=== PATIENT | male | born 1935 | race Caucasian/White ===

== ENCOUNTER → 2016-11-23 | Outpatient (CLI) | payer BC ==
[~2016-11-23] MED LIST: ASPEC325 PO; ASPI325T39 PO; CHOL1000 PO; CLOP1TAB5 PO; LPT40 PO; METO25TA56 PO; MULT-506 PO; NXM/40 PO; OXYC5TAB PO; PLV75 PO; PRAV20TA PO; PRVC10 PO
--- NOTE | 2016-11-23 14:41 | DIAGNOSTIC IMAGING REPORT ---
L-SPINE MIN 4 VIEWS ROUTINE CLINICAL HISTORY: Lower back pain radiating into lower extremities. Lumbar spine stenosis. COMPARISON: None FINDINGS: There is mild levoscoliosis of the lumbar spine and slight anterolisthesis of L4 and L5. There is no fracture or suspicious lesion. 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 Sacroiliac joints are intact. IMPRESSION: 1. No acute lumbar spine fracture or subluxation. 2. [id number] multilevel degenerative disc disease and facet arthrosis of the lumbar spine. 3. Mild levoscoliosis of the lumbar spine. Electronically signed by: Dylan Alvarez M.D. 11/23/2016 2:38 PM Dictated Date/Time: 11/23/2016 2:37 PM
== END | disposition home or self-care (01) ==
LOC: C.RAD 13:41
PROVIDERS: ATTEND Family Medicine
DX: M48.06 Spinal stenosis, lumbar region (principal)

== ENCOUNTER 2017-01-06 11:33 | Inpatient (IN) | payer BC, OTHER ==
[~2017-01-06] VITALS: Ht 180.3 cm; Wt 69.9 kg
[~2017-01-06 11:33] MED LIST changes: -ASPI325T39 PO; -CHOL1000 PO; -CLOP1TAB5 PO; -LPT40 PO; -PLV75 PO; -PRVC10 PO
[2017-01-06] MEDS ORDERED: ASPI325T39 PO (12:09)
[2017-01-06] MEDS ORDERED: CHOL1000 PO (12:10)
[2017-01-06] MEDS ORDERED: SODIUM CHLORIDE 0.9% 1000ML 1,000 ML IV STA (12:26)
[2017-01-06] MEDS ORDERED: MECLIZINE HCL 25 MG TAB PO STA (12:26)
[2017-01-06] MEDS ORDERED: METOCLOPRAMIDE HCL INJ 5 MG/ML 2 ML VIAL IV STA (12:26)
[2017-01-06] MEDS ORDERED: PRVC10 PO (12:27)
--- NOTE | 2017-01-06 12:27 | EMERGENCY ROOM VISIT NOTE ---
History Report prepared by Júnior: Jennifer Fowler Under the Supervision of: Dr. Sammy Messer M.D. First contact with patient: 12:08 Chief Complaint: SYNCOPE (NEAR SYNCOPE) Stated Complaint: GENERALIZED WEAKNESS Nursing Triage Summary: Patient experienced an episode of syncope this date, which he has a history of. This episode started as dizziness. patient then sat on ground, syncopized, resulting in him to hit his head off of washer in front of him. Negative lacerations/abrasions. Patient reported as having emesis X 2 prior to EMS arrival. Patient given NSS 500 ml bolus, and zofran 4 mg IVP by EMS. Patient c/c of "just feeling tired and week." History of Present Illness The patient is a 81 year old male who presents to the Emergency Room with complaints of an episode of syncope beginning 2 hours ago. The patient states that he ate breakfast this morning and was feeling dizzy afterwards but thought it would go away. He reports that it did not go away and he felt as though he might pass out so he sat on a bench before he lost consciousness and hit his head on a washer. He complains of vomiting, weakness, constant dizziness, numbness across his body, and a right sided headache where he hit his head. He denies taking any blood thinners and states that nothing makes his dizziness better or worse. The patient notes that he has a history of this kind of dizziness but it went away before. He reports that he saw his doctor for the dizziness and also sees a facility designer and got a replacement valve in 8 years ago. He states that he takes Aspirin and Metoprolol but notes that he did not take them this morning. Source of History: patient Onset: 2 hours ago Position: other (global) Quality: other (syncope) Timing: other (episode) Associated Symptoms: + headache, + numbness, + vomiting, + weakness Note: He complains of constant dizziness. Review of Systems See HPI for pertinent positives & negatives. A total of 10 systems reviewed and were otherwise negative. Past Medical & Surgical Medical Problems: (1) Hypertension Surgical Problems: (1) Heart valve replaced Family History No pertinent family history stated. Social History Smoking Status: Former Smoker Marital Status: Occupation Status: retired Current/Historical Medications Scheduled Aspirin (Aspirin Ec), 325 MG PO DAILY Cholecalciferol (Vitamin D3), 1 TAB PO BID Pravastatin Sod (Pravastatin Sodium), 1 TAB PO HS Allergies Coded Allergies: Penicillins (Verified Allergy, Intermediate, 01/06/17) Physical Exam Vital Signs Date Time Temp Pulse Resp B/P Pulse Ox O2 Delivery O2 Flow Rate FiO2 01/06/17 14:33 57 11 95 01/06/17 14:03 57 13 95 01/06/17 14:01 121/72 01/06/17 13:33 59 19 01/06/17 13:03 60 19 99 01/06/17 13:02 121/71 01/06/17 12:45 152/74 01/06/17 12:43 60 16 121/68 100 Room Air 60 138/83 73 152/74 01/06/17 12:43 138/83 01/06/17 12:42 121/68 01/06/17 12:36 59 20 133/78 100 Room Air 01/06/17 12:35 100 Room Air 01/06/17 12:33 61 19 01/06/17 12:33 60 01/06/17 12:31 133/78 01/06/17 12:03 57 17 100 01/06/17 11:44 36.4 65 18 132/80 98 Room Air 01/06/17 11:44 36.4 01/06/17 11:44 99 Room Air 01/06/17 11:41 132/80 Physical Exam GENERAL: Patient is a healthy-appearing well-nourished HEAD: Normocephalic atraumatic EYES: Ocular movements intact pupils equal and react to light OROPHARYNX mucous membranes are moist no exudates present no erythema or edema present NECK: Supple no nuchal rigidity CHEST: Good equal expansion LUNGS: Clear and equal to auscultation CARDIAC: Normal S1 and S2 ABDOMEN: Soft nontender no guarding BACK: No CVA tenderness EXTREMITIES: No pain upon palpation normal muscle strength in all groups no clubbing cyanosis or edema NEURO: Patient is following commands is answering questions appropriately. Alert and oriented x3 Cranial Nerves 2-12 grossly intact Medical Decision & Procedures ER Provider Diagnostic Interpretation: Radiology results as stated below per my review and radiologist interpretation: CHEST ONE VIEW PORTABLE FINDINGS: Prior median sternotomy. Lungs are clear. Diaphragms are smooth. There are no focal infiltrates. IMPRESSION: No acute process. Electronically signed by: John Davidson M.D. 01/06/2017 1:14 PM Dictated Date/Time: 01/06/2017 1:13 PM HEAD CTA FINDINGS: There is no mass, hematoma, midline shift, or acute infarct. Visualized intracranial internal carotid arteries, distal vertebral arteries, and basilar artery are widely patent. There is no significant stenosis, occlusion, or aneurysm seen within the bilateral ACAs, MCAs, or bobbin presser. Severely hypoplastic distal right vertebral artery. Multiple large partially calcified scalp lesions. Dominant lesion measures 4.2 cm. Lacunar infarct within the right thalamus. A few scattered hypodense foci seen within the periventricular white matter which favor mild compression ischemic change. IMPRESSION: No significant stenosis, occlusion, or aneurysm within the [place]. Partially calcified scalp lesions. Electronically signed by: Mushtaq Erazo M.D. 01/06/2017 2:03 PM Dictated Date/Time: 01/06/2017 1:[address] NONCONTRAST Findings: The paranasal sinuses and mastoid air cells are clear. The calvarium and skull base are intact. The ventricles and sulci are within normal limits. There is no mass, hematoma, midline shift, or acute infarct. Extracranial soft tissue lipomas. Impression: No acute intracranial abnormality. Electronically signed by: John Davidson M.D. 01/06/2017 1:33 PM Dictated Date/Time: 01/06/2017 1:31 PM Laboratory Results 01/06/17 12:30 Red Blood Count 4.55, Mean Corpuscular Volume 91.9, Mean Corpuscular Hemoglobin 32.1, Mean Corpuscular Hemoglobin Concent 34.9, Mean Platelet Volume 9.1, Neutrophils (%) (Auto) 83.2, Lymphocytes (%) (Auto) 7.5, Monocytes (%) (Auto) 8.3, Eosinophils (%) (Auto) 0.7, Basophils (%) (Auto) 0.1, Neutrophils # (Auto) 11.14, Lymphocytes # (Auto) 1.00, Monocytes # (Auto) 1.11, Eosinophils # (Auto) 0.09, Basophils # (Auto) 0.02 01/06/17 12:30 Test 01/06/17 00:00 01/06/17 12:26 01/06/17 12:30 Urine Color YELLOW Urine Appearance CLEAR (CLEAR) Urine pH >= 9.0 (4.5-7.5) Urine Specific [place] 1.044 (1.000-1.030) Urine Protein NEG (NEG) Urine Glucose (UA) NEG (NEG) Urine Ketones TRACE (NEG) Urine Occult Blood NEG (NEG) Urine Nitrite NEG (NEG) Urine Bilirubin NEG (NEG) Urine Urobilinogen NEG (NEG) Urine Leukocyte Esterase NEG (NEG) Bedside Glucose 100 mg/dl (70-99) White Blood Count 13.39 K/uL (4.8-10.8) Red Blood Count 4.55 M/uL (4.7-6.1) Hemoglobin 14.6 g/dL (14.0-18.0) Hematocrit 41.8 % (42-52) Mean Corpuscular Volume 91.9 fL (80-100) Mean Corpuscular Hemoglobin 32.1 pg (25-34) Mean Corpuscular Hemoglobin Concent 34.9 g/dl (32-36) Platelet Count 148 K/uL (130-400) Mean Platelet Volume 9.1 fL (7.4-10.4) Neutrophils (%) (Auto) 83.2 % Lymphocytes (%) (Auto) 7.5 % Monocytes (%) (Auto) 8.3 % Eosinophils (%) (Auto) 0.7 % Basophils (%) (Auto) 0.1 % Neutrophils # (Auto) 11.14 K/uL (1.4-6.5) Lymphocytes # (Auto) 1.00 K/uL (1.2-3.4) Monocytes # (Auto) 1.11 K/uL (0.11-0.59) Eosinophils # (Auto) 0.09 K/uL (0-0.5) Basophils # (Auto) 0.02 K/uL (0-0.2) RDW Standard Deviation 43.1 fL (36.4-46.3) RDW Coefficient of Variation 12.9 % (11.5-14.5) Immature Granulocyte % (Auto) 0.2 % Immature Granulocyte # (Auto) 0.03 K/uL (0.00-0.02) Anion Gap 8.0 mmol/L (3-11) Est Creatinine Clear Calc Drug Dose 66.3 ml/min Estimated GFR () 88.9 Estimated GFR (Non- 76.7 BUN/Creatinine Ratio 14.2 (10-20) Calcium Level 8.8 mg/dl (8.5-10.1) Total Bilirubin 0.8 mg/dl (0.2-1) Direct Bilirubin 0.2 mg/dl (0-0.2) Aspartate Amino Transf (AST/SGOT) 26 U/L (15-37) Alanine Aminotransferase (ALT/SGPT) 32 U/L (12-78) Alkaline Phosphatase 75 U/L (45-117) Total Creatine Kinase 241 U/L (39-308) Creatine Kinase MB 8.6 ng/ml (0.5-3.6) Creatine Kinase MB Ratio 3.6 (0-3.0) Troponin I < 0.015 ng/ml (0-0.045) Total Protein 6.8 gm/dl (6.4-8.2) Albumin 3.9 gm/dl (3.4-5.0) Triglycerides Level 67 mg/dl (0-150) Cholesterol Level 154 mg/dl (0-200) HDL Cholesterol 44 mg/dl LDL Cholesterol, Calculated 97 mg/dl VLDL Cholesterol, Calculated 13 mg/dl Cholesterol/HDL Ratio 3.5 Thyroid Stimulating Hormone (TSH) 1.560 uIu/ml (0.300-4.500) Labs reviewed by ED physician. Medications Administered Medications (Trade) Dose Ordered Sig/Jamie Route Start Time Stop Time Status Last Admin Dose Admin Sodium Chloride (Nss 1000ml) 1,000 ml @ 999 mls/hr Q1H1M STAT IV 01/06/17 12:26 01/06/17 13:26 DC 01/06/17 12:50 999 MLS/HR Meclizine HCl (Antivert Tab) 25 mg NOW STAT PO 01/06/17 12:26 01/06/17 12:30 DC 01/06/17 13:27 25 MG Metoclopramide HCl (Reglan Inj) 10 mg NOW STAT IV 01/06/17 12:26 01/06/17 12:30 DC 01/06/17 12:50 10 MG ECG Indication: syncope Rate (beats per minute): 58 Rhythm: sinus bradycardia Findings: LAFB, no acute ischemic change, no ectopy Comparison ECG Date: 07/01/13 Change: no significant change ED Course 1208: Past medical records reviewed. The patient was evaluated in room C4. A complete history and physical examination was performed. 1226: Reglan Inj 10mg IV, Antivert Tab 25mg PO, Sodium Chloride 1000 ml @ 999 mls/hr IV. 1431: I discussed the patient's case with Dr. Escudero of [facility], he has agreed to evaluate the patient for further management and care. 1442: Upon reexamination the patient is doing well. I discussed results and treatment plan with the patient. He verbalizes agreement and understanding. I spoke with Dr. Escudero from the [facility] Hospitalist Service. The patient will be evaluated for further management. Medical Decision Differential diagnosis: Etiologies such as metabolic, infection, hypo/hyperglycemia, electrolyte abnormalities, cardiac sources, intracerebral event, toxicologic, neurologic, as well as others were entertained. This is an 81-year-old male who presents emergency department complaining of generalized dizziness. The patient had sudden onset of dizziness today and is still complaining of dizziness. He then had a syncopal episode. Patient reports she has had dizzy episodes in the past however nothing this severe. He was given meclizine in the emergency department with no relief of symptoms. Based on the patient's past medical history as well as his current complaint he was sent for CAT scan of the head along with a CTA. This was concerning for an old lacunar infarct. I did discuss the patient with the hospitalist service who agreed to admit the patient. Patient and family were in agreement with the treatment plan. Consults Time Called: 1426 Consulting Physician: Dr. Escudero - [facility] Returned Call: [phone] I discussed the patient's case with Dr. Escudero, he has agreed to evaluate the patient for further management and care. Impression Primary Impression: Syncope Additional Impression: Dizziness Scribe Attestation The scribe's documentation has been prepared under my direction and personally reviewed by me in its entirety. I confirm that the note above accurately reflects all work, treatment, procedures, and medical decision making performed by me. Departure Information Dispostion Being Evaluated By Hospitalist Referrals Anju Gonzalez M.D. (PCP) Patient Instructions My [facility] Problem Qualifiers Primary Impression: Syncope Syncope type: unspecified Qualified Codes: R55 - Syncope and collapse
[2017-01-06 12:38] LABS: BASO % 0.1 %; BASO ABS # 0.02 K/uL (0-0.2); COMPLETE YES; EOS % 0.7 %; HEMATOCRIT 41.8 % (42-52); IG% 0.2 %; LYMPH % 7.5 %; MEAN CELL VOLUME 91.9 fL (80-100); MEAN CORPUSCULAR HEMOGLOBIN 32.1 pg (25-34); MEAN CORPUSCULAR HGB CONC 34.9 g/dl (32-36); MEAN PLATELET VOLUME 9.1 fL (7.4-10.4); MONO % 8.3 %; NEUT % 83.2 %; PLATELET COUNT 148 K/uL (130-400); RED BLOOD COUNT 4.55 M/uL (4.7-6.1); WHITE BLOOD COUNT 13.39 K/uL (4.8-10.8)
[2017-01-06] MEDS ORDERED: OPTIRAY 320 IV PRN (12:45)
[2017-01-06 12:57] LABS: ALT/SGPT 32 U/L (12-78); AST/SGOT 26 U/L (15-37); BLOOD UREA NITROGEN 13 mg/dl (7-18); BUN/CREATININE RATIO 14.2 (10-20); CALCIUM 8.8 mg/dl (8.5-10.1); CARBON DIOXIDE 27 mmol/L (21-32); CHLORIDE 109 mmol/L (98-107); CREATININE 0.93 mg/dl (0.60-1.40); GLUCOSE 111 mg/dl (70-99); POTASSIUM 4.2 mmol/L (3.5-5.1); SODIUM 144 mmol/L (136-145)
[2017-01-06 13:07] LABS: ALKALINE PHOSPHATASE 75 U/L (45-117); CKMB/CK RATIO 3.6 (0-3.0)
--- NOTE | 2017-01-06 13:16 | DIAGNOSTIC IMAGING REPORT ---
CHEST ONE VIEW PORTABLE CLINICAL HISTORY: Pt c/o dizziness mental status change COMPARISON STUDY: 06/27/2013 FINDINGS: Prior median sternotomy. Lungs are clear. Diaphragms are smooth. There are no focal infiltrates. IMPRESSION: No acute process. Electronically signed by: John Davidson M.D. 01/06/2017 1:14 PM Dictated Date/Time: 01/06/2017 1:13 PM
--- NOTE | 2017-01-06 13:35 | DIAGNOSTIC IMAGING REPORT ---
HEAD CT NONCONTRAST CT DOSE: HISTORY: Mental status change Pt c/o dizziness TECHNIQUE: Multiaxial CT images of the head were performed without the use of intravenous contrast. Comparison: None. Findings: The paranasal sinuses and mastoid air cells are clear. The calvarium and skull base are intact. The ventricles and sulci are within normal limits. There is no mass, hematoma, midline shift, or acute infarct. Extracranial soft tissue lipomas. Impression: No acute intracranial abnormality. Electronically signed by: John Davidson M.D. 01/06/2017 1:33 PM Dictated Date/Time: 01/06/2017 1:31 PM
--- NOTE | 2017-01-06 14:04 | DIAGNOSTIC IMAGING REPORT ---
HEAD CTA HISTORY: Dizziness. Weakness. TECHNIQUE: Multiaxial CT images of the head were performed both before and after the intravenous administration of contrast to evaluate the major cerebral vessels. Maximum intensity projection images were also obtained. COMPARISON: None. FINDINGS: There is no mass, hematoma, midline shift, or acute infarct. Visualized intracranial internal carotid arteries, distal vertebral arteries, and basilar artery are widely patent. There is no significant stenosis, occlusion, or aneurysm seen within the bilateral ACAs, MCAs, or forklift technician. Severely hypoplastic distal right vertebral artery. Multiple large partially calcified scalp lesions. Dominant lesion measures 4.2 cm. Lacunar infarct within the right thalamus. A few scattered hypodense foci seen within the periventricular white matter which favor mild compression ischemic change. IMPRESSION: No significant stenosis, occlusion, or aneurysm within the [place]. Partially calcified scalp lesions. Electronically signed by: Mushtaq Erazo M.D. 01/06/2017 2:03 PM Dictated Date/Time: 01/06/2017 1:54 PM
[2017-01-06] MEDS ORDERED: ONDANSETRON INJ 2 MG/ML 2 ML VIAL IV PRN (15:15)
[2017-01-06] MEDS ORDERED: ALUMINUM/MAGNESIUM/SIMETH (MAALOX MAX) 30 ML UDC PO PRN (15:15)
[2017-01-06] MEDS ORDERED: ACETAMINOPHEN 325 MG TAB PO PRN (15:15)
[2017-01-06 15:19] LABS: URINE APPEARANCE CLEAR (CLEAR); URINE BILIRUBIN NEG (NEG); URINE COLOR YELLOW; URINE NITRITE NEG (NEG); URINE PH >= 9.0 (4.5-7.5); URINE SPECIFIC GRAVITY 1.044 (1.000-1.030); UROBILINOGEN NEG (NEG)
[2017-01-06 15:22] LABS: MANUAL MICROSCOPIC REQUIRED? NO; REVIEW REQ? NO
--- NOTE | 2017-01-06 15:30 | History and Physical ---
History & Physical Date & Time of Service: January 06, 2017 at 15:18 Chief Complaint: Generalized Weakness Primary Care Physician: Anju Gonzalez M.D. History of Present Illness Source: patient The patient is a 81 yo male who presents to the ER with complaints of an episode of ? syncope beginning this AM. Pt reports feeling increasingly dizzy since this AM. He denies any vertigo, sob, fevers, chills, chest pain. reports that he was able to sit on a bench and that he did lean over and strike his head on the washer. Patient and family unsure of whether he actually passed out. Pt reports dizziness improved upon arrival to ER. Pt does note having some congestion and headache for past few days as well. pt has hx of AVR about 8 yrs ago in which he routinely follows up with Dr Dyson for evaluation. . Past Medical/Surgical History Medical Problems: (1) Hypertension Status: Chronic Surgical Problems: (1) Heart valve replaced Status: Resolved Social History Smoking Status: Former Smoker Smokeless Tobacco Use: No Drug Use: none Marital Status: Occupational Status: retired Immunizations History of Influenza Vaccine: Yes Influenza Vaccine Date: Jun 04, 2009 History of Tetanus Vaccine?: Yes Tetanus Immunization Date: Dec 04, 1999 History of Pneumococcal: Yes Pneumococcal Date: Sep 04, 1999 History of Hepatitis B Vaccine: Yes Multi-Drug Resistant Organisms History of MDRO: No Allergies Coded Allergies: Penicillins (Verified Allergy, Intermediate, 01/06/17) Home Medications Scheduled Aspirin (Aspirin Ec), 325 MG PO DAILY Cholecalciferol (Vitamin D3), 1 TAB PO BID Pravastatin Sod (Pravastatin Sodium), 1 TAB PO HS Review of Systems Constitutional: + fatigue, No chills, No fever, No weakness Eyes: No eye pain, No worsening of vision ENT: + nasal symptoms, No hearing loss, No sore throat, No tinnitus, No unusual epistaxis Respiratory: No cough, No sputum, No wheezing Cardiovascular: No chest pain, No orthopnea Abdomen: No diarrhea, No nausea, No pain, No vomiting Musculoskeletal: No joint pain, No muscle pain, No swelling Genitourinary - Male: No dysuria, No hematuria, No urinary frequency, No urinary urgency Neurologic: + numbness/tingling (bilateral feet), No paralysis Psychiatric: No anxiety, No depression symptoms Endocrine: No excessive thirst, No fatigue Integumentary: No itch, No rash Physical Exam Vital Signs Date Time Temp Pulse Resp B/P Pulse Ox O2 Delivery O2 Flow Rate FiO2 01/06/17 14:33 57 11 95 01/06/17 14:03 57 13 95 01/06/17 14:01 121/72 01/06/17 13:33 59 19 01/06/17 13:03 60 19 99 01/06/17 13:02 121/71 01/06/17 12:45 152/74 01/06/17 12:43 60 16 121/68 100 Room Air 60 138/83 73 152/74 01/06/17 12:43 138/83 01/06/17 12:42 121/68 01/06/17 12:36 59 20 133/78 100 Room Air 01/06/17 12:35 100 Room Air 01/06/17 12:33 61 19 01/06/17 12:33 60 01/06/17 12:31 133/78 01/06/17 12:03 57 17 100 01/06/17 11:44 36.4 65 18 132/80 98 Room Air 01/06/17 11:44 36.4 01/06/17 11:44 99 Room Air 01/06/17 11:41 132/80 General Appearance: WD/WN, no apparent distress Head: normocephalic, atraumatic Eyes: normal inspection, PERRL, EOMI Neck: supple, no adenopathy Respiratory/Chest: chest non-tender, lungs clear, normal breath sounds Cardiovascular: regular rate, rhythm, no edema, no gallop, no JVD Abdomen/GI: normal bowel sounds, non tender, soft, no organomegaly Back: normal inspection, no CVA tenderness, no muscle spasm, normal range of motion Extremities/Musculoskelatal: normal inspection, normal capillary refill, no pedal edema, normal range of motion Neurologic/Psych: alert, normal mood/affect, normal reflexes, oriented x 3 Skin: normal color, warm/dry, no rash Diagnostics Laboratory Results Results Past 24 Hours Test 01/06/17 00:00 01/06/17 12:26 01/06/17 12:30 Range/Units Bedside Glucose 100 70-99 mg/dl White Blood Count 13.39 4.8-10.8 K/uL Red Blood Count 4.55 4.7-6.1 M/uL Hemoglobin 14.6 14.0-18.0 g/dL Hematocrit 41.8 42-52 % Mean Corpuscular Volume 91.9 80-100 fL Mean Corpuscular Hemoglobin 32.1 25-34 pg Mean Corpuscular Hemoglobin Concent 34.9 32-36 g/dl Platelet Count 148 130-400 K/uL Mean Platelet Volume 9.1 7.4-10.4 fL Neutrophils (%) (Auto) 83.2 % Lymphocytes (%) (Auto) 7.5 % Monocytes (%) (Auto) 8.3 % Eosinophils (%) (Auto) 0.7 % Basophils (%) (Auto) 0.1 % Neutrophils # (Auto) 11.14 1.4-6.5 K/uL Lymphocytes # (Auto) 1.00 1.2-3.4 K/uL Monocytes # (Auto) 1.11 0.11-0.59 K/uL Eosinophils # (Auto) 0.09 0-0.5 K/uL Basophils # (Auto) 0.02 0-0.2 K/uL RDW Standard Deviation 43.1 36.4-46.3 fL RDW Coefficient of Variation 12.9 11.5-14.5 % Immature Granulocyte % (Auto) 0.2 % Immature Granulocyte # (Auto) 0.03 0.00-0.02 K/uL Sodium Level 144 136-145 mmol/L Potassium Level 4.2 3.5-5.1 mmol/L Chloride Level 109 98-107 mmol/L Carbon Dioxide Level 27 21-32 mmol/L Anion Gap 8.0 3-11 mmol/L Blood Urea Nitrogen 13 7-18 mg/dl Creatinine 0.93 0.60-1.40 mg/dl Est Creatinine Clear Calc Drug Dose 66.3 ml/min Estimated GFR () 88.9 Estimated GFR (Non- 76.7 BUN/Creatinine Ratio 14.2 10-20 Random Glucose 111 70-99 mg/dl Calcium Level 8.8 8.5-10.1 mg/dl Total Bilirubin 0.8 0.2-1 mg/dl Direct Bilirubin 0.2 0-0.2 mg/dl Aspartate Amino Transf (AST/SGOT) 26 15-37 U/L Alanine Aminotransferase (ALT/SGPT) 32 12-78 U/L Alkaline Phosphatase 75 45-117 U/L Total Creatine Kinase 241 39-308 U/L Creatine Kinase MB 8.6 0.5-3.6 ng/ml Creatine Kinase MB Ratio 3.6 0-3.0 Troponin I < 0.015 0-0.045 ng/ml Total Protein 6.8 6.4-8.2 gm/dl Albumin 3.9 3.4-5.0 gm/dl Thyroid Stimulating Hormone (TSH) 1.560 0.300-4.500 uIu/ml Impression Assessment and Plan Pt is a 81 yo male with hx of AVR 8 yrs ago, dyslipidemia and vitamin D def who presents with increasing dizziness and ?syncopal episode that started earlier this AM Dizziness with ?syncope, due to hx of AVR, will cont to trend trops and cont on BB when pulse in appropriate range. Will obtain ECHO as well. Pt reports improvement in sx already. 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 Will obtain MRI/MRA to further evaluate. No hemorrhage visualized on CT head. ?if dizziness also from allergies vs sinus issues. If worsening can reevaluate. Orthostatics unremarkable. Will obtain HgA1c and lipid panel. PT/OT consulted Dyslipidemia - Cont statin Pt is FULL CODE VTE Prophylaxis VTE Risk Assessment Done? Y/N: Yes Risk Level: Moderate
[2017-01-06 16:47] LABS: CHOLESTEROL/HDL RATIO 3.5
[2017-01-06 17:20] VITALS: BP 146/76; PULSE 64; TEMP 36.9; O2SAT 99; Ht 180.3 cm; Wt 69.9 kg
[2017-01-06 19:11] LABS: INR 1.1 (0.9-1.1); PROTHROMBIN TIME (PATIENT) 11.5 SECONDS (9.0-12.0)
[2017-01-06 19:27] VITALS: BP_SYST 124; BP_SYST 138; BP_SYST 161; BP_DIAS 67; BP_DIAS 80; BP_DIAS 83; PULSE 64; PULSE 65; PULSE 76; TEMP 36.9; O2SAT 96
[2017-01-06] MEDS ORDERED: GADAVIST IV PRN (22:45)
[2017-01-06] MEDS: HEPARIN SOD 5000 UNIT/0.5 ML CARP SQ SCH (22:54)
[2017-01-06 22:59] VITALS: BP_SYST 140; BP_SYST 142; BP_DIAS 78; BP_DIAS 80; BP_DIAS 82; PULSE 64; PULSE 71; PULSE 73; TEMP 36.8; O2SAT 95
--- NOTE | 2017-01-06 23:15 | DIAGNOSTIC IMAGING REPORT ---
MRA OF THE NECK WITH AND WITHOUT CONTRAST CLINICAL HISTORY: Syncope. Dizziness. COMPARISON STUDY: Carotid ultrasound May 01, 2010. TECHNIQUE: Unenhanced and contrast-enhanced MRA of the neck was performed. Injection of 7.6 mL of Gadavist IV was uneventful. NASCET criteria were utilized to estimate the degree of carotid stenosis. FINDINGS: The bilateral common carotid and internal carotid arteries are patent. There is mild irregularity within the proximal right internal carotid artery without significant stenosis. The left vertebral artery is dominant and patent. The right vertebral artery is hypoplastic. This vessel is suboptimally assessed due to its small size and mild motion artifact. There is no evidence for dissection within the major vasculature of the neck. IMPRESSION: 1. No significant stenosis of the bilateral internal carotid and common carotid arteries. 2. Patent, dominant left vertebral artery with diminutive, hypoplastic right vertebral artery. Electronically signed by: Dylan Alvarez M.D. 01/06/2017 11:14 PM Dictated Date/Time: 01/06/2017 11:08 PM
--- NOTE | 2017-01-06 23:16 | DIAGNOSTIC IMAGING REPORT ---
MRI OF THE BRAIN WITHOUT AND WITH IV CONTRAST CLINICAL HISTORY: Syncope. Dizziness. Weakness. COMPARISON STUDY: Head CT and CTA of the head performed earlier today. TECHNIQUE: Utilizing a 1.5 Charlene magnet and dedicated coil, multiplanar, multiecho imaging of the brain was performed pre and postcontrast administration. IV administration of 7.6 mL of Gadavist contrast was uneventful. FINDINGS: There is a moderate-sized focus of restricted diffusion within the inferior aspect of the right cerebellar hemisphere consistent with an acute infarct. There is no evidence of hemorrhagic conversion. Mild cytotoxic edema is present. There is minimal mass effect. Ventricular system is unremarkable. Basilar cisterns are patent. There are no extra-axial collections. No intracranial mass or pathologic enhancement is identified. Scattered white matter T2 hyperintense foci suggest small vessel disease. Multiple large nonenhancing scalp lesions measure up to 4.1 cm and likely reflect sebaceous cysts. IMPRESSION: Moderate size focus of restricted diffusion within the inferior right cerebellar hemisphere consistent with acute right PICA distribution infarct. No significant mass effect. No hemorrhage. Discussed with Dr. Méndez at time of dictation. Electronically signed by: Dylan Alvarez M.D. 01/06/2017 11:15 PM Dictated Date/Time: 01/06/2017 10:56 PM
[2017-01-07] VITALS (7 sets, daily range): BP systolic 110–154; BP diastolic 62–83; PULSE 56–64; TEMP 36.8–37; O2SAT 96–99
[2017-01-07] MEDS: HEPARIN SOD 5000 UNIT/0.5 ML CARP SQ SCH ×3 (05:53→21:56)
[2017-01-07 06:21] LABS: ESTIMATED AVERAGE GLUCOSE 105 mg/dl; HA1C FLAG Normal (Normal)
--- NOTE | 2017-01-07 09:38 | Neurology Consultation ---
Neurology Consultation Date of Consultation: January 07, 2017. Attending Physician: Nik Escudero D.O. Primary Care Physician: Anju Gonzalez M.D. 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 Continues to c/o mild headache and dizziness, also feeling of generalized weakness. Denies numbness, vision change, or change in speech. PMH notable for heart valve replacement, HTN, takes ASA and a statin Brain MRI reveals an acute right cerebellar infarct, PICA territory, images reviewed MRA neck reveals a diminutive right vertebral artery ECG, sinus sd, 58 bpm Past Medical/Surgical History Medical Problems: (1) Dizziness Status: Acute (2) Syncope Status: Acute Family History non contributory given advanced age Social History Smoking Status: Former smoker Smokeless Tobacco Use: No Drug Use: none Marital Status: Occupation Status: retired Allergies Coded Allergies: Penicillins (Verified Allergy, Intermediate, 01/06/17) Current Inpatient Medications Current Inpatient Medications Medications (Trade) Dose Ordered Sig/Jamie Route Start Time Stop Time Status Last Admin Dose Admin Ioversol (Optiray 320) 125 ml UD PRN IV 01/06/17 12:45 01/10/17 12:44 Heparin Sodium (Porcine) (Heparin Sq 5000 Unit/0.5ml) 5,000 unit Q8 SQ 01/06/17 22:00 02/05/17 21:59 01/07/17 05:53 5,000 UNIT Acetaminophen (Tylenol Tab) 650 mg Q4H PRN PO 01/06/17 15:15 02/05/17 15:14 Al Hydrox/Mg Hydrox/Simethicone (Maalox Max Susp) 15 ml Q4H PRN PO 01/06/17 15:15 02/05/17 15:14 Ondansetron HCl (Zofran Inj) 4 mg Q6H PRN IV 01/06/17 15:15 02/05/17 15:14 Gadobutrol (Gadavist) 7.6 mmol UD PRN IV 01/06/17 22:45 01/10/17 22:44 Aspirin (Aspirin Chew) 81 mg DAILY PO 01/07/17 09:00 02/06/17 08:59 UNV Atorvastatin Calcium (Lipitor Tab) 40 mg QAM PO 01/07/17 09:00 02/06/17 08:59 UNV Review of Systems A full 10 point review of systems was obtained in this patient with pertinent positives and negatives described in the history of present illness. All other systems reviewed and are negative. Physical Exam Vital Signs (Past 24 Hrs): Date Time Temp Pulse Resp B/P Pulse Ox O2 Delivery O2 Flow Rate FiO2 01/07/17 08:00 Room Air 01/07/17 07:50 37.0 64 20 146/81 97 Room Air 01/07/17 04:00 Room Air 01/07/17 03:15 36.8 62 18 149/83 97 Room Air 01/07/17 00:01 Room Air 01/06/17 22:59 36.8 64 19 142/78 95 Room Air 71 142/82 73 140/80 01/06/17 20:03 Room Air 01/06/17 19:27 36.9 64 18 124/67 96 Room Air 76 161/83 65 138/80 01/06/17 17:20 36.9 64 18 146/76 99 Room Air 01/06/17 16:33 64 18 108/68 97 01/06/17 14:33 57 11 95 01/06/17 14:03 57 13 95 01/06/17 14:01 121/72 01/06/17 13:33 59 19 01/06/17 13:03 60 19 99 01/06/17 13:02 121/71 01/06/17 12:45 152/74 01/06/17 12:43 60 16 121/68 100 Room Air 60 138/83 73 152/74 01/06/17 12:43 138/83 01/06/17 12:42 121/68 01/06/17 12:36 59 20 133/78 100 Room Air 01/06/17 12:35 100 Room Air 01/06/17 12:33 61 19 01/06/17 12:33 60 01/06/17 12:31 133/78 01/06/17 12:03 57 17 100 01/06/17 11:44 36.4 65 18 132/80 98 Room Air 01/06/17 11:44 36.4 01/06/17 11:44 99 Room Air 01/06/17 11:41 132/80 The patient is a well-developed elderly male, lying comfortably in bed, at bedside, no acute distress. He is alert and oriented to person place and time. Attention and concentration normal. Recent and remote memory intact. He is able to name objects and repeat phrases without difficulty. Gen. fund of knowledge and vocabulary normal. Visual michele full to confrontation. Visual acuity normal. He was equal round reactive to light and accommodation. Eye movements intact. No nystagmus. Facial sensation intact bilaterally. There is normal facial strength and symmetry. Palate elevates to midline. Tongue protrudes to midline. Shoulder shrug strength intact. Hearing intact bilaterally. Sensation intact to light touch, temperature, vibration, and proprioception for all 4 limbs. Deep tendon reflexes are 2+ for the arms and legs bilaterally. Plantar responses downgoing bilaterally. There is no dysmetria with finger to nose bilaterally. There is perhaps slight dysmetria with heel to cobb on the right. Heel to cobb for the left normal. Ophthalmoscopic examination reveals normal- appearing optic nerves and posterior elements. No papilledema or hemorrhages. Carotid pulses normal bilaterally, no bruits to auscultation. Musculoskeletal examination reveals normal strength and tone for all 4 limbs proximally and distally. No hemiparesis or monoparesis. There is no atrophy. No abnormal movements appreciated. Gait and station not tested due to safety concerns. no ataxia, dysarthria, weakness or sensory loss on examination Laboratory Results Past 24 Hours: Test 01/06/17 12:26 01/06/17 12:30 01/07/17 06:00 Bedside Glucose 100 mg/dl (70-99) RDW Standard Deviation 43.1 fL (36.4-46.3) RDW Coefficient of Variation 12.9 % (11.5-14.5) White Blood Count 13.39 K/uL (4.8-10.8) Red Blood Count 4.55 M/uL (4.7-6.1) Hemoglobin 14.6 g/dL (14.0-18.0) Hematocrit 41.8 % (42-52) Mean Corpuscular Volume 91.9 fL (80-100) Mean Corpuscular Hemoglobin 32.1 pg (25-34) Mean Corpuscular Hemoglobin Concent 34.9 g/dl (32-36) Platelet Count 148 K/uL (130-400) Mean Platelet Volume 9.1 fL (7.4-10.4) Neutrophils (%) (Auto) 83.2 % Lymphocytes (%) (Auto) 7.5 % Monocytes (%) (Auto) 8.3 % Eosinophils (%) (Auto) 0.7 % Basophils (%) (Auto) 0.1 % Neutrophils # (Auto) 11.14 K/uL (1.4-6.5) Lymphocytes # (Auto) 1.00 K/uL (1.2-3.4) Monocytes # (Auto) 1.11 K/uL (0.11-0.59) Eosinophils # (Auto) 0.09 K/uL (0-0.5) Basophils # (Auto) 0.02 K/uL (0-0.2) Immature Granulocyte % (Auto) 0.2 % Immature Granulocyte # (Auto) 0.03 K/uL (0.00-0.02) Prothrombin Time 11.5 SECONDS (9.0-12.0) Prothromb Time International Ratio 1.1 (0.9-1.1) Est Creatinine Clear Calc Drug Dose 66.3 ml/min Estimated Average Glucose 105 mg/dl Hemoglobin A1c 5.3 % (4.5-5.6) Total Bilirubin 0.8 mg/dl (0.2-1) Direct Bilirubin 0.2 mg/dl (0-0.2) Aspartate Amino Transf (AST/SGOT) 26 U/L (15-37) Alanine Aminotransferase (ALT/SGPT) 32 U/L (12-78) Alkaline Phosphatase 75 U/L (45-117) Total Creatine Kinase 241 U/L (39-308) Creatine Kinase MB 8.6 ng/ml (0.5-3.6) Creatine Kinase MB Ratio 3.6 (0-3.0) Total Protein 6.8 gm/dl (6.4-8.2) Albumin 3.9 gm/dl (3.4-5.0) Triglycerides Level 67 mg/dl (0-150) Cholesterol Level 154 mg/dl (0-200) HDL Cholesterol 44 mg/dl LDL Cholesterol, Calculated 97 mg/dl VLDL Cholesterol, Calculated 13 mg/dl Cholesterol/HDL Ratio 3.5 Thyroid Stimulating Hormone (TSH) 1.560 uIu/ml (0.300-4.500) Impression Acute right cerebellar stroke, right PICA territory, no evidence of brainstem infarct, persistent mild headache and dizziness, does not have limb ataxia Plan would recommend Plavix 75 mg per day instead of ASA PT/OT no further recs
[2017-01-07 10:24] LABS: BASO % 0.1 %; BASO ABS # 0.01 K/uL (0-0.2); COMPLETE YES; EOS % 0.6 %; HEMATOCRIT 43.1 % (42-52); IG% 0.2 %; LYMPH % 11.6 %; LYMPH ABS # 1.03 K/uL (1.2-3.4); MEAN CELL VOLUME 92.7 fL (80-100); MEAN CORPUSCULAR HEMOGLOBIN 30.8 pg (25-34); MEAN CORPUSCULAR HGB CONC 33.2 g/dl (32-36); MEAN PLATELET VOLUME 9.1 fL (7.4-10.4); MONO % 8.4 %; NEUT % 79.1 %; PLATELET COUNT 156 K/uL (130-400); RED BLOOD COUNT 4.65 M/uL (4.7-6.1)
[2017-01-07 10:50] LABS: BLOOD UREA NITROGEN 12 mg/dl (7-18); BUN/CREATININE RATIO 12.1 (10-20); CARBON DIOXIDE 27 mmol/L (21-32); CHLORIDE 107 mmol/L (98-107); CREATININE 0.97 mg/dl (0.60-1.40); GLUCOSE 124 mg/dl (70-99); POTASSIUM 3.9 mmol/L (3.5-5.1); SODIUM 141 mmol/L (136-145)
[2017-01-07] MEDS: ATORVASTATIN 40 MG TAB PO SCH (11:56)
--- NOTE | 2017-01-07 12:56 | Progress Note ---
Subjective Date of Service: January 07, 2017. Subjective Pt evaluation today including: conversation w/ patient, conversation w/ family , physical exam, chart review, lab review, review of studies, review of inpatient medication list Pt reports improvement in dizzines States still feeling weak No speech or swallowing issues No acute events overnight Problem List Medical Problems: (1) Dizziness Status: Acute (2) Syncope Status: Acute Review of Systems Constitutional: + fatigue, + weakness, No chills, No fever Eyes: No eye pain, No worsening of vision Respiratory: No cough, No dyspnea on exertion, No shortness of breath, No sputum, No wheezing Cardiac: No PND, No chest pain, No edema, No orthopnea Abdomen: No diarrhea, No nausea, No pain, No vomiting Musculoskeletal: No calf pain, No joint pain, No muscle pain, No swelling Male : No dysuria, No incontinence, No slowing stream, No urinary frequency Neurologic: No memory loss, No numbness/tingling, No paralysis, No weakness Psychiatric: No anhedonism, No anxiety, No depression symptoms, No insomnia Objective Vital Signs Date Time Temp Pulse Resp B/P Pulse Ox O2 Delivery O2 Flow Rate FiO2 01/07/17 12:36 36.8 62 18 154/68 99 Room Air 01/07/17 12:00 Room Air 01/07/17 11:45 37.0 64 20 97 01/07/17 08:00 Room Air 01/07/17 07:50 37.0 64 20 146/81 97 Room Air 01/07/17 04:00 Room Air 01/07/17 03:15 36.8 62 18 149/83 97 Room Air 01/07/17 00:01 Room Air 01/06/17 22:59 36.8 64 19 142/78 95 Room Air 71 142/82 73 140/80 01/06/17 20:03 Room Air 01/06/17 19:27 36.9 64 18 124/67 96 Room Air 76 161/83 65 138/80 01/06/17 17:20 36.9 64 18 146/76 99 Room Air 01/06/17 16:33 64 18 108/68 97 01/06/17 14:33 57 11 95 01/06/17 14:03 57 13 95 01/06/17 14:01 121/72 01/06/17 13:33 59 19 01/06/17 13:03 60 19 99 01/06/17 13:02 121/71 Physical Exam General Appearance: WD/WN, no apparent distress Eyes: normal inspection, PERRL, EOMI, sclerae normal ENT: normal ENT inspection, hearing grossly normal, TMs normal, pharynx normal Neck: supple, no adenopathy, thyroid normal, no JVD Respiratory/Chest: chest non-tender, lungs clear, normal breath sounds, no respiratory distress Cardiovascular: regular rate, rhythm, no edema, no gallop, no JVD Abdomen: normal bowel sounds, non tender, soft, no organomegaly Extremities: normal range of motion, non-tender, normal inspection, no pedal edema Neurologic/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: 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, alert, normal mood/affect, oriented x 3 Laboratory Results Last 24 Hours Test 01/06/17 23:05 01/07/17 10:10 Troponin I < 0.015 ng/ml < 0.015 ng/ml White Blood Count 8.90 K/uL Red Blood Count 4.65 M/uL Hemoglobin 14.3 g/dL Hematocrit 43.1 % Mean Corpuscular Volume 92.7 fL Mean Corpuscular Hemoglobin 30.8 pg Mean Corpuscular Hemoglobin Concent 33.2 g/dl Platelet Count 156 K/uL Mean Platelet Volume 9.1 fL Neutrophils (%) (Auto) 79.1 % Lymphocytes (%) (Auto) 11.6 % Monocytes (%) (Auto) 8.4 % Eosinophils (%) (Auto) 0.6 % Basophils (%) (Auto) 0.1 % Neutrophils # (Auto) 7.04 K/uL Lymphocytes # (Auto) 1.03 K/uL Monocytes # (Auto) 0.75 K/uL Eosinophils # (Auto) 0.05 K/uL Basophils # (Auto) 0.01 K/uL RDW Standard Deviation 44.0 fL RDW Coefficient of Variation 13.0 % Immature Granulocyte % (Auto) 0.2 % Immature Granulocyte # (Auto) 0.02 K/uL Sodium Level 141 mmol/L Potassium Level 3.9 mmol/L Chloride Level 107 mmol/L Carbon Dioxide Level 27 mmol/L Anion Gap 7.0 mmol/L Blood Urea Nitrogen 12 mg/dl Creatinine 0.97 mg/dl Est Creatinine Clear Calc Drug Dose 61.2 ml/min Estimated GFR () 84.5 Estimated GFR (Non- 72.9 BUN/Creatinine Ratio 12.1 Random Glucose 124 mg/dl Calcium Level 9.0 mg/dl Assessment and Plan Pt is a 81 yo male with hx of AVR 8 yrs ago, dyslipidemia and vitamin D def who presents with increasing dizziness and ?syncopal episode that started earlier this AM Dizziness with ?syncope, due to hx of AVR, improving slightly. trops x 3 sets neg Noted sd on monitor. Awaiting ECHO. 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 Will start on 01/07 Physical deconditioning - Await PT/OT, will likely need rehab placement. Dyslipidemia - Cont statin at this time, lipid panel unremarkable Pt is FULL CODE
[2017-01-07] MEDS ORDERED: CLOPIDOGREL BISULFATE 75 MG TAB PO ONE (13:30)
--- NOTE | 2017-01-07 14:14 | ECHOCARDIOGRAM REPORT ---
*NOTICE TO RECEIVING CONSTITUTION PARTY AGENCY This information is strictly Confidential and protected under [place] law. [place] law prohibits you from making any further disclosure of this information unless further disclosure is expressly permitted by the written consent of the person to whom it pertains or is authorized by law. A general authorization for the release of medical or other information is not sufficient for this purpose. Hospital accepts no responsibility if the information is made available to any other person, INCLUDING THE PATIENT. Interpretation Summary * Name: PEG MANJARREZ Study Date: 01/07/2017 07:22 AM BP: 149/83 mmHg * Patient Location: S238 HR: 61 * : 1935 (M/d/yyyy) Gender: Male Height: 71 in * Age: 81 yrs Ethnicity: [place] Weight: 167 lb * Ordering Physician: Nik Escudero * Referring Physician: Self, Referred * Performed By: Anju Lewis RCS * * Reason For Study: SYNCOPE * BSA: 2.0 m2 * -- Conclusions -- * There is moderate concentric left ventricular hypertrophy. * The left ventricular ejection fraction is normal. * Grade I diastolic dysfunction, (abnormal relaxation pattern). * The right atrium is mildly dilated. * There is mild mitral regurgitation. * There is mild tricuspid regurgitation. * Right ventricular systolic pressure is normal. * Mild aortic root dilatation. * There is a bioprosthetic aortic valve. Procedure Details * A complete two-dimensional transthoracic echocardiogram was performed (2D, M-mode, Doppler and color flow Doppler). Left Ventricle * The left ventricle is normal in size. * There is moderate concentric left ventricular hypertrophy. * Ejection Fraction = 55-60%. * The left ventricular ejection fraction is normal. * Grade I diastolic dysfunction, (abnormal relaxation pattern). Right Ventricle * The right ventricle is normal in size and function. Atria * The left atrial size is normal. * The right atrium is mildly dilated. Mitral Valve * The mitral valve anatomy is normal. * There is mild mitral regurgitation. Tricuspid Valve * The tricuspid valve is not well visualized, but is grossly normal. * There is mild tricuspid regurgitation. * Right ventricular systolic pressure is normal. Aortic Valve * There is a bioprosthetic aortic valve. * The gradient is normal for this prosthetic aortic valve. Great Vessels * Mild aortic root dilatation. Pericardium/Pleural * There is no pericardial effusion. Great Vessels * Normal inferior vena cava diameter and respiratory variation suggests normal central venous pressure. MMode 2D Measurements and Calculations IVSd 1.6 cm IVSs 2.0 cm LVIDd 4.3 cm LVIDs 3.0 cm LVPWd 1.4 cm LVPWs 1.9 cm IVS/LVPW 1.1 FS 30.3 % EDV(Teich) 83.6 ml ESV(Teich) 35.1 ml EF(Teich) 57.9 % EDV(cubed) 80.1 ml ESV(cubed) 27.1 ml EF(cubed) 66.1 % % IVS thick 27.5 % % LVPW thick 38.8 % LV mass(C)d 258.5 grams LV mass(C)dI 132.3 grams/m\S\2 LV mass(C)s 261.3 grams LV mass(C)sI 133.8 grams/m\S\2 SV(Teich) 48.4 ml SI(Teich) 24.8 ml/m\S\2 SV(cubed) 53.0 ml SI(cubed) 27.1 ml/m\S\2 Ao root diam 4.0 cm Ao root area 12.5 cm\S\2 LA dimension 3.9 cm LA/Ao 0.96 LVOT diam 2.0 cm LVOT area 3.1 cm\S\2 LVAd ap4 33.7 cm\S\2 LVLd ap4 8.6 cm EDV(MOD-sp4) 110.1 ml EDV(sp4-el) 112.9 ml LVAs ap4 21.0 cm\S\2 LVLs ap4 7.7 cm ESV(MOD-sp4) 47.6 ml ESV(sp4-el) 48.7 ml EF(MOD-sp4) 56.7 % EF(sp4-el) 56.8 % LVAd ap2 35.0 cm\S\2 LVLd ap2 8.8 cm EDV(MOD-sp2) 115.6 ml EDV(sp2-el) 118.5 ml LVAs ap2 23.0 cm\S\2 LVLs ap2 7.6 cm ESV(MOD-sp2) 61.1 ml ESV(sp2-el) 59.0 ml EF(MOD-sp2) 47.1 % EF(sp2-el) 50.2 % LVLd %diff 2.3 % EDV(MOD-bp) 113.7 ml LVLs %diff -0.68 % ESV(MOD-bp) 53.9 ml EF(MOD-bp) 52.6 % SV(MOD-sp4) 62.4 ml SI(MOD-sp4) 32.0 ml/m\S\2 SV(MOD-sp2) 54.5 ml SI(MOD-sp2) 27.9 ml/m\S\2 SV(MOD-bp) 59.9 ml SI(MOD-bp) 30.6 ml/m\S\2 SV(sp4-el) 64.2 ml SI(sp4-el) 32.8 ml/m\S\2 SV(sp2-el) 59.5 ml SI(sp2-el) 30.4 ml/m\S\2 Doppler Measurements and Calculations MV E max corinne 92.2 cm/sec MV A max corinne 57.7 cm/sec MV E/A 1.6 MV dec time 0.24 sec Ao V2 max 185.8 cm/sec Ao max PG 13.8 mmHg Ao max PG (full) 9.8 mmHg Ao V2 mean 128.5 cm/sec Ao mean PG 7.4 mmHg Ao mean PG (full) 5.2 mmHg Ao V2 VTI 41.0 cm GLORY(I,A) 1.8 cm\S\2 GLORY(I,D) 1.8 cm\S\2 GLORY(V,A) 1.7 cm\S\2 GLORY(V,D) 1.7 cm\S\2 LV V1 max PG 4.0 mmHg LV V1 mean PG 2.2 mmHg LV V1 max 100.6 cm/sec LV V1 mean 69.4 cm/sec LV V1 VTI 23.8 cm SV(Ao) 514.8 ml SI(Ao) 263.6 ml/m\S\2 SV(LVOT) 73.1 ml SI(LVOT) 37.4 ml/m\S\2 TR max corinne 232.9 cm/sec
[2017-01-08] VITALS: O2SAT 96
[2017-01-08] MEDS: HEPARIN SOD 5000 UNIT/0.5 ML CARP SQ SCH ×3 (05:56→21:53)
[2017-01-08 07:46] VITALS: BP 128/74; PULSE 55; TEMP 36.9; O2SAT 96
[2017-01-08] MEDS: CLOPIDOGREL BISULFATE 75 MG TAB PO SCH (07:49)
[2017-01-08] MEDS: ATORVASTATIN 40 MG TAB PO SCH (07:49)
[2017-01-08 08:00] VITALS: O2SAT 96
[2017-01-08] MEDS ORDERED: ASPIRIN 81 MG ECTAB PO SCH (08:00)
[2017-01-08 08:41] LABS: BASO % 0.3 %; BASO ABS # 0.02 K/uL (0-0.2); COMPLETE YES; EOS % 1.3 %; HEMATOCRIT 42.4 % (42-52); LYMPH % 17.1 %; LYMPH ABS # 1.29 K/uL (1.2-3.4); MEAN CORPUSCULAR HEMOGLOBIN 31.6 pg (25-34); MEAN PLATELET VOLUME 9.4 fL (7.4-10.4); MONO % 10.8 %; NEUT % 70.5 %; PLATELET COUNT 148 K/uL (130-400); RED BLOOD COUNT 4.56 M/uL (4.7-6.1); WHITE BLOOD COUNT 7.53 K/uL (4.8-10.8)
[2017-01-08 09:09] LABS: BUN/CREATININE RATIO 13.9 (10-20); CREATININE 0.88 mg/dl (0.60-1.40); POTASSIUM 4.3 mmol/L (3.5-5.1)
[2017-01-08 09:25] LABS: CALCIUM 8.9 mg/dl (8.5-10.1)
[2017-01-08 15:17] VITALS: BP 157/81; PULSE 60; TEMP 36.8; O2SAT 97
--- NOTE | 2017-01-08 16:32 | Hospitalist Progress Note ---
Hospitalist Progress Note Date of Service January 08, 2017. Subjective Pt evaluation today including: conversation w/ patient, physical exam, chart review, review of studies, review of inpatient medication list Pain: denies PO Intake: tolerating PO with no difficulty swallowing Voiding: no voiding problems still with occasional dizziness. headache improving. Feels like he wants to lean to right when walking. Right Side just feels "off". No chest pain Medications reviewed Objective Vital Signs Date Time Temp Pulse Resp B/P Pulse Ox O2 Delivery O2 Flow Rate FiO2 01/08/17 15:17 36.8 60 16 157/81 97 Room Air 01/08/17 08:00 96 Room Air 01/08/17 07:46 36.9 55 18 128/74 96 Room Air 01/08/17 00:00 96 Room Air 01/07/17 23:53 36.9 64 16 143/69 96 Room Air 01/07/17 20:00 96 Room Air Physical Exam General Appearance: no apparent distress Eyes: normal inspection, sclerae normal ENT: hearing grossly normal, pharynx normal Neck: supple, no JVD Respiratory/Chest: chest non-tender, lungs clear, normal breath sounds, no respiratory distress, no accessory muscle use Cardiovascular: regular rate, rhythm, no edema, no JVD, no murmur Abdomen: normal bowel sounds, non tender, soft Extremities: normal range of motion, non-tender, normal inspection, no calf tenderness 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, no motor/sensory deficits, alert, normal mood/affect, oriented x 3 Skin: normal color, warm/dry, + rash Laboratory Results Last 24 Hours Test 01/08/17 08:18 White Blood Count 7.53 K/uL Red Blood Count 4.56 M/uL Hemoglobin 14.4 g/dL Hematocrit 42.4 % Mean Corpuscular Volume 93.0 fL Mean Corpuscular Hemoglobin 31.6 pg Mean Corpuscular Hemoglobin Concent 34.0 g/dl Platelet Count 148 K/uL Mean Platelet Volume 9.4 fL Neutrophils (%) (Auto) 70.5 % Lymphocytes (%) (Auto) 17.1 % Monocytes (%) (Auto) 10.8 % Eosinophils (%) (Auto) 1.3 % Basophils (%) (Auto) 0.3 % Neutrophils # (Auto) 5.31 K/uL Lymphocytes # (Auto) 1.29 K/uL Monocytes # (Auto) 0.81 K/uL Eosinophils # (Auto) 0.10 K/uL Basophils # (Auto) 0.02 K/uL RDW Standard Deviation 43.9 fL RDW Coefficient of Variation 12.9 % Immature Granulocyte % (Auto) 0.0 % Immature Granulocyte # (Auto) 0.00 K/uL Sodium Level 139 mmol/L Potassium Level 4.3 mmol/L Chloride Level 107 mmol/L Carbon Dioxide Level 27 mmol/L Anion Gap 5.0 mmol/L Blood Urea Nitrogen 12 mg/dl Creatinine 0.88 mg/dl Est Creatinine Clear Calc Drug Dose 67.5 ml/min Estimated GFR () 93.4 Estimated GFR (Non- 80.6 BUN/Creatinine Ratio 13.9 Random Glucose 100 mg/dl Calcium Level 8.9 mg/dl Assessment and Plan Pt is a 81 yo male with hx of AVR 8 yrs ago, dyslipidemia and vitamin D def who presents with increasing dizziness and near syncopal episode that started earlier this AM 1. Acute CVA - Acute moderate sized right cerebellar infacrt on MRI in PICA distribution. - started on Plavix, statin, BP control. - neurology recommend Plavix instead of ASA 2. Dizziness/weakness - thought to be secondary to #1. - Orthostatics negative. - Continue PT/OT - feels right side is "off" and leans to right when ambulating. - will need acute inpatient rehab 3. Dyslipidemia - Cont statin at this time, lipid panel unremarkable 4. Pt is FULL CODE 5. DVT prophylaxis with heparin. 6. disposition - acute rehab. awaiting insurance authorization. Continued [facility] stay due to: other (acute stroke - pt/ot) Discharge planning: rehab hospital
[2017-01-08 23:35] VITALS: BP 160/82; PULSE 59; TEMP 36.4; O2SAT 98
[2017-01-09] MEDS: HEPARIN SOD 5000 UNIT/0.5 ML CARP SQ SCH ×3 (06:04→22:02)
[2017-01-09 07:05] LABS: BASO % 0.1 %; BASO ABS # 0.01 K/uL (0-0.2); COMPLETE YES; EOS % 2.7 %; HEMATOCRIT 43.5 % (42-52); IG% 0.1 %; LYMPH % 21.6 %; LYMPH ABS # 1.52 K/uL (1.2-3.4); MEAN CELL VOLUME 91.2 fL (80-100); MEAN CORPUSCULAR HEMOGLOBIN 30.8 pg (25-34); MEAN CORPUSCULAR HGB CONC 33.8 g/dl (32-36); MEAN PLATELET VOLUME 9.1 fL (7.4-10.4); MONO % 10.5 %; PLATELET COUNT 152 K/uL (130-400); RED BLOOD COUNT 4.77 M/uL (4.7-6.1); WHITE BLOOD COUNT 7.03 K/uL (4.8-10.8)
[2017-01-09 07:19] VITALS: BP 135/74; PULSE 57; TEMP 36.8; O2SAT 96
[2017-01-09 07:32] LABS: BUN/CREATININE RATIO 13.4 (10-20); CALCIUM 8.9 mg/dl (8.5-10.1); CREATININE 0.89 mg/dl (0.60-1.40); POTASSIUM 4.3 mmol/L (3.5-5.1)
[2017-01-09] MEDS: ATORVASTATIN 40 MG TAB PO SCH (08:25)
[2017-01-09] MEDS: CLOPIDOGREL BISULFATE 75 MG TAB PO SCH (08:25)
[2017-01-09 15:28] VITALS: BP 138/70; PULSE 61; TEMP 36.8; O2SAT 95
--- NOTE | 2017-01-09 16:13 | Hospitalist Progress Note ---
Hospitalist Progress Note Date of Service January 09, 2017. Subjective Pt evaluation today including: conversation w/ patient, physical exam, lab review, review of inpatient medication list Pain: denies PO Intake: tolerating PO Voiding: no voiding problems still dizzy with movement. occurs even when lying in bed although worse when on feet. no headache. no blurred vision or vision changes. no difficulty swallowing Constitutional: No chills, No fatigue, No fever, No problem reported, No see HPI, No sweats, No weakness, No weight loss Eyes: No diplopia, No discharge, No eye pain, No problem reported, No redness, No see HPI, No worsening of vision ENT: + tinnitus, No dental problems, No hearing loss, No nasal symptoms, No problem reported, No see HPI, No sore throat, No trouble swallowing, No unusual epistaxis Respiratory: No cough, No dyspnea at rest, No dyspnea on exertion, No hemoptysis, No problem reported, No see HPI, No shortness of breath, No sputum, No wheezing Cardiovascular: No PND, No chest pain, No claudication, No edema, No orthopnea, No palpitations, No problem reported, No see HPI Abdomen: No GI bleeding, No constipation, No diarrhea, No nausea, No pain, No problem reported, No see HPI, No vomiting Musculoskeletal: No calf pain, No joint pain, No muscle pain, No problem reported, No see HPI, No swelling Neurologic: + problem reported (dizziness), + weakness Psychiatric: No anhedonism, No anxiety, No depression symptoms, No insomnia , No problem reported, No see HPI, No substance abuse Skin: No bleeding, No color change, No itch, No new/changing skin lesions, No problem reported, No rash, No see HPI Medications reviewed Objective Vital Signs Date Time Temp Pulse Resp B/P Pulse Ox O2 Delivery O2 Flow Rate FiO2 01/09/17 15:28 36.8 61 24 138/70 95 Room Air 01/09/17 07:45 Room Air 01/09/17 07:19 36.8 57 16 135/74 96 Room Air 01/09/17 00:00 Room Air 01/08/17 23:35 36.4 59 20 160/82 98 Room Air 01/08/17 16:00 Room Air Physical Exam General Appearance: WD/WN, no apparent distress Eyes: PERRL, sclerae normal ENT: hearing grossly normal, pharynx normal Neck: supple, no adenopathy, no JVD Respiratory/Chest: chest non-tender, lungs clear, normal breath sounds, no respiratory distress Cardiovascular: regular rate, rhythm, no edema, no JVD, no murmur Abdomen: normal bowel sounds, non tender, soft Extremities: non-tender, normal inspection, no pedal edema Neurologic/Psychiatric: no motor/sensory deficits, alert, normal mood/affect, oriented x 3 Skin: normal color, warm/dry, no rash Laboratory Results Last 24 Hours Test 01/09/17 06:43 White Blood Count 7.03 K/uL Red Blood Count 4.77 M/uL Hemoglobin 14.7 g/dL Hematocrit 43.5 % Mean Corpuscular Volume 91.2 fL Mean Corpuscular Hemoglobin 30.8 pg Mean Corpuscular Hemoglobin Concent 33.8 g/dl Platelet Count 152 K/uL Mean Platelet Volume 9.1 fL Neutrophils (%) (Auto) 65.0 % Lymphocytes (%) (Auto) 21.6 % Monocytes (%) (Auto) 10.5 % Eosinophils (%) (Auto) 2.7 % Basophils (%) (Auto) 0.1 % Neutrophils # (Auto) 4.56 K/uL Lymphocytes # (Auto) 1.52 K/uL Monocytes # (Auto) 0.74 K/uL Eosinophils # (Auto) 0.19 K/uL Basophils # (Auto) 0.01 K/uL RDW Standard Deviation 42.2 fL RDW Coefficient of Variation 12.6 % Immature Granulocyte % (Auto) 0.1 % Immature Granulocyte # (Auto) 0.01 K/uL Sodium Level 140 mmol/L Potassium Level 4.3 mmol/L Chloride Level 107 mmol/L Carbon Dioxide Level 28 mmol/L Anion Gap 5.0 mmol/L Blood Urea Nitrogen 12 mg/dl Creatinine 0.89 mg/dl Est Creatinine Clear Calc Drug Dose 66.8 ml/min Estimated GFR () 92.9 Estimated GFR (Non- 80.2 BUN/Creatinine Ratio 13.4 Random Glucose 99 mg/dl Calcium Level 8.9 mg/dl Assessment and Plan Pt is a 81 yo male with hx of AVR 8 yrs ago, dyslipidemia and vitamin D def who presents with increasing dizziness and near syncopal episode that started earlier this AM 1. Acute CVA - Acute moderate sized right cerebellar infarct on MRI in PICA distribution. - started on Plavix, statin, BP control. - neurology recommend Plavix instead of ASA 2. Dizziness/weakness - thought to be secondary to #1. - continues - Orthostatics negative. - Continue PT/OT - feels right side is "off" and leans to right when ambulating. - gait is slow 3. Dyslipidemia - Cont statin at this time, lipid panel unremarkable 4. Pt is FULL CODE 5. DVT prophylaxis with heparin. 6. disposition - SNF - insurance denied acute inpatient rehab - at this point with holiday weekend patient will likely be here until Wednesday. Continued [facility] stay due to: ambulation difficulties Discharge planning: snf facility
[2017-01-10 00:04] VITALS: BP 127/76; PULSE 58; TEMP 36.8; O2SAT 98
[2017-01-10] MEDS: HEPARIN SOD 5000 UNIT/0.5 ML CARP SQ SCH (06:03)
[2017-01-10 06:36] LABS: BASO % 0.4 %; BASO ABS # 0.03 K/uL (0-0.2); COMPLETE YES; EOS % 3.8 %; HEMATOCRIT 43.4 % (42-52); IG% 0.1 %; LYMPH % 28.5 %; LYMPH ABS # 1.96 K/uL (1.2-3.4); MEAN CELL VOLUME 91.6 fL (80-100); MEAN CORPUSCULAR HEMOGLOBIN 31.6 pg (25-34); MEAN CORPUSCULAR HGB CONC 34.6 g/dl (32-36); MEAN PLATELET VOLUME 9.3 fL (7.4-10.4); MONO % 11.4 %; NEUT % 55.8 %; PLATELET COUNT 150 K/uL (130-400); RED BLOOD COUNT 4.74 M/uL (4.7-6.1); WHITE BLOOD COUNT 6.87 K/uL (4.8-10.8)
[2017-01-10 07:04] VITALS: BP 130/73; PULSE 57; TEMP 36.4; O2SAT 97
[2017-01-10 07:13] LABS: BUN/CREATININE RATIO 14.3 (10-20); CALCIUM 8.8 mg/dl (8.5-10.1); CREATININE 0.94 mg/dl (0.60-1.40)
[2017-01-10 07:45] VITALS: O2SAT 97
[2017-01-10] MEDS: ATORVASTATIN 40 MG TAB PO SCH (08:05)
[2017-01-10] MEDS: CLOPIDOGREL BISULFATE 75 MG TAB PO SCH (08:05)
[2017-01-10] MEDS ORDERED: LPT40 PO ×2 (10:48→12:06)
[2017-01-10] MEDS ORDERED: PLV75 PO (10:48)
--- NOTE | 2017-01-10 10:51 | Discharge Instructions ---
Discharge Instructions Date of Service January 10, 2017. Admission Reason for Admission: dizziness/syncope Discharge Discharge Diagnosis / Problem: acute cerebellar CVA Discharge Goals Goal(s): Improve function, Increase independence, Prevent Disease Progression Activity Recommendations Activity Limitations: as noted below Lifting Limitations: gradually increase as tolerated Exercise/Sports Limitations: until after follow-up appointment Shower/Bathe: no limitations Driving or Machine Use: no driving . Instructions / Follow-Up Instructions / Follow-Up Risk Factors for Stroke: You can reduce your chances of stroke by working with your medical provider to adopt a healthy lifestyle. Some specific ways to lower your chance of stroke are: * If you are a smoker, now is the time to stop smoking cigarettes * If you are diabetic, improve the control of your blood sugars * Avoid excessive amounts of alcohol * Control high blood pressure * Lose weight if you are overweight * Be sure to lead an active lifestyle * Eat a healthy diet low in salt, cholesterol and fat You should know about other risk factors for stroke that you are unable to control. These include: * Age 55 years or older * Male gender * Certain racial groups: , or / * Family History of Stroke, Mini stroke or Heart Attack * Sickle Cell Disease Follow Up: It is important for you to keep your follow up appointments with your medical provider. Current Hospital Diet Patient's current hospital diet: Low Sodium Diet (2gm Na) Discharge Diet Recommended Diet: AHA Diet (Heart Healthy) Pending Studies Studies pending at discharge: no Laboratory Results Hemoglobin A1c Test 01/06/17 12:30 Range/Units Estimated Average Glucose 105 mg/dl Hemoglobin A1c 5.3 4.5-5.6 % Lipid Panel Test 01/06/17 12:30 Range/Units Triglycerides Level 67 0-150 mg/dl Cholesterol Level 154 0-200 mg/dl HDL Cholesterol 44 mg/dl Cholesterol/HDL Ratio 3.5 LDL Cholesterol, Calculated 97 mg/dl Medical Emergencies . Who to Call and When: Medical Emergencies: Call 911 immediately if you experience any of the following warning signs and symptoms of Stroke: * Sudden numbness or weakness of the face, arm or leg, especially on one side of the body * Sudden confusion, trouble speaking or understanding * Sudden trouble seeing in one or both eyes * Sudden trouble walking, dizziness, loss of balance or coordination * Sudden severe headache with no cause Do not delay calling 911 if you experience any warning signs or symptoms of a stroke. Delay in seeking medical attention may affect what treatments can be given to you. . Non-Emergent Contact Non-Emergency issues call your: Primary Care Provider . Past History Medical & Surgical History: (1) Heart valve replaced . "Provider Documentation" section prepared by Talat Robin. . Stroke Core Measures Reason no t-PA for Stroke: Treatment not indicated Reason no antithrom by day 2: Treatment provided - N/A Reason no antithrom at D/C: Treatment provided - N/A Reason no statin at D/C: Treatment provided - N/A Reason no anticoag w/a fib: Treatment not indicated VTE Core Measure Inpt VTE Proph given/why not?: Unfractionated heparin SQ
--- NOTE | 2017-01-10 11:04 | Discharge Summary ---
Discharge Summary Date of Service January 10, 2017. Discharge Summary Admission Date: January 06, 2017 at 15:05 Discharge Date: January 10, 2017 Discharge Disposition: Home with services Principal Diagnosis: acute cerebellar CVA Problems/Secondary Diagnoses: hypertension prior aortic valve replacement Immunizations: Have You Had Influenza Vaccine: Yes Influenza Vaccine Date: Jun 04, 2009 History of Tetanus Vaccine?: Yes Tetanus Immunization Date: Dec 04, 1999 History of Pneumococcal: Yes Pneumococcal Date: Sep 04, 1999 History of Hepatitis B Vaccine: Yes Consultations: dr mathews neurology Medication Reconciliation New Medications: Atorvastatin (Atorvastatin Calcium) 40 Mg Tab 40 MG PO HS, #30 TAB 0 Refills Clopidogrel Bisulfate (Clopidogrel) 75 Mg Tab 75 MG PO QAM, #30 TAB 0 Refills Continued Medications: Cholecalciferol (Vitamin D3) 1,000 Unit Tab 1 TAB PO BID for 90 Days, #180 TAB 3 Refills Discontinued Medications: Aspirin (Aspirin Ec) 325 Mg Tab 325 MG PO DAILY Pravastatin Sod (Pravastatin Sodium) 10 Mg Tab 1 TAB PO HS Discharge Exam Review of Systems: Eyes: No diplopia, No discharge, No eye pain, No problem reported, No redness, No worsening of vision ENT: No dental problems, No hearing loss, No nasal symptoms, No problem reported, No sore throat, No tinnitus, No trouble swallowing, No unusual epistaxis Respiratory: No cough, No dyspnea at rest, No dyspnea on exertion, No hemoptysis, No problem reported, No shortness of breath, No sputum, No wheezing Cardiovascular: No PND, No chest pain, No claudication, No edema, No orthopnea, No palpitations, No problem reported Abdomen: No GI bleeding, No constipation, No diarrhea, No nausea, No pain, No problem reported, No vomiting Musculoskeletal: No calf pain, No joint pain, No muscle pain, No problem reported, No swelling Neurologic: + problem reported (dizziness) Psychiatric: No anhedonism, No anxiety, No depression symptoms, No insomnia , No problem reported, No substance abuse Endocrine: No excessive thirst, No excessive urination, No fatigue, No problem reported Hematologic / Lymphatic: No abnormal bleeding/bruising, No clotting problems , No night sweats, No problem reported, No swollen lymph nodes Integumentary: No bleeding, No color change, No itch, No new/changing skin lesions, No problem reported, No rash Physical Exam: General Appearance: no apparent distress Eyes: PERRL, sclerae normal ENT: hearing grossly normal, pharynx normal Neck: supple, no JVD Respiratory/Chest: chest non-tender, lungs clear, normal breath sounds, no respiratory distress Cardiovascular: regular rate, rhythm, no edema, no murmur Abdomen / GI: non tender, soft Extremities: no calf tenderness, no pedal edema Neurologic/Psychiatric: no motor/sensory deficits, alert, normal mood/affect , normal reflexes, oriented x 3 Skin: normal color, warm/dry, no rash Hospital Course The patient is a 81 yo male who presented to the ER with complaints of an episode of near syncope beginning this AM. There was associated dizziness and vomiting denied any vertigo, sob, fevers, chills, chest pain. reports that he was able to sit him on a bench and that he did lean over and strike his head on the washer. Patient and family unsure of whether he actually passed out. Pt reports dizziness improved upon arrival to ER. Pt does note having some congestion and headache for past few days as well. He has an history of AVR about 8 yrs ago in which he routinely follows up with Dr Dyson. He underwent CT scanning and an MRI of the head and neck. MRI showed a moderate size focus of restricted diffusion within the inferior right cerebellar hemisphere consistent with acute right PICA distribution infarct. He was seen by Dr. Mathews neurology and subsequently placed under the hospitalists service. For the Acute CVA he was started on Plavix and his ASA was stopped. His statin was changed from Pravachol to high statin therapy with atorvastatin. He has had persistent dizziness since the CVA. He has been working with physical and occupational therapy and has been improving with his strength and endurance. His orthostatics have been negative. His gait is slow and he walks forward flexed to a degree. Originally we felt he would benefit from acute rehab, however his insurance declined. He has been showing improvement and at this point has progressed to the point he can go home with home PT and a home nurse. Patient and are agreeable and he will be discharge home today. Total Time Spent: Greater than 30 minutes This includes examination of the patient, discharge planning, medication reconciliation, and communication with other providers. Discharge Instructions Please refer to the electronic Patient Visit Report (Discharge Instructions) for additional information. Follow-Up Dr. Mathews neurology 2 week PCP 1 week
[2017-01-10 11:27] VITALS: BP 130/73; PULSE 57; TEMP 36.4; O2SAT 97
[2017-01-10] MEDS ORDERED: CLOP1TAB5 PO (12:06)
== END 2017-01-10 13:12 | disposition home health service (06) | DRG 66 ==
LOC: ENRESERVTM → ENRESERVDT → C.EDC 11:33 → EDBD 11:33 → C.2T 15:05 → C.MS4W 01-07 12:16
PROVIDERS: ADMIT Hospitalist; ATTEND Hospitalist
DX: I63.9 Cerebral infarction, unspecified (principal); I10 Essential (primary) hypertension; Z87.891 Personal history of nicotine dependence; E55.9 Vitamin D deficiency, unspecified; E78.5 Hyperlipidemia, unspecified; R42 Dizziness and giddiness

== ENCOUNTER 2020-07-23 15:14 | Inpatient (IN) ==
[2020-07-23] MEDS ORDERED: dilTIAZem HCl 5 MG/ML 5 ML VIAL IV STA (15:43)
[2020-07-23] MEDS ORDERED: STAT IV Infusion **Titration per Protocol STA (15:43)
[2020-07-23] MEDS ORDERED: MAGNESIUM SULFATE / D5W 1 GM/100 ML BAG IV SCH (15:44)
[2020-07-23] MEDS ORDERED: SODIUM CHLORIDE 0.9% 500 ML IV SCH (15:45)
[2020-07-23] MEDS ORDERED: dilTIAZem HCL 125 MG in DEXTROSE 5% 100 ML IV SCH (15:45)
--- NOTE | 2020-07-23 15:58 | Emergency Department Note ---
Impression & Plan Chest pressure, Atrial fibrillation with rapid ventricular response, Weakness, COVID-19 ED Provider Note Provider: Anibal White MD DATE OF SERVICE:07/23/2020 CHIEF COMPLAINT: Irregular heartbeat, chest pressure HISTORY OF PRESENT ILLNESS: Patient is a 84-year-old gentleman history of cereb ellar stroke, CAD status post coronary artery bypass graft, and aortic valve stenosis status post replacement bioprosthetic valve currently maintained on Plavix presenting here today stating that over the past approximately 3 days developed a fast heart rate. Noted on Wednesday that her heart rate began to be greater than 100. States he had some chest pressure centrally at that time without significant radiation. Has moderated some since then. Patient denies significant chest pressure or pain at this time. States is 1 out of 10. Denies significant shortness of breath but states a little bit of sinus drainage. Denies significant abdominal pain, nausea, or vomiting. Denies syncope or fall s. States he was around his grandson did test positive coronavirus at [facility] and now does have some concern for possible coronavirus now. States he had a fevers a day or 2 ago but not today. States he feels a little bit weak and fatigued. Denies any falls. Patient himself denies a known h istory of irregular heartbeat or atrial fibrillation. Talked with his doctor today about his elevated heart rate and at times elevated blood pressure and was referred here for further care. REVIEW OF SYSTEMS: A total of 10 review of systems was obtained and negative except as stated above in the HPI. PAST MEDICAL HISTORY: As noted above MEDICATIONS: Reviewed home medications with the patient, on Plavix SOCIAL HISTORY: Lives at home alone, distant former smoker, lives in a ch[facility] PHYSICAL EXAM: GENERAL: alert and oriented in no acute distress on stretcher Head: normocephalic and atraumatic EYES: No injection, discharge or icterus. NECK: Trachea midline. LUNGS: Airway patent. No retractions. HEART: Irregular tachycardic rate and rhythm. No chest wall tenderness ABDOMEN: Soft and non-tender, without guarding or rebound. SKIN: Acyanotic, warm, dry, without rashes EXTREMITIES: Without swelling, tenderness or deformity NEUROLOGICAL: No focal deficits. No aphasia. No facial droop or slurred speech. EK bpm atrial fibrillation with rapid ventricular response. No acute ST segment elevation or depression appreciated. No PVC noted. Compared to previous from January 08, 2017 now in atrial fibrillation. CONTINUOUS CARDIAC MONITORING: was ordered and showed a heart rate of 140's -->90's bpm in an atrial fibrillation with several episodes of sinus pauses. Patient's laboratory studies and imaging reviewed. Differential includes Infection, dehydration, metabolic abnormality, hypo/hyperglycemia, electrolyte disturbance, anemia, hypoxia, cardiac sources, intracerebral event, toxicologic, neurologic, as well as other pathologies. IMPRESSION/MEDICAL DECISION MAKING: Patient presents complaining of some chest pressure starting approximate 48 hours ago associate with an elevated heart rate. States blood pressure been elevated at home but blood pressure low bit low here and significantly tachycardic. Appears to be in atrial fibrillation with rapid ventricular response. Reading prior cardiology note appears during prior CABG she had a brief episode of atrial fibrillation during the procedure but none since not maintained on significant rate control medications. He is not significant anticoagulate be on Plavix. States he feels a little bit weak and bit fatigued and has had fever last couple days and recent coronavirus possible exposure and coronavirus testing was sent. Chest x-ray obtained. Basic labs electrolytes and thyroid function were sent. Magnesium, IV fluid, and diltiazem to help control heart rate. Patient had improvement of rate control with the diltiazem here. Labs without significant anemia or leukocytosis noted. Some borderline lymphopenia is noted. This is unfortunately consistent with a positive coronavirus test that returns. Chest x-ray does not appear to show a lobar pneumonia. No significant pulmonary edema and again is not requiring oxygen at this time. Patient blood pressures been stable and her is improved after bolus of 10mg of diltiazem and maintenance drip at 5mg/hr. Discussed with the patient options for anticoagulation and discussed his symptoms. While having discussion with him he states he had some near syncopal events in the past and on telemetry today has multiple significant sinus pauses more than 3 seconds. Patient does not seem symptomatic during these periods but is only just been on an AV funmilayo agent at this time (dilt ggt @ 5mg/hr >1hr after bolus of 10mg). States he had to discontinue metoprolol due to side effect issues in the past but cannot clarify further what this was. Given these episodes, his comorbidities and age, his positive coronavirus status discussed with cardiology recommended further evaluation here in the hospital. Will hold all AV blocking agents and just monitor his heart rate/afib. Recommendation that if he developed significant symptoms or elevated heart rate to judiciously use small amounts of beta-funmilayo. Cardiology recommended 2.5 mg twice daily of Eliquis and cardiology evaluation/consult in the morning. They do not feel the ICU was needed at this point. The hospitalist was aware of this plan and the patient was updated and agreeable with it. DIAGNOSIS: Atrial fibrillation with rapid ventricular response, chest pressure, COVID-19, sinus pauses DISPOSITION: Hospitalist will evaluate Patient was agreeable with this plan. Critical Care I have personally spent 33 minutes of critical care time in the direct management of this patient. This includes bedside care, interpretation of diagnostic studies, and testing, discussion with consultants, patient, and family members, and other required patient management activities. These 33 minutes is in excess of all separately billable procedures. Past Med/Surg History Medical History (Updated 07/23/20 @ 16:20 by Anibal White M.D.) Ankle fracture (2012) CAD in [place] artery Dyslipidemia History of cerebellar stroke (2016) Hypertension Surgical History (Updated 09/05/19 @ 12:42 by Kam Dyson MD) 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) Social History Smoking Status: Never smoker Feels Safe at Home: Yes Allergies Allergies Allergy/AdvReac Type Severity Reaction Status Date / Time Penicillins Allergy Intermediate Verified 09/05/19 12:38 Home Meds Home Medications Medication Instructions Recorded Confirmed cholecalciferol (vitamin D3) 25 1,000 units PO BID cap 06/06/19 06/06/19 mcg (1,000 unit) capsule clopidogrel 75 mg tablet 75 mg PO DAILY 06/06/19 06/06/19 coenzyme Q32-grvvsot E 100 mg-100 cap PO DAILY cap 06/06/19 06/06/19 unit capsule nitroglycerin 0.4 mg sublingual 0.4 mg SL Q5M PRN 06/06/19 06/06/19 tablet sildenafil 100 mg tablet 100 mg PO DAILY PRN 06/06/19 06/06/19 vit C,F-Eh-hitnu-lutein-zeaxan 1 cap PO DAILY 09/05/19 09/05/19 Previous Rx's Medication Instructions Recorded rosuvastatin 10 mg tablet 10 mg PO DAILY #90 tab 04/10/20 Results & Data (ED) Vital Signs Vital Signs - 24 hr 07/23/20 15:24 07/23/20 15:39 07/23/20 15:41 Temperature 36.7 C Temperature Source Skin Pulse Rate 118 H 146 H 137 H Pulse Rate from SpO2 Sensor Respiratory Rate 20 20 21 Blood Pressure 85/57 L 111/88 Blood Pressure Mean 66 93 Pulse Oximetry 96 Sepsis Recent Fever Within 48 Hours No Sepsis New/Unexplained Change in Mental Status N/A Sepsis Action Taken by Nursing No Action Required 07/23/20 16:00 07/23/20 16:01 07/23/20 16:15 Temperature Temperature Source Pulse Rate 89 91 H 78 Pulse Rate from SpO2 Sensor 87 Respiratory Rate 18 16 14 Blood Pressure 105/76 94/64 L Blood Pressure Mean 80 69 Pulse Oximetry 95 Sepsis Recent Fever Within 48 Hours Sepsis New/Unexplained Change in Mental Status Sepsis Action Taken by Nursing 07/23/20 16:30 07/23/20 16:31 07/23/20 16:45 Temperature Temperature Source Pulse Rate 91 H 88 82 Pulse Rate from SpO2 Sensor 98 H 94 H 87 Respiratory Rate 12 15 22 Blood Pressure 110/66 104/76 Blood Pressure Mean 76 79 Pulse Oximetry 96 97 95 Sepsis Recent Fever Within 48 Hours Sepsis New/Unexplained Change in Mental Status Sepsis Action Taken by Nursing 07/23/20 17:00 07/23/20 17:01 07/23/20 17:15 Temperature Temperature Source Pulse Rate 106 H 103 H 87 Pulse Rate from SpO2 Sensor 100 H 100 H 88 Respiratory Rate 17 18 15 Blood Pressure 110/79 108/72 Blood Pressure Mean 91 80 Pulse Oximetry 97 95 95 Sepsis Recent Fever Within 48 Hours Sepsis New/Unexplained Change in Mental Status Sepsis Action Taken by Nursing Laboratory Data Result diagrams: 07/23/20 15:50 07/23/20 15:50 Lab Results 07/23/20 07/23/20 07/23/20 Range/Units 15:43 15:50 15:50 WBC 4.87 (4.8-10.8) K/uL RBC 5.12 (4.7-6.1) M/uL Hgb 16.5 (14.0-18.0) g/dL Hct 47.4 (42-52) % MCV 92.6 (80-100) fL MCH 32.2 (25-34) pg MCHC 34.8 (32-36) g/dL RDW Std Deviation 43.7 (36.4-46.3) fL RDW Coeff of Nay 12.9 (11.5-14.5) % Plt Count 131 (130-400) K/uL MPV 9.5 (7.4-10.4) fL Immature Gran % (Auto) 0.2 % Neut % (Auto) 60.6 % Lymph % (Auto) 23.2 % [place] % (Auto) 15.0 % Eos % (Auto) 0.8 % Baso % (Auto) 0.2 % Neut # (Auto) 2.95 (1.4-6.5) K/uL Lymph # (Auto) 1.13 L (1.2-3.4) K/uL [place] # (Auto) 0.73 H (0.11-0.59) K/uL Eos # (Auto) 0.04 (0-0.5) K/uL Baso # (Auto) 0.01 (0-0.2) K/uL Immature Gran # (Auto) 0.01 (0.00-0.02) K/uL PT 11.5 (9.0-12.0) Seconds INR 1.1 (0.9-1.1) Sodium (136-145) mmol/L Potassium (3.5-5.1) mmol/L Chloride (98-107) mmol/L Carbon Dioxide (21-32) mmol/L Anion Gap (3-11) BUN (7-18) mg/dl Creatinine (0.6-1.4) mg/dl Est Cr Clr Drug Dosing ml/min Est GFR ( Amer) Est GFR (Non-Af Amer) BUN/Creatinine Ratio (10-20) Glucose (70-99) mg/dl Lactate (0.4-2.0) mmol/L Calcium (8.5-10.1) mg/dl Total Bilirubin (0.2-1) mg/dl AST (15-37) U/L ALT (12-78) U/L Alkaline Phosphatase (45-117) U/L Troponin I (0-0.045) ng/ml C-Reactive Protein (0-0.29) mg/dl Total Protein (6.4-8.2) gm/dl Albumin (3.4-5.0) gm/dl Globulin (2.5-4.0) gm/dl Albumin/Globulin Ratio (0.9-2) Lipase (73-393) U/L Procalcitonin (0-0.5) ng/ml TSH (0.300-4.500) uIu/ml COVID-19 Eval Order SARS-CoV-2, RNA, NAAT (NEGATIVE) Blood Type O Positive Antibody Screen NEGATIVE 07/23/20 07/23/20 07/23/20 Range/Units 15:50 15:50 15:50 WBC (4.8-10.8) K/uL RBC (4.7-6.1) M/uL Hgb (14.0-18.0) g/dL Hct (42-52) % MCV (80-100) fL MCH (25-34) pg MCHC (32-36) g/dL RDW Std Deviation (36.4-46.3) fL RDW Coeff of Nay (11.5-14.5) % Plt Count (130-400) K/uL MPV (7.4-10.4) fL Immature Gran % (Auto) % Neut % (Auto) % Lymph % (Auto) % [place] % (Auto) % Eos % (Auto) % Baso % (Auto) % Neut # (Auto) (1.4-6.5) K/uL Lymph # (Auto) (1.2-3.4) K/uL [place] # (Auto) (0.11-0.59) K/uL Eos # (Auto) (0-0.5) K/uL Baso # (Auto) (0-0.2) K/uL Immature Gran # (Auto) (0.00-0.02) K/uL PT (9.0-12.0) Seconds INR (0.9-1.1) Sodium 136 (136-145) mmol/L Potassium 4.0 (3.5-5.1) mmol/L Chloride 105 (98-107) mmol/L Carbon Dioxide 23 (21-32) mmol/L Anion Gap 8.0 (3-11) BUN 14 (7-18) mg/dl Creatinine 0.88 (0.6-1.4) mg/dl Est Cr Clr Drug Dosing 58.7 ml/min Est GFR ( Amer) 91.4 Est GFR (Non-Af Amer) 78.9 BUN/Creatinine Ratio 15.7 (10-20) Glucose 90 (70-99) mg/dl Lactate 1.6 (0.4-2.0) mmol/L Calcium 9.9 (8.5-10.1) mg/dl Total Bilirubin 0.8 (0.2-1) mg/dl AST 28 (15-37) U/L ALT 34 (12-78) U/L Alkaline Phosphatase 90 (45-117) U/L Troponin I 0.032 (0-0.045) ng/ml C-Reactive Protein < 0.29 (0-0.29) mg/dl Total Protein 7.7 (6.4-8.2) gm/dl Albumin 4.3 (3.4-5.0) gm/dl Globulin 3.4 (2.5-4.0) gm/dl Albumin/Globulin Ratio 1.3 (0.9-2) Lipase 208 (73-393) U/L Procalcitonin < 0.05 (0-0.5) ng/ml TSH 2.920 (0.300-4.500) uIu/ml COVID-19 Eval Order SARS-CoV-2, RNA, NAAT (NEGATIVE) Blood Type Antibody Screen 07/23/20 07/23/20 Range/Units 15:50 15:50 WBC (4.8-10.8) K/uL RBC (4.7-6.1) M/uL Hgb (14.0-18.0) g/dL Hct (42-52) % MCV (80-100) fL MCH (25-34) pg MCHC (32-36) g/dL RDW Std Deviation (36.4-46.3) fL RDW Coeff of Nay (11.5-14.5) % Plt Count (130-400) K/uL MPV (7.4-10.4) fL Immature Gran % (Auto) % Neut % (Auto) % Lymph % (Auto) % [place] % (Auto) % Eos % (Auto) % Baso % (Auto) % Neut # (Auto) (1.4-6.5) K/uL Lymph # (Auto) (1.2-3.4) K/uL [place] # (Auto) (0.11-0.59) K/uL Eos # (Auto) (0-0.5) K/uL Baso # (Auto) (0-0.2) K/uL Immature Gran # (Auto) (0.00-0.02) K/uL PT (9.0-12.0) Seconds INR (0.9-1.1) Sodium (136-145) mmol/L Potassium (3.5-5.1) mmol/L Chloride (98-107) mmol/L Carbon Dioxide (21-32) mmol/L Anion Gap (3-11) BUN (7-18) mg/dl Creatinine (0.6-1.4) mg/dl Est Cr Clr Drug Dosing ml/min Est GFR ( Amer) Est GFR (Non-Af Amer) BUN/Creatinine Ratio (10-20) Glucose (70-99) mg/dl Lactate (0.4-2.0) mmol/L Calcium (8.5-10.1) mg/dl Total Bilirubin (0.2-1) mg/dl AST (15-37) U/L ALT (12-78) U/L Alkaline Phosphatase (45-117) U/L Troponin I (0-0.045) ng/ml C-Reactive Protein (0-0.29) mg/dl Total Protein (6.4-8.2) gm/dl Albumin (3.4-5.0) gm/dl Globulin (2.5-4.0) gm/dl Albumin/Globulin Ratio (0.9-2) Lipase (73-393) U/L Procalcitonin (0-0.5) ng/ml TSH (0.300-4.500) uIu/ml COVID-19 Eval Order Covid19 IDNow atMMTC SARS-CoV-2, RNA, NAAT POSITIVE A* (NEGATIVE) Blood Type Antibody Screen Administered Medications Discontinued Medications Diltiazem HCl (Diltiazem Hcl 5 Mg/Ml 5 Ml Vial) 10 mg IV NOW STA Stop: 07/23/20 15:44 Last Admin: 07/23/20 15:50 Dose: 10 mg Documented by: [id number] Cosigned by: [id number] Sodium Chloride (Nss) 500 mls @ 999 mls/hr IV .Q31M JN Stop: 07/23/20 16:15 Last Infusion: 07/23/20 16:23 Dose: 0 mls/hr Documented by: [id number] Admin: 07/23/20 15:51 Dose: 999 mls/hr Documented by: [id number] Diltiazem HCl 125 mg/ Dextrose 125 mls @ 5 mls/hr IV .Q24H JN; Protocol Stop: 08/22/20 15:44 Last Admin: 07/23/20 16:08 Dose: 5 mg/hr, 5 mls/hr Documented by: [id number] Cosigned by: [id number] Magnesium Sulfate/Dextrose (Magnesium Sulfate / D5w) 1 gm in 100 mls @ 400 mls/hr IV Q15M JN Stop: 07/23/20 15:58 Last Infusion: 07/23/20 16:23 Dose: 0 mls/hr Documented by: [id number] Admin: 07/23/20 15:57 Dose: 400 mls/hr Documented by: [id number] Miscellaneous (Stat Iv Infusion Titration Per Protocol) 1 ea N/A NOW STA Stop: 07/23/20 15:44 Last Admin: 07/23/20 16:09 Dose: 1 ea Documented by: [id number] Discharge Plan Visit Data Chief Complaint: Cardiac Assessment Stated Complaint: FEVER,DISCOMFORT IN CHEST ED Provider: Anibal White Discharge Problem: Chest pressure, Atrial fibrillation with rapid ventricular response, Weakness, COVID-19 Patient Disposition: Admitted As Inpatient Forms Stand Alone Forms: Replaced By [facility] Prescriptions Prescriptions: No Action rosuvastatin 10 mg tablet 10 mg PO DAILY Qty: 90 RF: 3 clopidogrel [Plavix] 75 mg tablet 75 mg PO DAILY RF: 0 nitroglycerin 0.4 mg tablet, sublingual 0.4 mg SL Q5M PRNRF: 0 coenzyme [id number] E 100-100 mg-unit capsule PO DAILY RF: 0 cholecalciferol (vitamin D3) 1,000 unit capsule 1,000 units PO BID RF: 0 sildenafil [Viagra] 100 mg tablet 100 mg PO DAILY PRNRF: 0 vit C,B-Sx-ppccm-lutein-zeaxan 1 cap PO DAILY RF: 0 Referrals Referrals: Anju Gonzalez MD [Primary Care Provider] -
[2020-07-23 16:01] LABS: Basophils # (auto) 0.01 K/uL (0-0.2); Basophils % (auto) 0.2 %; Eosinophils # (auto) 0.04 K/uL (0-0.5); Eosinophils % (auto) 0.8 %; Hematocrit (blood only) 47.4 % (42-52); Hemoglobin 16.5 g/dL (14.0-18.0); Immature Granulocytes # (auto) 0.01 K/uL (0.00-0.02); Immature Granulocytes % (auto) 0.2 %; Lymphocytes # (auto) 1.13 K/uL (1.2-3.4); Lymphocytes % (auto) 23.2 %; Mean Corpuscular Hemoglobin 32.2 pg (25-34); Mean Corpuscular Hgb Conc 34.8 g/dL (32-36); Mean Corpuscular Volume 92.6 fL (80-100); Mean Platelet Volume 9.5 fL (7.4-10.4); Monocytes # (auto) 0.73 K/uL (0.11-0.59); Neutrophils # (auto) 2.95 K/uL (1.4-6.5); Neutrophils % (auto) 60.6 %; Platelet Count 131 K/uL (130-400); RDW Coefficient of Variation 12.9 % (11.5-14.5); RDW Standard Deviation 43.7 fL (36.4-46.3); Red Blood Count 5.12 M/uL (4.7-6.1); White Blood Count 4.87 K/uL (4.8-10.8)
[2020-07-23 16:18] LABS: Alanine Aminotransferase 34 U/L (12-78); Albumin Level 4.3 gm/dl (3.4-5.0); Aspartate Aminotransferase 28 U/L (15-37); BUN Creatinine Ratio 15.7 (10-20); Blood Urea Nitrogen 14 mg/dl (7-18); C Reactive Protein < 0.29 mg/dl (0-0.29); Calcium 9.9 mg/dl (8.5-10.1); Carbon Dioxide 23 mmol/L (21-32); Chloride 105 mmol/L (98-107); Creatinine Clr Calc Pharmacy 58.7 ml/min; Est GFR (African American) 91.4; Est GFR (Non-African American) 78.9; Glucose 90 mg/dl (70-99); Lipase 208 U/L (73-393); Sodium 136 mmol/L (136-145)
[2020-07-23 16:25] LABS: INR 1.1 (0.9-1.1); Prothrombin Time 11.5 Seconds (9.0-12.0)
[2020-07-23 16:28] LABS: Albumin Globulin Ratio 1.3 (0.9-2); Alkaline Phosphatase 90 U/L (45-117); Bilirubin,Total 0.8 mg/dl (0.2-1); Globulin 3.4 gm/dl (2.5-4.0); Total Protein 7.7 gm/dl (6.4-8.2); Troponin I 0.032 ng/ml (0-0.045)
--- NOTE | 2020-07-23 16:51 | XRay Report ---
XR chest 1V portable CLINICAL HISTORY: chest pressure, new atrial fibrillation COMPARISON STUDY: No previous studies for comparison. FINDINGS: There are postsurgical changes of midline sternotomy. The heart is normal in size. There is aortic tortuosity. There is no failure. There is no focal pulmonary consolidation. There are no pleu ral effusions. No pneumothorax is visualized.[ IMPRESSION: No active disease in the chest. ACT 112: Negative or not required by law. Electronically signed by: Alexander Hernandez M.D. 07/23/2020 4:49 PM
[2020-07-23] MEDS ORDERED: APIXABAN 2.5 MG TAB PO STA (17:31)
[2020-07-23] MEDS ORDERED: ACETAMINOPHEN 325 MG TAB PO PRN (18:52)
--- NOTE | 2020-07-23 19:54 | History & Physical Report ---
Date of Service July 23, 2020 Assessment & Plan (1) Atrial fibrillation: New onset in setting of COVID-19 Hold off further rate controlling medication overnight due to sinus pauses unless HR > 160. Anticoagulation with Eliquis (hold pending decision regarding pacemaker for now) Trend troponin TTE ordered TSH WNL Consult cardiology (2) COVID-19: No hypoxia or CXR findings to suggest need for treatment with steroids. Isolation precautions (3) Sinus pause: Secondary to diltiazem use int he ER. Possible need for pacemaker if going to requiring rate controlling medication. (4) CAD in [place] artery: Continue clopidogrel, rosuvastatin (5) S/P aortic valve replacement with bioprosthetic valve: Notable history of this Admission and Anticipated Discharge Date Admission Date: July 23, 2020 History of Present Illness Chief Complaint: Palpitations Primary Care Provider: Anju Gonzalez MD John Figueroa is an 84-year-old male who presents to the ER on the advice of his PCP due to palpitations and increased heart rate. He recently had COVID-19 exposure on . His grandson dropped off something out of his house and used his phone and the patient thinks he caught after using the same for him without wiping it down. His grandson tested positive the day after. Mr Figueroa started having symptoms of chills and increased shortness of breath 2 days ago. Symptoms of COVID-19 however have been mild. He has been measuring his heart rate, blood pressure, O2 sats twice a day and isolating himself. He noticed his heart rate was elevated this morning with associated palpitations and mild chest pressure therefore called his PCP office and advised him to come to the ER. He denies any associated diaphoresis or nausea. In the ER he was noted to have atrial fibrillation with rapid ventricular rate and was started on diltiazem. This caused significant sinus pauses and was subsequently discontinued. ER physician discussed with Dr Kaye and recommended discontinuation of AV ramon blocking agents and start on apixaban. He was referred to medicine for A. fib RVR, COVID-19 and sinus pauses for admission and ongoing management. Allergies Allergy/AdvReac Type Severity Reaction Status Date / Time Penicillins Allergy Intermediate Unknown Verified 07/23/20 18:10 Home Medications Medication Instructions Recorded Confirmed Type cholecalciferol (vitamin D3) 25 1,000 units PO BID cap 06/06/19 07/23/20 History mcg (1,000 unit) capsule clopidogrel 75 mg tablet 75 mg PO DAILY 06/06/19 07/23/20 History nitroglycerin 0.4 mg sublingual 0.4 mg SL Q5M PRN 06/06/19 07/23/20 History tablet sildenafil 100 mg tablet 100 mg PO DAILY PRN 06/06/19 07/23/20 History rosuvastatin 10 mg tablet 10 mg PO DAILY #90 tab 04/10/20 07/23/20 Rx coQ10 (ubiquinol) 100 mg PO DAILY 07/23/20 07/23/20 History escitalopram oxalate 10 mg PO UD 07/23/20 07/23/20 History vitamins A,C,E-mapp-muguvd 1 tab PO DAILY 07/23/20 07/23/20 History [PreserVision AREDS] Past Med/Surg History Medical History Ankle fracture (2012) CAD in [place] artery Dyslipidemia History of cerebellar stroke (2016) Hypertension Surgical History 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) Social History Smoking Status: Never smoker Second Hand Exposure: No; Do You Dip or Chew Tobacco: No; Tobacco Cessation Education Requested by Patient: No Hx Alcohol Use: No Hx Substance Use: No Preferred Language: Ugandan Communication Ability: Effective Wellness Coach Required: No Beliefs That Will Affect Care: None Current Living Situation: Spouse and Family Other Information That Helps Us Care for You: No Feels Safe at Home: Yes Safety Concerns: Feels Safe At This Time Assistive Devices: Cane Review of Systems Review of Systems: All systems reviewed & are unremarkable except as noted in HPI & below Physical Exam Constitutional: well developed and well nourished; no acute distress Eyes: + anicteric sclerae; normal pupil size ENMT: external ear and nose normal, oropharynx normal Neck: trachea midline Respiratory: normal respiratory effort, lungs clear to auscultation Cardiovascular: Rate/Rhythm: + tachycardic and + irregularly irregular Heart Sounds: no murmur Vessels: no JVD Extremities: normal capillary refill; no calf tenderness and no pedal edema Gastrointestinal (Abdomen): normal bowel sounds, soft, nontender, no he patosplenomegaly Musculoskeletal: no cyanosis or clubbing, extremities motor strength 5/5 Skin: no rashes, warm and dry Neurologic: moves all extremities and awake; no focal motor deficits and not confused Psychiatric: A+Ox3, euthymic affect Genitourinary: no CVA tenderness Results & Data Results & Data ([facility]) Vital Signs (Past 12 Hours) Vital Signs Temp Pulse Resp BP Pulse Ox Pulse Ox 07/23/20 19:13 97 07/23/20 17:15 87 15 108/72 95 07/23/20 17:01 103 H 18 95 07/23/20 17:00 106 H 17 110/79 97 07/23/20 16:45 82 22 104/76 95 07/23/20 16:31 88 15 97 07/23/20 16:30 91 H 12 110/66 96 07/23/20 16:15 78 14 94/64 L 95 07/23/20 16:01 91 H 16 07/23/20 16:00 89 18 105/76 07/23/20 15:41 137 H 21 07/23/20 15:39 146 H 20 111/88 07/23/20 15:24 36.7 C 118 H 20 85/57 L 96 Diagnostic Findings XR chest 1V portable IMPRESSION: No active disease in the chest. Medications Administered ER Medications given: NSS 500ml bolus Diltiazem 10mg IV (briefly on IV drip @ 5 mg /hr subsequently discontinued due to sinus pauses) Apixaban 2.5mg PO Magnesium sulphate 1g IV ECG Indication: palpitations and tachycardia Rate (beats per minute): 135 Rhythm: atrial fibrillation Findings: + T-wave inversion (Lateral) Comparison ECG Date: from (January 08, 2017) Change: the following changes noted (Atrial fibrillation replaced sinus rhythm) Code Status & VTE Plan Code Status Full VTE Prophylaxis Plan VTE Prophylaxis will be ordered: Yes PG Care Time/CCT Total # of Minutes Spent Total Time Spent with Patient: Total time spent is greater than 50% in coordination of care (as documented) at patient's floor/unit and/or counseling patient: Coding Level of Care Code 53056 Initial Inpt Care Lvl 2 Diagnoses Atrial fibrillation I48.91 COVID-19 U07.1 Sinus pause I45.5 CAD in [place] artery I25.10 S/P aortic valve replacement with bioprosthetic valve Z95.3
[2020-07-24 00:52] LABS: Appearance Urine Clear (Clear); Bilirubin Urine Negative (Negative); Blood Urine Trace (Negative); Color Urine Yellow; Glucose Urine UA Negative (Negative); Ketones Urine Trace (Negative); Leukocyte Esterase Urine Negative (Negative); Nitrite Urine Negative (Negative); Protein Urine Negative (Negative); Urobilinogen Urine Negative (Negative); pH Urine 5.5 (4.5-7.5)
[2020-07-24 00:59] LABS: Bacteria Urine Negative (Negative); Epithelial Cell Urine 0-5 /lpf (0-5); WBC Urine 0-5 /hpf (0-5)
[2020-07-24 04:01] LABS: Basophils # (auto) 0.01 K/uL (0-0.2); Basophils % (auto) 0.3 %; Eosinophils # (auto) 0.04 K/uL (0-0.5); Eosinophils % (auto) 1.1 %; Hematocrit (blood only) 43.4 % (42-52); Lymphocytes # (auto) 1.24 K/uL (1.2-3.4); Mean Corpuscular Hemoglobin 32.5 pg (25-34); Mean Corpuscular Hgb Conc 34.6 g/dL (32-36); Mean Corpuscular Volume 93.9 fL (80-100); Mean Platelet Volume 9.2 fL (7.4-10.4); Monocytes # (auto) 0.51 K/uL (0.11-0.59); Monocytes % (auto) 13.6 %; Neutrophils # (auto) 1.96 K/uL (1.4-6.5); Platelet Count 113 K/uL (130-400); RDW Standard Deviation 44.8 fL (36.4-46.3); Red Blood Count 4.62 M/uL (4.7-6.1); White Blood Count 3.76 K/uL (4.8-10.8)
[2020-07-24 04:24] LABS: BUN Creatinine Ratio 17.8 (10-20); Calcium 8.5 mg/dl (8.5-10.1); Creatinine Clr Calc Pharmacy 58.7 ml/min; Est GFR (African American) 91.4; Est GFR (Non-African American) 78.9; Magnesium 2.3 mg/dl (1.8-2.4); Potassium 4.6 mmol/L (3.5-5.1)
[2020-07-24] MEDS: ROSUVASTATIN CALCIUM 10 MG TAB PO SCH (08:45)
[2020-07-24] MEDS: CHOLECALCIFEROL 1,000 UNITS 25 MCG TAB PO SCH ×2 (08:45→19:32)
[2020-07-24] MEDS: CEROVITE ADV FORMULA TAB PO SCH (08:45)
[2020-07-24] MEDS: CLOPIDOGREL BISULFATE 75 MG TAB PO SCH (08:45)
[2020-07-24] MEDS: ESCITALOPRAM OXALATE 10 MG TAB PO SCH (08:45)
[2020-07-24] MEDS ORDERED: NON-FORMULARY MEDICATION (Coq10 (Ubiquinol) 100 mg Capsule) PO SCH (09:00)
--- NOTE | 2020-07-24 10:52 | Cardiology Consultation ---
Date of Consultation July 24, 2020 Assessment & Plan (1) Atrial fibrillation with rapid ventricular response: Mr. 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 A-Fib manifested as tachypalpitations, chest pressure, and an elevated HR. Patient was started on IV Diltiazem which brought down his HR, but patient then developed cardiac pauses up to 3 seconds in duration. Negative chronotropic medication was discontinued. Patient spontaneously converted back to a NSR at approximately midnight and has maintained a NSR. Despite elevated HR's -- pat ient's Troponin I levels are within normal limits -- therefore no evidence of myocardial ischemia. Patient's [id number] is 6 -- therefore anticoagulation is indicated. Recommend the following: -- Discharge to home on Eliquis 5 mg b.i.d.. -- Avoid negative chronotropic medications for the time being. -- Follow-up with [facility] [place] Cardiology in 2 to 3 weeks. (2) CAD in [place] artery: -- Continue Plavix 75 mg daily. -- Continue Rosuvastatin 10 mg daily. -- Continue Co-Q 10 100 mg daily. -- Sublingual Nitroglycerin as needed. (3) Dyslipidemia: -- Continue Rosuvastatin 10 mg daily. -- Continue Co-Q 10 100 mg daily. History of Present Illness Reason for Consultation: -- Atrial Fibrillation with RVR. -- Probable Sinus Node Dysfunction. -- SARS-CoV 2. Requesting Physician: Shivam Conway DO Attending Physician: Jordan Chacon MD History of Present Illness Mr. Figueroa is an 84-year-old male with a history of CAD s/p CABG x3 Vessels (THURMAN to LAD, SVG to Diagonal, SVG to RCA), Aortic Stenosis s/p Bioprosthetic 25 mm AVR March 2010, Postoperative Atrial Fibrillation, Myocardial Infarction 2000, Hypertension, Dyslipidemia, GERD, and a Cerebellar CVA with a current SARS CoV2 who developed tachy-palpitations, mild chest pressure, and an elevated HR 3 days prior to presentation. He contacted his PCP who referred him to [facility] ER for further evaluation. In the ER, patient was noted to be in rapid A-Fib with HR in the 140's. Patient was started on IV Diltiazem which brought down his HR, but patient then developed cardiac pauses up to 3 seconds in duration. binding bench worker black top raker advised to stop negative chronotropic medication and start on Eliquis. Patient spontaneously converted back to a NSR at approximately midnight and has maintained a NSR. Despite elevated HR's -- patient's Troponin I levels are within normal limits. Patient offers no complaints at the present time. He denies any chest pain, pressure, tightness, or discomfort. He denies any neck, jaw, back, or arm pain. He denies any SOB, [place], orthopnea, or PND. No syncope or near syncope. He denies any neurologic symptoms suggestive of a stroke or mini-stroke. Allergies Allergy/AdvReac Type Severity Reaction Status Date / Time Penicillins Allergy Intermediate Unknown Verified 07/23/20 18:10 Home Medications Medication Instructions Recorded Confirmed Type cholecalciferol (vitamin D3) 25 1,000 units PO BID cap 06/06/19 07/23/20 History mcg (1,000 unit) capsule clopidogrel 75 mg tablet 75 mg PO DAILY 06/06/19 07/23/20 History nitroglycerin 0.4 mg sublingual 0.4 mg SL Q5M PRN 06/06/19 07/23/20 History tablet sildenafil 100 mg tablet 100 mg PO DAILY PRN 06/06/19 07/23/20 History rosuvastatin 10 mg tablet 10 mg PO DAILY #90 tab 04/10/20 07/23/20 Rx coQ10 (ubiquinol) 100 mg PO DAILY 07/23/20 07/23/20 History escitalopram oxalate 10 mg PO UD 07/23/20 07/23/20 History vitamins A,C,D-khbs-rwtyea 1 tab PO DAILY 07/23/20 07/23/20 History [PreserVision AREDS] Patient History Medical History Ankle fracture (2012) CAD in [place] artery Dyslipidemia History of cerebellar stroke (2016) Hypertension Surgical History 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) Social History Smoking Status: Never smoker Second Hand Exposure: No; Do You Dip or Chew Tobacco: No; Tobacco Cessation Education Requested by Patient: No Hx Alcohol Use: No Hx Substance Use: No Preferred Language: Pashto Communication Ability: Effective Fisher Mussel Required: No Beliefs That Will Affect Care: None Current Living Situation: Spouse and Family Other Information That Helps Us Care for You: No Feels Safe at Home: Yes Safety Concerns: Feels Safe At This Time Assistive Devices: Cane Physical Exam Physical Exam: GENERAL: Patient in no acute distress. HEENT: Head is atraumatic, normocephalic. EOM's intact. Facies symmetric. No perioral cyanosis. NECK: No JVD. JVP is at the level of the clavicle sitting upright. Carotid upstrokes are + 2 bilaterally. No bruits are noted. CHEST/LUNGS: Clear to auscultation throughout all lung michele. No wheezes, rales, or crackles. CVS: S1 and S2 are regular with a grade 1/6 basal systolic murmur. No diastolic murmurs, gallops, or rubs. PMI is nondisplaced. No lifts, heaves, or thrills. No abdominal aortic or renal bruits. ABDOMINAL EXAM: Bowel sounds are present. No masses, organomegaly, or tenderness. EXTREMITIES: No clubbing or cyanosis. No edema. Intact posterior tibial and radial pulses bilaterally. NEUROLOGIC EXAM: Patient is awake, alert, and oriented. Pleasant and cooperative. Answers questions appropriately. Speech is clear. Normal movement in all 4 extremities. Gait pattern is unremarkable. CARDIAC MONITORING: -- Normal sinus rhythm. Results & Data ([facility]) Vital Signs (Past 12 Hours) Vital Signs Temp Pulse Pulse Resp BP Pulse Ox 07/24/20 10:35 75 07/24/20 08:49 36.8 C 75 14 121/81 97 07/24/20 06:15 60 17 138/81 98 07/23/20 23:42 79 20 141/75 H 95 Laboratory Results Laboratory Results - last 24 hr 12/04/0407/23/20 07/23/20 15:43 15:50 15:50 WBC 4.87 RBC 5.12 Hgb 16.5 Hct 47.4 MCV 92.6 MCH 32.2 MCHC 34.8 RDW Std Deviation 43.7 RDW Coeff of Nay 12.9 Plt Count 131 MPV 9.5 Immature Gran % (Auto) 0.2 Neut % (Auto) 60.6 Lymph % (Auto) 23.2 [place] % (Auto) 15.0 Eos % (Auto) 0.8 Baso % (Auto) 0.2 Neut # (Auto) 2.95 Lymph # (Auto) 1.13 L [place] # (Auto) 0.73 H Eos # (Auto) 0.04 Baso # (Auto) 0.01 Immature Gran # (Auto) 0.01 PT 11.5 INR 1.1 Sodium Potassium Chloride Carbon Dioxide Anion Gap BUN Creatinine Est Cr Clr Drug Dosing Est GFR ( Amer) Est GFR (Non-Af Amer) BUN/Creatinine Ratio Glucose Lactate Calcium Magnesium Total Bilirubin AST ALT Alkaline Phosphatase Troponin I C-Reactive Protein Total Protein Albumin Globulin Albumin/Globulin Ratio Lipase Procalcitonin TSH Urine Color Urine Appearance Urine pH Ur Specific [place] Urine Protein Urine Glucose (UA) Urine Ketones Urine Blood Urine Nitrite Urine Bilirubin Urine Urobilinogen Ur Leukocyte Esterase Urine RBC Urine WBC Ur Epithelial Cells Urine Bacteria COVID-19 Eval Order SARS-CoV-2, RNA, NAAT Blood Type O Positive Antibody Screen NEGATIVE 07/23/20 07/23/20 07/23/20 15:50 15:50 15:50 WBC RBC Hgb Hct MCV MCH MCHC RDW Std Deviation RDW Coeff of Nay Plt Count MPV Immature Gran % (Auto) Neut % (Auto) Lymph % (Auto) [place] % (Auto) Eos % (Auto) Baso % (Auto) Neut # (Auto) Lymph # (Auto) [place] # (Auto) Eos # (Auto) Baso # (Auto) Immature Gran # (Auto) PT INR Sodium 136 Potassium 4.0 Chloride 105 Carbon Dioxide 23 Anion Gap 8.0 BUN 14 Creatinine 0.88 Est Cr Clr Drug Dosing 58.7 Est GFR ( Amer) 91.4 Est GFR (Non-Af Amer) 78.9 BUN/Creatinine Ratio 15.7 Glucose 90 Lactate 1.6 Calcium 9.9 Magnesium Total Bilirubin 0.8 AST 28 ALT 34 Alkaline Phosphatase 90 Troponin I 0.032 C-Reactive Protein < 0.29 Total Protein 7.7 Albumin 4.3 Globulin 3.4 Albumin/Globulin Ratio 1.3 Lipase 208 Procalcitonin < 0.05 TSH 2.920 Urine Color Urine Appearance Urine pH Ur Specific [place] Urine Protein Urine Glucose (UA) Urine Ketones Urine Blood Urine Nitrite Urine Bilirubin Urine Urobilinogen Ur Leukocyte Esterase Urine RBC Urine WBC Ur Epithelial Cells Urine Bacteria COVID-19 Eval Order SARS-CoV-2, RNA, NAAT Blood Type Antibody Screen 07/23/20 07/23/20 07/24/20 15:50 15:50 00:40 WBC RBC Hgb Hct MCV MCH MCHC RDW Std Deviation RDW Coeff of Nay Plt Count MPV Immature Gran % (Auto) Neut % (Auto) Lymph % (Auto) [place] % (Auto) Eos % (Auto) Baso % (Auto) Neut # (Auto) Lymph # (Auto) [place] # (Auto) Eos # (Auto) Baso # (Auto) Immature Gran # (Auto) PT INR Sodium Potassium Chloride Carbon Dioxide Anion Gap BUN Creatinine Est Cr Clr Drug Dosing Est GFR ( Amer) Est GFR (Non-Af Amer) BUN/Creatinine Ratio Glucose Lactate Calcium Magnesium Total Bilirubin AST ALT Alkaline Phosphatase Troponin I C-Reactive Protein Total Protein Albumin Globulin Albumin/Globulin Ratio Lipase Procalcitonin TSH Urine Color Yellow Urine Appearance Clear Urine pH 5.5 Ur Specific [place] 1.020 Urine Protein Negative Urine Glucose (UA) Negative Urine Ketones Trace H Urine Blood Trace H Urine Nitrite Negative Urine Bilirubin Negative Urine Urobilinogen Negative Ur Leukocyte Esterase Negative Urine RBC 5-10 H Urine WBC 0-5 Ur Epithelial Cells 0-5 Urine Bacteria Negative COVID-19 Eval [facility] SARS-CoV-2, RNA, NAAT POSITIVE A* Blood Type Antibody Screen 07/24/20 07/24/20 07/24/20 03:48 03:48 03:48 WBC 3.76 L RBC 4.62 L Hgb 15.0 Hct 43.4 MCV 93.9 MCH 32.5 MCHC 34.6 RDW Std Deviation 44.8 RDW Coeff of Nay 13.0 Plt Count 113 L MPV 9.2 Immature Gran % (Auto) 0.0 Neut % (Auto) 52.0 Lymph % (Auto) 33.0 [place] % (Auto) 13.6 Eos % (Auto) 1.1 Baso % (Auto) 0.3 Neut # (Auto) 1.96 Lymph # (Auto) 1.24 [place] # (Auto) 0.51 Eos # (Auto) 0.04 Baso # (Auto) 0.01 Immature Gran # (Auto) 0.00 PT INR Sodium 137 Potassium 4.6 Chloride 106 Carbon Dioxide 30 Anion Gap 1.0 L BUN 16 Creatinine 0.88 Est Cr Clr Drug Dosing 58.7 Est GFR ( Amer) 91.4 Est GFR (Non-Af Amer) 78.9 BUN/Creatinine Ratio 17.8 Glucose 84 Lactate Calcium 8.5 Magnesium 2.3 Total Bilirubin AST ALT Alkaline Phosphatase Troponin I 0.042 C-Reactive Protein Total Protein Albumin Globulin Albumin/Globulin Ratio Lipase Procalcitonin TSH Urine Color Urine Appearance Urine pH Ur Specific [place] Urine Protein Urine Glucose (UA) Urine Ketones Urine Blood Urine Nitrite Urine Bilirubin Urine Urobilinogen Ur Leukocyte Esterase Urine RBC Urine WBC Ur Epithelial Cells Urine Bacteria COVID-19 Eval Order SARS-CoV-2, RNA, NAAT Blood Type Antibody Screen Medications Administered Active Medications Generic Name Dose Route Start Last Admin Trade Name Freq PRN Reason Stop Dose Admin Acetaminophen 650 mg 07/23/20 18:52 Acetaminophen 325 Mg Tab PO 08/22/20 18:51 Q4H PRN Pain or Fever Clopidogrel Bisulfate 75 mg 07/24/20 09:00 07/24/20 08:45 Clopidogrel Bisulfate 75 Mg Tab PO 08/23/20 08:59 75 mg DAILY JN Administration Escitalopram Oxalate 10 mg 07/24/20 09:00 07/24/20 08:45 Escitalopram Oxalate 10 Mg Tab PO 08/23/20 08:59 10 mg QAM JN Administration Multivitamins/Minerals 1 tab 07/24/20 09:00 07/24/20 08:45 Cerovite Adv Formula Tab PO 08/23/20 08:59 1 tab DAILY JN Administration Rosuvastatin Calcium 10 mg 07/24/20 09:00 07/24/20 08:45 Rosuvastatin Calcium 10 Mg Tab PO 08/23/20 08:59 10 mg DAILY JN Administration Vitamin D 1,000 units 07/24/20 09:00 07/24/20 08:45 Cholecalciferol 1,000 Units 25 Mcg Tab PO 08/23/20 08:59 1,000 units BID JN Administration PG Care Time/CCT Total # of Minutes Spent Total Time Spent with Patient: Total time spent is greater than 50% in coordination of care (as documented) at patient's floor/unit and/or counseling patient:25 Coding Level of Care Code 58128 OBS Care - Level 3 Diagnoses Atrial fibrillation with rapid ventricular response I48.91 CAD in [place] artery I25.10 Dyslipidemia E78.5
[2020-07-24] MEDS ORDERED: VANCOMYCIN CONSULT ACTIVE PRN (12:39)
[2020-07-24] MEDS ORDERED: VANCOMYCIN HCL 1,250 MG in SODIUM CHLORIDE 0.9% 250 ML IV ONE (13:00)
--- NOTE | 2020-07-24 13:37 | Electrocardiogram Report ---
Test Reason : Blood Pressure : / mmHG Vent. Rate : 135 BPM Atrial Rate : 141 BPM P-R Int : 000 ms QRS Dur : 096 ms QT Int : 310 ms P-R-T Axes : 000 -75 088 degrees QTc Int : 465 ms Poor data quality, interpretation may be adversely affected Atrial fibrillation with rapid ventricular response Left anterior fascicular block Abnormal ECG When compared with ECG of 08-JAN-2017 06:59, Significant changes have occurred Confirmed by Jordan Chacon ([id number]) on 07/24/2020 1:37:01 PM Referred By: Confirmed By:Jordan Chacon
--- NOTE | 2020-07-24 13:54 | Hospitalist Progress Note ---
Date of Service July 24, 2020 Assessment & Plan (1) COVID-19: Patient with chills and shortness of breath 07/21/2020 Positive Covid test 07/23/2020 At this point patient is not requiring supplemental oxygen and is asymptomatic No indication for remdesivir, steroids, convalescent plasma Patient is not on any home O2 Grandson is also positive for Covid Supportive care at this time. Self-isolation at home once discharged (2) Atrial fibrillation with rapid ventricular response: Patient is currently not on any anticoagulant at home He was started on Eliquis in the emergency department. This has been stopped He was started on diltiazem but developed sinus pause so antiarrhythmics were held This morning the patient is normal sinus rhythm with a short sinus pause on telemetry Patient was seen by cardiology who will follow up in the office [id number] is 6 so patient should be discharged on Eliquis 5 mg twice daily. We will start that at this time. (3) CAD in [place] artery: No significant EKG changes Minimal troponin increase Continue Plavix 75 mg daily Continue coq.12 100 mg daily Nitroglycerin as needed We will also continue rosuvastatin Outpatient follow-up (4) Sinus pause: This seems to improve since negative chronotropic agents have been held Continue to monitor on telemetry At the time of discharge it should be noted that the patient drove himself to the hospital If patient has further pauses once medications have been stopped, would not let him drive until seen by cardiology in the outpatient office (5) Hypertension: Currently well controlled Not on any home antihypertensives Continue monitor on telemetry (6) Bacteremia due to Gram-positive bacteria: 1 of 2 tubes grew gram-positive cocci in clusters Check a MRSA swab Start empiric vancomycin pending identification and sensitivities No fever or leukocytosis Follow serial labs No evidence of sepsis (7) DVT prophylaxis: Start Eliquis 5 mg p.o. twice daily Out of bed and ambulate in room as tolerated Admission and Anticipated Discharge Date Admission Date: July 23, 2020 Subjective Attending: Dr. Shivam Conway This is an 84-year-old male who was admitted 07/23/2020 with atrial fibrillation with rapid ventricular response. He did have some shortness of breath and chills starting 07/21/2020. Consequently, he had a Covid test administered which was + 07/23/2020. Patient currently is asymptomatic and not requiring supplemental oxygen. He has no cough. He denies any fever. Last fever according to the patient was Wednesday night and was 100.5 F. Patient did present with atrial fibrillation with rapid ventricular response. Is currently normal sinus rhythm and rate controlled. Patient did have a sinus pause. Cardiology is consulted. Patient denies any awareness of arrhythmias. Patient has no other acute complaints at this time. Review of Systems Review of Systems: All systems reviewed & are unremarkable except as noted in HPI & below Physical Exam Physical Exam: GENERAL : No acute distress EYES: No icterus, gaze conjugate NOSE: No evidence of epistaxis MOUTH: No lesions or candidiasis NECK: Supple LUNGS: CTA B/L, no wheezes, rales or rhonchi HEART: Normal sinus rhythm on telemetry, rate controlled ABDOMEN: Soft, NT, ND, BS Present EXTREMITIES: No LE edema, pedal pulses intact NEURO: A&OX3 Results & Data Results & Data ([facility]) Vital Signs (Past 12 Hours) Vital Signs Temp Pulse Pulse Resp BP Pulse Ox 07/24/20 11:58 36.6 C 64 16 143/85 H 95 07/24/20 10:35 75 07/24/20 08:49 36.8 C 75 14 121/81 97 07/24/20 06:15 60 17 138/81 98 Laboratory Results 07/24/20 03:48 07/24/20 03:48 Microbiology 07/23/20 15:47 Anaerobic Blood Culture - Preliminary Blood Gram positive cocci clusters 07/23/20 07/24/20 15:50 03:48 Troponin I 0.032 0.042 Diagnostic Findings XR chest 1V portable CLINICAL HISTORY: chest pressure, new atrial fibrillation COMPARISON STUDY: No previous studies for comparison. FINDINGS: There are postsurgical changes of midline sternotomy. The heart is normal in size. There is aortic tortuosity. There is no failure. There is no focal pulmonary consolidation. There are no pleural effusions. No pneumothorax is visualized.[ IMPRESSION: No active disease in the chest. Electronically signed by: Alexander Hernandez M.D. 07/23/2020 4:49 PM PG Care Time/CCT Total # of Minutes Spent Total Time Spent with Patient: Total time spent is greater than 50% in coordination of care (as documented) at patient's floor/unit and/or counseling patient:35 minutes including discussion with other providers Coding Level of Care Code 19026 Subseq Hosp Care Lvl 2 Diagnoses COVID-19 U07.1 Atrial fibrillation with rapid ventricular response I48.91 CAD in [place] artery I25.10 Sinus pause I45.5 Hypertension I10 Bacteremia due to Gram-positive bacteria R78.81 DVT prophylaxis Z29.9
--- NOTE | 2020-07-24 14:23 | Electrocardiogram Report ---
Test Reason : Blood Pressure : / mmHG Vent. Rate : 063 BPM Atrial Rate : 063 BPM P-R Int : 178 ms QRS Dur : 108 ms QT Int : 432 ms P-R-T Axes : 057 -70 049 degrees QTc Int : 442 ms Normal sinus rhythm with sinus arrhythmia Left anterior fascicular block Abnormal ECG When compared with ECG of 23-JUL-2020 15:33, (unconfirmed) Sinus rhythm has replaced Atrial fibrillation Vent. rate has decreased BY 72 BPM Confirmed by Jordan Chacon ([id number]) on 07/24/2020 2:23:17 PM Referred By: Anju Gonzalez Confirmed By:Jordan Chacon
--- NOTE | 2020-07-24 16:07 | Pharmacy Report ---
Pharmacy Abx Dose Short Note - Date of Service July 24, 2020 - Assessment & Plan Assessment * 84 year old M receiving VANCOMYCIN IV for treatment of gram positive cocci bacteremia * One bottle of 1 set of blood cultures is growing gram + cocci in clusters. Growth is noted in the anaerobic bottle, thus staph aureus PCR testing cannot be performed. Growth was noted within 24 hours of collection. Uncertain if contaminant or not. * Procal negative * Patient was admitted w/ a fib w/ RVR as well as dx of COVID19. He is afebrile but leukopenic. * MRSA nasal swab was negative. CXR read as "no active disease" * PMH is significant for bioprosthetic AVR Plan Vancomycin * Patient meets criteria for vancomycin AUC dosing nomogram * Loading dose of 1250mg x 1 given * Maint dose: 1000mg IV Q 12 hours * AUC/GAIL is the preferred PK/PD target for vancomycin * Target AUC/GAIL = 400-600 * Trough level of ~16 mcg/mL is predicted to achieve target AUC/GAIL * AUC guided dosing is effective and associated with decreased risk of nephrotoxicity Pharmacy will continue to follow and will adjust dose/frequency as necessary. Thank you.
[2020-07-24] MEDS: APIXABAN 5 MG TABLET PO SCH (19:33)
[2020-07-25] MEDS ORDERED: VANCOMYCIN HCL 1,000 MG in SODIUM CHLORIDE 0.9% 250 ML IV SCH
[2020-07-25] MEDS: CEROVITE ADV FORMULA TAB PO SCH (07:40)
[2020-07-25] MEDS: CLOPIDOGREL BISULFATE 75 MG TAB PO SCH (07:40)
[2020-07-25] MEDS: ROSUVASTATIN CALCIUM 10 MG TAB PO SCH (07:41)
[2020-07-25] MEDS: APIXABAN 5 MG TABLET PO SCH (07:41)
[2020-07-25] MEDS: ESCITALOPRAM OXALATE 10 MG TAB PO SCH (07:41)
[2020-07-25] MEDS: CHOLECALCIFEROL 1,000 UNITS 25 MCG TAB PO SCH (07:41)
[2020-07-25 08:41] LABS: Eosinophils # (auto) 0.03 K/uL (0-0.5); Eosinophils % (auto) 0.9 %; Hematocrit (blood only) 43.8 % (42-52); Hemoglobin 15.1 g/dL (14.0-18.0); Lymphocytes % (auto) 17.3 %; Mean Corpuscular Hemoglobin 31.9 pg (25-34); Mean Corpuscular Hgb Conc 34.5 g/dL (32-36); Mean Corpuscular Volume 92.4 fL (80-100); Mean Platelet Volume 9.3 fL (7.4-10.4); Monocytes # (auto) 0.35 K/uL (0.11-0.59); Monocytes % (auto) 10.1 %; Neutrophils # (auto) 2.49 K/uL (1.4-6.5); Neutrophils % (auto) 71.7 %; Platelet Count 106 K/uL (130-400); RDW Coefficient of Variation 12.9 % (11.5-14.5); RDW Standard Deviation 43.6 fL (36.4-46.3); Red Blood Count 4.74 M/uL (4.7-6.1); White Blood Count 3.47 K/uL (4.8-10.8)
[2020-07-25 08:58] LABS: BUN Creatinine Ratio 18.9 (10-20); Creatinine Clr Calc Pharmacy 71.7 ml/min; Est GFR (African American) 99.3; Est GFR (Non-African American) 85.7; Potassium 3.9 mmol/L (3.5-5.1)
--- NOTE | 2020-07-25 09:48 | Cardiology Progress Note ---
Date of Service July 25, 2020 Assessment & Plan (1) Atrial fibrillation with rapid ventricular response: (2) Bradycardia: (3) S/P aortic valve replacement with bioprosthetic valve: (4) S/P coronary artery bypass graft x 3: (5) CAD in [place] artery: Patient with paroxysmal atrial fibrillation spontaneously converted to sinus rhythm 2 days ago. Brief pauses noted then, not actually sinus pauses since he was in atrial fibrillation and receiving IV diltiazem when the pauses occurred. No recurrent pauses but he does remain relatively bradycardic. Therefore, agree with not discharging on daily dosing of negative chronotrope, but would recommend that he have a dose of metoprolol tartrate 25 mg available for PRN use if he develops recurrent tachycardia. His pauses were brief, occurred during atrial fibrillation, and were secondary to intravenous diltiazem. Do not believe he has severe underlying conduction disease, so he should tolerate a low-dose beta-funmilayo if he does have recurrent tachydysrhythmia. He is appropriately anticoagulated with apixaban 5 mg twice daily, would continue this as an outpatient and later reevaluate need for long-term use based on whether he has recurrent atrial fibrillation. Possibly, this episode is a one-time event related to his Covid infection (which can cause cardiac inflammation) and will not recur, but would certainly recommend 6 to 12 months of anticoagulation before reevaluating. No further active cardiac issues, will sign off. Please contact if additional questions or arise. Thank you for allowing me to participate in the care of Mr. Figueroa. Admission and Anticipated Discharge Date Admission Date: July 23, 2020 Subjective Uneventful night. Patient feels well, denies any chest pain, dyspnea, cough, fever or other complaints. Rhythm on monitor sinus bradycardia 50-60 bpm range, no recurrence of atrial fibrillation or pauses. Physical Exam Physical Exam: Patient not examined (Covid positive). See hospitalist exam. Results & Data ([facility]) Vital Signs (Past 12 Hours) Vital Signs Temp Pulse Pulse Resp BP Pulse Ox 07/25/20 08:00 57 L 07/25/20 07:46 98.2 F 63 18 124/78 96 07/25/20 04:37 98.1 F 53 L 18 148/65 H 94 07/25/20 00:10 53 L 07/24/20 23:19 53 L 16 139/77 97 Diagnostic Findings ECG 07/24/2020 showed sinus rhythm with left anterior fascicular block. PG Care Time/CCT Total # of Minutes Spent Total Time Spent with Patient: Total time spent is greater than 50% in coordination of care (as documented) at patient's floor/unit and/or counseling patient: Coding Level of Care Code 41161 Subseq Hosp Care Lvl 2 Diagnoses Atrial fibrillation with rapid ventricular response I48.91 Bradycardia R00.1 S/P aortic valve replacement with bioprosthetic valve Z95.3 S/P coronary artery bypass graft x 3 Z95.1 CAD in [place] artery I25.10
--- NOTE | 2020-07-25 11:10 | Discharge Summary ---
Date of Service July 25, 2020 Admission HPI Per Admitting Provider John Figueroa is an 84-year-old male who presents to the ER on the advice of his PCP due to palpitations and increased heart rate. He recently had COVID-19 exposure on Thanksgiving. His grandson dropped off something out of his house and used his phone and the patient thinks he caught after using the same for him without wiping it down. His grandson tested positive the day after. Mr Figueroa started having symptoms of chills and increased shortness of breath 2 days ago. Symptoms of COVID-19 however have been mild. He has been measuring his heart rate, blood pressure, O2 sats twice a day and isolating himself. He noticed his heart rate was elevated this morning with associated palpitations and mild chest pressure therefore called his PCP office and advised him to come to the ER. He denies any associated diaphoresis or nausea. In the ER he was noted to have atrial fibrillation with rapid ventricular rate and was started on diltiazem. This caused significant sinus pauses and was subsequently discontinued. ER physician discussed with Dr Kaye and recommended discontinuation of AV ramon blocking agents and start on apixaban. He was referred to medicine for A. fib RVR, COVID-19 and sinus pauses for admission and ongoing management. Admission Exam Per Admitting Provider Constitutional: well developed and well nourished; no acute distress Eyes: + anicteric sclerae; normal pupil size ENMT: external ear and nose normal, oropharynx normal Neck: trachea midline Respiratory: normal respiratory effort, lungs clear to auscultation Cardiovascular: Rate/Rhythm: + tachycardic and + irregularly irregular Heart Sounds: no murmur Vessels: no JVD Extremities: normal capillary refill; no calf tenderness and no pedal edema Gastrointestinal (Abdomen): normal bowel sounds, soft, nontender, no hepatosplenomegaly Musculoskeletal: no cyanosis or clubbing, extremities motor strength 5/5 Skin: no rashes, warm and dry Neurologic: moves all extremities and awake; no focal motor deficits and not confused Psychiatric: A+Ox3, euthymic affect Genitourinary: no CVA tenderness Principal Diagnosis Atrial fibrillation with rapid ventricular response Positive for COVID-19 Discharge Exam GENERAL : No acute distress EYES: No icterus, gaze conjugate NOSE: No evidence of epistaxis MOUTH: No lesions or candidiasis NECK: Supple LUNGS: CTA B/L, no wheezes, rales or rhonchi HEART: Regular, rate controlled. Normal sinus rhythm on telemetry ABDOMEN: Soft, NT, ND, BS Present EXTREMITIES: No LE edema, pedal pulses intact NEURO: A&OX3 Discharge Data Allergies Allergy/AdvReac Type Severity Reaction Status Date / Time Penicillins Allergy Intermediate Unknown Verified 07/23/20 18:10 Consultations 07/23/20 17:27 ED Decision to Admit Stat 07/23/20 18:52 Consult Cardiology Routine Ordered Studies 07/25/20 08:27 07/25/20 08:27 Microbiology 07/23/20 15:47 Aerobic Blood Culture - Preliminary Blood No growth in Aerobic bottle after 24 hours. Anaerobic Blood Culture - Preliminary Coag negative Staphylococcus 07/23/20 15:45 Aerobic Blood Culture - Preliminary Blood No growth in Aerobic bottle after 24 hours. Anaerobic Blood Culture - Preliminary No growth in Anaerobic bottle after 24 hours. Hospital Course (1) COVID-19: Patient with chills and shortness of breath 07/21/2020 Positive Covid test 07/23/2020 At this point patient is not requiring supplemental oxygen and is asymptomatic No indication for remdesivir, steroids, convalescent plasma Patient is not on any home O2 Grandson is also positive for Covid Supportive care at this time. Self-isolation at home once discharged Patient was discharged with [employer] publications on COVID-19 (2) Atrial fibrillation with rapid ventricular response: Patient is currently not on any anticoagulant at home He was started on Eliquis in the emergency department. * This will continue on discharge of 5 mg by mouth twice daily * A prescription was electronically transferred to [facility] in [place] He was started on diltiazem but developed sinus pause so antiarrhythmics were held At the time of discharge the patient continued in normal sinus rhythm Review of telemetry prior to discharge revealed three 3-second pauses on 07/23/2020 at approximately 8:30 PM. * Cardiology note reviewed. These are most likely secondary to atrial fibrillation and were not true pauses * Patient will follow up in the outpatient clinic [id number] is 6 so patient should be discharged on Eliquis 5 mg twice daily. (3) CAD in [place] artery: No significant EKG changes Minimal troponin increase Continue Plavix 75 mg daily Continue coq.12 100 mg daily Nitroglycerin as needed We will also continue rosuvastatin Outpatient follow-up (4) Sinus pause: This seems to improve since negative chronotropic agents have been held Continue to monitor on telemetry Cardiology note reviewed. They do not feel this was a true sinus pauses patient was in atrial fibrillation Follow-up in the outpatient office (5) Hypertension: Currently well controlled Not on any home antihypertensives Continue outpatient monitoring with cardiology office (6) Bacteremia due to Gram-positive bacteria: 1 of 2 tubes grew coag negative Staphylococcus * No indication for antibiotic treatment MRSA swab negative This most likely was contamination (7) DVT prophylaxis: Eliquis 5 mg p.o. twice daily Total Time Total Time Spent Total Time Spent (In Minutes): 40 Total Time Includes: Examination of the Patient, Discharge Planning, Medication Reconciliation and Communication With Other Providers Discharge Plan Discharge Items Patient Disposition: Home - Self-Care Reason For Visit: A FIB W/RVR SINUS PAUSES,SARS-COVS + Discharge Diagnosis: Atrial fibrillation with rapid ventricular response Covid 19+ Activity: Resume your previous activity Lifting: Gradually increase as tolerated Bathing: No limitations Sexual Activity: When tolerated Exercise/Sports: Gradually increase as tolerated Weightbearing: Full weightbearing Non-emergency contact: Primary Care Provider Call non-emergency contact if: you have any medication questions and your temperature is above 101 Follow-up/Referrals: Anju Gonzalez MD [Primary Care Provider] - Diet: Heart Healthy Addtl Attending Provider Instructions: You were admitted with atrial fibrillation with rapid ventricular response. In addition to this you were found to have COVID-19. This is an inflammatory process which increases the risk of clot. Therefore, you are being discharged on Eliquis 5 mg by mouth twice daily as an anticoagulant. This should be taken in addition to your clopidogrel (Plavix). You were seen by cardiology and it is recommended that you follow-up with them to address your medications as well as your atrial fibrillation. At the time of your discharge, you were in normal sinus rhythm and your heart rate was controlled. If you feel palpitations or noticed that you were in atrial fibrillation, you should call your manager drug safety office or report to the emergency department for evaluation. You also had 1 bottle of blood culture medium which grew coag negative Staphylococcus. This was probably a contaminant from the skin and you do not need any antibiotics on discharge. You did receive vancomycin in the hospital until we got the complete results from the blood culture. Pending Studies at Discharge: No Stand-Alone Forms: [facility] Medications and DC Order Prescriptions: New Eliquis 5 mg Tablet 5 mg PO BID Qty: 60 RF: 1 Continued rosuvastatin 10 mg tablet 10 mg PO DAILY Qty: 90 RF: 3 clopidogrel [Plavix] 75 mg tablet 75 mg PO DAILY RF: 0 nitroglycerin 0.4 mg tablet, sublingual 0.4 mg SL Q5M PRN (Reason: Chest Pain) RF: 0 cholecalciferol (vitamin D3) 1,000 unit capsule 1,000 units PO BID RF: 0 escitalopram oxalate 10 mg tablet 10 mg PO UD RF: 0 PreserVision AREDS [id number] Tablet 1 tab PO DAILY RF: 0 coQ10 (ubiquinol) 100 mg Capsule 100 mg PO DAILY RF: 0 Discontinued sildenafil [Viagra] 100 mg tablet 100 mg PO DAILY PRN (Reason: ..) RF: 0 Discharge Orders: Discharge Order (Routine); Ordered 07/25/20 Ordered By: Audie Beltran/Other Patient Handouts: 2019-nCoV, COVID-19 Prevention, COVID-19 Home Care, Simple Ways to Avoid COVID-19 Admission Data Admit Date/Time: 07/23/20 17:47 Attending Provider: Shivam Conway Admit Provider: Kojo Cook Primary Care Provider: Anju Gonzalez Other Providers: Kojo Cook ; Kam Dyson Other Interventions: Discharge Summary Assessment (RN) Last Done: 07/25/20 11:04 Supervising Physician Co-Signing Physician Notes Patient seen and examined on the day of discharge. I agree with the discharge summary by Audie FRIAS. I have reviewed the chart including labs, imaging and plans for discharge. patient doing well, HR and rhythm have been stable, no further pauses breathing well on room air, eating well, no need to treat COVID - Atrial fibrillation: resolved, but had sinus pause on diltiazem, continue to hold rate control medications, discharge on Eliquis 5mg BID - COVID 19: no hypoxia, no indications for treatment at this time stay well hydrated, well nourished, get rest, stay in isolation 10 days from positive test Coding Level of Care Code D/C Day Management >30 mins Diagnoses COVID-19 U07.1 Atrial fibrillation with rapid ventricular response I48.91 CAD in [place] artery I25.10 Sinus pause I45.5 Hypertension I10 Bacteremia due to Gram-positive bacteria R78.81 DVT prophylaxis Z29.9 Time Spent (min) 40
--- NOTE | 2020-07-25 19:08 | Pharmacy Report ---
ED Pharmacist Culture FollowUP - Culture Follow Up Note Date of Service: July 25, 2020 Notes:: Received message from Charge Nurse. She had received alert from lab blood culture growing GPC, PCr negative for S. aureus. Patient had been discharged from ED-INP earlier today, previous coag negative staph in first set of cultures considered contaminant. Alerted Dr. Cook, [place] hospitalist of alert, he had admitted the patient originally. Per Dr. Cook is is going to contact patient's PCP to have patient repeat blood cultures as he suspects this is contaminant as well.
== END 2020-07-25 12:01 | disposition home or self-care (01) | DRG 308 ==
LOC: ED 15:14 → EDINP 17:47 → SUATTDRO 17:47

== ENCOUNTER 2023-11-02 12:15 | Inpatient (IN) ==
--- NOTE | 2023-11-02 12:45 | Emergency Department Note ---
Impression & Plan Sinus tachycardia, Paroxysmal A-fib, Premature atrial complexes, Elevated troponin ED Provider Note NAME: PEG MANJARREZ AGE: 87 SEX: M : 1935 ARRIVES VIA: Ambulance INFORMANT: Patient ED PROVIDER(S): Pasquale Jackson MD CHIEF COMPLAINT: Afib with RVR, referred. PLAN: Disposition: Admit MEDICAL DECISION MAKING: The patient is a pleasant 87-year-old gentleman with a past medical history of CAD, history of paroxysmal atrial fibrillation, history of bioprosthetic aortic valve replacement, history of CABG, polyneuropathy, GERD, hypertension, hyperlipidemia who presents to emergency department via EMS referred by his primary care doctor's office after he had presented for a well visit and it was noted the patient was in atrial fibrillation with RVR. Patient reports he normally does check his heart rate in the morning but given he had an appointment scheduled today and he felt fine he did not check it. He reports he did take his medications as prescribed this morning. However, the patient does add that he did feel a transient episode of vertigo initially when he got up but took a meclizine tablet that he had given he had experienced vertigo in the past. He reports that this resolved his vertigo promptly and did not have particular concern for this. Otherwise, patient denies any recent fevers, chills, cough congestion, GI or symptoms. He reports he has not had any pattern of exertional chest pain or shortness of breath. He maintains that he did not have any symptoms (other than his transient vertigo) this morning and did not have a sense that his heart rate was fast or irregular. Review of the patient's records demonstrates the patient's history of paroxysmal atrial fibrillation was related to a COVID-19 infection in 2020. Per records patient has been on diltiazem during the hospitalization but exhibited prolonged pauses/bradycardia and so this was discontinued. Additionally, it seems he may have experienced bradycardia with beta-blockers as well and so is not currently on beta-blockers. He had initially been started on Eliquis however developed a rash and so this was discontinued and it was decided that given the patient is already on Plavix that additional anticoagulation could be deferred as he would still have reasonable prevention for the possibility of stroke. On evaluation, patient is well-appearing in no distress, afebrile with stable vital signs. Patient did present to emergency department with tachycardia which appears regular with visible P waves with first-degree AV block. EKG from the primary care doctor's office is not immediately available. Upon arriving to the patient's room he did have improvement his heart rate without intervention to the 70s and sinus rhythm. CXR negative for acute cardiopulmonary process per my preliminary independent interpretation. WBC and platelets within normal limits. H/H 13/39 decreased from 2019 without recent for comparison. Chemistry without metabolic acidosis. Potassium 3.4 with oral repletion provided. Magnesium 1.7, low normal with IV repletion provided. Phosphorus 1.9 with oral repletion provided. Initial high- sensitivity troponin 26.1, nonspecific with delta 4-hour high-sensitivity troponin 92. Given the patient has denied any chest pain or equivalent suspect ACS is not likely. More likely suspect troponin elevation related to prolonged tachycardia which may or may not have involved component of paroxysmal atrial fibrillation though did not demonstrate evidence of this here. Additionally, given the patient's report of vertigo this morning the possibility of tachybradycardia syndrome was also considered given the patient's resting heart rate did decline to the low 60s without intervention. While we had initially antipated/considered outpatient follow-up and had arranged for follow-up with his forensic pathologist on , given his troponin elevation we did agree to proceed with admission for further telemetry observation and updated echocardiogram. Case was discussed with Dr. Regan, [facility] hospitalist, who will evaluate the patient for admission. Triage Nursing notes reviewed and agree them. Prior/external medical records reviewed Vital Signs: reviewed Differential diagnosis: Premature contractions, electrolyte abnormality, cardiac dysrhythmia, thyroid dysfunction, pulmonary embolism, infection, gastrointestinal, as well as other pathologies. ER treatment provided: See below. Diagnostics interpreted by me: ECG: Sinus tachycardia with first-degree AV block, 126 bpm,PACs , left anterior fascicular block, LVH, no overt ST elevation or depression, QTc 457 QRS 102 Cardiac Monitoring: An order for continuous cardiac monitoring was placed and demonstrated Sinus tachycardia with first-degree, 126 bpm, PACs Laboratory studies: See below Imaging studies: See below Consultation(s): Dr. Regan [facility] hospitalist. HPI: The patient is a pleasant 87-year-old gentleman with a past medical history of CAD, history of paroxysmal atrial fibrillation, history of bioprosthetic aortic valve replacement, history of CABG, polyneuropathy, GERD, hypertension, hyperlipidemia who presents to emergency department via EMS referred by his primary care doctor's office after he had presented for a well visit and it was noted the patient was in atrial fibrillation with RVR. Patient reports he normally does check his heart rate in the morning but given he had an appointment scheduled today and he felt fine he did not check it. He reports he did take his medications as prescribed this morning. However, the patient does add that he did feel a transient episode of vertigo initially when he got up but took a meclizine tablet that he had given he had experienced vertigo in the past. He reports that this resolved his vertigo promptly and did not have particular concern for this. Otherwise, patient denies any recent fevers, chills, cough congestion, GI or symptoms. He reports he has not had any pattern of exertional chest pain or shortness of breath. He maintains that he did not have any symptoms (other than his transient vertigo) this morning and did not have a sense that his heart rate was fast or irregular. Review of the patient's records demonstrates the patient's history of paroxysmal atrial fibrillation was related to a COVID-19 infection in 2020. Per records patient has been on diltiazem during the hospitalization but exhibited prolonged pauses/bradycardia and so this was discontinued. Additionally, it seems he may have experienced bradycardia with beta-blockers as well and so is not currently on beta-blockers. He had initially been started on Eliquis however developed a rash and so this was discontinued and it was decided that given the patient is already on Plavix that additional anticoagulation could be deferred as he would still have reasonable prevention for the possibility of stroke. ROS: See above HPI for pertinent positives & negatives. A total of 10 systems reviewed and were otherwise negative. VITALS:See Below PHYSICAL EXAMINATION: GENERAL: Awake, alert, well-appearing, in no distress HENT: Normocephalic, atraumatic. Oropharynx with dry mucous membranes and otherwise unremarkable. EYES: Normal conjunctiva. Sclera non-icteric. EOMI. No nystamgus. PEARRL. NECK: Supple. No nuchal rigidity. FROM. No JVD. RESPIRATORY: Clear to auscultation. CARDIAC: Regular rate, normal rhythm. Extremities warm and well perfused. Pulses equal. ABDOMEN: Soft, non-distended. No tenderness to palpation. No rebound or guarding. No masses. RECTAL: Deferred. MUSCULOSKELETAL: Chest examination reveals no tenderness. The back is symmetrical on inspection without obvious abnormality. There is no CVA tenderness to palpation. No joint edema. LOWER EXTREMITIES: Calves are equal size bilaterally and non-tend 5/5 strength and SILT x 4 extremities. Cerebellar function intact including [id number], alternating palms. SKIN: No rash or jaundice noted. Pasquale Jackson MD Past Med/Surg History Medical History Lumbar spinal stenosis Anxiety Gastro-esophageal reflux disease with esophagitis History of left foot drop Inhibited sexual excitement COVID-19 (07/2020) Atrial fibrillation with rapid ventricular response History of cerebellar stroke (2016) CAD in [place] artery Dyslipidemia Hypertension Ankle fracture (2012) Surgical History S/P coronary artery bypass graft x 3 (2009) S/P aortic valve replacement with bioprosthetic valve (2009) 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) Family History Mother Unknown family medical history Social History Smoking Status: Never smoker Second Hand Exposure: No; Do You Dip or Chew Tobacco: No; Hx Alcohol Use: No Hx Substance Use: No Preferred Language: [place] Communication Ability: Effective [employer] Required: No Beliefs That Will Affect Care: None marital status: Current Living Situation: Spouse and Family current occupational status: retired Feels Safe at Home: Yes Assistive Devices: Cane and Walker Allergies Allergies Allergy/AdvReac Type Severity Reaction Status Date / Time Penicillins Allergy Intermediate Unknown Verified 07/06/23 14:51 apixaban [From Eliquis] AdvReac Intermediate Rash, Verified 07/06/23 14:51 itching oxycodone AdvReac SICKNESS Verified 07/06/23 14:51 Home Meds Home Medications Medication Instructions Recorded Confirmed cholecalciferol (vitamin D3) 25 1,000 units PO BID 06/06/19 11/02/23 mcg (1,000 unit) capsule clopidogrel 75 mg tablet (Plavix) 75 mg PO DAILY 06/06/19 11/02/23 coQ10 (ubiquinol) 100 mg capsule 100 mg PO DAILY 07/23/20 11/02/23 vitamins A,C,B-szvs-gqugoh 2,148 1 tab PO DAILY 07/23/20 11/02/23 mcg-113 mg-45 mg-17.4 mg tablet (PreserVision AREDS) cyanocobalamin (vitamin B-12) 1,000 mcg PO DAILY 06/27/21 11/02/23 1,000 mcg capsule fluticasone propionate 50 1 spray intranasal BID 09/12/21 11/02/23 mcg/actuation nasal spray,suspension rosuvastatin 10 mg tablet 20 mg PO DAILY 11/02/23 11/02/23 Previous Rx's Medication Instructions Recorded nitroglycerin 0.4 mg sublingual 0.4 mg sublingual Q5M PRN Chest 09/13/20 tablet Pain #25 tabs escitalopram oxalate 10 mg tablet 10 mg PO DAILY #90 tabs 04/13/23 Results & Data (ED) Vital Signs Vital Signs - 24 hr 11/02/23 12:30 11/02/23 12:30 11/02/23 12:30 Temperature Temperature Source Pulse Rate 122 H 75 Pulse Rate [Apical] Respiratory Rate 15 Respiratory Effort / Characteristics Non-Labored Spontaneous Respiratory Depth Normal Blood Pressure 121/86 Blood Pressure [Right Arm] Blood Pressure Mean 97 Blood Pressure Mean [Right Arm] Pulse Oximetry 95 96 95 Oxygen Delivery Method Room Air Room Air Room Air Sepsis Recent Fever Within 48 Hours No Sepsis New/Unexplained Change in Mental Status No Sepsis Action Taken by Nursing No Action Required 11/02/23 12:30 11/02/23 12:33 11/02/23 13:30 Temperature Temperature Source Pulse Rate 124 H Pulse Rate [Apical] 127 H 73 Respiratory Rate 19 19 Respiratory Effort / Characteristics Respiratory Depth Blood Pressure Blood Pressure [Right Arm] 113/77 139/87 Blood Pressure Mean Blood Pressure Mean [Right Arm] 89 104 Pulse Oximetry 95 96 Oxygen Delivery Method Room Air Room Air Sepsis Recent Fever Within 48 Hours Sepsis New/Unexplained Change in Mental Status Sepsis Action Taken by Nursing 11/02/23 15:00 11/02/23 15:36 11/02/23 16:30 Temperature Temperature Source Pulse Rate 60 Pulse Rate [Apical] 85 59 L Respiratory Rate 19 14 Respiratory Effort / Characteristics Respiratory Depth Blood Pressure Blood Pressure [Right Arm] 119/77 123/91 Blood Pressure Mean Blood Pressure Mean [Right Arm] 91 101 Pulse Oximetry 96 96 Oxygen Delivery Method Room Air Room Air Sepsis Recent Fever Within 48 Hours Sepsis New/Unexplained Change in Mental Status Sepsis Action Taken by Nursing 11/02/23 18:00 11/02/23 19:00 11/02/23 19:45 Temperature 37 C Temperature Source Oral Pulse Rate 55 L Pulse Rate [Apical] 60 56 L Respiratory Rate 18 18 17 Respiratory Effort / Characteristics Non-Labored Respiratory Depth Normal Blood Pressure Blood Pressure [Right Arm] 138/84 137/73 Blood Pressure Mean Blood Pressure Mean [Right Arm] 102 94 Pulse Oximetry 94 95 95 Oxygen Delivery Method Room Air Room Air Sepsis Recent Fever Within 48 Hours Sepsis New/Unexplained Change in Mental Status Sepsis Action Taken by Nursing 11/02/23 19:48 11/02/23 20:00 Temperature Temperature Source Pulse Rate 57 L 57 L Pulse Rate [Apical] Respiratory Rate 21 Respiratory Effort / Characteristics Respiratory Depth Blood Pressure Blood Pressure [Right Arm] Blood Pressure Mean Blood Pressure Mean [Right Arm] Pulse Oximetry 95 Oxygen Delivery Method Room Air Sepsis Recent Fever Within 48 Hours Sepsis New/Unexplained Change in Mental Status Sepsis Action Taken by Nursing Laboratory Data Attestation: I reviewed the patient's lab results. 11/02/23 12:30 11/02/23 19:05 Lab Results 11/02/23 11/02/23 11/02/23 Range/Units 12:30 16:23 16:28 WBC 6.20 (4.8-10.8) K/ul RBC 4.17 L (4.70-6.10) M/uL Hgb 13.0 L (14.0-18.0) g/dl Hct 39.0 L (42.0-52.0) % MCV 93.5 (80.0-100.0) fL MCH 31.2 (25.0-34.0) pg MCHC 33.3 (32.0-36.0) g/dL RDW Std Deviation 43.3 (36.4-46.3) fL RDW Coeff of Nay 12.7 (11.5-14.5) % Plt Count 149 (130-400) K/uL MPV 9.2 L (9.4-12.4) fL Immature Gran % (Auto) 0.3 % Neut % (Auto) 64.8 % Lymph % (Auto) 21.0 % Maury % (Auto) 11.3 % Eos % (Auto) 2.1 % Baso % (Auto) 0.5 % Neut # (Auto) 4.02 (1.40-6.50) K/uL Lymph # (Auto) 1.30 (1.20-3.40) K/uL Maury # (Auto) 0.70 H (0.11-0.59) K/uL Eos # (Auto) 0.13 (0.00-0.50) K/uL Baso # (Auto) 0.03 (0.00-0.20) K/uL Immature Gran # (Auto) 0.02 (0.01-0.20) K/uL PT 11.9 (9.0-12.0) Seconds INR 1.1 (0.9-1.1) Sodium 141 (136-145) mmol/L Potassium 3.4 L (3.5-5.1) mmol/L Chloride 113 H (98-107) mmol/L Carbon Dioxide 24 (21-32) mmol/L Anion Gap 4 (3-11) BUN 12 (6-23) mg/dl Creatinine 0.72 (0.6-1.4) mg/dl Est Cr Clr Drug Dosing 74.6 ml/min Est GFR ( Amer) 97.2 ml/min Est GFR (Non-Af Amer) 83.9 ml/min BUN/Creatinine Ratio 16.7 (10-20) Glucose 76 (70-99(Fasting)) mg/dl Calcium 7.7 L (8.6-10.3) mg/dl Phosphorus 1.9 L (2.5-4.9) mg/dl Magnesium 1.7 (1.7-2.4) mg/dl Total Bilirubin 0.8 (0.2-1.0) mg/dl AST 14 (13-39) U/L ALT 13 (7-52) U/L Alkaline Phosphatase 59 (34-104) U/L Troponin I High Sens 26.1 H 92.2 H* D (0-20) pg/ml Total Protein 5.7 L (6.0-8.3) gm/dl Albumin 3.5 (3.4-5.0) gm/dl Globulin 2.2 L (2.5-4.0) gm/dl Albumin/Globulin Ratio 1.6 (0.9-2) Lipase 32 (11-82) U/L Urine Color Yellow Urine Appearance Clear (Clear) Urine pH 7.0 (4.5-7.5) Ur Specific [place] 1.008 (1.000-1.030) Urine Protein Negative (Negative) Urine Glucose (UA) Negative (Negative) Urine Ketones Negative (Negative) Urine Blood Negative (Negative) Urine Nitrite Negative (Negative) Urine Bilirubin Negative (Negative) Urine Urobilinogen Negative (Negative) Ur Leukocyte Esterase Negative (Negative) 11/02/23 Range/Units 19:05 WBC (4.8-10.8) K/ul RBC (4.70-6.10) M/uL Hgb (14.0-18.0) g/dl Hct (42.0-52.0) % MCV (80.0-100.0) fL MCH (25.0-34.0) pg MCHC (32.0-36.0) g/dL RDW Std Deviation (36.4-46.3) fL RDW Coeff of Nay (11.5-14.5) % Plt Count (130-400) K/uL MPV (9.4-12.4) fL Immature Gran % (Auto) % Neut % (Auto) % Lymph % (Auto) % Maury % (Auto) % Eos % (Auto) % Baso % (Auto) % Neut # (Auto) (1.40-6.50) K/uL Lymph # (Auto) (1.20-3.40) K/uL Maury # (Auto) (0.11-0.59) K/uL Eos # (Auto) (0.00-0.50) K/uL Baso # (Auto) (0.00-0.20) K/uL Immature Gran # (Auto) (0.01-0.20) K/uL PT (9.0-12.0) Seconds INR (0.9-1.1) Sodium 139 (136-145) mmol/L Potassium 4.5 D (3.5-5.1) mmol/L Chloride 107 (98-107) mmol/L Carbon Dioxide 28 (21-32) mmol/L Anion Gap 4 (3-11) BUN 13 (6-23) mg/dl Creatinine 0.82 (0.6-1.4) mg/dl Est Cr Clr Drug Dosing 65.5 ml/min Est GFR ( Amer) 92.2 ml/min Est GFR (Non-Af Amer) 79.5 ml/min BUN/Creatinine Ratio 15.9 (10-20) Glucose 88 (70-99(Fasting)) mg/dl Calcium 9.0 (8.6-10.3) mg/dl Phosphorus (2.5-4.9) mg/dl Magnesium 2.2 (1.7-2.4) mg/dl Total Bilirubin (0.2-1.0) mg/dl AST (13-39) U/L ALT (7-52) U/L Alkaline Phosphatase (34-104) U/L Troponin I High Sens 102.8 H* (0-20) pg/ml Total Protein (6.0-8.3) gm/dl Albumin (3.4-5.0) gm/dl Globulin (2.5-4.0) gm/dl Albumin/Globulin Ratio (0.9-2) Lipase (11-82) U/L Urine Color Urine Appearance (Clear) Urine pH (4.5-7.5) Ur Specific [place] (1.000-1.030) Urine Protein (Negative) Urine Glucose (UA) (Negative) Urine Ketones (Negative) Urine Blood (Negative) Urine Nitrite (Negative) Urine Bilirubin (Negative) Urine Urobilinogen (Negative) Ur Leukocyte Esterase (Negative) Administered Medications Discontinued Medications Aspirin (Aspirin Chew 324 Mg) 324 mg PO NOW STA Stop: 11/02/23 18:39 Last Admin: 11/02/23 19:03 Dose: 324 mg Documented By: MAJO Magnesium Sulfate/Dextrose (Magnesium Sulfate / D5w) 1 gm in 100 mls @ 100 mls/hr IV NOW STA Stop: 11/02/23 15:25 Last Infusion: 11/02/23 16:02 Dose: Infused Documented By: Admin: 11/02/23 14:59 Dose: 100 mls/hr Documented By: TOR Sodium Chloride (Nss) 500 mls @ 999 mls/hr IV .Q31M ONE Stop: 11/02/23 16:58 Last Infusion: 11/02/23 17:19 Dose: Infused Documented By: Admin: 11/02/23 16:38 Dose: 999 mls/hr Documented By: TOR Potassium Chloride (Potassium Chloride Crtab 20 Meq Tabcr) 40 meq PO NOW STA Stop: 11/02/23 14:27 Last Admin: 11/02/23 14:59 Dose: 40 meq Documented By: TOR Potassium Phosphate (Pot Phosphate Monobasic W/ Sod Tab) 2 tab PO NOW STA Stop: 11/02/23 14:27 Last Admin: 11/02/23 14:59 Dose: 2 tab Documented By: TOR Imaging Data Radiologist's Impression: Chest X-Ray 11/02/23 12:27 SINGLE VIEW CHEST CLINICAL HISTORY: Atrial fibrillation. FINDINGS: An AP, portable, upright chest radiograph is compared to study dated 07/06/2023. The patient is status post midline sternotomy and cardiac valve surgery. The heart is enlarged noting atherosclerotic calcification of the thoracic aorta. The pulmonary vasculature is noncongested. Chronic interstitial thickening is similar to previous. There is bibasilar scarring/atelectasis The lungs and pleural spaces are otherwise clear. No pneumothorax is seen. The skeletal structures are osteopenic. The bony thorax is grossly intact. IMPRESSION: Cardiomegaly with no acute cardiopulmonary abnormality identified. ACT 112: Negative or not required by law. Electronically signed by: Audie Bermudze M.D. 11/02/2023 12:[address] 11/02/23 19:01 Exam(s): CT HEAD Without Contrast EXAM: CT Head Without Intravenous Contrast CLINICAL HISTORY: Near syncope. TECHNIQUE: Axial computed tomography images of the head/brain without intravenous contrast. CTDI is 37.08 mGy and DLP is 547.75 mGy-cm. Automated exposure control was utilized for the study. A dose lowering technique was utilized adhering to the principles of ALARA. COMPARISON: CT head 01/06/2017 and MRI brain 01/06/2017 FINDINGS: Brain: No intracranial hemorrhage, mass-effect or midline shift. No abnormal extra axial fluid. No evidence of acute infarct. 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 There is an 7 encephalomalacia of the right cerebellum Ventricles: Unremarkable. No ventriculomegaly. Bones/joints: Unremarkable. No acute fracture. Soft tissues: Redemonstrated partially calcified soft tissue masses of the scalp measuring up to 5.2 cm. Sinuses: Unremarkable as visualized. No acute sinusitis. Mastoid air cells: Unremarkable as visualized. No mastoid effusion. IMPRESSION: 1. Redemonstrated partially calcified soft tissue masses of the scalp measuring up to 5.2 cm. 2. No acute intracranial finding. Electronically signed by: Carolina Wilson MD 11/02/23 20:10 PM Discharge Plan Visit Data Chief Complaint: Cardiac Assessment Stated Complaint: AFIB ED Provider: Pasquale Jackson Discharge Problem: Sinus tachycardia, Paroxysmal A-fib, Premature atrial complexes, Elevated troponin Prescriptions Prescriptions: No Action escitalopram oxalate 10 mg tablet 10 mg PO DAILY Qty: 90 3RF nitroglycerin 0.4 mg tablet, sublingual 0.4 mg SL Q5M PRN (Reason: Chest Pain) Qty: 25 3RF Rx Instructions: unable to verify with pt or express scripts 11/02/23 fluticasone propionate 50 mcg/actuation spray,suspension 1 spray intranasal BID Rx Instructions: unable to verify with pt or express scripts 11/02/23 administer into each nostril cyanocobalamin (vitamin B-12) 1,000 mcg capsule 1,000 mcg PO DAILY Rx Instructions: unable to verify with pt or express scripts 11/02/23 clopidogrel [Plavix] 75 mg tablet 75 mg PO DAILY cholecalciferol (vitamin D3) 1,000 unit capsule 1,000 units PO BID PreserVision AREDS 7,160-113-100 [id number] Tablet 1 tab PO DAILY Rx Instructions: unable to verify with pt or express scripts 11/02/23 coQ10 (ubiquinol) 100 mg Capsule 100 mg PO DAILY Rx Instructions: unable to verify with pt or express scripts 11/02/23 rosuvastatin 10 mg tablet 20 mg PO DAILY Referrals Referrals: Kam Dyson MD [Physician] - 11/04/23 11:30 am Anju Gonzalez MD [Primary Care Provider] -
--- NOTE | 2023-11-02 13:00 | XRay Report ---
SINGLE VIEW CHEST CLINICAL HISTORY: Atrial fibrillation. FINDINGS: An AP, portable, upright chest radiograph is compared to study dated 07/06/2023. The patien t is status post midline sternotomy and cardiac valve surgery. The heart is enlarged noting atheroscl erotic calcification of the thoracic aorta. The pulmonary vasculature is noncongested. Chronic inters titial thickening is similar to previous. There is bibasilar scarring/atelectasis The lungs and pleur al spaces are otherwise clear. No pneumothorax is seen. The skeletal structures are osteopenic. The b pedro luis thorax is grossly intact. IMPRESSION: Cardiomegaly with no acute cardiopulmonary abnormality identified. ACT 112: Negative or not required by law. Electronically signed by: Audie Bermudez M.D. 11/02/2023 12:58 PM
[2023-11-02 13:24] LABS: Basophils # (auto) 0.03 K/uL (0.00-0.20); Basophils % (auto) 0.5 %; Eosinophils # (auto) 0.13 K/uL (0.00-0.50); Eosinophils % (auto) 2.1 %; Immature Granulocytes # (auto) 0.02 K/uL (0.01-0.20); Immature Granulocytes % (auto) 0.3 %; Mean Corpuscular Hemoglobin 31.2 pg (25.0-34.0); Mean Corpuscular Hgb Conc 33.3 g/dL (32.0-36.0); Mean Corpuscular Volume 93.5 fL (80.0-100.0); Mean Platelet Volume 9.2 fL (9.4-12.4); Monocytes % (auto) 11.3 %; Neutrophils # (auto) 4.02 K/uL (1.40-6.50); Neutrophils % (auto) 64.8 %; Platelet Count 149 K/uL (130-400); RDW Coefficient of Variation 12.7 % (11.5-14.5); RDW Standard Deviation 43.3 fL (36.4-46.3); Red Blood Count 4.17 M/uL (4.70-6.10)
[2023-11-02 13:44] LABS: Albumin Globulin Ratio 1.6 (0.9-2); Albumin Level 3.5 gm/dl (3.4-5.0); BUN Creatinine Ratio 16.7 (10-20); Bilirubin,Total 0.8 mg/dl (0.2-1.0); Calcium 7.7 mg/dl (8.6-10.3); Creatinine Clr Calc Pharmacy 74.6 ml/min; Est GFR (African American) 97.2 ml/min; Est GFR (Non-African American) 83.9 ml/min; Globulin 2.2 gm/dl (2.5-4.0); Magnesium 1.7 mg/dl (1.7-2.4); Phosphorus 1.9 mg/dl (2.5-4.9); Potassium 3.4 mmol/L (3.5-5.1); Total Protein 5.7 gm/dl (6.0-8.3)
[2023-11-02 13:45] LABS: Troponin I High Sensitivity 26.1 pg/ml (0-20)
[2023-11-02 13:49] LABS: INR 1.1 (0.9-1.1); Prothrombin Time 11.9 Seconds (9.0-12.0)
[2023-11-02] MEDS: POT PHOSPHATE MONOBASIC W/ SOD TAB PO STA (14:59)
[2023-11-02] MEDS: POTASSIUM CHLORIDE CRTAB 20 MEQ TABCR PO STA (14:59)
[2023-11-02] MEDS: MAGNESIUM SULFATE / D5W 1 GM/100 ML BAG IV STA (14:59)
--- NOTE | 2023-11-02 15:01 | Electrocardiogram Report ---
Test Reason : Blood Pressure : / mmHG Vent. Rate : 126 BPM Atrial Rate : 126 BPM P-R Int : 272 ms QRS Dur : 102 ms QT Int : 316 ms P-R-T Axes : 000 -68 093 degrees QTc Int : 457 ms Sinus tachycardia with 1st degree A-V block Left anterior fascicular block Left ventricular hypertrophy with repolarization abnormality Inferior infarct , age undetermined Poor R wave progression, consider anterior SC vs. lead placement vs. LVH Abnormal ECG When compared with ECG of 24-JUL-2020 11:22, [place] interval has increased Vent. rate has increased BY 63 BPM Inferior infarct is now Present Inverted T waves have replaced nonspecific T wave abnormality in Lateral leads Confirmed by Kristian Ortiz ([id number]) on 11/02/2023 3:01:47 PM Referred By: Anju Gonzalez Confirmed By:Jaziel Ortiz
[2023-11-02] MEDS: SODIUM CHLORIDE 0.9% 500 ML IV ONE (16:38)
[2023-11-02 17:44] LABS: Appearance Urine Clear (Clear); Bilirubin Urine Negative (Negative); Blood Urine Negative (Negative); Color Urine Yellow; Glucose Urine UA Negative (Negative); Ketones Urine Negative (Negative); Leukocyte Esterase Urine Negative (Negative); Nitrite Urine Negative (Negative); Protein Urine Negative (Negative); Specific Gravity Urine 1.008 (1.000-1.030); Urobilinogen Urine Negative (Negative)
[2023-11-02] MEDS ORDERED: ACETAMINOPHEN 325 MG TAB PO PRN (19:01)
[2023-11-02] MEDS: ASPIRIN CHEW 324 MG PO STA (19:03)
--- NOTE | 2023-11-02 19:18 | History & Physical Report ---
Date of Service November 02, 2023 Assessment & Plan (1) Elevated troponin: Plan: Assessment: 1. Lightheadedness near syncope/vertigo. Question vertigo meclizine did seem to help his issues today. However I will do a CT of the brain for completeness. 2. Acute elevation in troponin. Will give stat aspirin therapy. Will repeat his third troponin if elevated significantly will entertain heparin. Get an echocardiogram. We discussed with cardiology. Will keep the patient n.p.o. after midnight. 3. History of coronary artery disease status post CABG x 3 vessels. 4. Aortic stenosis status post bovine AVR. 5. History of paroxysmal atrial fibrillation not chronically anticoagulated this was remote and unsure of the details as to why he is not fully anticoagulated. 6. Remote history of CVA. No evidence of that today. 7. gastroesophageal reflux evaluation 8. Hypertension continue same medication. 9. Dyslipidemia continue same home medications. 10. Probably electrolyte disorder including hypomagnesemia and hypokalemia. This been replaced in the ER we will recheck these tonight and again in the morning continue to replete as necessary. Plan is as discussed above. Please refer to orders for further planning. History of Present Illness Chief Complaint: Near syncope. Lower neck upper chest "heartburn" Primary Care Provider: Anju Gonzalez MD Is a pleasant 87-year-old male had an outpatient appointment with his primary care provider today. He had been experiencing some mild lightheadedness/near syncope over the last day or 2 today it was worse than it had been. He took a dose of Antivert at home because he does have a history of vertigo. This seemed to help somewhat. In the office apparently had an EKG that was concerning questionable atrial fibrillation and was sent to the ER for further evaluation and treatment. In the emergency department EKG was nonacute sinus tachycardia with PACs. Initial troponin was approximately 26. Patient had mildly suppressed electrolytes including a potassium of 3.4 and a magnesium of 1.7. The patient received oral potassium replacement and IV magnesium replacement. The patient is going to be discharged home on her second troponin came back at 92. Therefore we are called admit the patient for further evaluation and treatment. We recommended stat aspirin therapy. We went to evaluate the patient. Initially the patient did not express concern about his chest symptoms until I evaluated the patient. Therefore we have consulted cardiology. We spoke personally to cardiology on-call at this point since the patient is asymptomatic. Recommended not to heparinize unless his troponin bumped significantly on next check and/or the patient has symptomatology return. In the meantime I will order stat troponin will do a stat CT of the head given the syncope that way if we have to heparinize the patient head CT will be completed which is also limited with the patient's near syncopal symptoms. Will recheck an echocardiogram in the morning the patient n.p.o. after midnight in case the heart catheterization is warranted in the morning. Allergies Allergy/AdvReac Type Severity Reaction Status Date / Time Penicillins Allergy Intermediate Unknown Verified 07/06/23 14:51 apixaban [From Eliquis] AdvReac Intermediate Rash, Verified 07/06/23 14:51 itching oxycodone AdvReac SICKNESS Verified 07/06/23 14:51 Home Medications Medication Instructions Recorded Confirmed Type cholecalciferol (vitamin D3) 25 1,000 units PO BID 06/06/19 07/06/23 History mcg (1,000 unit) capsule clopidogrel 75 mg tablet (Plavix) 75 mg PO DAILY 06/06/19 07/06/23 History coQ10 (ubiquinol) 100 mg capsule 100 mg PO DAILY 07/23/20 07/06/23 History vitamins A,C,H-hmdb-bxnpmx 2,148 1 tab PO DAILY 07/23/20 07/06/23 History mcg-113 mg-45 mg-17.4 mg tablet (PreserVision AREDS) nitroglycerin 0.4 mg sublingual 0.4 mg sublingual Q5M PRN Chest 09/13/20 07/06/23 Rx tablet Pain #25 tabs cyanocobalamin (vitamin B-12) 1,000 mcg PO DAILY 06/27/21 07/06/23 History 1,000 mcg capsule fluticasone propionate 50 1 spray intranasal BID 09/12/21 07/06/23 History mcg/actuation nasal spray,suspension escitalopram oxalate 10 mg tablet 10 mg PO DAILY #90 tabs 04/13/23 07/06/23 Rx rosuvastatin 10 mg tablet 10 mg PO DAILY #90 tabs 04/13/23 07/06/23 Rx Past Med/Surg History Medical History Lumbar spinal stenosis Anxiety Gastro-esophageal reflux disease with esophagitis History of left foot drop Inhibited sexual excitement COVID-19 (07/2020) Atrial fibrillation with rapid ventricular response History of cerebellar stroke (2016) CAD in [place] artery Dyslipidemia Hypertension Ankle fracture (2012) Surgical History S/P coronary artery bypass graft x 3 (2009) S/P aortic valve replacement with bioprosthetic valve (2009) 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) Family History Mother Unknown family medical history Social History Smoking Status: Never smoker Second Hand Exposure: No; Do You Dip or Chew Tobacco: No; Hx Alcohol Use: No Hx Substance Use: No Preferred Language: Salvadorean Communication Ability: Effective Mathematics Technician Required: No Beliefs That Will Affect Care: None marital status: Current Living Situation: Spouse and Family current occupational status: retired Feels Safe at Home: Yes Assistive Devices: Cane and Walker Review of Systems Constitutional: A 10 point review of system was obtained and unless otherwise stated here or in history of present illness are negative and noncontributory to chief complaint. Physical Exam Physical Exam: In General: In general pleasant 87-year-old male who is alert and oriented x 3 at the time of my examination he interacts appropriately pleasantly and he is accompanied by his granddaughter at the time of my exam who is his medical power of hangersmith, [place]. He denies any symptomatology at this time. HEENT: Normocephalic atraumatic pupils are equal round and reactive to light bilaterally. No scleral icterus no conjunctival injection external auditory canals are patent septum is in the midline nose is without discharge oral mucosa is pink and moist without lesion. NECK: Supple no rigidity no lymphadenopathy no thyromegaly no carotid bruits no JVD no masses. HEART: Regular rate and rhythm I do not appreciate anyrub. There are occasional PVCs on monitor correlating to ectopy on auscultation. There is a faint 2-3 out of 6 systolic ejection murmur appreciated. There is no reproducible anterior chest wall discomfort. LUNGS: Clear to auscultation bilaterally and anteriorly with no evidence of adventitious sounds/wheezes rales or rhonchi. ABDOMEN: Soft nontender, no rebound, no peritoneal signs, positive bowel sounds, no appreciable organomegaly. EXTREMITIES: Intact, no peripheral cyanosis, clubbing or edema. Strength is 5 out of 5 in extremities x4, no pathological reflexes. AFO noted on left foot from previous stroke and had pain harvesting surgery. NEUROLOGICAL: Cranial nerves II through XII are grossly intact with no focal deficit elicited upon examination. No tremor. Results & Data Results & Data Vital Signs (Past 12 Hours) Vital Signs Temp Pulse Pulse Resp BP BP Pulse Ox 11/02/23 19:00 37 C 56 L 18 137/73 95 11/02/23 18:00 60 18 138/84 94 11/02/23 16:30 59 L 14 123/91 96 11/02/23 15:36 60 11/02/23 15:00 85 19 119/77 96 11/02/23 13:30 73 19 139/87 96 11/02/23 12:33 124 H 11/02/23 12:30 127 H 19 113/77 95 11/02/23 12:30 95 11/02/23 12:30 75 96 11/02/23 12:30 122 H 15 121/86 95 O2 Del Method 11/02/23 19:00 Room Air 11/02/23 18:00 Room Air 11/02/23 16:30 Room Air 11/02/23 15:36 11/02/23 15:00 Room Air 11/02/23 13:30 Room Air 11/02/23 12:33 11/02/23 12:30 Room Air 11/02/23 12:30 Room Air 11/02/23 12:30 Room Air 11/02/23 12:30 Room Air Code Status & VTE Plan Code Status Full code. I did personally discussed with the patient at the bedside VTE Prophylaxis Plan VTE Prophylaxis will be ordered: Yes PG Care Time/CCT Total # of Minutes Spent Total Time Spent with Patient: Total time spent is greater than 50% in coordination of care (as documented) at patient's floor/unit and/or counseling patient: Coding Level of Care Code 18605 INT INP/OBS CARE 3/75MIN Diagnoses Elevated troponin R79.89
[2023-11-02 19:47] LABS: BUN Creatinine Ratio 15.9 (10-20); Creatinine Clr Calc Pharmacy 65.5 ml/min; Est GFR (African American) 92.2 ml/min; Est GFR (Non-African American) 79.5 ml/min; Magnesium 2.2 mg/dl (1.7-2.4); Potassium 4.5 mmol/L (3.5-5.1)
[2023-11-02 20:00] LABS: Troponin I High Sensitivity 102.8 pg/ml (0-20)
--- NOTE | 2023-11-02 20:11 | CT Scan Report ---
Exam(s): CT HEAD Without Contrast EXAM: CT Head Without Intravenous Contrast CLINICAL HISTORY: Near syncope. TECHNIQUE: Axial computed tomography images of the head/brain without intravenous contrast. CTDI is 37.08 mGy and DLP is 547.75 mGy-cm. Automated exposure control was utilized for the study. A dose lowering technique was utilized adhering to the principles of ALARA. COMPARISON: CT head 01/06/2017 and MRI brain 01/06/2017 FINDINGS: Brain: No intracranial hemorrhage, mass-effect or midline shift. No abnormal extra axial fluid. No evidence of acute infarct. 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 There is an 7 encephalomalacia of the right cerebellum Ventricles: Unremarkable. No ventriculomegaly. Bones/joints: Unremarkable. No acute fracture. Soft tissues: Redemonstrated partially calcified soft tissue masses of the scalp measuring up to 5.2 cm. Sinuses: Unremarkable as visualized. No acute sinusitis. Mastoid air cells: Unremarkable as visualized. No mastoid effusion. IMPRESSION: 1. Redemonstrated partially calcified soft tissue masses of the scalp measuring up to 5.2 cm. 2. No acute intracranial finding. Electronically signed by: Carolina Wilson MD 11/02/23 20:10 PM
--- OUTSIDE RECORDS SUMMARY | 2023-11-02 22:46 | External Medical Summary | Continuity of Care Document ---
Author Name Unknown Organization [facility] [address] Address [address] [place], [place] [id number] Care Team Providers Care Security Auditor Name Role Phone Anju Gonzalez Primary Care Physician [phone] [facility]counter [id number] Date(s): 07/28/23 - 07/28/23 [facility] [address] [place] [address] [phone] Encounter Diagnosis Afib(Discharge Diagnosis) - 07/27/23 Ambulatory dysfunction(Discharge Diagnosis) - 07/27/23 Borderline hyperlipidemia(Discharge Diagnosis) - 07/27/23 HTN (hypertension)(Discharge Diagnosis) - 07/27/23 CAD (coronary artery disease)(Discharge Diagnosis) - 07/27/23 Cancer, skin, squamous cell(Discharge Diagnosis) - 07/28/23 Unspecified atrial fibrillation(Final) - Difficulty in walking, not elsewhere classified(Final) - Atherosclerotic heart disease of [place] coronary artery without angina pectoris (Final) - Hyperlipidemia, unspecified(Final) - Bereavement counseling(Discharge Diagnosis) - 07/28/23 Discharge Disposition: Home or Self Care Attending Physician: MD Gonzalez Amy L Allergies, Adverse Reactions, Alerts Substance Reaction Severity Status simvastatin 1 Active penicillins Rash Active 1leg pain Assessment and Plan Extracted from: Title:Office Visit Note Author:MD Gonzalez Amy L D ate:07/28/23 1.Afib STATUS : chronic, stable. DATA : hx & exam reviewed. GOAL : maintain euvolemia, stable cardiac rhythm. PLAN : he is tolerating anticoagulation without problems. Continue cardiology follow up, get labs, to include lipids. 2.Cancer, skin, squamous cell STATUS: Chronic, excised. DATA: hx & derm notes reviewed. GOAL: avoid regrowth/recurrence. PLAN: lesion has been successfully excised. Cont derm surveillance. 3.Ambulatory dysfunction STATUS: Chronic stable. DATA: hx reviewed. GOAL: Maintain stable ambulation. PLAN: he is unsteady, but feels that using a cane at home is helpful. Discussed possible outpt PT. He will consider. 4.Borderline hyperlipidemia STATUS : chronic, stable. DATA : diet & exercise reviewed. GOAL: improve metabolic profile. PLAN : continue to monitor lifestyle, as he has been unable to tolerate any statin. Get lipids & LFTs. 5.CAD (coronary artery disease) STATUS : chronic, stable. DATA : hx & exam reviewed. GOAL : maintain euvolemia, stable cardiac rhythm. PLAN : continue cardiology follow up. 6.HTN (hypertension) Status : chronic, well-controlled. Data : BP readings reviewed. Goal : maintain normal BP. Plan : continue current BP meds. Get electrolytes & renal function. 7.Bereavement counseling Status : chronic, improved. Data : hx reviewed. Goal : provide support. Plan : fortunately, he has large & supportive family. He does seem to be somewhat brighter & more talkative. Continue Lexapro at same dose. Return in 3-4 months. Time:Total time spent with this patient on day of evaluation including chart review, ordering, education and coordination of care elements: 39_ minutes Immunizations Given and Recorded Vaccine Date Status Refusal Reason influenza virus vaccine, inactivated 05/11/22 Give n influenza virus vaccine, inactivated 06/23/21 Give n influenza virus vaccine, inactivated 05/07/20 Give n influenza virus vaccine, inactivated 05/03/19 Give n influenza virus vaccine, inactivated 05/25/18 Give n influenza virus vaccine, inactivated 06/02/17 Give n influenza virus vaccine, inactivated 07/22/15 Give n influenza virus vaccine, inactivated 06/06/14 Give n influenza virus vaccine, inactivated 05/25/13 Nilesh rded influenza virus vaccine, inactivated 06/01/12 Nilesh rded SARS-CoV-2 (COVID-19) mRNA-1273 vaccine 09/01/21 R ecorded SARS-CoV-2 (COVID-19) mRNA-1273 vaccine 1 07/02/21 Recorded SARS-CoV-2 (COVID-19) mRNA-1273 vaccine 10/17/20 R ecorded SARS-CoV-2 (COVID-19) mRNA-1273 vaccine 2 10/17/20 Recorded SARS-CoV-2 (COVID-19) mRNA-1273 vaccine 09/19/20 R ecorded SARS-CoV-2 (COVID-19) mRNA-1273 vaccine 3 09/19/20 Recorded pneumococcal 23-valent vaccine 03/21/18 Given pneumococcal 23-valent vaccine 4 08/16/01 Recorded zoster vaccine live 07/23/14 Recorded pneumococcal 13-valent vaccine 06/06/14 Given 1Result Comment: 2022-08-25: Historical information-source unspecified 2Result Comment: 2021-05-02: Historical information-source unspecified 3Result Comment: 2021-05-02: Historical information-source unspecified 4Result Comment: [03/30/2014] [facility] clopidogrel 75 mg oral tablet Start: 09/15/22 17:06:00 EST, 1 tab, PO, Daily, Disp# 90 tab, Refills: 3, Pharmacy: [facility] Start Date: 09/15/22 Status: Ordered CoQ10 Start: 07/28/17 13:26:00 Start Date: 07/28/17 Status: Ordered Crestor 20 mg oral tablet Start: 05/03/19 11:42:39 EDT, 1 tab, PO, Daily, Disp# 90 tab, Refills: 3, Pharmacy: [facility] Start Date: 05/03/19 Status: Ordered escitalopram 10 mg oral tablet Start: 03/23/23 11:26:00 EDT, 1 tab, PO, Daily Start Date: 03/23/23 Status: Ordered Flonase 50 mcg/inh nasal spray Start: 05/02/21 14:06:00 EDT, 2 spray, each nostril, Daily, Disp# 16 g, Refills: 0, Pharmacy: [facility] Start Date: 05/02/21 Status: Ordered meclizine 25 mg oral tablet Start: 11/13/21 17:54:00 EDT, 1 tab, PO, tid, Disp# 60 tab, Refills: 1, PRN: as needed for dizziness, Pharmacy: [facility] Start Date: 11/13/21 Status: Ordered multivitamin Start: 05/06/10 10:33:16, 1 tab, PO, Every other day, Refills: 0, current medication from another provider Start Date: 05/06/10 Status: Ordered unknown medication Start: 04/16/16 15:10:00, ared-2 Start Date: 04/16/16 Status: Ordered Vitamin B12 50 mcg oral tablet Start: 12/11/22 14:59:00 EDT, 1 tab, PO, Daily, Disp# 30 tab, Refills: 0, Pharmacy: [facility] Start Date: 12/11/22 Status: Ordered Vitamin D3 1000 intl units oral tablet Start: 04/28/17 13:03:00, 1 tab, PO, bid Start Date: 04/28/17 Status: Ordered Mental Status 07/28/23 Barriers to Learning one year None evide nt Mandatory Health Literacy Documentation Yes Health Literacy Communication Barriers N ever Primary Language Albanian Problem List Condition Confirmation Course Effective Dates Status H ealth Status Informant Afib Confirmed Active Recent bereavement Confirmed Active Bradycardia Confirmed Active Bradycardia Confirmed Active Caregiver stress Confirmed Active Caregiver stress Confirmed Active Changing skin lesion Confirmed Active Chronic cough Confirmed Active Chronic cough Confirmed Active CAD (coronary artery disease) Confirmed Active COVID-19 Confirmed Active Cutaneous horn Confirmed Active Loss of height Confirmed Active Ambulatory dysfunction Confirmed Active Dizziness Confirmed Active Body rash Confirmed Active Grief Confirmed Active History of cerebellar stroke 1 Confirmed Active History of tobacco use Confirmed Active Borderline hyperlipidemia Confirmed Active HTN (hypertension) Confirmed Active Left foot drop Confirmed Active Local neurodermatitis Confirmed Active Lipoma Confirmed Active Leg weakness Confirmed Active BPH (benign prostatic hyperplasia) Confirmed Active Osteoarthritis of left knee Confirmed Active Palpitations Confirmed Active Bilateral leg weakness Confirmed Active Bereavement counseling Confirmed Active Medicare annual wellness visit, subsequent Confirmed Active Pneumonia due to COVID-19 virus Confirmed Active Major depression, recurrent, chronic Confirmed Active Abdominal pain, RLQ Confirmed Active Sebaceous cyst Confirmed Active Seborrheic keratoses Confirmed Active Seborrheic keratosis Confirmed Active Cancer, skin, squamous cell Confirmed Active Vitamin D deficiency Confirmed Active Ambulatory dysfunction Confirmed Active [id number] Diagnosis Diagnosis Type Effective Dates Health Status Clinical Service Informant Afib Discharge Diagnosis 07/27/23 HTN (hypertension) Discharge Diagnosis 07/27/23 Ambulatory dysfunction Discharge Diagnosis 07/27/23 Borderline hyperlipidemia Discharge Diagnosis 07/27/23 CAD (coronary artery disease) Discharge Diagnosis 07/27/23 Cancer, skin, squamous cell Discharge Diagnosis 07/28/23 Non-Specified Bereavement counseling Discharge Diagnosis 07/28/23 Non-Specified Procedures Procedure Date Related Diagnosis Body Site Status Mohs micrographic surgery 05/04/23 Completed Punch biopsy of skin 03/15/23 Comp leted Shave biopsy and cauterization of skin 02/11/23 Completed Cardiac echo 1 01/07/17 Completed Chest x-ray 2 01/06/[address] angiography of head 3 01/06/[address] head without contrast 4 01/06/17 Completed Magnetic resonance angiograp hy (MRA) of carotid artery 5 01/06/17 Completed MRI 6 01/06/17 Completed X-ray of lumbar spine 7 11/23/16 C ompleted Eye examination 8 01/24/15 Complet ed Cataract surgery 9 07/18/14 Comple elsy Colonoscopy and extirpation of lesion of colon 2009 Completed CABG x 3 - Coronary artery b ypass grafts x 3 10 2000 Completed Aortic valve replacement and aortoplasty 11 Completed Open reduction of fracture o f fibula with internal fixation Completed 1Mod. LVH; nml LVEF; Mild MR & Mild TR; mild aortic root dilatation, bioprosthetic aortic valve [facility]: 1. No acute process [facility] Imp[facility]: 1. No significant stenosis, occlusion, or aneurysm within the cirlce of Pack. Partially calcifiedscalp lesions 4[facility] Impression: 1. No acute intracranial abnormality 51. No significant stenosis of the bilateral internal carotid and common carotid arteries. 2. Patent, dominant left vertebral artery with diminutive, hypoplastic right vertebral artery. 6Moderate size focus of restricted diffusion within the inferior right cerebellar hemisphere consistent with acute right PICA distribution infarct. No significant mass effect. No hemmorhage. Discussedwith Dr. Méndez at the time if dictation. 7[facility] Impression: 1. No acute lumbar spine fracture or subluxation 2. Mild to moderate multilvel degenerative disc disease and facet arthrosis of the lumbar psine 3. Mild levoscoliosis 81. Vitreomacular traction syndrome OS. observation 2. Macular edema os, observe 3. ERM OU. 4. Dry AMD OU. observe 5. PVD OD, retinal detachment warnings 6. PC IOL 9right eye 10during AVR 11bovine, followed by Dr. Dyson Results Laboratory List Name Date Comprehensive Metabolic Panel (COMP META B PANEL) 07/28/23 Hemoglobin A1C (HEMOGLOBIN, A1C) 3 Lipid Profile (LIPOPROTEINS) 07/28/23 Thyroid Stimulating Hormone (TSH) Most recent to oldest [Reference Range]: 1 eGFR CKD-EPI [>60 mL/min/1.73 m2] 84 mL/ min/1.73 m2 1 (07/28/23 AM) Estimated Average Glucose 100 mg/dL 2 (07/28/23 AM) Non-HDL 81 mg/dL 3 (07/28/23 AM) Estimated CrCl 54.89 mL/min (07/28/23 11: AM) Anion Gap [5-14 mmol/L] 6 mmol/L (07/28/23 AM) Alb [3.5-5.0 g/dL] 4.3 g/dL (07/28/23 AM) Alk Phos [38-126 unit/L] 74 unit/L (07/28/23 AM) ALT [<50 unit/L] 26 unit/L (07/28/23 AM) AST [15-46 unit/L] 26 unit/L (07/28/23 AM) BUN [7-20 mg/dL] 12 mg/dL (07/28/23 AM) Ca [8.4-10.2 mg/dL] 10.1 mg/dL (07/28/23 AM) Chol/HDL 3 (07/28/23) Chol [125-200 mg/dL] 118 mg/dL *LOW* (07/28/23 AM) Cl- [96-107 mmol/L] 106 mmol/L (07/28/23 AM) HCO3 [22-30 mmol/L] 28 mmol/L (07/28/23 AM) Cret [0.70-1.30 mg/dL] 0.86 mg/dL (07/28/23 AM) HbA1c [4.0-6.0 %] 5.1 % (07/28/23 AM) Glu [74-106 mg/dL] 83 mg/dL (07/28/23 AM) HDL [>35 mg/dL] 37 mg/dL (07/28/23 AM) K [3.5-5.1 mmol/L] 4.1 mmol/L (12/13/23 11:19 AM) LDL Chol, Calculated [50-130 mg/dL] 66 m g/dL (07/28/23 11:19 AM) Na [137-145 mmol/L] 140 mmol/L (07/28/23 11:19 AM) T Bili [0.2-1.3 mg/dL] 0.8 mg/dL (07/28/23 11:19 AM) Prot [6.3-8.2 g/dL] 7.4 g/dL (07/28/23 11: AM) TG [<200 mg/dL] 75 mg/dL (07/28/23 11:19 AM) TSH [0.47-4.68 uIU/mL] 3.11 uIU/mL 4 (07/28/23 11:19 AM) 1Result Comment: Testing Performed By: Dept of Pathology [facility], [address] [place] [address], [place] [address] 2Result Comment: Testing Performed By: Dept of Pathology [facility], [address] [place] [address], [place] [address] 3Result Comment: Testing Performed By: Dept of Pathology [facility], [address] [place] [address], [place] [address] 4Result Comment: Testing Performed By: Dept of Pathology [facility], [address] [place] [address], [place] [address] Vital Signs Most recent to oldest [Reference Range]: 1 Patient Weight 75.3 kg (07/28/23 10:38 AM) Temperature [36.5-37.9 DegC] 36.9 DegC (07/28/23 10:38 AM) Heart Rate 64 bpm (07/28/23 10:38 AM) Respiratory Rate 16 br/min (07/28/23 10:38 AM) Blood Pressure 150/82mmHg (07/28/23 10:38 AM) Social History Social History Type Response Tobacco Former smoker, Cigar ettes, Started age 16 Years. Stopped age 32 Years. Smoking Status Never smoked cigaret mary Sex Male FCM Outpt Note * MD Carlos, Anju Vazquez: PERFORM Event Display: FCM Outpt Note Authored Date: [id number] Chief Complaint Routine follow-up History of Present Illness Here for recheck offollowing concerns : 1)Unsteadiness - he feels very unsteady, but has had no recent falls. His grand-dtr checks on him frequently. He can walk outside on his property, if he uses his cane. 2) Squamous cell cancer - he had Moh's surgery for lesion behind his left ear. 3) AFib/CAD - he rarely feels any irregular heartbeats. His home BP's have been steady around 120-130/70-80, with heart rates from high 50's-70's. 4) Bereavement - he feels that it has been a little bit easier to continue on with his life, aurelio wetzel misses his constantly. His family visits him often, & brings him food. Review of Systems Review of Systems- Constitutional: no fatigue or changes in weight. HEENT: no vision changes, or sinus congestion. Respiratory: no cough, SOB, or wheezing. Cardiac: no chest pain, palpitations or pedal edema. GI: no abdominal pain, vomiting or change in bowel habits. : no dysuria. Neurologic: no headaches. Musculoskeletal: No joint pains. Physical Exam Vitals & Measurements T:36.9C HR:64(Monitored) RR:16 BP:150/82 SpO2:96% WT:75.300kg(Dosing) WT:75.3kg PHQ2 Data(Data Documented on:07/28/2023 10:38) Emotional health assessment NEGATIVE PE : Alert, in NAD. HEENT - PERRL. TM's - normal. Nares - clear. Oropharynx - normal. Neck - supple, without thyromegaly or lymphadenopathy. Lungs - clear, with good breath sounds bilaterally. Heart - RRR without murmur. 1+ pedal edema. Neuro - alert & oriented, speech & cognition normal. Skin - warm & dry. Psych - affect appropriate. Assessment/Plan 1.Afib STATUS : chronic, stable. DATA : hx & exam reviewed. GOAL : maintain euvolemia, stable cardiac rhythm. PLAN : he is tolerating anticoagulation without problems. Continue cardiology follow up, get labs, to include lipids. 2.Cancer, skin, squamous cell STATUS: Chronic, excised. DATA: hx & derm notes reviewed. GOAL: avoid regrowth/recurrence. PLAN: lesion has been successfully excised. Cont derm surveillance. 3.Ambulatory dysfunction STATUS: Chronic stable. DATA: hx reviewed. GOAL: Maintain stable ambulation. PLAN: he is unsteady, but feels that using a cane at home is helpful. Discussed possible outpt PT. He will consider. 4.Borderline hyperlipidemia STATUS : chronic, stable. DATA : diet & exercise reviewed. GOAL: improve metabolic profile. PLAN : continue to monitor lifestyle, as he has been unable to tolerate any statin. Get lipids & LFTs. 5.CAD (coronary artery disease) STATUS : chronic, stable. DATA : hx & exam reviewed. GOAL : maintain euvolemia, stable cardiac rhythm. PLAN : continue cardiology follow up. 6.HTN (hypertension) Status : chronic, well-controlled. Data : BP readings reviewed. Goal : maintain normal BP. Plan : continue current BP meds. Get electrolytes & renal function. 7.Bereavement counseling Status : chronic, improved. Data : hx reviewed. Goal : provide support. Plan : fortunately, he has large & supportive family. He does seem to be somewhat brighter & more talkative. Continue Lexapro at same dose. Return in 3-4 months. Time:Total time spent with this patient on day of evaluation including chart review, ordering, education and coordination of care elements: 39_ minutes Problem List/Past Medical History Ongoing Abdominal pain, RLQ Afib Ambulatory dysfunction Ambulatory dysfunction Bereavement counseling Bilateral leg weakness Body rash Borderline hyperlipidemia BPH (benign prostatic hyperplasia) Bradycardia Bradycardia CAD (coronary artery disease) Cancer, skin, squamous cell Caregiver stress Caregiver stress Changing skin lesion Chronic cough Chronic cough COVID-19 Cutaneous horn Dizziness Grief History of cerebellar stroke History of tobacco use HTN (hypertension) Left foot drop Leg weakness Lipoma Local neurodermatitis Loss of height Major depression, recurrent, chronic Medicare annual wellness visit, subsequent Osteoarthritis of left knee Palpitations Pneumonia due to COVID-19 virus Recent bereavement Sebaceous cyst Seborrheic keratoses Seborrheic keratosis Vitamin D deficiency Historical Abdominal pain, acute Cerumen impaction Cerumen impaction Chest pain Cough Distal muscle weakness Dizziness Family history of colon cancer Hip osteoarthritis History of colon polyps History of heart attack Insect bites Leg paresthesia Pilar cyst Pseudoclaudication Procedure/Surgical History Mohs micrographic surgery (05/04/2023)Punch biopsy of skin (03/15/2023)Shave biopsy and cauterization of skin (02/11/2023)Cardiac echo (01/07/2017)Magnetic resonance angiography (MRA) of carotid artery (01/06/2017)MRI (01/06/2017)CT angiography of head (01/06/2017)CT head without contrast (01/06/2017)Chest x-ray (01/06/2017)X-ray of lumbar spine (11/23/2016)Eye examination (01/24/2015)Cataract surgery (07/18/2014)Colonoscopy and extirpation of lesion of colon (2009)CABG x 3 - Coronary artery bypass grafts x 3 (2000)Open reduction of fracture of fibu la with internal fixationAortic valve replacement and aortoplasty Medications cholecalciferol(Vitamin D3 1000 intl units oral tablet), 1000 Int_Unit= 1 tab, PO, bid clopidogrel(clopidogrel 75 mg oral tablet), 75 mg= 1 tab, PO, Daily, 3 refills cyanocobalamin(Vitamin B12 50 mcg oral tablet), 50 mcg= 1 tab, PO, Daily escitalopram(escitalopram 10 mg oral tablet), 10 mg= 1 tab, PO, Daily fluticasone nasal(Flonase 50 mcg/inh nasal spray), 2 spray, each nostril, Daily meclizine(meclizine 25 mg oral tablet), 25 mg= 1 tab, PO, tid, PRN, 1 refills multivitamin, 1 tab, PO, Every other day rosuvastatin(Crestor 20 mg oral tablet), 20 mg= 1 tab, PO, Daily, 3 refills ubiquinone(CoQ10) unknown medication Allergies penicillinsRash simvastatin Social History Smoking Status Never smoked cigarettes Alcohol - No Risk Use:Current Type:Beer Frequency:1-2 times per year Average drinks per episode in last year:1 Employment/School Status:Retired 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 Cancer of colon: Mother and Maternal Uncle.Negative: Maternal Uncle. Impaired fasting glucose: Mother. Health Status Family Member(s) Family Member(s) Relationship: Mother, Name: Amita, Age: 78 Years, Cause: colon cancer Relationship: Father, Name: Matthew, Age: 55 Years, Cause: Colon cancer Immunizations Vaccine Date Status influenza virus vaccine, inactivated 05/11/2022 Given SARS-CoV-2 (COVID-19) mRNA-1273 vaccine 09/01/2021 Recorded SARS-CoV-2 (COVID-19) mRNA-1273 vaccine 07/02/2021 Recorded Comments : 2022-08-25: Historical information-source unspecified influenza virus vaccine, inactivated 06/23/2021 Given SARS-CoV-2 (COVID-19) mRNA-1273 vaccine 10/17/2020 Recorded SARS-CoV-2 (COVID-19) mRNA-1273 vaccine 10/17/2020 Recorded Comments : 2021-05-02: Historical information-source unspecified SARS-CoV-2 (COVID-19) mRNA-1273 vaccine 09/19/2020 Recorded SARS-CoV-2 (COVID-19) mRNA-1273 vaccine 09/19/2020 Recorded Comments : 2021-05-02: Historical information-source unspecified influenza virus vaccine, inactivated 05/07/2020 Given influenza virus vaccine, inactivated 05/03/2019 Given influenza virus vaccine, inactivated - Not Given Comments : Contraindicated - Do not give Need high dose influenza virus vaccine, inactivated 05/25/2018 Given pneumococcal 23-valent vaccine 03/21/2018 Given influenza virus vaccine, inactivated 06/02/2017 Given influenza virus vaccine, inactivated 07/22/2015 Given zoster vaccine live 07/23/2014 Recorded pneumococcal 13-valent vaccine 06/06/2014 Given influenza virus vaccine, inactivated 06/06/2014 Given influenza virus vaccine, inactivated 05/25/2013 Recorded influenza virus vaccine, inactivated 06/01/2012 Recorded pneumococcal 23-valent vaccine 08/16/2001 Recorded Comments : [03/30/2014] [facility] Recommendations Health Maintenance Pending(in the next year) OverDue Body Mass Index due12/06/21and every day Medicare Annual Wellness Visit due08/04/22and every 1year Adult Influenza Vaccine due02/13/23and every 1year Due Adult Tdap/Td Vaccine due07/28/23Unknown Frequency Falls Plan of Care due07/28/23Unknown Frequency Shingles Vaccine due07/28/23One-time only Satisfied(in the past 1 year) Satisfied Lipid Screening on07/28/23.Satisfied by Contributor_system, [employer] Electronic Signature on File Electronically Reviewed/Signed by: Anju Gonzalez MD Author Signature Dt/Tm:07/28/2023 07:32 PM Parent Partner Family and Community Medicine [facility] [address] [facility], [facility] [address] [place] [address] [facility] Patient Care team information Care Team Personnel Name: SHONNA Smart, Isis Robles Position: RN - Endoscopy Member Role: Lifetime - never expires Address: Address: [facility] [address] [place] [address] [place] Name: MD Carlos, Anju Vazquez Position: Physician - Family Med Member Role: Primary Care Provider Address: Address: [address] [place] [address] [address] [place] [address] [place] Name: MD Qing, Rosa Urena Position: Physician - CT Surgery Member Role: Lifetime Relationship Address: Address: [address] [facility] [address] [place] [address] Care Team Related Persons Name: DAV MANJARREZ Address: home [address] [facility] [address] [place], [place] [id number]
[2023-11-03 06:54] LABS: Basophils # (auto) 0.03 K/uL (0.00-0.20); Basophils % (auto) 0.5 %; Eosinophils # (auto) 0.32 K/uL (0.00-0.50); Eosinophils % (auto) 5.5 %; Hematocrit (blood only) 40.5 % (42.0-52.0); Hemoglobin 13.8 g/dl (14.0-18.0); Immature Granulocytes # (auto) 0.01 K/uL (0.01-0.20); Immature Granulocytes % (auto) 0.2 %; Lymphocytes # (auto) 1.61 K/uL (1.20-3.40); Lymphocytes % (auto) 27.6 %; Mean Corpuscular Hemoglobin 31.6 pg (25.0-34.0); Mean Corpuscular Hgb Conc 34.1 g/dL (32.0-36.0); Mean Corpuscular Volume 92.7 fL (80.0-100.0); Mean Platelet Volume 9.2 fL (9.4-12.4); Monocytes # (auto) 0.73 K/uL (0.11-0.59); Monocytes % (auto) 12.5 %; Neutrophils # (auto) 3.13 K/uL (1.40-6.50); Neutrophils % (auto) 53.7 %; Platelet Count 147 K/uL (130-400); RDW Coefficient of Variation 12.8 % (11.5-14.5); RDW Standard Deviation 43.7 fL (36.4-46.3); Red Blood Count 4.37 M/uL (4.70-6.10); White Blood Count 5.83 K/ul (4.8-10.8)
[2023-11-03 07:22] LABS: Albumin Globulin Ratio 1.5 (0.9-2); Albumin Level 3.7 gm/dl (3.4-5.0); BUN Creatinine Ratio 16.3 (10-20); Bilirubin,Total 0.9 mg/dl (0.2-1.0); Calcium 8.8 mg/dl (8.6-10.3); Chol HDL Ratio 2.6 (0-5); Creatinine Clr Calc Pharmacy 62.5 ml/min; Est GFR (African American) 90.4 ml/min; Globulin 2.5 gm/dl (2.5-4.0); Magnesium 2.2 mg/dl (1.7-2.4); Potassium 4.6 mmol/L (3.5-5.1); Total Protein 6.2 gm/dl (6.0-8.3)
[2023-11-03 07:38] LABS: Thyroid Stimulating Hormone 3.056 uIu/ml (0.300-4.500); Troponin I High Sensitivity 64.4 pg/ml (0-20)
[2023-11-03 07:47] LABS: Estimated Average Glucose 120 mg/dl; Hemoglobin A1C 5.8 % (4.5-5.6)
[2023-11-03] MEDS: CLOPIDOGREL BISULFATE 75 MG TAB PO SCH (07:53)
[2023-11-03] MEDS: ROSUVASTATIN CALCIUM 10 MG TAB PO SCH (07:53)
[2023-11-03] MEDS: ASPIRIN 81 MG ECTAB PO SCH (07:54)
--- NOTE | 2023-11-03 10:49 | Cardiology Consultation ---
Date of Consultation November 03, 2023 Assessment & Plan (1) Atrial fibrillation: (2) CAD in [place] artery: (3) Elevated troponin: (4) Mitral regurgitation: (5) S/P aortic valve replacement with bioprosthetic valve: Plan 1. Atrial fibrillation: He has a remote history of atrial fibrillation initially occurring during his bypass surgery and also during a COVID-19 infection. He was previously on Eliquis but developed a diffuse rash in the anticoagulation was discontinued. No known recurrence until yesterday. While his EKG was read as sinus tachycardia, review of his telemetry suggest that he was in atrial fibrillation at the time of his initial emergency room evaluation. Not symptomatic. He does report taking his blood pressure at home and occasionally gets a error message. However, he is not recorded high heart rates which I think would be more indicative of atrial fibrillation. We will need to readdress his need for anticoagulation. He certainly meets criteria for anticoagulation in the setting of atrial fibrillation and his risk factors. I think we can try Xarelto 20 mg daily. I think he can stop his Plavix once he starts his Xarelto I think we will defer any additional rate control for the time being. I think we can monitor his heart rates at home and decide if additional therapy is necessary. He could be tried on amiodarone if necessary. If he has frequent episodes of atrial fibrillation with high ventricular rates he may require perm anent pacemaker in order to facilitate more aggressive rate control. 2. Coronary disease: Only does have mildly elevated cardiac biomarkers, I do not think this is indicative of an acute coronary syndrome. He has no symptoms of angina. He is very sedentary due to lower extremity weakness. Will continue aggressive secondary prevention his current clopidogrel and rosuvastatin 3. Elevated troponin: Very mild elevation. More indicative of his rapid rates yesterday in the setting of known coronary disease. While he did have an episode of indigestion 3 nights ago, the trajectory of his biomarkers is not consistent with a recent ischemic event. 4. Normally functioning bioprosthetic aortic valve 5. Mitral regurgitation: Moderate. Unchanged from prior echo. Not likely to be a clinical concern the patient has lifetime. History of Present Illness Reason for Consultation: atrial fibrillation, elevated troponin Requesting Physician: Jass Attending Physician: Paul Cazares MD History of Present Illness The patient is an 87-year-old gentleman with an extensive history of cardiac disease to include a bioprosthetic aortic valve repair, coronary bypass grafting and cerebrovascular accident who has also suffered from atrial fibrillation in the past. He presented for routine evaluation at an outpatient setting yesterday was discovered to have a high heart rate. There was some concerns about atrial fibrillation the patient was referred to the emergency room for further evaluation. Denies symptoms at that time. According to his granddaughter who was present for today's interview he did have an episode of dizziness earlier that morning. However, he has these infrequently and commonly takes meclizine. The symptoms appear to have resolved. He reported feeling perhaps somewhat more fatigued recently. He was unaware of any high heart rates. He was not having breathing trouble or chest pain at that time. He was actually is apprised to be referred to the emergency room. In the emergency room his evaluation was reportedly normal. He was noted to have mildly elevated cardiac biomarkers and was admitted for observation. In general he is a active individual who lives independently. He is able to ambulate with a cane. His primary disability involves lower extremity weakness. This has been described previously as a neuropathy. This limits his ambulation makes it somewhat difficult to get up and down from a seated position on occasion. He does not report chest pain associated with activity. He does not have limiting dyspnea. He denies orthopnea. He does have chronic lower extremity edema primarily involving the left leg. He wears compression stockings as result. Allergies Allergy/AdvReac Type Severity Reaction Status Date / Time Penicillins Allergy Intermediate Unknown Verified 07/06/23 14:51 apixaban [From Eliquis] AdvReac Intermediate Rash, Verified 07/06/23 14:51 itching oxycodone AdvReac SICKNESS Verified 07/06/23 14:51 Home Medications Medication Instructions Recorded Confirmed Type cholecalciferol (vitamin D3) 25 1,000 units PO BID 06/06/19 11/02/23 History mcg (1,000 unit) capsule clopidogrel 75 mg tablet (Plavix) 75 mg PO DAILY 06/06/19 11/02/23 History coQ10 (ubiquinol) 100 mg capsule 100 mg PO DAILY 07/23/20 11/02/23 History vitamins A,C,V-djrv-vdbvbz 2,148 1 tab PO DAILY 07/23/20 11/02/23 History mcg-113 mg-45 mg-17.4 mg tablet (PreserVision AREDS) nitroglycerin 0.4 mg sublingual 0.4 mg sublingual Q5M PRN Chest 09/13/20 11/02/23 Rx tablet Pain #25 tabs cyanocobalamin (vitamin B-12) 1,000 mcg PO DAILY 06/27/21 11/02/23 History 1,000 mcg capsule fluticasone propionate 50 1 spray intranasal BID 09/12/21 11/02/23 History mcg/actuation nasal spray,suspension escitalopram oxalate 10 mg tablet 10 mg PO DAILY #90 tabs 04/13/23 11/02/23 Rx rosuvastatin 10 mg tablet 20 mg PO DAILY 11/02/23 11/02/23 History Patient History Medical History Lumbar spinal stenosis Anxiety Gastro-esophageal reflux disease with esophagitis History of left foot drop Inhibited sexual excitement COVID-19 (07/2020) Atrial fibrillation with rapid ventricular response History of cerebellar stroke (2016) CAD in [place] artery Dyslipidemia Hypertension Ankle fracture (2012) Surgical History S/P coronary artery bypass graft x 3 (2009) S/P aortic valve replacement with bioprosthetic valve (2009) 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) Family History Mother Unknown family medical history Social History Smoking Status: Former smoker Second Hand Exposure: No; Do You Dip or Chew Tobacco: No; Hx Alcohol Use: No Hx Substance Use: No Preferred Language: Japanese Communication Ability: Effective Hotel Assistant Manager Required: No Beliefs That Will Affect Care: Yazdanism marital status: Current Living Situation: Alone current occupational status: retired Feels Safe at Home: Yes Assistive Devices: Brace/Splint/Immobilizer, Cane, Glasses and Walker Review of Systems Review of Systems: Per HPI. The patient did report an episode of indigestion 3 nights ago. This is described as a burning sensation in the upper precordium. Also involving the throat. The patient got out of bed took some antacids and within 30 minutes the symptoms had resolved. No other recent constitutional symptoms. Physical Exam Physical Exam: The patient is alert and oriented. Mood and affect appeared normal. He answered all questions appropriately. HEENT: Some ptosis involving the right eye. Pupils are equal and reactive to light and accommodation. Extraocular movements are intact. The sclerae are anicteric. Neuro: Cranial nerves intact Neck: Patient's neck is supple. He has palpable carotid pulses bilaterally without bruits on auscultation. There is no evidence of jugular venous distention. The thyroid is not enlarged. Lungs: Clear to auscultation bilaterally. He has good air movement without use of accessory muscles. No rales wheezes or rhonchi. Chest: Well-healed sternotomy scar. Cardiac: Heart demonstrates a regular rate and rhythm. Normal S1 and S2. Cre scendo systolic murmur. Pulses: The patient has palpable radial pulses bilaterally that are equal in intensity Extremities: There was no evidence of hypoperfusion. There is no cyanosis or clubbing. Mild to moderate edema involving the left lower extremity. No edema in the right lower extremity. Patient wearing compression stockings. Skin: I did not appreciate any rashes on examination today. Results & Data Vital Signs (Past 12 Hours) Vital Signs Temp Pulse Pulse Resp BP Pulse Ox O2 Del Method 11/03/23 10:16 56 L 11/03/23 07:26 36.6 C 51 L 18 158/81 H 94 Room Air 11/03/23 03:48 36.5 C 54 L 16 151/88 H 95 Room Air Laboratory Results Abnormal Lab Results 11/02/23 11/02/23 11/02/23 12:30 16:23 16:28 WBC 6.20 RBC 4.17 L Hgb 13.0 L Hct 39.0 L MCV 93.5 MCH 31.2 MCHC 33.3 RDW Std Deviation 43.3 RDW Coeff of Nay 12.7 Plt Count 149 MPV 9.2 L Immature Gran % (Auto) 0.3 Neut % (Auto) 64.8 Lymph % (Auto) 21.0 Jewell % (Auto) 11.3 Eos % (Auto) 2.1 Baso % (Auto) 0.5 Neut # (Auto) 4.02 Lymph # (Auto) 1.30 Jewell # (Auto) 0.70 H Eos # (Auto) 0.13 Baso # (Auto) 0.03 Immature Gran # (Auto) 0.02 PT 11.9 INR 1.1 Sodium 141 Potassium 3.4 L Chloride 113 H Carbon Dioxide 24 Anion Gap 4 BUN 12 Creatinine 0.72 Est Cr Clr Drug Dosing 74.6 Est GFR ( Amer) 97.2 Est GFR (Non-Af Amer) 83.9 BUN/Creatinine Ratio 16.7 Glucose 76 Estimat Average Glucose Hemoglobin A1c Calcium 7.7 L Phosphorus 1.9 L Magnesium 1.7 Total Bilirubin 0.8 AST 14 ALT 13 Alkaline Phosphatase 59 Troponin I High Sens 26.1 H 92.2 H* D Total Protein 5.7 L Albumin 3.5 Globulin 2.2 L Albumin/Globulin Ratio 1.6 Triglycerides Cholesterol LDL Cholesterol, Calc VLDL Cholesterol, Calc HDL Cholesterol Cholesterol/HDL Ratio Lipase 32 TSH Urine Color Yellow Urine Appearance Clear Urine pH 7.0 Ur Specific [place] 1.008 Urine Protein Negative Urine Glucose (UA) Negative Urine Ketones Negative Urine Blood Negative Urine Nitrite Negative Urine Bilirubin Negative Urine Urobilinogen Negative Ur Leukocyte Esterase Negative 11/02/23 11/03/23 19:05 06:31 WBC 5.83 RBC 4.37 L Hgb 13.8 L Hct 40.5 L MCV 92.7 MCH 31.6 MCHC 34.1 RDW Std Deviation 43.7 RDW Coeff of Nay 12.8 Plt Count 147 MPV 9.2 L Immature Gran % (Auto) 0.2 Neut % (Auto) 53.7 Lymph % (Auto) 27.6 Jewell % (Auto) 12.5 Eos % (Auto) 5.5 Baso % (Auto) 0.5 Neut # (Auto) 3.13 Lymph # (Auto) 1.61 Jewell # (Auto) 0.73 H Eos # (Auto) 0.32 Baso # (Auto) 0.03 Immature Gran # (Auto) 0.01 PT INR Sodium 139 139 Potassium 4.5 D 4.6 Chloride 107 109 H Carbon Dioxide 28 28 Anion Gap 4 2 L BUN 13 14 Creatinine 0.82 0.86 Est Cr Clr Drug Dosing 65.5 62.5 Est GFR ( Amer) 92.2 90.4 Est GFR (Non-Af Amer) 79.5 78.0 BUN/Creatinine Ratio 15.9 16.3 Glucose 88 82 Estimat Average Glucose 120 Hemoglobin A1c 5.8 H Calcium 9.0 8.8 Phosphorus Magnesium 2.2 2.2 Total Bilirubin 0.9 AST 15 ALT 14 Alkaline Phosphatase 62 Troponin I High Sens 102.8 H* 64.4 H* D Total Protein 6.2 Albumin 3.7 Globulin 2.5 Albumin/Globulin Ratio 1.5 Triglycerides 46 Cholesterol 98 LDL Cholesterol, Calc 51 VLDL Cholesterol, Calc 9 HDL Cholesterol 38 Cholesterol/HDL Ratio 2.6 Lipase TSH 3.056 Urine Color Urine Appearance Urine pH Ur Specific [place] Urine Protein Urine Glucose (UA) Urine Ketones Urine Blood Urine Nitrite Urine Bilirubin Urine Urobilinogen Ur Leukocyte Esterase Diagnostic Findings Echocardiogram performed 11/03/2023: Normal LV systolic function with ejection fraction of 55-60%. Normally functioning bioprosthetic aortic valve with mild aortic regurgitation. Mild LVH. Moderate mitral regurgitation. Normal right ventricular systolic pressure. Mild aortic root dilation. ECG Additional Comments: EKG obtained the time admission read as sinus tachycardia. PG Care Time/CCT Total # of Minutes Spent Total Time Spent with Patient: Total time spent is greater than 50% in coordination of care (as documented) at patient's floor/unit and/or counseling patient: Coding Level of Care Code 71332 INT INP/OBS CARE 3/75MIN Diagnoses Atrial fibrillation I48.91 CAD in [place] artery I25.10 Elevated troponin R79.89 Mitral regurgitation I34.0 S/P aortic valve replacement with bioprosthetic valve Z95.3
--- NOTE | 2023-11-03 11:14 | XCELERA ---
[id number]
[2023-11-03] MEDS: RIVAROXABAN 20 MG TAB PO SCH (11:33)
--- NOTE | 2023-11-03 12:42 | Discharge Summary ---
Date of Service November 03, 2023 Admission HPI Per Admitting Provider Is a pleasant 87-year-old male had an outpatient appointment with his primary care provider today. He had been experiencing some mild lightheadedness/near syncope over the last day or 2 today it was worse than it had been. He took a dose of Antivert at home because he does have a history of vertigo. This seemed to help somewhat. In the office apparently had an EKG that was concerning questionable atrial fibrillation and was sent to the ER for further evaluation and treatment. In the emergency department EKG was nonacute sinus tachycardia with PACs. Initial troponin was approximately 26. Patient had mildly suppressed electrolytes including a potassium of 3.4 and a magnesium of 1.7. The patient received oral potassium replacement and IV magnesium replacement. The patient is going to be discharged home on her second troponin came back at 92. Therefore we are called admit the patient for further evaluation and treatment. We recommended stat aspirin therapy. We went to evaluate the patient. Initi ally the patient did not express concern about his chest symptoms until I evaluated the patient. Therefore we have consulted cardiology. We spoke personally to cardiology on-call at this point since the patient is asymptomatic. Recommended not to heparinize unless his troponin bumped significantly on next check and/or the patient has symptomatology return. In the meantime I will order stat troponin will do a stat CT of the head given the syncope that way if we have to heparinize the patient head CT will be completed which is also limited with the patient's near syncopal symptoms. Will recheck an echocardiogram in the morning the patient n.p.o. after midnight in case the heart catheterization is warranted in the morning. Principal Diagnosis Near syncope, troponin elevation without acute coronary syndrome, hypomagnesemia, hypokalemia, paroxysmal atrial fibrillation present on admission Discharge Exam General-alert and oriented x3, no fevers, no chills HEENT-head atraumatic and normocephalic, pupils equal and reactive to light, extraocular muscles intact Neck-no lymphadenopathy or thyromegaly, trachea midline Chest-clear to auscultation. No rales, wheezing or rhonchi Cardiac-regular rate and rhythm, normal S1 and S2 Abdomen-normal bowel sounds, nontender, no hepatosplenomegaly Extremities-no cyanosis, clubbing, or edema Neuro-cranial nerves II through XII intact, motor and sensory function within normal limits, strength symmetrical, no focal deficits Psych-normal affect, normal mood Discharge Data Allergies Allergy/AdvReac Type Severity Reaction Status Date / Time Penicillins Allergy Intermediate Unknown Verified 07/06/23 14:51 apixaban [From Eliquis] AdvReac Intermediate Rash, Verified 07/06/23 14:51 itching oxycodone AdvReac SICKNESS Verified 07/06/23 14:51 Consultations 11/02/23 18:38 ED Decision to Admit Stat 11/02/23 18:58 Consult Cardiology Routine Ordered Studies 11/02/23 19:01 CT head/brain wo con Stat Hospital Course (1) Elevated troponin: Mild. No evidence of acute coronary syndrome. No regional wall motion abnormality seen on cardiac echo. (2) Atrial fibrillation with rapid ventricular response: Paroxysmal. He converted to normal sinus rhythm. Telemetry. Appreciate cardiology consultation and recommendations (3) Near syncope: Due to rapid atrial fibrillation. Resolved (4) S/P aortic valve replacement with bioprosthetic valve: Normal function noted on cardiac echo (5) Hypomagnesemia: Corrected with replaced (6) Hypokalemia: Corrected with replaced Plan Home today, November 02, on Xarelto which replaces Plavix Total Time Total Time Spent Total Time Spent (In Minutes): 45-minute Discharge Plan Discharge Items Patient Disposition: Home - Self-Care Reason For Visit: NEAR SYNCOPE Discharge Diagnosis: Paroxysmal atrial fibrillation with rapid ventricular rate, near syncope, hypokalemia, hypomagnesemia, elevated troponin without acute coronary syndrome Activity: Resume your previous activity Non-emergency contact: Primary Care Provider and Manufacturing Lab Technician Call non-emergency contact if: you have any medication questions and your symptoms worsen Follow-up/Referrals: Anju Gonzalez MD [Primary Care Provider] - Diet: Regular and Heart Healthy Addtl Attending Provider Instructions: Xarelto replaces Plavix Pending Studies at Discharge: No Stand-Alone Forms: [employer], Smoking Cessation Medications and DC Order Prescriptions: New Xarelto 20 mg Tablet 20 mg PO DAILY Qty: 30 0RF aspirin 81 mg Tablet,Delayed Release (Dr/Ec) 81 mg PO QAM Qty: 0 0RF Continued escitalopram oxalate 10 mg tablet 10 mg PO DAILY Qty: 90 3RF nitroglycerin 0.4 mg tablet, sublingual 0.4 mg SL Q5M PRN (Reason: Chest Pain) Qty: 25 3RF Rx Instructions: unable to verify with pt or express scripts 11/02/23 fluticasone propionate 50 mcg/actuation spray,suspension 1 spray intranasal BID Rx Instructions: unable to verify with pt or express scripts 11/02/23 administer into each nostril cyanocobalamin (vitamin B-12) 1,000 mcg capsule 1,000 mcg PO DAILY Rx Instructions: unable to verify with pt or express scripts 11/02/23 cholecalciferol (vitamin D3) 1,000 unit capsule 1,000 units PO BID PreserVision AREDS [id number],[id number] [id number] Tablet 1 tab PO DAILY Rx Instructions: unable to verify with pt or express scripts 11/02/23 coQ10 (ubiquinol) 100 mg Capsule 100 mg PO DAILY Rx Instructions: unable to verify with pt or express scripts 11/02/23 rosuvastatin 10 mg tablet 20 mg PO DAILY Discontinued clopidogrel [Plavix] 75 mg tablet 75 mg PO DAILY Discharge Orders: Discharge Order (Routine); Ordered 11/03/23 Ordered By: Paul Cazares Admission Data Admit Date/Time: 11/02/23 19:02 Attending Provider: Paul Cazares Admit Provider: Giovanny Regan Primary Care Provider: Anju Gonzalez Other Providers: Giovanny Regan; Antonio Goode Coding Level of Care Code 63546 INP/OBS DISCH >30 MIN Diagnoses Elevated troponin R79.89 Atrial fibrillation with rapid ventricular response I48.91 Near syncope R55 S/P aortic valve replacement with bioprosthetic valve Z95.3 Hypomagnesemia E83.42 Hypokalemia E87.6
== END 2023-11-03 13:22 | disposition home or self-care (01) | DRG 310 ==
LOC: ED 12:15 → SUATTDRO 19:02 → 2S 19:02

== ENCOUNTER 2024-07-08 22:49 | Inpatient (IN) ==
--- OUTSIDE RECORDS SUMMARY | 2024-07-08 22:54 | External Medical Summary | Continuity of Care Document ---
Author Name Unknown Organization [id number] Address [address] [place] [id number] Care Team Providers Care Graduate Student Name Role Phone Anju Gonzalez Primary Care Physician [phone] [facility]counter [facility] [id number] Date(s): 06/29/24 - 06/29/24 [facility] [address] [facility] [address], [place] [phone] Encounter Diagnosis Neuropathy(Discharge Diagnosis) - 06/29/24 Discharge Disposition: Home or Self Care Attending Physician: MD Michael, Ch[place] Henry Referring Physician: MD Carlos, Anju Vazquez Allergies, Adverse Reactions, Alerts Substance Criticality Severity Reaction Reaction Severity Status simvastatin 1 Active penicillins Rash Active 1leg pain Immunizations Given and Recorded Vaccine Date Status Refusal Reason pneumococcal 20-valent conjugate vaccine 06/28/24 Given influenza virus vaccine, inactivated 06/14/24 Give n influenza virus vaccine, inactivated 05/11/22 Give n [...] 2021-05-02: Historical information-source unspecified 4Result Comment: [03/30/2014] [facility] CoQ10 Start: 07/28/17 1:26:00 PM EST Start Date: 07/28/17 Status: Ordered Crestor 20 mg oral tablet Start: 08/17/23 4:24:00 PM EST, 1 tab, PO, Daily, Disp# 90 tab, Refills: 3, [facility]acy: [facility] Start Date: 08/17/23 Status: Ordered escitalopram 10 mg oral tablet Start: 08/17/23 4:24:00 PM EST, 1 tab, PO, Daily, Disp# 90 tab, Refills: 3, Pharmacy: [facility] Start Date: 08/17/23 Stop Date: 08/11/24 Status: Ordered famotidine 20 mg oral tablet Start: 06/14/24 1:54:00 PM EDT, 1 tab, PO, qhs, Disp# 30 tab, Refills: 5, [facility] Start Date: 06/14/24 Status: Ordered Flonase 50 mcg/inh nasal spray Start: 05/02/21 2:06:00 PM EDT, 2 spray, each nostril, Daily, Disp# 16 g, Refills: 0, Pharmacy: [facility] Start Date: 05/02/21 Status: Ordered meclizine 25 mg oral tablet Start: 04/13/24 1:20:00 PM EDT, 1 tab, PO, tid, Disp# 60 tab, Refills: 1, PRN: as needed for dizziness, Pharmacy: [facility] Start Date: 04/13/24 Status: Ordered multivitamin Start: 05/06/10 10:33:16 AM EDT, 1 tab, PO, Every other day, Refills: 0, current medication from another provider Start Date: 05/06/10 Status: Ordered unknown medication Start: 04/16/16 3:10:00 PM EDT, ared-2 Start Date: 04/16/16 Status: Ordered Vitamin B12 50 mcg oral tablet Start: 12/11/22 2:59:00 PM EDT, 1 tab, PO, Daily, Disp# 30 tab, Refills: 0, Pharmacy: [facility] Start Date: 12/11/22 Status: Ordered Vitamin D3 1000 intl units oral tablet Start: 04/28/17 1:03:00 PM EDT, 1 tab, PO, bid Start Date: 04/28/17 Status: Ordered Xarelto 20 mg oral tablet Start: 11/11/23 10:55:00 AM EDT, 1 tab, PO, qPM Start Date: 11/11/23 Status: Ordered Mental Status 06/29/24 Barriers to Learning one year None evide nt Mandatory Health Literacy Documentation Yes Health Literacy Communication Barriers N ever Primary Language [place] Islander Problem List Condition Confirmation Course Effective Dates Status Health Status Informant Adult failure to thrive Confirmed Active Anesthesia of skin 1 Confirmed 06/14/24 Active Thoracic aorta atherosclerosis 2 Confirmed Active Recent bereavement Confirmed Active Bradycardia Confirmed Active Bradycardia Confirmed Active Caregiver stress Confirmed Active Caregiver stress Confirmed Active Changing skin lesion Confirmed Active Chest pain Confirmed Active Chronic cough Confirmed Active Chronic cough Confirmed Active CAD (coronary artery disease) Confirmed Active 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 Confirmed Active COVID-19 Confirmed Active Cutaneous horn Confirmed Active Loss of height Confirmed Active Dizziness Confirmed Active Body rash Confirmed Active Grief Confirmed Active History of cerebellar stroke 3 Confirmed Active History of tobacco use Confirmed Active Borderline hyperlipidemia Confirmed Active HTN (hypertension) Confirmed Active Left foot drop Confirmed Active Local neurodermatitis Confirmed Active Lipoma Confirmed Active Leg weakness Confirmed Active Other symptoms and signs involving the musculoskeletal system Confirmed Active Neuropathy Confirmed Active BPH (benign prostatic hyperplasia) Confirmed Active Other nonthrombocytopenic purpura 4 Confirmed 06/14/24 Active Osteoarthritis of left knee Confirmed Active Palpitations Confirmed Active Bilateral leg weakness Confirmed Active Bilateral leg paresthesia Confirmed Active Paroxysmal atrial fibrillation Confirmed Active Bereavement counseling Confirmed Active Pneumonia due to COVID-19 virus Confirmed Active Major depression, recurrent, chronic Confirmed Active Abdominal pain, RLQ Confirmed Active Sebaceous cyst Confirmed Active Seborrheic keratoses Confirmed Active Seborrheic keratosis Confirmed Active Cancer, skin, squamous cell Confirmed Active Vitamin D deficiency Confirmed Active Ambulatory dysfunction Confirmed Active Ambulatory dysfunction Confirmed Active Ambulatory dysfunction Confirmed Active Loss of weight Confirmed Active 1Added per [employer] [id number]/4/24 2See outside note 11/02/23 CXR- atherosclerotic calcifications of thoracic aorta [id number] 4Added per [employer] [id number]-63/4/24 Diagnosis Diagnosis Type Effective Dates Health Status Clini jeffrey Service Informant Neuropathy Discharge Diagnosis 06/29/24 Procedures Procedure Date Related Diagnosis Body Site [...] Coronary artery b ypass grafts x 3 2000 Completed Aortic valve replacement and aortoplasty 11 Completed Open reduction of fracture o f fibula with internal fixation Completed 1Mod. LVH; nml LVEF; Mild MR & Mild TR; mild aortic root dilatation, [facility]: [facility]. No acute process [facility]: 1. No significant stenosis, occlusion, or aneurysm within the cirlce of Pack. Partially calcifiedscalp lesions 4[facility] Impression: 1. No acute intracranial abnormality 51. [...] Méndez at the time if dictation. 7[facility] Impression: 1. No acute lumbar spine fracture [...] 10during AVR 11bovine, followed by Dr. Dyson Social History Social History Type Response Tobacco Former smoker, Cigar ettes, Started age 16 Years. Stopped age 32 Years. Smoking Status Never smoked cigaret mary Sex Male Sex Representation Male (finding) Patient Care team information Care Team Personnel Name: SHONNA Smart, Isis Robles Position: RN - Endoscopy Member Role: Lifetime - never expires Address: [facility] [address] [place] [address] [place] Name: MD Carlos, Anju Vazquez Position: Physician - Family Med Member Role: Primary Care Provider Address: [address] [facility] [address] [place] [address] [place] Name: MD Qing, Rosa Urena Position: Physician - CT Surgery Member Role: Lifetime Relationship Address: [address] [facility] [address] [place] [address] [place] Care Team Related Persons Name: DAV MANJARREZ
--- OUTSIDE RECORDS SUMMARY | 2024-07-08 22:54 | External Medical Summary | Continuity of Care Document ---
Author Name Unknown Organization [facility] [address] [facility] Address [address] [place], [place] [id number] Care Team Providers Care Flavoring Oil Filterer Name Role Phone Anju Gonzalez Primary Care Physician [phone] Encounter [facility] [id number] Date(s): 06/14/24 - 06/14/24 [facility] [address], [address] [place] [address] [phone] Encounter Diagnosis Ambulatory dysfunction(Discharge Diagnosis) - 06/14/24 Chest pain(Discharge Diagnosis) - 06/14/24 Paroxysmal atrial fibrillation(Discharge Diagnosis) - 06/14/24 Major depression, recurrent, chronic(Discharge Diagnosis) - 06/14/24 Leg weakness(Discharge Diagnosis) - 06/14/24 HTN (hypertension)(Discharge Diagnosis) - 06/14/24 Loss of weight(Discharge Diagnosis) - 06/14/24 Discharge Disposition: Home or Self Care Attending Physician: MD Carlos, Anju Vazquez Allergies, Adverse Reactions, Alerts Substance Criticality Severity Reaction Reaction Severity Status simvastatin 1 Active penicillins Rash Active 1leg pain Assessment and Plan Extracted from: Title:Office Visit Note Author:MD Gonzalez Amy L D ate:06/14/24 1.Ambulatory dysfunction STATUS: Chronic, worsening. DATA: hx & gaitreviewed. GOAL: Maintain safe ambulation. PLAN: discussedPT/OT evals. He is planningtocontact [facility], toseeif thereareanyin-homebenefitsfor whichhe wouldqualify.Discussed cane vs walker with pt & jyqtihco-tn-jla. Cont current monitoring. Form for handicapped placard signed. 2.Chest pain STATUS:newproblem,uncontrolled. DATA: hx & examreviewed. GOAL: relieve sx. PLAN: would agreethat this soundslikeGERD.Hegetssx 2-3 timesper month, so willhavehimtryFamotidine prn. Stay vigilant with diet & non-pharmacological measures. 3.Paroxysmal atrial fibrillation STATUS : chronic, controlled. DATA : hx,exam & lastcardiologynotereviewed. GOAL : maintain euvolemia, stable cardiac rhythm. PLAN : he istoleratinganti-coagulationwithoutdifficulty. Discussed finding ofsenilepurpuraonarms.No recentfalls.Continue cardiology follow up. 4.Major depression, recurrent, chronic Status : chronic, improved. Data : hx reviewed. Goal : maintain remission. Plan : continue same doseescitalopram. 5.Leg weakness STATUS: Chronic, worse. DATA: hx & examreviewed. GOAL: eval& tx causeof weakness. PLAN: discussedthat this islikelytobe acombination ofspinalstenosiswithconcurrent peripheralneuropathy. He isscheduledforEMGnextweek,will awaittheseresults.However,wedid discussthat theremay not be any effectivetx,otherthansymptomatictx. 6.Loss of weight STATUS: Chronic stable. DATA: weightsreviewed. GOAL: avoidfurtherweight loss. PLAN: discussed, theyplantoinvestigatemealson wheels.Cont current monitoring. 7.HTN (hypertension) Status : chronic, controlled. Data : home& officeBP readings reviewed. Goal : maintain normal BP. Plan : continue current BP meds. Return in 4 months. Time:Total time spent with this patient on day of evaluation including chart review, ordering, education and coordination of care elements: _44 minutes Immunizations Given and Recorded Vaccine Date Status Refusal Reason influenza virus vaccine, inactivated 06/14/24 Give n [...] 2021-05-02: Historical information-source unspecified 4Result Comment: [03/30/2014] at [facility] Medications CoQ10 Start: 07/28/17 1:26:00 PM EST Start Date: 07/28/17 Status: Ordered Crestor 20 mg oral tablet Start: 08/17/23 4:24:00 PM EST, 1 tab, PO, Daily, Disp# 90 tab, Refills: 3, [facility]acy: [facility] Start Date: 08/17/23 Status: Ordered escitalopram 10 mg oral tablet Start: 08/17/23 4:24:00 PM EST, 1 tab, PO, Daily, Disp# 90 tab, Refills: 3, Pharmacy: [facility] Start Date: 08/17/23 Stop Date: 08/11/24 Status: Ordered famotidine 20 mg oral tablet Start: 06/14/24 1:54:00 PM EDT, 1 tab, PO, qhs, Disp# 30 tab, Refills: 5, Pharmacy: [facility] Start Date: 06/14/24 Status: Ordered Flonase 50 mcg/inh nasal spray Start: 05/02/21 2:06:00 PM EDT, 2 spray, each nostril, Daily, Disp# 16 g, Refills: 0, Pharmacy: [facility] Start Date: 05/02/21 Status: Ordered meclizine 25 mg oral tablet Start: 04/13/24 1:20:00 PM EDT, 1 tab, PO, tid, Disp# 60 tab, Refills: 1, PRN: as needed for dizziness, [facility] Start Date: 04/13/24 Status: Ordered multivitamin Start: [...] Start Date: 11/11/23 Status: Ordered Mental Status 06/14/24 Barriers to Learning one year None evide nt Mandatory Health Literacy Documentation Yes Health Literacy Communication Barriers N ever Primary Language Frisian Problem List Condition Confirmation Course Effective Dates Status H ealth Status Informant Adult failure to thrive Confirmed Active Thoracic aorta atherosclerosis 1 Confirmed Active Recent bereavement Confirmed Active Bradycardia [...] Grief Confirmed Active History of cerebellar stroke 2 Confirmed Active History of tobacco use Confirmed Active Borderline hyperlipidemia Confirmed Active HTN (hypertension) Confirmed Active Left foot drop Confirmed Active Local neurodermatitis Confirmed Active Lipoma Confirmed Active Leg weakness Confirmed Active Other symptoms and signs involving the musculoskeletal system Confirmed Active BPH (benign prostatic hyperplasia) Confirmed [...] Confirmed Active Loss of weight Confirmed Active 1See outside note 11/02/23 CXR- atherosclerotic calcifications of thoracic aorta Diagnosis Diagnosis Type Effective Dates Health Status Clinical Service Informant Ambulatory dysfunction Discharge Diagnosis 06/14/24 Non-Specified Major depression, recurrent, chronic Discharge Diagnosis 06/14/24 Non-Specified Paroxysmal atrial fibrillation Discharge Diagnosis 06/14/24 Non-Specified HTN (hypertension) Discharge Diagnosis 06/14/24 Non-Specified Leg weakness Discharge Diagnosis 06/14/24 Non-Specified Chest pain Discharge Diagnosis 06/14/24 Non-Specified Loss of weight Discharge Diagnosis 06/14/24 Non-Specified Procedures Procedure Date Related Diagnosis Body [...] mild aortic root dilatation, [facility]oprosthetic [facility] valve [facility]: 1. No acute process [address] [place] [address] Impression: 1. No significant stenosis, occlusion, or aneurysm within the cirlce of Pack. Partially calcifiedscalp lesions 4[facility] Impression: 1. No acute intracranial abnormality 51. [...] Méndez at the time if dictation. 7[facility] Impression: 1. No acute lumbar spine fracture [...] 10during AVR 11bovine, followed by Dr. Dyson Vital Signs Most recent to oldest [Reference Range]: 1 Patient Weight 69.9 kg (06/14/24 1:32 PM) Heart Rate 86 bpm (06/14/24 1:32 PM) Respiratory Rate 16 br/min (06/14/24 1:32 PM) Blood Pressure 118/70mmHg (06/14/24 1:32 PM) Cuff Pulse Pressure 48 mmHg (06/14/24 1:32 PM) BP Location # 1 Left Arm (06/14/24 1:32 PM) Social History Social History Type Response Tobacco Former smoker, Cigar ettes, Started age 16 Years. Stopped age 32 Years. Smoking Status Never smoked cigaret mary Sex Male Sex Representation Male (finding) FCM Outpt Note * MD Carlos, Anju Vazquez: PERFORM, MODIFY Event Display: FCM Outpt Note Authored Date: [id number] Chief Complaint follow up, discuss leg numbness,spots on arms, spots on scalp, chest pressure when laying flat in bed, handicap placard duplicate, History of Present Illness * This patient is being followed longitudinally for chronic serious medical problems by Dr. Anju Gonzalez. Their most recent visitwith Dr. Gonzalez:03/08/24. Here for recheckoffollowing concerns : 1) Chest pain - he gets burning feeling in bilat upper chest. It doesn't correlate with exertion,as he doesn't do much exertion. He did discuss this with his electric distribution engineer at recent appt.Dr. Chandlerought that this pain was probably GERD. Don does find that it often happens in evening when he has had a larger dinner. 2) Ambulatory dysfunction/Falls - none recently, but he does often use his 's walker whenat home. He will sometimes use it when out in public, but he prefers the cane. 3)Leg weakness - this is getting worse as time goes on. He now has numbness in both legs, from knees down. 4) AFib - this is unchanged. He has had no bleeding or falls. Does bruise very easily. Review of Systems Review of Systems- Constitutional: no fatigue or changes in weight. HEENT: no vision changes, or sinus congestion. Respiratory: no cough, SOB, or wheezing. Cardiac: +chest pain, nopalpitations or pedal edema. GI: no abdominal pain, vomiting or change in bowel habits. : no dysuria. Neurologic: rareheadaches, +numbness. Musculoskeletal: No joint pains. Physical Exam Vitals & Measurements HR:86(Monitored) RR:16 BP:118/70 SpO2:98% WT:69.9kg WT:69.900kg(Dosing) PHQ2 Data(Data Documented on:06/14/2024 13:32) Emotional health assessment NEGATIVE PE : Alert, in NAD. HEENT - PERRL. Nares - clear. Oropharynx - normal. Neck - supple, without thyromegaly or lymphadenopathy. Lungs - clear, with good breath sounds bilaterally. Heart - RRR without murmur. No pedal edema. Abdomen - +BS, soft, NT without HSM or mass. Neuro - alert & oriented, speech & cognition normal. Motor 5/5 both quads & hamstrings. Ankle dorsi- & plantarflexion 3/5 bilat. Skin - warm & dry. Psych - affect appropriate. Assessment/Plan 1.Ambulatory dysfunction STATUS: Chronic, worsening. DATA: hx & gaitreviewed. GOAL: Maintain safe ambulation. PLAN: discussedPT/OT evals. He is planningtocontact [facility], toseeif thereareanyin-homebenefitsfor whichhe wouldqualify.Discussed cane vs walker with pt & akmsccka-yj-avs. Cont current monitoring. Form for handicapped placard signed. 2.Chest pain STATUS:newproblem,uncontrolled. DATA: hx & examreviewed. GOAL: relieve sx. PLAN: would agreethat this soundslikeGERD.Hegetssx 2-3 timesper month, so willhavehimtryFamotidine prn. Stay vigilant with diet & non- pharmacological measures. 3.Paroxysmal atrial fibrillation STATUS : chronic, controlled. DATA : hx,exam & lastcardiologynotereviewed. GOAL : maintain euvolemia, stable cardiac rhythm. PLAN : he istoleratinganti-coagulationwithoutdifficulty. Discussed finding ofsenilepurpuraonarms.No recentfalls.Continue cardiology follow up. 4.Major depression, recurrent, chronic Status : chronic, improved. Data : hx reviewed. Goal : maintain remission. Plan : continue same doseescitalopram. 5.Leg weakness STATUS: Chronic, worse. DATA: hx & examreviewed. GOAL: eval& tx causeof weakness. PLAN: discussedthat this islikelytobe acombination ofspinalstenosiswithconcurrentperipheralneuropathy. He isscheduledforEMGnextweek,will awaittheseresults.cindy Valles discussthat theremay not be any effectivetx,otherthansymptomatictx. 6.Loss of weight STATUS: Chronic stable. DATA: weightsreviewed. GOAL: avoidfurtherweight loss. PLAN: discussed, theyplantoinvestigatemealson wheels.Cont current monitoring. 7.HTN (hypertension) Status : chronic, controlled. Data : home& officeBP readings reviewed. Goal : maintain normal BP. Plan : continue current BP meds. Return in 4 months. 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 Bereavement counseling Bilateral leg paresthesia Bilateral leg weakness Body rash Borderline hyperlipidemia BPH (benign prostatic hyperplasia) Bradycardia Bradycardia CAD (coronary artery disease) Cancer, skin, squamous cell Caregiver stress Caregiver stress Changing skin lesion Chest pain Chronic cough Chronic cough COVID-19 Cutaneous horn Dizziness Grief History of cerebellar stroke History of tobacco use HTN (hypertension) Left foot drop Leg weakness Lipoma Local neurodermatitis Loss of height Loss of weight Major depression, recurrent, chronic Osteoarthritis of left knee Other symptoms and signs involving the musculoskeletal system Palpitations Paroxysmal atrial fibrillation Pneumonia due to COVID-19 virus Recent bereavement Sebaceous cyst Seborrheic keratoses Seborrheic keratosis Thoracic aorta atherosclerosis Vitamin D deficiency Resolved Abdominal pain, acute Cerumen impaction Cerumen impaction Chest pain Cough Distal muscle weakness Dizziness Family history of colon cancer Hip osteoarthritis History of colon polyps History of heart attack Insect bites Leg paresthesia Pilar cyst Pseudoclaudication Procedure/Surgical History Mohs micrographic surgery| Service Date: 3Punch biopsy of skin| Service Date: 03/15/2023Shave biopsy and cauterization of skin| Service Date: 3Cardiac echo| Service Date: 01/07/2017Magnetic resonance angiography (MRA) of carotid artery| Service Date: 01/06/2017MRI| Service Date: 01/06/2017CT angiography of head| Service Date: 01/06/2017CT head without contrast| Service Date: 01/06/2017Chest x-ray| Service Date: 01/06/2017X-ray of lumbar spine| Service Date: 11/23/2016Eye examination| Service Date: 01/24/2015Cataract surgery| Service Date: 1 09/18/2013Colonoscopy and extirpation of lesion of colon| Service Date: 2009CABG x 3 - Coronary artery bypass grafts x 3| Service Date: 2000Open reduction of fracture of fibula with internal fixationAortic valve replacement and aortoplasty Medications cholecalciferol(Vitamin D3 1000 intl units oral tablet), 1000 Int_Unit= 1 tab, PO, bid cyanocobalamin(Vitamin B12 50 mcg oral tablet), 50 mcg= 1 tab, PO, Daily escitalopram(escitalopram 10 mg oral tablet), 10 mg= 1 tab, PO, Daily, 3 refills famotidine(famotidine 20 mg oral tablet), 20 mg= 1 tab, PO, qhs, 5 refills fluticasone nasal(Flonase 50 mcg/inh nasal spray), 2 spray, each nostril, Daily meclizine(meclizine 25 mg oral tablet), 25 mg= 1 tab, PO, tid, PRN, 1 refills multivitamin, 1 tab, PO, Every other day rivaroxaban(Xarelto 20 mg oral tablet), 20 mg= 1 tab, PO, qPM rosuvastatin(Crestor 20 mg oral tablet), 20 mg= 1 tab, PO, Daily, 3 refills ubiquinone(CoQ10) unknown medication Allergies penicillinsRash simvastatin Social History Smoking Status Never smoked cigarettes Alcohol - No Risk Use:Current Type:Beer Frequency:1-2 times per year Average drinks per episode in last year:1 Employment/School Status:Retired 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, 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 Exercise - Regular exercise Duration (average number [...] Vaccine Date Status influenza virus vaccine, inactivated 06/14/2024 Given influenza virus vaccine, inactivated 05/11/2022 Given SARS-CoV-2 [...] 23-valent vaccine 08/16/2001 Recorded Comments : [03/30/2014] [facility] Recommendations Health Maintenance Pending(in the next year) OverDue Medicare Annual Wellness Visit due08/04/22and every 1year Due Adult Social Determinants of Health Screening due06/14/24Unknown Frequency Adult Tdap/Td Vaccine due06/14/24Unknown Frequency Body Mass Index due06/14/24Unknown Frequency Falls Plan of Care due06/14/24Unknown Frequency Shingles Vaccine due06/14/24One-time only Due In Future Adult Influenza Vaccine not due until02/12/25and every 1year Satisfied(in the past 1 year) Satisfied Adult Influenza Vaccine on06/14/24.Satisfied by JOSH Cardona Karli R Lipid Screening on07/28/23.Satisfied by Contributor_system, [employer] Electronic Signature on File Electronically Reviewed/Signed by: Anju Gonzalez MD Author Signature Dt/Tm:06/14/2024 06:37 PM Placement Coordinator [address], [address] [place] [address] Electronically Reviewed/Signed by: Anju Gonzalez MD Cosigner Signature Dt/Tm: 06/14/2024 06:39 PM Placement Coordinator [facility] and [address], [address] [place] [address] [facility] Patient Care team information Care Team Personnel Name: SHONNA Smart, Isis Robles Position: RN - Endoscopy Member Role: Lifetime - never expires Address: [facility] [address] [place] [address] [place] Name: MD Gonzalez Amy L Position: Physician - Family Med Member Role: Primary Care Provider Address: [address] [facility] [address] [place] [address] [place] Name: MD Longo Marilou B Position: Physician - CT Surgery Member Role: Lifetime Relationship Address: [address] [facility] [address] [place] [address] [place] Care Team Related Persons Name: DAV MANJARREZ"
--- NOTE | 2024-07-08 23:16 | Emergency Department Note ---
Impression & Plan Closed intertrochanteric fracture of right femur, Fall ED Provider Note CHIEF COMPLAINT: Fall, right hip pain HISTORY OF PRESENT ILLNESS: This 88-year-old male patient presents to the emergency department via ambulance for evaluation after a fall. The patient states that he was getting up from his chair when he stumbled while trying to turn around with his cane. He states he fell and landed on the right hip. The patient was unable to get himself back up and called a neighbor as well as his family. They were unable to assist him and the patient called the ambulance to bring him to the emergency department for evaluation. The patient states he is on Xarelto. He is uncertain why he takes this, but per chart review it appears that the patient does have a history of paroxysmal atrial fibrillation. The patient did not strike his head. He denies any neck or back pain. The patient is unable to move the right lower extremity. He denies any loss of control of his bowel or bladder function. History provided by: Patient REVIEW OF SYSTEMS: A 10 system review of systems was performed with positives and pertinent negatives listed in the history of present illness. All other systems were reviewed and are negative. ALLERGIES: Penicillin, Eliquis, oxycodone PHYSICAL EXAM: VITALS: Vitals are noted on the nurse's note and reviewed by myself. GENERAL: This is an 88 year old male, in no acute distress, nondiaphoretic, well-developed well-nourished. SKIN: The skin was without rashes, erythema, edema, or bruising. There is no tenting of the skin. Capillary refill less than 2 seconds. HEAD: Normocephalic atraumatic. EARS: External auditory canals clear, tympanic membranes pearly gibson without erythema or effusion bilaterally. No hemotympanum. Negative elizabeth sign EYES: Pupils equal round and reactive to light and accommodation. Conjunctivae without injection, sclerae without icterus. Extraocular movements intact. NOSE: Patent, turbinates without inflammation or discharge. No sinus tenderness. MOUTH: Mucous membranes moist. Tonsils are not enlarged. Pharynx without erythema or exudate. Uvula midline. Airway patent. Tongue does not deviate. NECK: Supple without nuchal rigidity. No lymphadenopathy. Cervical spine is nontender. No JVD. HEART: Regular rate and rhythm without murmurs gallops or rubs. LUNGS: Clear to auscultation bilaterally without wheezes, rales or rhonchi. No retractions or accessory muscle use. ABDOMEN: Positive bowel sounds x 4. Soft, nontender, without masses or organomegaly. Merrill sign negative. No guarding or rebound tenderness. MUSCULOSKELETAL: The right lower extremity shortened and externally rotated. There is tenderness to palpation of the right hip. The patient is unable to perform active range of motion at the right hip. He does maintain range of motion of the right knee and ankle. No open wounds or bleeding. No muscle atrophy, erythema, or edema noted. Full range of motion without joint tenderness in all extremities except as noted. No tenderness to palpation except as noted. Strength 5/5 throughout. NEURO: Patient was alert and oriented to person place and time. Normal sensation to light and sharp touch. Deep tendon reflexes 2+ throughout. No focal neurological deficits. An order was placed for continuous quality assurance monitor. The monitor showed a sinus rhythm at a ventricular rate of 63 bpm, per my interpretation. EKG was reviewed by myself and found to be sinus bradycardia at a rate of 58 beats per minute and per my interpretation reveals no ST elevation or depression, no T-wave inversion. When compared to EKG completed 11/02/2023, sinus bradycardia has replaced sinus tachycardia with 1st degree AV block. Imaging as interpreted by myself and the radiologist revealed right intratrochanteric hip fracture, with radiologist interpretation as above. I agree with the radiologist's findings as based upon my independent interpretation. EMERGENCY DEPARTMENT COURSE: The patient was seen and evaluated as above. The patient presented via ambulance after a fall. The patient sustained a mechanical fall and landed on his right hip. On examination, his right leg is shortened and externally rotated. He does have tenderness of the right hip with difficulty with range of motion of the right lower extremity at the hip. IV access was obtained, labs were drawn. Labs reviewed. Mild anemia with hemoglobin 11.1. No leukocytosis or thrombocytopenia. Renal, hepatic function and electrolytes without significant abnormality. X-ray of the right hip and pelvis as well as of the chest were completed. Hip x-ray did show a nondisplaced right intertrochanteric fracture. Chest x-ray without acute abnormality. Initially, the patient had declined analgesics. He did complain of worsening pain while in the emergency department and requested analgesics. He was medicated with IV Zofran and morphine. Patient was updated on the results of the findings of his workup. I did recommend admission. The patient was agreeable. I discussed the case with Dr. Lynn, [facility] hospitalist physician. He did agree to evaluate the patient for admission. Please see hospitalist dictation regarding ongoing management and final disposition of this patient. Case was discussed with the attending physician. I attest that I have personally reviewed the patient medication list. I attest that I have reviewed the patient's blood pressure and it was found to be elevated. GCS: 15 In the evaluation and treatment of this patient the following differential diagnoses were entertained: Fracture, dislocation, neurovascular compromise, compartment syndrome, soft tissue injury, as well as other pathologies. The chart was completed utilizing [employer] voice recognition software. Grammatical errors, random word insertions, pronoun errors, and incomplete sentences are an occasional consequence of this system due to software limitations, ambient noise, and hardware issues. Any formal questions or concerns about the content, text, or information contained within the body of this dictation should be directly addressed to the provider for clarification. Past Med/Surg History Problem List (Updated 07/09/24 @ 00:56 by Sosa Hurd PA-C) Fall (Acute) Closed intertrochanteric fracture of right femur (Acute) Ambulatory dysfunction Bilateral leg edema Hypokalemia Hypomagnesemia Near syncope Elevated troponin (Acute) Difficulty swallowing liquids Cough Depression Gastro-esophageal reflux disease with esophagitis Heartburn symptom Hypertension (Chronic) Transient cerebral ischemia (Acute) Dyslipidemia (Acute) Bradycardia (Acute) History of cerebellar stroke (2017) Atrial fibrillation with rapid ventricular response (Acute) Weakness (Acute) COVID-19 (Acute 07/2020) 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) Paroxysmal A-fib (Acute 07/2020) Multiple fractures of ribs of right side (Acute) Lumbar spinal stenosis Vitamin B12 deficiency Idiopathic polyneuropathy Medical History Mitral regurgitation Anxiety History of left foot drop Inhibited sexual excitement CAD in [place] artery Ankle fracture (2012) Surgical History 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) Family History Mother Unknown family medical history Social History Smoking Status: Never smoker Second Hand Exposure: No; Do You Dip or Chew Tobacco: No; Hx Alcohol Use: No Hx Substance Use: No Preferred Language: Polish Communication Ability: Effective Contracts Advisor Required: No Beliefs That Will Affect Care: Mormon marital status: Current Living Situation: Alone current occupational status: retired Feels Safe at Home: Yes Assistive Devices: Brace/Splint/Immobilizer, Cane, Glasses and Walker Allergies Allergies Allergy/AdvReac Type Severity Reaction Status Date / Time Penicillins Allergy Intermediate Unknown Verified 03/30/24 11:30 apixaban [From Eliquis] AdvReac Intermediate Rash, Verified 03/30/24 11:30 itching oxycodone AdvReac SICKNESS Verified 03/30/24 11:30 Home Meds Home Medications Medication Instructions Recorded Confirmed cholecalciferol (vitamin D3) 25 1,000 units PO BID 06/06/19 07/08/24 mcg (1,000 unit) capsule coQ10 (ubiquinol) 100 mg capsule 100 mg PO DAILY 07/23/20 07/08/24 vitamins A,C,A-ceph-uofuiw 2,148 1 tab PO DAILY 07/23/20 07/08/24 mcg-113 mg-45 mg-17.4 mg tablet (PreserVision AREDS) cyanocobalamin (vitamin B-12) 1,000 mcg PO DAILY 06/27/21 07/08/24 1,000 mcg capsule fluticasone propionate 50 1 spray intranasal BID 09/12/21 07/08/24 mcg/actuation nasal spray,suspension rosuvastatin 10 mg tablet 20 mg PO DAILY 11/02/23 07/08/24 famotidine 20 mg tablet 20 mg PO 1XD PRN Acid Reflux 07/08/24 07/08/24 Previous Rx's Medication Instructions Recorded escitalopram oxalate 10 mg tablet 10 mg PO DAILY #90 tabs 04/13/23 rivaroxaban 20 mg tablet (Xarelto) 20 mg PO DAILY #90 tabs 03/25/24 nitroglycerin 0.4 mg sublingual 0.4 mg sublingual Q5M PRN Chest 03/30/24 tablet Pain #25 tabs Results & Data (ED) Vital Signs Vital Signs - 24 hr 07/08/24 22:38 07/08/24 22:53 07/08/24 22:55 Temperature 37.0 C 37.0 C Temperature Source Oral Oral Pulse Rate 60 63 Pulse Rate [Apical] 66 Pulse Rhythm Regular Pulse Rhythm [Apical] Regular Pulse Strength Normal Pulse Strength [Apical] Normal Respiratory Rate 18 18 Respiratory Effort / Characteristics Non-Labored Non-Labored Respiratory Depth Normal Normal Respiratory Pattern Regular Regular Blood Pressure 173/81 H Blood Pressure [Right Arm] 148/77 H Blood Pressure Mean 111 Blood Pressure Mean [Right Arm] 100 Blood Pressure Position Sitting Blood Pressure Position [Right Arm] Sitting Pulse Oximetry 97 97 Oxygen Delivery Method Room Air Room Air Sepsis Recent Fever Within 48 Hours No Sepsis New/Unexplained Change in Mental Status No Sepsis Action Taken by Nursing No Action Required 07/08/24 23:07 Temperature Temperature Source Pulse Rate 57 L Pulse Rate [Apical] Pulse Rhythm Regular Pulse Rhythm [Apical] Pulse Strength Pulse Strength [Apical] Respiratory Rate 20 Respiratory Effort / Characteristics Respiratory Depth Respiratory Pattern Blood Pressure Blood Pressure [Right Arm] Blood Pressure Mean Blood Pressure Mean [Right Arm] Blood Pressure Position Blood Pressure Position [Right Arm] Pulse Oximetry 96 Oxygen Delivery Method Room Air Sepsis Recent Fever Within 48 Hours Sepsis New/Unexplained Change in Mental Status Sepsis Action Taken by Nursing Laboratory Data 07/08/24 23:15 07/08/24 23:15 Lab Results 07/08/24 Range/Units 23:15 WBC 9.77 (4.8-10.8) K/ul RBC 3.88 L (4.70-6.10) M/uL Hgb 11.1 L (14.0-18.0) g/dl Hct 34.4 L (42.0-52.0) % MCV 88.7 (80.0-100.0) fL MCH 28.6 (25.0-34.0) pg MCHC 32.3 (32.0-36.0) g/dL RDW Std Deviation 42.8 (36.4-46.3) fL RDW Coeff of Nay 13.2 (11.5-14.5) % Plt Count 153 (130-400) K/uL MPV 9.3 L (9.4-12.4) fL Immature Gran % (Auto) 0.4 % Neut % (Auto) 80.5 % Lymph % (Auto) 9.3 % Pratt % (Auto) 8.7 % Eos % (Auto) 0.8 % Baso % (Auto) 0.3 % Neut # (Auto) 7.86 H (1.40-6.50) K/uL Lymph # (Auto) 0.91 L (1.20-3.40) K/uL Pratt # (Auto) 0.85 H (0.11-0.59) K/uL Eos # (Auto) 0.08 (0.00-0.50) K/uL Baso # (Auto) 0.03 (0.00-0.20) K/uL Immature Gran # (Auto) 0.04 (0.01-0.20) K/uL PT Cancelled INR Cancelled APTT Cancelled PTT Ratio Cancelled Sodium 141 (136-145) mmol/L Potassium 4.1 (3.5-5.1) mmol/L Chloride 108 H (98-107) mmol/L Carbon Dioxide 27 (21-32) mmol/L Anion Gap 6 (3-11) BUN 19 (6-23) mg/dl Creatinine 0.89 (0.6-1.4) mg/dl Est Cr Clr Drug Dosing 61.1 ml/min eGFR 82.43 BUN/Creatinine Ratio 21.3 H (10-20) Glucose 116 H (70-99(Fasting)) mg/dl Calcium 9.7 (8.6-10.3) mg/dl Total Bilirubin 0.5 (0.2-1.0) mg/dl AST 17 (13-39) U/L ALT 16 (7-52) U/L Alkaline Phosphatase 69 (34-104) U/L Total Protein 6.7 (6.0-8.3) gm/dl Albumin 4.1 (3.4-5.0) gm/dl Globulin 2.6 (2.5-4.0) gm/dl Albumin/Globulin Ratio 1.6 (0.9-2) Administered Medications Discontinued Medications Morphine Sulfate (Morphine Sulfate 2 Mg/Ml Carp) 2 mg IV NOW STA Stop: 07/09/24 00:10 Last Admin: 07/09/24 00:15 Dose: 2 mg Documented By: JOHN Ondansetron HCl (Ondansetron Inj 2 Mg/Ml 2 Ml Vial) 4 mg IV NOW STA Stop: 07/09/24 00:10 Last Admin: 07/09/24 00:15 Dose: 4 mg Documented By: JOHN Imaging Data Radiologist's Impression: Hip/Pelvis X-Ray 07/08/24 23:07 Exam(s): XR HIP + PELVIS, 2-3 views, XR HIP + PELVIS, 1 view EXAM: XR Right Hip With Pelvis When Performed, 3 Views CLINICAL HISTORY: Reason for exam: fall, right hip pain, short/ext rotated. TECHNIQUE: Three views of the right hip with pelvis when performed. COMPARISON: 11/27/2020. FINDINGS: Bones/joints: There is a nondisplaced intratrochanteric fracture.. No dislocation. There are hypertrophic degenerative changes. Soft tissues: Unremarkable. IMPRESSION: There is a nondisplaced right intratrochanteric fracture.. Electronically signed by: Craig Garza MD 07/09/24 00:19 AM Chest X-Ray 07/08/24 23:08 Exam(s): XR CXR 1 VIEW EXAM: XR Chest, 1 View CLINICAL HISTORY: Reason for exam: fall. TECHNIQUE: Frontal view of the chest. COMPARISON: 11/02/2023. FINDINGS: Lungs: No consolidation. Pleural space: No pleural effusion is seen.. No pneumothorax. Heart: Patient is status post midline sternotomy. The heart is normal in size.. Mediastinum: There is uncoiling of thoracic aorta.. Bones/joints: There are degenerative changes in the spine.. IMPRESSION: No acute pulmonary disease.. Electronically signed by: Craig Garza MD 07/09/24 00:20 AM Discharge Plan Visit Data Chief Complaint: Fall Stated Complaint: GLF, HIP/THIGH PAIN, ON BLOOD THINNERS ED Provider: Lindsey Bhatti ED Midlevel Provider: Sosa Hurd Discharge Problem: Closed intertrochanteric fracture of right femur, Fall Patient Disposition: Admitted As Inpatient Forms Stand Alone Forms: [facility], Important Visit Information Prescriptions Prescriptions: No Action escitalopram oxalate 10 mg tablet 10 mg PO DAILY Qty: 90 3RF Xarelto 20 mg tablet 20 mg PO DAILY Qty: 90 3RF fluticasone propionate 50 mcg/actuation spray,suspension 1 spray intranasal BID Rx Instructions: unable to verify with pt or express scripts 11/02/23 administer into each nostril cyanocobalamin (vitamin B-12) 1,000 mcg capsule 1,000 mcg PO DAILY Rx Instructions: unable to verify with pt or express scripts 11/02/23 cholecalciferol (vitamin D3) 1,000 unit capsule 1,000 units PO BID nitroglycerin 0.4 mg tablet, sublingual 0.4 mg SL Q5M PRN (Reason: Chest Pain) Qty: 25 3RF Rx Instructions: unable to verify with pt or express scripts 11/02/23 PreserVision AREDS [id number] [id number] Tablet 1 tab PO DAILY Rx Instructions: unable to verify with pt or express scripts 11/02/23 coQ10 (ubiquinol) 100 mg Capsule 100 mg PO DAILY Rx Instructions: unable to verify with pt or express scripts 11/02/23 rosuvastatin 10 mg tablet 20 mg PO DAILY famotidine 20 mg tablet 20 mg PO 1XD PRN (Reason: Acid Reflux) Referrals Referrals: Anju Gonzalez MD [Primary Care Provider] -
[2024-07-08 23:32] LABS: Basophils # (auto) 0.03 K/uL (0.00-0.20); Basophils % (auto) 0.3 %; Eosinophils # (auto) 0.08 K/uL (0.00-0.50); Eosinophils % (auto) 0.8 %; Hematocrit (blood only) 34.4 % (42.0-52.0); Hemoglobin 11.1 g/dl (14.0-18.0); Immature Granulocytes # (auto) 0.04 K/uL (0.01-0.20); Immature Granulocytes % (auto) 0.4 %; Lymphocytes # (auto) 0.91 K/uL (1.20-3.40); Lymphocytes % (auto) 9.3 %; Mean Corpuscular Hemoglobin 28.6 pg (25.0-34.0); Mean Corpuscular Hgb Conc 32.3 g/dL (32.0-36.0); Mean Corpuscular Volume 88.7 fL (80.0-100.0); Mean Platelet Volume 9.3 fL (9.4-12.4); Monocytes # (auto) 0.85 K/uL (0.11-0.59); Monocytes % (auto) 8.7 %; Neutrophils # (auto) 7.86 K/uL (1.40-6.50); Neutrophils % (auto) 80.5 %; Platelet Count 153 K/uL (130-400); RDW Coefficient of Variation 13.2 % (11.5-14.5); RDW Standard Deviation 42.8 fL (36.4-46.3); Red Blood Count 3.88 M/uL (4.70-6.10); White Blood Count 9.77 K/ul (4.8-10.8)
[2024-07-08 23:50] LABS: Albumin Globulin Ratio 1.6 (0.9-2); Albumin Level 4.1 gm/dl (3.4-5.0); BUN Creatinine Ratio 21.3 (10-20); Bilirubin,Total 0.5 mg/dl (0.2-1.0); Calcium 9.7 mg/dl (8.6-10.3); Creatinine Clr Calc Pharmacy 61.1 ml/min; Globulin 2.6 gm/dl (2.5-4.0); Potassium 4.1 mmol/L (3.5-5.1); Total Protein 6.7 gm/dl (6.0-8.3)
[2024-07-09] MEDS: ONDANSETRON INJ 2 MG/ML 2 ML VIAL IV STA (00:15)
[2024-07-09] MEDS: MoRPHine SULFATE 2 MG/ML CARP IV STA (00:15)
--- NOTE | 2024-07-09 00:20 | XRay Report ---
Exam(s): XR HIP + PELVIS, 2-3 views, XR HIP + PELVIS, 1 view EXAM: XR Right Hip With Pelvis When Performed, 3 Views CLINICAL HISTORY: Reason for exam: fall, right hip pain, short/ext rotated. TECHNIQUE: Three views of the right hip with pelvis when performed. COMPARISON: 11/27/2020. FINDINGS: Bones/joints: There is a nondisplaced intratrochanteric fracture.. No dislocation. There are hypertrophic degenerative changes. Soft tissues: Unremarkable. IMPRESSION: There is a nondisplaced right intratrochanteric fracture.. Electronically signed by: Craig Garza MD 07/09/24 00:19 AM
--- NOTE | 2024-07-09 00:21 | XRay Report ---
Exam(s): XR CXR 1 VIEW EXAM: XR Chest, 1 View CLINICAL HISTORY: Reason for exam: fall. TECHNIQUE: Frontal view of the chest. COMPARISON: 11/02/2023. FINDINGS: Lungs: No consolidation. Pleural space: No pleural effusion is seen.. No pneumothorax. Heart: Patient is status post midline sternotomy. The heart is normal in size.. Mediastinum: There is uncoiling of thoracic aorta.. Bones/joints: There are degenerative changes in the spine.. IMPRESSION: No acute pulmonary disease.. Electronically signed by: Craig Garza MD 07/09/24 00:20 AM
[2024-07-09 00:50] LABS: INR 1.3 (0.9-1.1); Partial Thromboplastin Time 26 Seconds (21-31); Prothrombin Time 13.6 Seconds (9.0-12.0)
--- NOTE | 2024-07-09 01:03 | Emergency Department Note ---
ED Visit Note I was consulted by the Advanced Practice Provider. I personally made/approved the management plan and take responsibility for the patient management. I performed a substantive portion of the visit. This includes the aspects of: Personally seeing the patient -MDM -I independently interpreted the following studies: right hip x-ray with obvious intertrochanteric fracture .
[2024-07-09 01:09] LABS: Appearance Urine Clear (Clear); Bacteria Urine Automated None Seen (None Seen); Bilirubin Urine Negative (Negative); Blood Urine Trace (Negative); Cast Urine Automated 0-2 /lpf (0-2); Color Urine Yellow; Epithelial Cell Urine Auto 0-2 /hpf (0-2); Glucose Urine UA Negative (Negative); Ketones Urine Trace (Negative); Leukocyte Esterase Urine Negative (Negative); Nitrite Urine Negative (Negative); Protein Urine Trace (Negative); Specific Gravity Urine 1.024 (1.000-1.030); Urobilinogen Urine Negative (Negative); WBC Urine Automated 0-5 /hpf (0-5)
--- NOTE | 2024-07-09 01:34 | History & Physical Report ---
Date of Service July 09, 2024 Assessment & Plan (1) Closed intertrochanteric fracture of right femur: (2) Fall: (3) Ambulatory dysfunction: (4) Paroxysmal A-fib: (5) Hypertension: Plan Close right femur intertrochanteric fracture status post ground-level fall- N.p.o. except essential medications X-rays as noted Geriatric hip fracture protocol order set Acetaminophen 1 g IV every 8 hours as needed for mild pain or fever Morphine sulfate 2 mg IV every 4 hours as needed for moderate pain Morphine sulfate 4 mg IV every 4 hours as needed for severe pain Naloxone per protocol Patient reports that his last Xarelto dose was the evening of 07/08. Patient was made n.p.o. for possible surgery on 07/09, however, if no surgery is anticipated, then patient should be started on heparin drip per protocol, and allowed to eat NSS + KCl 20 mEq at 80 mL/h x 2 L [facility] laboratories in the a.m. Consult orthopedic surgery Atrial fibrillation/status post AVR with bioprosthetic valve//CAD/hypertension- Hold Xarelto as noted in anticipation of surgery Start per protocol depending on time and day of surgery GERD with esophagitis- Placed on pantoprazole 40 mg IV daily History of Present Illness Chief Complaint: The patient presents to the emergency department with inability to bear weight on his right leg, due to hip pain that occurred after a ground-level fall when he is getting up from his chair to go to bed. Primary Care Provider: Anju Gonzalez MD The patient is an 88-year-old male with a past medical history including ambu latory dysfunction requiring a cane, difficulty swallowing liquids, depression, GERD with esophagitis, hypertension, history of cerebellar stroke, atrial fibrillation, status post AVR with bioprosthetic valve, status post CABG x 3, lumbar spinal stenosis, and idiopathic polyneuropathy. He reports that he was getting up from his chair to go to bed, fell while he was using his cane, landed on his right hip, and developed severe pain inability to bear weight. Allergies Allergy/AdvReac Type Severity Reaction Status Date / Time Penicillins Allergy Intermediate Unknown Verified 03/30/24 11:30 apixaban [From Eliquis] AdvReac Intermediate Rash, Verified 03/30/24 11:30 itching oxycodone AdvReac SICKNESS Verified 03/30/24 11:30 Home Medications Medication Instructions Recorded Confirmed Type cholecalciferol (vitamin D3) 25 1,000 units PO BID 06/06/19 07/08/24 History mcg (1,000 unit) capsule coQ10 (ubiquinol) 100 mg capsule 100 mg PO DAILY 07/23/20 07/08/24 History vitamins A,C,Q-kykv-ipbrni 2,148 1 tab PO DAILY 07/23/20 07/08/24 History mcg-113 mg-45 mg-17.4 mg tablet (PreserVision AREDS) cyanocobalamin (vitamin B-12) 1,000 mcg PO DAILY 06/27/21 07/08/24 History 1,000 mcg capsule fluticasone propionate 50 1 spray intranasal BID 09/12/21 07/08/24 History mcg/actuation nasal spray,suspension escitalopram oxalate 10 mg tablet 10 mg PO DAILY #90 tabs 04/13/23 07/08/24 Rx rosuvastatin 10 mg tablet 20 mg PO DAILY 11/02/23 07/08/24 History rivaroxaban 20 mg tablet (Xarelto) 20 mg PO DAILY #90 tabs 03/25/24 07/08/24 Rx nitroglycerin 0.4 mg sublingual 0.4 mg sublingual Q5M PRN Chest 03/30/24 07/08/24 Rx tablet Pain #25 tabs famotidine 20 mg tablet 20 mg PO 1XD PRN Acid Reflux 07/08/24 07/08/24 History Past Med/Surg History Problem List (Updated 07/09/24 @ 00:56 by Sosa Hurd PA-C) Fall (Acute) Closed intertrochanteric fracture of right femur (Acute) Ambulatory dysfunction Bilateral leg edema Hypokalemia Hypomagnesemia Near syncope Elevated troponin (Acute) Difficulty swallowing liquids Cough Depression Gastro-esophageal reflux disease with esophagitis Heartburn symptom Hypertension (Chronic) Transient cerebral ischemia (Acute) Dyslipidemia (Acute) Bradycardia (Acute) History of cerebellar stroke (2017) Atrial fibrillation with rapid ventricular response (Acute) Weakness (Acute) COVID-19 (Acute 07/2020) 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) Paroxysmal A-fib (Acute 07/2020) Multiple fractures of ribs of right side (Acute) Lumbar spinal stenosis Vitamin B12 deficiency Idiopathic polyneuropathy Medical History Mitral regurgitation Anxiety History of left foot drop Inhibited sexual excitement CAD in [place] artery Ankle fracture (2012) Surgical History 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) Family History Mother Unknown family medical history Social History Smoking Status: Never smoker Second Hand Exposure: No; Do You Dip or Chew Tobacco: No; Hx Alcohol Use: No Hx Substance Use: No Preferred Language: Mohawk Communication Ability: Effective 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: No Beliefs That Will Affect Care: Jainism marital status: Current Living Situation: Alone current occupational status: retired Feels Safe at Home: Yes Assistive Devices: Brace/Splint/Immobilizer, Cane, Glasses and Walker Review of Systems Review of Systems: The patient denies chest pain, palpitations, shortness of breath, dyspnea on exertion, cough, sore throat, fevers, chills, sweats, weight change, fatigue, nausea, vomiting, diarrhea , constipation, abdominal pain, pelvic pain, blood in urine or stool, dysuria, urinary frequency or urgency, lightheadedness, dizziness, headache, memory loss, loss of consciousness, rash, abnormal bruising or bleeding, focal or generalized weakness, numbness or tingling in arms , generalized arthralgias or myalgias, back or neck pain, or night sweats. The review of systems is otherwise negative other than for that already noted above, and at least 10 systems have been reviewed. Physical Exam Physical Exam: The patient is awake, alert and oriented 3, well developed and well nourished, normocephalic and atraumatic, lying in bed and in no acute distress. HEENT--PERRL, EOMI, mucous membranes and oropharynx mildly dry. Neck--supple. No JVD. No bruits. Thyroid normal, trachea midline, no adenopathy. Heart--normal S1 and S2. PACs. No murmurs, rubs or gallops. Lungs--clear bilaterally, no respiratory distress, no accessory muscle use. Abdomen--normal bowel sounds and soft. Nontender. Nondistended, no hernias or masses, no organomegaly. Extremities--no cyanosis or clubbing. No edema. Dermatologic--normal skin turgor, normal color, no abnormal lymph nodes, no rash. Neurologic--cranial nerves II through XII grossly intact. Rheumatologic--normal range of motion except for right hip Psychiatric--normal affect. Results & Data Results & Data Vital Signs (Past 12 Hours) Vital Signs Temp Pulse Pulse Resp BP BP Pulse Ox 07/09/24 00:38 64 18 142/88 H 93 07/08/24 23:07 57 L 20 96 07/08/24 22:55 63 07/08/24 22:53 37.0 C 60 18 173/81 H 97 07/08/24 22:38 37.0 C 66 18 148/77 H 97 O2 Del Method 07/09/24 00:38 Room Air 07/08/24 23:07 Room Air 07/08/24 22:55 07/08/24 22:53 Room Air 07/08/24 22:38 Room Air Laboratory Results Laboratory Results WBC 9.77 K/ul (4.8-10.8) 07/08/24 23:15 RBC 3.88 M/uL (4.70-6.10) L 07/08/24 23:15 Hgb 11.1 g/dl (14.0-18.0) L 07/08/24 23:15 Hct 34.4 % (42.0-52.0) L 07/08/24 23:15 MCV 88.7 fL (80.0-100.0) 07/08/24 23:15 MCH 28.6 pg (25.0-34.0) 07/08/24 23:15 MCHC 32.3 g/dL (32.0-36.0) 07/08/24 23:15 RDW Std Deviation 42.8 fL (36.4-46.3) 07/08/24 23:15 RDW Coeff of Nay 13.2 % (11.5-14.5) 07/08/24 23:15 Plt Count 153 K/uL (130-400) 07/08/24 23:15 MPV 9.3 fL (9.4-12.4) L 07/08/24 23:15 Immature Gran % (Auto) 0.4 % 07/08/24 23:15 Neut % (Auto) 80.5 % 07/08/24 23:15 Lymph % (Auto) 9.3 % 07/08/24 23:15 [place] % (Auto) 8.7 % 07/08/24 23:15 Eos % (Auto) 0.8 % 07/08/24 23:15 Baso % (Auto) 0.3 % 07/08/24 23:15 Neut # (Auto) 7.86 K/uL (1.40-6.50) H 07/08/24 23:15 Lymph # (Auto) 0.91 K/uL (1.20-3.40) L 07/08/24 23:15 [place] # (Auto) 0.85 K/uL (0.11-0.59) H 07/08/24 23:15 Eos # (Auto) 0.08 K/uL (0.00-0.50) 07/08/24 23:15 Baso # (Auto) 0.03 K/uL (0.00-0.20) 07/08/24 23:15 Immature Gran # (Auto) 0.04 K/uL (0.01-0.20) 07/08/24 23:15 PT 13.6 Seconds (9.0-12.0) H 07/09/24 00:02 INR 1.3 (0.9-1.1) H 07/09/24 00:02 APTT 26 Seconds (21-31) 07/09/24 00:02 PTT Ratio 1.0 07/09/24 00:02 Sodium 141 mmol/L (136-145) 07/08/24 23:15 Potassium 4.1 mmol/L (3.5-5.1) 07/08/24 23:15 Chloride 108 mmol/L (98-107) H 07/08/24 23:15 Carbon Dioxide 27 mmol/L (21-32) 07/08/24 23:15 Anion Gap 6 (3-11) 07/08/24 23:15 BUN 19 mg/dl (6-23) 07/08/24 23:15 Creatinine 0.89 mg/dl (0.6-1.4) 07/08/24 23:15 Est Cr Clr Drug Dosing 61.1 ml/min 07/08/24 23:15 eGFR 82.43 07/08/24 23:15 BUN/Creatinine Ratio 21.3 (10-20) H 07/08/24 23:15 Glucose 116 mg/dl (70-99(Fasting)) H 07/08/24 23:15 Calcium 9.7 mg/dl (8.6-10.3) 07/08/24 23:15 Total Bilirubin 0.5 mg/dl (0.2-1.0) 07/08/24 23:15 AST 17 U/L (13-39) 07/08/24 23:15 ALT 16 U/L (7-52) 07/08/24 23:15 Alkaline Phosphatase 69 U/L (34-104) 07/08/24 23:15 Total Protein 6.7 gm/dl (6.0-8.3) 07/08/24 23:15 Albumin 4.1 gm/dl (3.4-5.0) 07/08/24 23:15 Globulin 2.6 gm/dl (2.5-4.0) 07/08/24 23:15 Albumin/Globulin Ratio 1.6 (0.9-2) 07/08/24 23:15 Urine Color Yellow 07/09/24 00:49 Urine Appearance Clear (Clear) 07/09/24 00:49 Urine pH 6.0 (4.5-7.5) 07/09/24 00:49 Ur Specific [place] 1.024 (1.000-1.030) 07/09/24 00:49 Urine Protein Trace (Negative) H 07/09/24 00:49 Urine Glucose (UA) Negative (Negative) 07/09/24 00:49 Urine Ketones Trace (Negative) H 07/09/24 00:49 Urine Blood Trace (Negative) H 07/09/24 00:49 Urine Nitrite Negative (Negative) 07/09/24 00:49 Urine Bilirubin Negative (Negative) 07/09/24 00:49 Urine Urobilinogen Negative (Negative) 07/09/24 00:49 Ur Leukocyte Esterase Negative (Negative) 07/09/24 00:49 Urine WBC (Auto) 0-5 /hpf (0-5) 07/09/24 00:49 Urine RBC (Auto) 11-20 /hpf (0-2) H 07/09/24 00:49 U Hyaline Cast (Auto) 0-2 /lpf (0-2) 07/09/24 00:49 U Epithel Cells (Auto) 0-2 /hpf (0-2) 07/09/24 00:49 Urine Bacteria (Auto) None Seen (None Seen) 07/09/24 00:49 Impressions Hip/Pelvis X-Ray 07/08/24 23:07 Exam(s): XR HIP + PELVIS, 2-3 views, XR HIP + PELVIS, 1 view EXAM: XR Right Hip With Pelvis When Performed, 3 Views CLINICAL HISTORY: Reason for exam: fall, right hip pain, short/ext rotated. TECHNIQUE: Three views of the right hip with pelvis when performed. COMPARISON: 11/27/2020. FINDINGS: Bones/joints: There is a nondisplaced intratrochanteric fracture.. No dislocation. There are hypertrophic degenerative changes. Soft tissues: Unremarkable. IMPRESSION: There is a nondisplaced right intratrochanteric fracture.. Electronically signed by: Craig Garza MD 07/09/24 00:19 AM Chest X-Ray 07/08/24 23:08 Exam(s): XR CXR 1 VIEW EXAM: XR Chest, 1 View CLINICAL HISTORY: Reason for exam: fall. TECHNIQUE: Frontal view of the chest. COMPARISON: 11/02/2023. FINDINGS: Lungs: No consolidation. Pleural space: No pleural effusion is seen.. No pneumothorax. Heart: Patient is status post midline sternotomy. The heart is normal in size.. Mediastinum: There is uncoiling of thoracic aorta.. Bones/joints: There are degenerative changes in the spine.. IMPRESSION: No acute pulmonary disease.. Electronically signed by: Craig Garza MD 07/09/24 00:20 AM Code Status & VTE Plan Code Status Full code VTE Prophylaxis Plan VTE Prophylaxis will be ordered: Yes PG Care Time/CCT Total # of Minutes Spent Total Time Spent with Patient: Total time spent is greater than 50% in coordination of care (as documented) at patient's floor/unit and/or counseling patient: Coding Level of Care Code 81261 INT INP/OBS CARE 3/75MIN Diagnoses Closed intertrochanteric fracture of right femur S72.141A Fall W19.XXXA Ambulatory dysfunction R26.2 Paroxysmal A-fib I48.0 Hypertension I10
[2024-07-09] MEDS: NSS + 20MEQ KCL 20 MEQ/1,000 ML BAG IV SCH (02:28)
[2024-07-09] MEDS ORDERED: ACETAMINOPHEN 1000 MG/100 ML IV IV PRN (03:05)
[2024-07-09] MEDS ORDERED: MAGNESIUM HYDROXIDE SUSP 30 ML UDC PO PRN (03:05)
[2024-07-09] MEDS ORDERED: NITROGLYCERIN SL 0.4 MG/TAB TAB SL PRN (03:05)
[2024-07-09] MEDS ORDERED: bisacodyL 10 MG SUPP PR PRN (03:05)
[2024-07-09] MEDS ORDERED: MoRPHine SULFATE 4 MG/ML 1 ML CARP\\VIAL IV PRN (03:05)
[2024-07-09] MEDS ORDERED: NALOXONE HCL 0.4 MG/1 ML VIAL/CARP IV PRN (03:05)
[2024-07-09] MEDS ORDERED: ONDANSETRON INJ 2 MG/ML 2 ML VIAL IV PRN (03:05)
[2024-07-09] MEDS: MoRPHine SULFATE 2 MG/ML CARP IV PRN (03:38)
--- NOTE | 2024-07-09 07:25 | Electrocardiogram Report ---
Test Reason : Blood Pressure : */* mmHG Vent. Rate : 61 BPM Atrial Rate : 61 BPM P-R Int : 190 ms QRS Dur : 98 ms QT Int : 432 ms P-R-T Axes : 79 -59 49 degrees QTcB Int : 434 ms Sinus rhythm with Premature atrial complexes Left anterior fascicular block Nonspecific ST abnormality Abnormal ECG When compared with ECG of 02-Nov-2023 12:33, Premature atrial complexes are now Present LA interval has decreased Vent. rate has decreased by 65 bpm Criteria for Inferior infarct are no longer Present ST now depressed in Inferior leads Confirmed by Kristian Ortiz ([id number]) on 07/09/2024 7:24:39 AM Referred By: REFERRED SELF Confirmed By: Kristian Ortiz
[2024-07-09 07:47] LABS: Basophils # (auto) 0.02 K/uL (0.00-0.20); Basophils % (auto) 0.2 %; Eosinophils # (auto) 0.08 K/uL (0.00-0.50); Eosinophils % (auto) 0.8 %; Hematocrit (blood only) 31.9 % (42.0-52.0); Hemoglobin 10.3 g/dl (14.0-18.0); Immature Granulocytes # (auto) 0.04 K/uL (0.01-0.20); Immature Granulocytes % (auto) 0.4 %; Lymphocytes # (auto) 1.02 K/uL (1.20-3.40); Lymphocytes % (auto) 9.9 %; Mean Corpuscular Hemoglobin 28.6 pg (25.0-34.0); Mean Corpuscular Hgb Conc 32.3 g/dL (32.0-36.0); Mean Corpuscular Volume 88.6 fL (80.0-100.0); Mean Platelet Volume 9.7 fL (9.4-12.4); Monocytes # (auto) 0.94 K/uL (0.11-0.59); Monocytes % (auto) 9.1 %; Neutrophils # (auto) 8.19 K/uL (1.40-6.50); Neutrophils % (auto) 79.6 %; Platelet Count 143 K/uL (130-400); RDW Coefficient of Variation 13.2 % (11.5-14.5); RDW Standard Deviation 43.1 fL (36.4-46.3); White Blood Count 10.29 K/ul (4.8-10.8)
[2024-07-09 08:05] LABS: Albumin Level 3.7 gm/dl (3.4-5.0); BUN Creatinine Ratio 20.5 (10-20); Creatinine Clr Calc Pharmacy 65.5 ml/min; Phosphorus 2.8 mg/dl (2.5-4.9); Potassium 4.4 mmol/L (3.5-5.1)
--- NOTE | 2024-07-09 08:14 | Communication Note ---
Date of Service: July 09, 2024 Pt had taken oral anticoagulation on 07/08/2024(rivaroxaban) evening. I had spoken w/Dr jacki Pendleton;should wait until tomorrow,close to 48 hours after last dose rivaroxaban, to proceed w/ surgery.Pt is frail, and is s/p AVR/CABG, w/ Hx/o A Fib and RVR. At present he is in SR w/ PAC's. I will speak w/ hospitalist today and plan for surgery tomorrow afternoon.
[2024-07-09 08:16] LABS: INR 1.1 (0.9-1.1); Prothrombin Time 11.8 Seconds (9.0-12.0)
--- NOTE | 2024-07-09 08:34 | Anesthesiology Consultation ---
Date of Service July 09, 2024 Assessment & Plan Chart Review Chart Review: Acceptable Risk for Surgery and Patient NOT seen in Pre Admission Testing Consults Requested none ASA ASA4 Proposed Anesthesia Anesthesia Type: General Anesthesia Line Insertion: Arterial line History Height/Weight Height: 5 ft 11 in Weight: 78.9 kg Allergies Allergy/AdvReac Type Severity Reaction Status Date / Time Penicillins Allergy Intermediate Unknown Verified 03/30/24 11:30 apixaban [From Eliquis] AdvReac Intermediate Rash, Verified 03/30/24 11:30 itching oxycodone AdvReac SICKNESS Verified 03/30/24 11:30 Medications Home Medications Medication Instructions Recorded Confirmed Last Taken cholecalciferol (vitamin D3) 25 1,000 units PO BID 06/06/19 07/08/24 07/08/24 20:00 mcg (1,000 unit) capsule coQ10 (ubiquinol) 100 mg capsule 100 mg PO DAILY 07/23/20 07/08/24 07/08/24 08:00 vitamins A,C,X-rcmr-bnqboy 2,148 1 tab PO DAILY 07/23/20 07/08/24 07/08/24 20:00 mcg-113 mg-45 mg-17.4 mg tablet (PreserVision AREDS) cyanocobalamin (vitamin B-12) 1,000 mcg PO DAILY 06/27/21 07/08/24 07/08/24 08:00 1,000 mcg capsule fluticasone propionate 50 1 spray intranasal BID 09/12/21 07/08/24 Unknown mcg/actuation nasal spray,suspension escitalopram oxalate 10 mg tablet 10 mg PO DAILY #90 tabs 04/13/23 07/08/24 07/08/24 08:00 rosuvastatin 10 mg tablet 20 mg PO DAILY 11/02/23 07/08/24 07/08/24 20:00 rivaroxaban 20 mg tablet (Xarelto) 20 mg PO DAILY #90 tabs 03/25/24 07/08/24 07/08/24 nitroglycerin 0.4 mg sublingual 0.4 mg sublingual Q5M PRN Chest 03/30/24 07/08/24 Unknown tablet Pain #25 tabs famotidine 20 mg tablet 20 mg PO 1XD PRN Acid Reflux 07/08/24 07/08/24 07/07/24 Active Medications Generic Name Dose Route Start Last Admin Trade Name Freq PRN Reason Stop Dose Admin Potassium Chloride/Sodium Chloride 20 meq in 1,000 mls @ 80 mls/hr 07/09/24 01:30 07/09/24 02:28 Normal Saline W/20 Meq Kcl IV 07/09/24 13:59 80 mls/hr .[id number] JN Administration Morphine Sulfate 2 mg 07/09/24 03:05 07/09/24 03:38 Morphine Sulfate 2 Mg/Ml Carp IV 07/23/24 03:04 2 mg Q3H PRN Administration Pain (1,2,3,4,5) & Pre PT Past Medical History Medical History Mitral regurgitation Anxiety History of left foot drop Inhibited sexual excitement CAD in [place] artery Ankle fracture (2012) 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 Hx/o A Fib on oral anticoags-rivaroxaban Exercise / Class Metabolic Activity III < 4 Walking/Shop/Light housework Past Family History Family History Mother Unknown family medical history Past Surgical History Surgical History 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) Past Anesthesia History No Hx of Anesthesia Complications and No Family Hx of Anesthesia Complications History of PONV No Hx of PONV and No Hx of Motion Sickness Social History Smoking Status: Never smoker Do You Dip or Chew Tobacco: No Hx Alcohol Use: No Hx Substance Use: No substance use type: does not use Physical Exam Vital Signs Last Vital Signs Temp 36.9 C 07/09/24 07:35 Pulse 72 07/09/24 07:35 Resp 20 07/09/24 07:35 BP 137/71 07/09/24 07:35 Pulse Ox 90 07/09/24 07:35 O2 Del Method Room Air 07/09/24 07:35 Testing Laboratory Results 07/09/24 07:14 07/09/24 07:14 PT 11.8 Seconds (9.0-12.0) 07/09/24 07:14 INR 1.1 (0.9-1.1) 07/09/24 07:14 APTT 26 Seconds (21-31) 07/09/24 00:02 Urine Color Yellow 07/09/24 00:49 Urine Appearance Clear (Clear) 07/09/24 00:49 Urine pH 6.0 (4.5-7.5) 07/09/24 00:49 Ur Specific [place] 1.024 (1.000-1.030) 07/09/24 00:49 Urine Protein Trace (Negative) H 07/09/24 00:49 Urine Glucose (UA) Negative (Negative) 07/09/24 00:49 Urine Ketones Trace (Negative) H 07/09/24 00:49 Urine Nitrite Negative (Negative) 07/09/24 00:49 Ur Leukocyte Esterase Negative (Negative) 07/09/24 00:49 Urine WBC (Auto) 0-5 /hpf (0-5) 07/09/24 00:49 Urine RBC (Auto) 11-20 /hpf (0-2) H 07/09/24 00:49 U Hyaline Cast (Auto) 0-2 /lpf (0-2) 07/09/24 00:49 U Epithel Cells (Auto) 0-2 /hpf (0-2) 07/09/24 00:49 Urine Bacteria (Auto) None Seen (None Seen) 07/09/24 00:49 Electrocardiogram Date: 07/08/24 Findings: + NSR @ and + NSST changes Chest X-Ray Date: 07/08/24 Findings: + NAD Echocardiogram Date: 11/03/23 EF: 55% LV Function: normal RWMA: + none Other Findings: + LVH (mild) Valvular Disease: + AI (mild) and + MR (moderate) TR-mild Bioprosthetic AV w/ Nl gradient
[2024-07-09] MEDS: PANTOprazole 40 MG/10 ML SYR IV SCH (09:59)
[2024-07-09] MEDS: FLUTICASONE PROPIONATE NA SPR 16 GM BTL NAE SCH (09:59)
--- NOTE | 2024-07-09 09:59 | Orthopedic Consultation ---
Date of Service July 09, 2024 Assessment & Plan (1) Closed intertrochanteric fracture of right femur: - I did have a discussion with the patient today about his diagnosis including the treatment options as well as risk, benefits and alternatives. We did discuss surgical intervention for his right intertrochanteric hip fracture. He is able to eat today as anesthesia would like to involve cardiology. We did discuss the surgery in more detail, specifically that this will be fixed with an intramedullary ernesto. He will be able to weight-bear as tolerated after the surgery. We did discuss recovery period for this as well as wound care. From an Ortho standpoint, he should be nonweightbearing at this time till surgical intervention possibly tomorrow. Anticoagulation as per hospitalist team, however would hold off on Eliquis. Can bridge with heparin if needed. Please reach out to orthopedics with any other questions or concerns. Anticipate surgery after cardiology clearance. History of Present Illness Reason for Consultation: Right hip fracture Requesting Physician: . Attending Physician: Cortney Wood MD John is an 88-year-old male who is being consulted today due to a right intertrochanteric hip fracture that was found last evening upon his evaluation in the emergency department. He states that he had a fall in his home. He was getting up from his chair when he stumbled and fell landing on his right hip. He states that he knew that he did something more than bruised his right hip. He did have to call some family and friends to help him get up. They did then use ambulance services to get him to the emergency department where he was found to have a right intertrochanteric hip fracture. Until this morning, he was n.p.o. due to possible surgical intervention today. Upon evaluation by anesthesia, they would like cardiology involved in another day to hold off on his Eliquis. His last dose of Eliquis was last evening. He last ate dinner last night. Upon my evaluation with the patient this morning, he was eating breakfast as the n.p.o. order was lifted due to holding off for his surgery until at least tomorrow. He states that he does live home alone but has some family members close by. He states that his granddaughter is typically the one who helps him with all of his medical care. He states that he has a walker and a cane at home. States that he does ambulate outside of the house with a walker at times as well. States that he is on Eliquis due to atrial fibrillation. He denies any fever, chills or constitutional symptoms. No other questions or concerns today. Allergies Allergy/AdvReac Type Severity Reaction Status Date / Time Penicillins Allergy Intermediate Unknown Verified 07/10/24 11:41 apixaban [From Eliquis] AdvReac Intermediate Rash, Verified 07/10/24 11:41 itching oxycodone AdvReac SICKNESS Verified 07/10/24 11:41 Home Medications Medication Instructions Recorded Confirmed Type cholecalciferol (vitamin D3) 25 1,000 units PO BID 06/06/19 07/08/24 History mcg (1,000 unit) capsule coQ10 (ubiquinol) 100 mg capsule 100 mg PO DAILY 07/23/20 07/08/24 History vitamins A,C,G-cqcq-ttotla 2,148 1 tab PO DAILY 07/23/20 07/08/24 History mcg-113 mg-45 mg-17.4 mg tablet (PreserVision AREDS) cyanocobalamin (vitamin B-12) 1,000 mcg PO DAILY 06/27/21 07/08/24 History 1,000 mcg capsule fluticasone propionate 50 1 spray intranasal BID 09/12/21 07/08/24 History mcg/actuation nasal spray,suspension escitalopram oxalate 10 mg tablet 10 mg PO DAILY #90 tabs 04/13/23 07/08/24 Rx rosuvastatin 10 mg tablet 20 mg PO DAILY 11/02/23 07/08/24 History rivaroxaban 20 mg tablet (Xarelto) 20 mg PO DAILY #90 tabs 03/25/24 07/08/24 Rx nitroglycerin 0.4 mg sublingual 0.4 mg sublingual Q5M PRN Chest 03/30/24 07/08/24 Rx tablet Pain #25 tabs famotidine 20 mg tablet 20 mg PO 1XD PRN Acid Reflux 07/08/24 07/08/24 History Past Med/Surg History Problem List (Updated 07/10/24 @ 10:59 by Jeremias Garrido MD) Encounter for pre-operative examination Fall (Acute) Closed intertrochanteric fracture of right femur (Acute) Ambulatory dysfunction Bilateral leg edema Hypokalemia Hypomagnesemia Near syncope Elevated troponin (Acute) Cough Depression Gastro-esophageal reflux disease with esophagitis Heartburn symptom Transient cerebral ischemia (Acute) Dyslipidemia (Acute) Atrial fibrillation with rapid ventricular response (Acute) Weakness (Acute) COVID-19 (Acute 07/2020) 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) Multiple fractures of ribs of right side (Acute) Lumbar spinal stenosis Vitamin B12 deficiency Medical History (Updated 07/10/24 @ 10:59 by Jeremias Garrido MD) Difficulty swallowing liquids Idiopathic polyneuropathy Paroxysmal A-fib (07/2020) History of cerebellar stroke (2017) Bradycardia Hypertension Mitral regurgitation Anxiety History of left foot drop Inhibited sexual excitement CAD in [place] artery Ankle fracture (2012) Surgical History 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) Family History Mother Unknown family medical history Social History Smoking Status: Never smoker Second Hand Exposure: No; Do You Dip or Chew Tobacco: No; Hx Alcohol Use: No Hx Substance Use: No Preferred Language: Malawian Communication Ability: Effective 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 Physical Exam General: Alert and oriented. No acute distress. He is resting comfortably in his hospital bed eating breakfast. He is alert and oriented x 3. In regards to his right hip, no open wounds on the lateral hip. Did not perform range of motion due to known fracture. His right leg is externally rotated and shortened. Distal pulses palpated. Cap refill less than 3 seconds right lower extremity. Neurovascular intact. Constitutional WD/WN, vitals as above Musculoskeletal Please see above Psychiatric A+Ox3, euthymic affect Results & Data Results & Data Laboratory Results Laboratory Results - last 24 hr 07/08/24 07/09/24 07/09/24 23:15 00:02 00:49 WBC 9.77 RBC 3.88 L Hgb 11.1 L Hct 34.4 L MCV 88.7 MCH 28.6 MCHC 32.3 RDW Std Deviation 42.8 RDW Coeff of Nay 13.2 Plt Count 153 MPV 9.3 L Immature Gran % (Auto) 0.4 Neut % (Auto) 80.5 Lymph % (Auto) 9.3 [place] % (Auto) 8.7 Eos % (Auto) 0.8 Baso % (Auto) 0.3 Neut # (Auto) 7.86 H Lymph # (Auto) 0.91 L [place] # (Auto) 0.85 H Eos # (Auto) 0.08 Baso # (Auto) 0.03 Immature Gran # (Auto) 0.04 PT Cancelled 13.6 H INR Cancelled 1.3 H APTT Cancelled 26 PTT Ratio Cancelled 1.0 Sodium 141 Potassium 4.1 Chloride 108 H Carbon Dioxide 27 Anion Gap 6 BUN 19 Creatinine 0.89 Est Cr Clr Drug Dosing 61.1 eGFR 82.43 BUN/Creatinine Ratio 21.3 H Glucose 116 H Calcium 9.7 Phosphorus Total Bilirubin 0.5 AST 17 ALT 16 Alkaline Phosphatase 69 Total Protein 6.7 Albumin 4.1 Globulin 2.6 Albumin/Globulin Ratio 1.6 Urine Color Yellow Urine Appearance Clear Urine pH 6.0 Ur Specific [place] 1.024 Urine Protein Trace H Urine Glucose (UA) Negative Urine Ketones Trace H Urine Blood Trace H Urine Nitrite Negative Urine Bilirubin Negative Urine Urobilinogen Negative Ur Leukocyte Esterase Negative Urine WBC (Auto) 0-5 Urine RBC (Auto) 11-20 H U Hyaline Cast (Auto) 0-2 U Epithel Cells (Auto) 0-2 Urine Bacteria (Auto) None Seen 07/09/24 07:14 WBC 10.29 RBC 3.60 L Hgb 10.3 L Hct 31.9 L MCV 88.6 MCH 28.6 MCHC 32.3 RDW Std Deviation 43.1 RDW Coeff of Nay 13.2 Plt Count 143 MPV 9.7 Immature Gran % (Auto) 0.4 Neut % (Auto) 79.6 Lymph % (Auto) 9.9 [place] % (Auto) 9.1 Eos % (Auto) 0.8 Baso % (Auto) 0.2 Neut # (Auto) 8.19 H Lymph # (Auto) 1.02 L [place] # (Auto) 0.94 H Eos # (Auto) 0.08 Baso # (Auto) 0.02 Immature Gran # (Auto) 0.04 PT 11.8 INR 1.1 APTT PTT Ratio Sodium 140 Potassium 4.4 Chloride 109 H Carbon Dioxide 28 Anion Gap 3 BUN 17 Creatinine 0.83 Est Cr Clr Drug Dosing 65.5 eGFR 84.18 BUN/Creatinine Ratio 20.5 H Glucose 114 H Calcium 9.0 Phosphorus 2.8 Total Bilirubin AST ALT Alkaline Phosphatase Total Protein Albumin 3.7 Globulin Albumin/Globulin Ratio Urine Color Urine Appearance Urine pH Ur Specific [place] Urine Protein Urine Glucose (UA) Urine Ketones Urine Blood Urine Nitrite Urine Bilirubin Urine Urobilinogen Ur Leukocyte Esterase Urine WBC (Auto) Urine RBC (Auto) U Hyaline Cast (Auto) U Epithel Cells (Auto) Urine Bacteria (Auto) Diagnostic Findings Did review the right hip and AP pelvis x-ray that was taken last night in the emergency department. There is a right intertrochanteric hip fracture noted. PG Care Time/CCT Total # of Minutes Spent Total Time Spent with Patient: Total time spent is greater than 50% in coordination of care (as documented) at patient's floor/unit and/or counseling patient: Supervising Physician Co-Signing Physician Notes Case and images reviewed. I have directed the plan of care. I spoke directly to Mr. Figueroa's granddaughter regarding his hx, xray findings, treatment recommendations, and proposed plan of care. Recommend TFN stabilization as soon as medically optimized from anesthesia and cardiology. May need to switch surgeons based on timing/availability. This was explained. Coding Level of Care Code 42458 IN/OBS CONSULT LVL 4,60M (57 - DECISION FOR SURGERY) Diagnoses Closed intertrochanteric fracture of right femur S72.141A
--- NOTE | 2024-07-09 10:12 | Cardiology Consultation ---
Date of Consultation July 09, 2024 Assessment & Plan (1) Fall: (2) Paroxysmal A-fib: (3) CAD in [place] artery: (4) Mitral regurgitation: (5) S/P aortic valve replacement with bioprosthetic valve: Plan 1. Fall: This appears to be mechanical. He did not report any symptoms of dizziness or palpitation leading up to the event. No reported loss of consciousness. 2. Coronary artery disease: Status post remote surgical revascularization in 2009. No current symptoms suggestive of coronary insufficiency or angina. However, he is quite sedentary. He has been maintained on secondary prevention with rivaroxaban and high-dose rosuvastatin. 3. Valvular heart disease: He has a normally functioning bioprosthetic aortic valve and moderate mitral regurgitation. Recent evaluation demonstrated preserved LV systolic function. No current symptoms to suggest worsening v alvular heart disease. 4. Atrial fibrillation: Paroxysmal. Occasionally at home he will notice a "irregularity" in the pulse when he checks his blood pressure. However, no symptoms of palpitations and no documented recent episodes of atrial fibrillation. He has been maintained on rivaroxaban due to some prior reaction to apixaban. Apixaban would be the favored anticoagulant in his demographic, but due to his prior rash, we will continue rivaroxaban. 20 mg daily appears to be the appropriate dose. From a perioperative standpoint the Xarelto could certainly be held for a day or 2 to facilitate his surgery. Restarting Xarelto at the earliest opportunity would be recommended. He does not require bridging anticoagulation. He will be at at least moderate risk for a cardiovascular event based on his history, but he does not have acute symptoms of cardiac disease. If this were an elective procedure we will consider some additional risk stratification, but it seems like he will need to have the hip repaired or be nonambulatory. As such, he should simply proceed to surgery with the standard precautions to include: Avoiding significant blood loss, anemia, hypoxia, tachycardia, hypotension or significant hypertension. History of Present Illness Reason for Consultation: Preoperative evaluation Requesting Physician: Helder Attending Physician: Cortney Wood MD History of Present Illness The patient is an 88-year-old gentleman with a history of coronary artery disease and aortic valve disease status post surgical revascularization and bioprosthetic AVR who also suffers from paroxysmal atrial fibrillation. The patient reported getting out of a reclining chair last evening and possibly tripping on his cane. This resulted in a fall and a right hip fracture. The patient could not get off the floor, he called his neighbor and grandson and was eventually brought to the hospital. Currently still having some right hip discomfort that seems mild. He did not report dizziness or lightheadedness associated with his fall. He did not lose consciousness. He has had some falls previously without injury. Again, he did not report symptoms of dizziness or lightheadedness. He cannot ever recall an episode of syncope. His ambulation is quite limited by lower extremity weakness and balance issues. He also has some back pain. He ambulates with a cane or a walker. He did not report any limiting dyspnea or exertional shortness of breath. He has not had symptoms of chest pain recently. Occasionally he will have some dizziness while at rest. Apparently he will take some pill for dizziness when this happens. Did not describe it as vertigo or presyncope. Episodes are not positional. Allergies Allergy/AdvReac Type Severity Reaction Status Date / Time Penicillins Allergy Intermediate Unknown Verified 03/30/24 11:30 apixaban [From Eliquis] AdvReac Intermediate Rash, Verified 03/30/24 11:30 itching oxycodone AdvReac SICKNESS Verified 03/30/24 11:30 Home Medications Medication Instructions Recorded Confirmed Type cholecalciferol (vitamin D3) 25 1,000 units PO BID 06/06/19 07/08/24 History mcg (1,000 unit) capsule coQ10 (ubiquinol) 100 mg capsule 100 mg PO DAILY 07/23/20 07/08/24 History vitamins A,C,O-klte-gxmaxh 2,148 1 tab PO DAILY 07/23/20 07/08/24 History mcg-113 mg-45 mg-17.4 mg tablet (PreserVision AREDS) cyanocobalamin (vitamin B-12) 1,000 mcg PO DAILY 06/27/21 07/08/24 History 1,000 mcg capsule fluticasone propionate 50 1 spray intranasal BID 09/12/21 07/08/24 History mcg/actuation nasal spray,suspension escitalopram oxalate 10 mg tablet 10 mg PO DAILY #90 tabs 04/13/23 07/08/24 Rx rosuvastatin 10 mg tablet 20 mg PO DAILY 11/02/23 07/08/24 History rivaroxaban 20 mg tablet (Xarelto) 20 mg PO DAILY #90 tabs 03/25/24 07/08/24 Rx nitroglycerin 0.4 mg sublingual 0.4 mg sublingual Q5M PRN Chest 03/30/24 07/08/24 Rx tablet Pain #25 tabs famotidine 20 mg tablet 20 mg PO 1XD PRN Acid Reflux 07/08/24 07/08/24 History Patient History Medical History Mitral regurgitation Anxiety History of left foot drop Inhibited sexual excitement CAD in [place] artery Ankle fracture (2012) Surgical History 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) Family History Mother Unknown family medical history Social History Smoking Status: Never smoker Second Hand Exposure: No; Do You Dip or Chew Tobacco: No; Hx Alcohol Use: No Hx Substance Use: No Preferred Language: Panamanian Communication Ability: Effective 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 No recent systemic illness with fevers or chills. No upper respiratory symptoms. No coughing. He does have some left lower extremity edema which is fairly chronic. He states this is gone in the morning but with any dependency it starts and worsens. Physical Exam Physical Exam: The patient is alert and oriented. Mood and affect appeared normal. He answered all questions appropriately. HEENT: Pupils are equal and reactive to light and accommodation. Extraocular movements are intact. The sclerae are anicteric. Neuro: Cranial nerves intact Neck: Patient's neck is supple. He has palpable carotid pulses bilaterally without bruits on auscultation. There is no evidence of jugular venous distention. The thyroid is not enlarged. Lungs: Clear to auscultation bilaterally. He has good air movement without use of accessory muscles. No rales wheezes or rhonchi. Cardiac: Heart demonstrates a regular rate and rhythm. Normal S1 and S2. Crescendo systolic murmur. Pulses: The patient has palpable radial pulses bilaterally that are equal in intensity Extremities: There was no evidence of hypoperfusion. There is no cyanosis or clubbing. Moderate edema involving the left lower extremity. Skin: I did not appreciate any rashes on examination today. Results & Data Vital Signs (Past 12 Hours) Vital Signs Temp Pulse Pulse Resp BP BP Pulse Ox 07/09/24 07:35 36.9 C 72 20 137/71 90 07/09/24 07:25 72 07/09/24 04:46 64 07/09/24 02:37 68 18 131/68 91 07/09/24 02:00 77 18 131/68 91 07/09/24 00:38 64 18 142/88 H 93 07/08/24 23:07 57 L 20 96 07/08/24 22:55 63 07/08/24 22:53 37.0 C 60 18 173/81 H 97 07/08/24 22:38 37.0 C 66 18 148/77 H 97 O2 Del Method 07/09/24 07:35 Room Air 07/09/24 07:25 07/09/24 04:46 07/09/24 02:37 Room Air 07/09/24 02:00 Room Air 07/09/24 00:38 Room Air 07/08/24 23:07 Room Air 07/08/24 22:55 07/08/24 22:53 Room Air 07/08/24 22:38 Room Air Laboratory Results Abnormal Lab Results 07/08/24 07/09/24 07/09/24 23:15 00:02 00:49 WBC 9.77 RBC 3.88 L Hgb 11.1 L Hct 34.4 L MCV 88.7 MCH 28.6 MCHC 32.3 RDW Std Deviation 42.8 RDW Coeff of Nay 13.2 Plt Count 153 MPV 9.3 L Immature Gran % (Auto) 0.4 Neut % (Auto) 80.5 Lymph % (Auto) 9.3 [place] % (Auto) 8.7 Eos % (Auto) 0.8 Baso % (Auto) 0.3 Neut # (Auto) 7.86 H Lymph # (Auto) 0.91 L [place] # (Auto) 0.85 H Eos # (Auto) 0.08 Baso # (Auto) 0.03 Immature Gran # (Auto) 0.04 PT Cancelled 13.6 H INR Cancelled 1.3 H APTT Cancelled 26 PTT Ratio Cancelled 1.0 Sodium 141 Potassium 4.1 Chloride 108 H Carbon Dioxide 27 Anion Gap 6 BUN 19 Creatinine 0.89 Est Cr Clr Drug Dosing 61.1 eGFR 82.43 BUN/Creatinine Ratio 21.3 H Glucose 116 H Calcium 9.7 Phosphorus Total Bilirubin 0.5 AST 17 ALT 16 Alkaline Phosphatase 69 Total Protein 6.7 Albumin 4.1 Globulin 2.6 Albumin/Globulin Ratio 1.6 Urine Color Yellow Urine Appearance Clear Urine pH 6.0 Ur Specific [place] 1.024 Urine Protein Trace H Urine Glucose (UA) Negative Urine Ketones Trace H Urine Blood Trace H Urine Nitrite Negative Urine Bilirubin Negative Urine Urobilinogen Negative Ur Leukocyte Esterase Negative Urine WBC (Auto) 0-5 Urine RBC (Auto) 11-20 H U Hyaline Cast (Auto) 0-2 U Epithel Cells (Auto) 0-2 Urine Bacteria (Auto) None Seen 07/09/24 07:14 WBC 10.29 RBC 3.60 L Hgb 10.3 L Hct 31.9 L MCV 88.6 MCH 28.6 MCHC 32.3 RDW Std Deviation 43.1 RDW Coeff of Nay 13.2 Plt Count 143 MPV 9.7 Immature Gran % (Auto) 0.4 Neut % (Auto) 79.6 Lymph % (Auto) 9.9 [place] % (Auto) 9.1 Eos % (Auto) 0.8 Baso % (Auto) 0.2 Neut # (Auto) 8.19 H Lymph # (Auto) 1.02 L [place] # (Auto) 0.94 H Eos # (Auto) 0.08 Baso # (Auto) 0.02 Immature Gran # (Auto) 0.04 PT 11.8 INR 1.1 APTT PTT Ratio Sodium 140 Potassium 4.4 Chloride 109 H Carbon Dioxide 28 Anion Gap 3 BUN 17 Creatinine 0.83 Est Cr Clr Drug Dosing 65.5 eGFR 84.18 BUN/Creatinine Ratio 20.5 H Glucose 114 H Calcium 9.0 Phosphorus 2.8 Total Bilirubin AST ALT Alkaline Phosphatase Total Protein Albumin 3.7 Globulin Albumin/Globulin Ratio Urine Color Urine Appearance Urine pH Ur Specific [place] Urine Protein Urine Glucose (UA) Urine Ketones Urine Blood Urine Nitrite Urine Bilirubin Urine Urobilinogen Ur Leukocyte Esterase Urine WBC (Auto) Urine RBC (Auto) U Hyaline Cast (Auto) U Epithel Cells (Auto) Urine Bacteria (Auto) Diagnostic Findings Chest x-ray obtained at the time admission not reveal any acute cardiopulmonary process Echocardiogram dated 11/03/2023: Normal LV systolic function with ejection fraction of 55 to 60%. Mild LVH. Normally functioning bioprosthetic aortic valve. Mild aortic regurgitation. Moderate mitral regurgitation. Mild aortic root dilation measured 4.2 cm. ECG Additional Comments: EKG obtained at the time admission revealed a sinus bradycardia with frequent atrial ectopy. Left anterior fascicular block. PG Care Time/CCT Total # of Minutes Spent Total Time Spent with Patient: Total time spent is greater than 50% in coordination of care (as documented) at patient's floor/unit and/or counseling patient: Coding Level of Care Code 31617 INT INP/OBS CARE MIN Diagnoses Fall W19.XXXA Paroxysmal A-fib I48.0 CAD in [place] artery I25.10 Mitral regurgitation I34.0 S/P aortic valve replacement with bioprosthetic valve Z95.3
[2024-07-09] MEDS: TRANEXAMIC ACID / 0.7% NACL 1,000 MG/100 ML BAG IV ONE (10:37)
[2024-07-09] MEDS ORDERED: FAMOTIDINE 20 MG TAB PO PRN (19:11)
--- NOTE | 2024-07-09 19:13 | History & Physical Bridge Note ---
Date of Service July 09, 2024 History & Physical Bridge Note I have examined the patient, reviewed the History & Physical and in the interval since the performance of the History & Physical I have noted the following changes of clinical significance: Patient reports pain in the right hip, awaiting hip surgery tomorrow due to to recently taking Xarelto in the last 24 hours. He did have some mild hematuria in his Zendejas bag earlier today which has cleared up. He denies any previous history of hematuria and the nurse notes that there was blood around his penis after Zendejas was placed indicating traumatic placement Patient denies any chest pains or shortness of breath. I discussed his care with both anesthesia and orthopedic surgery He received a TXA infusion today to help cut down on bleeding He remains hemodynamically stable Vitals reviewed Gen: AAOx3, NAD HEENT: Anicteric sclerae, EOMI CV: RRR no mgr nl S1S2 Pulm: CTAB no wcr Abd: +BS soft NT ND no masses or hernias Ext: Positive tenderness to palpation over right hip, right lower extremity externally rotated and shortened Skin: No rashes, warm/dry CBC, BMP, phosphorus, urinalysis, chest x-ray reviewed 88-year-old male here with mechanical fall and right hip fracture-awaiting surgical fixation on 07/10 Continue holding Xarelto-he is in a sinus rhythm and does not need bridging anticoagulation at this time Appreciate cardiology consultation Continue pain control with IV morphine and Tylenol Okay to resume home statin and Lexapro Follow CBC and BMP in the morning Follow for improvement of hematuria
[2024-07-09] MEDS: ESCITALOPRAM OXALATE 10 MG TAB PO SCH (20:58)
[2024-07-09] MEDS: CHOLECALCIFEROL 25 MCG (1000 UNITS) TAB PO SCH (20:59)
[2024-07-10 07:20] LABS: Basophils # (auto) 0.04 K/uL (0.00-0.20); Basophils % (auto) 0.4 %; Eosinophils # (auto) 0.29 K/uL (0.00-0.50); Eosinophils % (auto) 2.9 %; Hematocrit (blood only) 32.6 % (42.0-52.0); Hemoglobin 10.4 g/dl (14.0-18.0); Immature Granulocytes # (auto) 0.02 K/uL (0.01-0.20); Immature Granulocytes % (auto) 0.2 %; Lymphocytes # (auto) 0.87 K/uL (1.20-3.40); Lymphocytes % (auto) 8.7 %; Mean Corpuscular Hemoglobin 28.4 pg (25.0-34.0); Mean Corpuscular Hgb Conc 31.9 g/dL (32.0-36.0); Mean Corpuscular Volume 89.1 fL (80.0-100.0); Mean Platelet Volume 10.2 fL (9.4-12.4); Monocytes # (auto) 1.11 K/uL (0.11-0.59); Monocytes % (auto) 11.1 %; Neutrophils # (auto) 7.67 K/uL (1.40-6.50); Neutrophils % (auto) 76.7 %; Platelet Count 123 K/uL (130-400); RDW Coefficient of Variation 13.5 % (11.5-14.5); Red Blood Count 3.66 M/uL (4.70-6.10)
[2024-07-10 07:23] LABS: Albumin Level 3.6 gm/dl (3.4-5.0); BUN Creatinine Ratio 19.8 (10-20); Creatinine Clr Calc Pharmacy 67.1 ml/min; Phosphorus 2.4 mg/dl (2.5-4.9); Potassium 4.4 mmol/L (3.5-5.1)
[2024-07-10 07:32] LABS: INR 1.1 (0.9-1.1); Partial Thromboplastin Ratio 1.1; Partial Thromboplastin Time 29 Seconds (21-31); Prothrombin Time 11.4 Seconds (9.0-12.0)
[2024-07-10] MEDS: ROSUVASTATIN CALCIUM 20 MG TAB PO SCH (08:49)
--- NOTE | 2024-07-10 10:43 | Orthopedic Progress Note ---
Date of Service July 10, 2024 Assessment & Plan (1) Closed intertrochanteric fracture of right femur: NPO. To OR today for trochanteric nailing of the right hip/femur fx. Procedure explained including risks, benefits, alternatives to surgery. Consent obtained. Surgery will be done by Dr. Aviles. Subjective . 88 year old patient with right intertroch fx. Having moderate pain in his hip and looking forward to having this fixed. He does have a h/o some paraesthesias in the right foot. Review of Systems All systems reviewed & are unremarkable except as noted in HPI & below. Physical Exam .alert and oriented. NAD Right leg: shortened and externally rotated. Able to dorsiflex and plantarflex. Has difficulty and limited EHL/toe extension. Sensation intact to touch. Brisk refill Results & Data Results & Data Laboratory Results . Diagnostic Findings . PG Care Time/CCT Total # of Minutes Spent Total Time Spent with Patient: Total time spent is greater than 50% in coordination of care (as documented) at patient's floor/unit and/or counseling patient: Coding Level of Care Code 05375 SUB INP/OBS CARE 2/35MIN Diagnoses Closed intertrochanteric fracture of right femur S72.141A
[2024-07-10] MEDS ORDERED: ONDANSETRON INJ 2 MG/ML 2 ML VIAL ONE ×2 (10:59→11:27)
[2024-07-10] MEDS ORDERED: LIDOCAINE 2% 2 ML VIAL/AMP(20MG/ML) INFIL ONE ×2 (10:59→11:26)
[2024-07-10] MEDS ORDERED: PROPOFOL IV EMULSION 10 MG/ML 20 ML VIAL IV ONE ×2 (10:59→11:26)
[2024-07-10] MEDS ORDERED: DEXAMETHASONE SOD INJ 4 MG/ML VIAL ONE ×2 (10:59→11:27)
--- NOTE | 2024-07-10 10:59 | Anesthesiology Consultation ---
Date of Service July 10, 2024 Assessment & Plan (1) Encounter for pre-operative examination: Chart Review Chart Review: Acceptable Risk for Surgery History Surgery Operation Date: 07/10/24 08:20 Proposed Procedures p Right Troch Nail - Otis Aviles MD Height/Weight Height: 5 ft 11 in Weight: 78.6 kg Allergies Allergy/AdvReac Type Severity Reaction Status Date / Time Penicillins Allergy Intermediate Unknown Verified 03/30/24 11:30 apixaban [From Eliquis] AdvReac Intermediate Rash, Verified 03/30/24 11:30 itching oxycodone AdvReac SICKNESS Verified 03/30/24 11:30 Medications Home Medications Medication Instructions Recorded Confirmed Last Taken cholecalciferol (vitamin D3) 25 1,000 units PO BID 06/06/19 07/08/24 07/08/24 20:00 mcg (1,000 unit) capsule coQ10 (ubiquinol) 100 mg capsule 100 mg PO DAILY 07/23/20 07/08/24 07/08/24 08:00 vitamins A,C,L-rnwy-blitav 2,148 1 tab PO DAILY 07/23/20 07/08/24 07/08/24 20:00 mcg-113 mg-45 mg-17.4 mg tablet (PreserVision AREDS) cyanocobalamin (vitamin B-12) 1,000 mcg PO DAILY 06/27/21 07/08/24 07/08/24 08:00 1,000 mcg capsule fluticasone propionate 50 1 spray intranasal BID 09/12/21 07/08/24 Unknown mcg/actuation nasal spray,suspension escitalopram oxalate 10 mg tablet 10 mg PO DAILY #90 tabs 04/13/23 07/08/24 07/08/24 08:00 rosuvastatin 10 mg tablet 20 mg PO DAILY 11/02/23 07/08/24 07/08/24 20:00 rivaroxaban 20 mg tablet (Xarelto) 20 mg PO DAILY #90 tabs 03/25/24 07/08/24 07/08/24 nitroglycerin 0.4 mg sublingual 0.4 mg sublingual Q5M PRN Chest 03/30/24 07/08/24 Unknown tablet Pain #25 tabs famotidine 20 mg tablet 20 mg PO 1XD PRN Acid Reflux 07/08/24 07/08/24 07/07/24 Active Medications Generic Name Dose Route Start Last Admin Trade Name Freq PRN Reason Stop Dose Admin Escitalopram Oxalate 10 mg 07/09/24 19:15 07/10/24 08:48 Escitalopram Oxalate 10 Mg Tab PO 08/08/24 19:14 Not Given DAILY JN Fluticasone Propionate 1 sprays 07/09/24 09:00 07/10/24 08:48 Fluticasone Propionate Na Spr 16 Gm Btl KARTHIKEYAN 08/08/24 08:59 Not Given BID JN Pantoprazole Sodium 40 mg in 10 mls @ 5 mls/min 07/09/24 09:00 07/10/24 08:49 Protonix IV 08/08/24 08:59 5 mls/min DAILY NJ Administration Morphine Sulfate 2 mg 07/09/24 03:05 07/10/24 07:10 Morphine Sulfate 2 Mg/Ml Carp IV 07/23/24 03:04 2 mg Q3H PRN Administration Pain (1,2,3,4,5) & Pre PT Rosuvastatin Calcium 20 mg 07/10/24 09:00 07/10/24 08:49 Rosuvastatin Calcium 20 Mg Tab PO 08/09/24 08:59 Not Given DAILY JN Vitamin D 25 mcg 07/09/24 21:00 07/10/24 08:48 Cholecalciferol 25 Mcg (1000 Units) Tab PO 08/08/24 20:59 Not Given BID JN Past Medical History Medical History (Updated 07/10/24 @ 10:59 by Jeremias Garrido MD) Difficulty swallowing liquids Idiopathic polyneuropathy Paroxysmal A-fib (07/2020) History of cerebellar stroke (2016) Bradycardia Hypertension Mitral regurgitation Anxiety History of left foot drop Inhibited sexual excitement CAD in [place] artery Ankle fracture (2012) Past Family History Family History Mother Unknown family medical history Past Surgical History Surgical History 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) Social History Smoking Status: Never smoker Do You Dip or Chew Tobacco: No Hx Alcohol Use: No Hx Substance Use: No substance use type: does not use Physical Exam Vital Signs Last Vital Signs Temp 36.9 C 07/10/24 07:44 Pulse 50 L 07/10/24 07:44 Resp 17 07/10/24 07:44 BP 132/73 07/10/24 02:48 Pulse Ox 94 07/10/24 07:44 O2 Del Method Nasal Cannula 07/10/24 08:00 O2 Flow Rate 2 07/10/24 08:00 Testing Laboratory Results 07/10/24 06:40 07/10/24 06:40 PT 11.4 Seconds (9.0-12.0) 07/10/24 06:40 INR 1.1 (0.9-1.1) 07/10/24 06:40 APTT 29 Seconds (21-31) 07/10/24 06:40 Urine Color Yellow 07/09/24 00:49 Urine Appearance Clear (Clear) 07/09/24 00:49 Urine pH 6.0 (4.5-7.5) 07/09/24 00:49 Ur Specific [place] 1.024 (1.000-1.030) 07/09/24 00:49 Urine Protein Trace (Negative) H 07/09/24 00:49 Urine Glucose (UA) Negative (Negative) 07/09/24 00:49 Urine Ketones Trace (Negative) H 07/09/24 00:49 Urine Nitrite Negative (Negative) 07/09/24 00:49 Ur Leukocyte Esterase Negative (Negative) 07/09/24 00:49 Urine WBC (Auto) 0-5 /hpf (0-5) 07/09/24 00:49 Urine RBC (Auto) 11-20 /hpf (0-2) H 07/09/24 00:49 U Hyaline Cast (Auto) 0-2 /lpf (0-2) 07/09/24 00:49 U Epithel Cells (Auto) 0-2 /hpf (0-2) 07/09/24 00:49 Urine Bacteria (Auto) None Seen (None Seen) 07/09/24 00:49 Electrocardiogram Date: 07/08/24 Findings: + NSR @ (61 with PAC's) Echocardiogram Date: 11/03/23 EF: 55-60% LV Function: normal Valvular Disease: + MR (moderate) bioprosthetic aortic valve with normal gradients
[2024-07-10] MEDS ORDERED: ROCURONIUM BROMIDE 10 MG/ML 5 ML VIAL IV ONE (11:26)
[2024-07-10] MEDS ORDERED: fentaNYL citrate PF 100 MCG/2 ML VIAL ONE (11:27)
[2024-07-10] MEDS ORDERED: MIDAZOLAM HCL 1 MG/ML 2ML VIAL ONE (11:27)
[2024-07-10] MEDS: LACTATED RINGER'S 1,000 ML IV SCH (11:46)
[2024-07-10] MEDS ORDERED: ATROPINE SULFATE 0.1 MG/ML 10ML SYR IV PRN (12:19)
[2024-07-10] MEDS ORDERED: fentaNYL citrate PF 100 MCG/2 ML VIAL IV PRN (12:19)
[2024-07-10] MEDS ORDERED: ONDANSETRON INJ 2 MG/ML 2 ML VIAL IV PRN (12:19)
[2024-07-10] MEDS ORDERED: ePHEDrine sulfate 50 MG/ML AMP IV PRN (12:19)
--- NOTE | 2024-07-10 12:21 | History & Physical Bridge Note ---
Date of Service July 10, 2024 History & Physical Bridge Note I have examined the patient, reviewed the History & Physical and in the interval since the performance of the History & Physical I have noted the following changes of clinical significance: no changes noted
[2024-07-10] MEDS: TRANEXAMIC ACID / 0.7% NACL 1,000 MG/100 ML BAG IV SCH ×2 (12:27→19:38)
[2024-07-10] MEDS: ceFAZolin 2000MG 2,000 MG/15 ML SYR IV SCH (12:28)
--- NOTE | 2024-07-10 12:56 | Hospitalist Progress Note ---
Date of Service July 10, 2024 Assessment & Plan (1) Closed intertrochanteric fracture of right femur: Plan: Open reduction internal fixation scheduled for todayJuly 10. This appears to be a pathologic fracture due to underlying osteoporosis. The patient suffered a mechanical fall at home without syncope. (2) Fall: Plan: Mechanical. Resulting in right hip fracture. (3) Paroxysmal A-fib: Plan: Currently in normal sinus rhythm. Xarelto was on hold. Telemetry strip does reveal a short run of atrial tachycardia. Appreciate cardiology consultation and recommendations. He has been cleared for surgery (4) Hypertension: Plan: Stable. Continue current medical manage Plan Open reduction internal fixation right hip fracture today, July 10. He will need IPR or SNF temporary placement at the time of discharge yet this week. Admission and Anticipated Discharge Date Admission Date: July 09, 2024 Subjective Alert and oriented. No distress. He will undergo open reduction internal fixation of the right intertrochanteric femur fracture today, July 10. Xarelto is on hold. Hemoglobin stable at 10.4. Telemetry strip reveals a short run of paroxysmal atrial tachycardia. Otherwise normal sinus rhythm. Appreciate cardiology consultation and recommendations Review of Systems 2 Review of Systems: Constitutionalno fever or chills ENTno blurred vision, no double vision, no epistaxis, no sore throat Respiratoryno cough, no wheezing, no shortness of breath Cardiacno palpitations, no chest pain, no syncope Adrian nausea, vomiting, diarrhea, melena, hematochezia GUno urinary retention, no urinary incontinence, no dysuria, no hematuria Musculoskeletalright lower extremity is slightly shortened and externally rotated. No peripheral edema Skinno bruising, no rashes, no pruritus Neurono isolated weakness, no paresthesia, no weakness Psychno depression, no anxiety Physical Exam 2 Physical Exam: General-alert and oriented x3, no fever, no chills HEENT-head atraumatic and normocephalic, pupils equal and reactive to light, extraocular muscles intact Neck-no lymphadenopathy or thyromegaly, trachea midline Chest-clear to auscultation. No rales, wheezing or rhonchi Cardiac-regular rate and rhythm, normal S1 and S2 Abdomen-normal bowel sounds, no hepatosplenomegaly Extremities-right lower extremity is slightly shortened and externally rotated Neuro-cranial nerves II through XII intact, motor and sensory function within normal limits, strength symmetrical, no focal deficits Psych-normal affect, normal mood Results & Data Results & Data Vital Signs (Past 12 Hours) Vital Signs Temp Pulse Pulse Pulse Resp BP Pulse Ox 07/10/24 11:42 36.9 C 60 20 148/65 H 94 07/10/24 08:00 07/10/24 07:44 36.9 C 50 L 17 94 07/10/24 07:00 54 L 07/10/24 02:48 37.0 C 52 L 16 132/73 94 O2 Del Method O2 Flow Rate 07/10/24 11:42 Nasal Cannula 3 07/10/24 08:00 Nasal Cannula 2 07/10/24 07:44 Nasal Cannula 3 07/10/24 07:00 07/10/24 02:48 Nasal Cannula 3 Laboratory Results 07/10/24 06:40 07/10/24 06:40 PG Care Time/CCT Total # of Minutes Spent Total Time Spent with Patient: Total time spent is greater than 50% in coordination of care (as documented) at patient's floor/unit and/or counseling patient: Coding Level of Care Code 19147 SUB INP/OBS CARE 3/50MIN Diagnoses Closed intertrochanteric fracture of right femur S72.141A Fall W19.XXXA Paroxysmal A-fib I48.0 Hypertension I10
[2024-07-10] MEDS: BUPIVACAINE/EPINEPHRINE 0.5% MPF 1:200,000 30 ML VIAL ONE (13:25)
[2024-07-10] MEDS ORDERED: SUGAMMADEX SODIUM 200 MG/2 ML VIAL IV ONE (13:29)
--- NOTE | 2024-07-10 13:54 | Operative Report ---
PG Post Operative Report Pre & Post Diagnosis Operation Date: 07/10/24 08:20 Pre-Op Diagnosis: Closed intertrochanteric fracture of right femur Post-Op Diagnosis: Closed intertrochanteric fracture of right femur I identified the patient and participated in the time-out.: Yes Procedure Operation Date: 07/10/24 08:20 Actual Procedures p Trochanteric Nailing of Right Hip Fracture(Right) - Otis Aviles MD Surgeon Otis Aviles MD Sales Service Route Manager Brandon Alvarez PA-C Estimated Blood Loss 100 Findings Consistent with Post-Op Diagnosis Specimens None Anesthesia Type General Complications none Disposition Accompanied Patient To Recovery: No Indications Patient is an 88-year-old elderly gentleman who sustained a mechanical fall. He had acute onset of pain and was unable to ambulate afterwards. He was brought to emergency room where x-rays showed an intertrochanteric right hip fracture. The patient was admitted by the hospitalist service, medically optimized, and indicated for surgical repair. Description of Procedure Operative implants consist of: 1. Synthes right 360 mm x 11 mm long trochanteric nail. 2. 105 mm helical blade. 3. 42 mm x 5 mm distal interlocking screw. The patient was taken to the operating, identified, placed on the operating table in the supine position. All contact areas were appropriately padded. IV antibiotics provided by anesthesia team. General anesthetic was implemented. The patient was then placed on the fracture table. The right leg was placed in boot traction the left leg was placed in a well-leg iqbal. I applied some longitudinal traction to the right foot and internally rotated the foot so the knee Pointed to the ceiling. X-ray was brought in. The fracture is anatomically aligned. The right hip was then scrubbed with Hibiclens, prepped with ChloraPrep and then draped in the usual sterile fashion. A curvilinear incision was made just proximal to the tip of the trochanter. Sharp dissection was got through subcutaneous tissues down to the gluteal fascia. The gluteal fascia was incised longitudinally in line with skin incision. I then placed a guidewire just on the lateral tip of the trochanter in line with the IM canal both AP and lateral planes. This was advanced down the IM canal. It was overreamed with a large reamer. This guidewire removed was removed and a ball-tipped guidewire was placed. I placed this down the IM canal. We measured for nail length. A 360 mm nail was selected. I overreamed the guidewire with a 12.5 mm flexible reamer. A right 360 mm x 11 mm right long trochanteric nail was then placed over the guidewire and tapped into position. The wire was then removed. The lateral aiming arm was attached. A stab incision was made in the lateral aiming arm was advanced the lateral aspect the femur. A guidewire was placed in the central aspect of the femoral head neck on both the AP and lateral planes. This was measured to 105 mm. The cortical step drill was used to breach the cortex and the triple reamer set at 105. We overreamed the guidewire. A 105 mm helical blade was then placed. This was tapped into position. I then compressed the fracture slightly. The proximal setscrew was tightened. The lateral aiming arm was removed and Safyral x-rays were obtained. Attention was then toward toward distal interlocking. Using a perfect [place] technique a distal interlocking screw was placed in the dynamic hole in the dynamic position. A stab incision was made. Under fluoroscopic guidance the drill was used to create the hole and the screw was placed. Some final x-rays were obtained. Attention then drawn toward closing. All wounds were irrigated extensively. I injected locally with 30 cc of half percent Marcaine with epinephrine. The gluteal fascia was then closed with #1 Vicryl suture in a running fashion. The subcutaneous tissues were closed with 0 Vicryl suture in a buried interrupted fashion. The subcu cutaneous tissues of all wounds were then closed with 2-0 Vicryl suture in a buried interrupted fashion. Skin was closed with skin ghislaine. Leg was then cleaned and dried a sterile dressing composed Xeroform, 4 x 4's, ABD pad and foam tape was applied. The patient was then brought out of general esthesia and transferred to the recovery room in stable condition. The patient tolerated procedure well and there were no complications. Brandon Alvarez, my physician assistant warehouse manager, was present for the entire procedure. His assistance was required for proper patient positioning, prepping and draping, surgical exposure, retraction, perform the technical details of the operation, placement of the implants, closure of the incision site and placement of the sterile postoperative bandage. I attest to the content of the Intraoperative Record and any orders documented therein. Any exceptions are noted below.
--- NOTE | 2024-07-10 14:15 | Fluoroscopy Report ---
FL hip RT 2-3V CLINICAL HISTORY: RT TROCHNAIL COMPARISON STUDY: Pelvis and right hip radiographs July 08, 2024. FLUOROSCOPY TIME: 1 minute and 4 seconds. Ka,r: 10.16 mGy FLUOROSCOPIC IMAGES: 4 FINDINGS: Fluoroscopy was provided during open reduction and internal fixation of the intertrochanter ic fracture of the right femur trochanteric nail. Fracture alignment has significantly improved. IMPRESSION: Fluoroscopy provided during open reduction and internal fixation of the intertrochanteri c fracture of the right femur. ACT 112: Negative or not required by law. Electronically signed by: Dylan Alvarez M.D. 07/10/2024 2:13 PM
[2024-07-10] MEDS: ALBUT/IPRATROP 3MG/0.5MG NEB 3 ML VIAL ONE (14:42)
[2024-07-10] MEDS: ALBUT/IPRATROP 3MG/0.5MG NEB 3 ML VIAL NEB STA (14:42)
--- NOTE | 2024-07-10 15:06 | XRay Report ---
XR chest 1V portable CLINICAL HISTORY: Hypoxia. COMPARISON STUDY: Chest radiograph July 08, 2024. FINDINGS: There are median sternotomy wires, prosthetic cardiac valve and mediastinal surgical clips. There is mild cardiomegaly. No pneumothorax or pleural effusion is present. There are mild left basi lar opacities. There is no radiographic evidence for pulmonary edema. IMPRESSION: 1. Mild left basilar opacities which favor atelectasis. An infectious process could appear similar al though is considered less likely. 2. Cardiomegaly without evidence for pulmonary edema. ACT 112: Negative or not required by law. Electronically signed by: Dylan Alvarez M.D. 07/10/2024 3:04 PM
--- NOTE | 2024-07-10 15:33 | Anesthesiology Progress Note ---
Date of Service July 10, 2024 Anesthesia Post Procedure Vital Signs Vital Signs: Temp Pulse Pulse Pulse Resp BP Pulse Ox 07/10/24 15:20 65 16 143/60 H 95 07/10/24 15:10 36.4 C L 67 16 142/62 H 95 07/10/24 15:00 57 L 14 129/63 96 07/10/24 14:50 55 L 16 126/56 L 96 07/10/24 14:40 67 18 127/55 L 90 07/10/24 14:30 36.4 C L 66 18 135/72 93 07/10/24 14:20 70 16 144/62 H 94 07/10/24 14:10 68 16 145/67 H 95 07/10/24 14:00 71 18 140/64 95 07/10/24 13:50 36.2 C L 76 19 115/57 L 96 07/10/24 11:42 36.9 C 60 20 148/65 H 94 07/10/24 08:00 07/10/24 07:44 36.9 C 50 L 17 94 07/10/24 07:00 54 L 07/10/24 02:48 37.0 C 52 L 16 132/73 94 07/10/24 00:08 17 94 07/09/24 23:59 36.7 C 64 18 119/62 90 07/09/24 23:55 07/09/24 22:00 60 07/09/24 19:55 36.6 C 76 20 126/68 97 07/09/24 19:14 Pulse Ox O2 Del Method O2 Del Method O2 Flow Rate O2 Flow Rate 07/10/24 15:20 Oxymask 3 07/10/24 15:10 Oxymask 3 07/10/24 15:00 Oxymask 6 07/10/24 14:50 Nebulizer 10 07/10/24 14:40 Oxymask 4 07/10/24 14:30 Oxymask 4 07/10/24 14:20 Nasal Cannula 2 07/10/24 14:10 Oxymask 4 07/10/24 14:00 Oxymask 6 07/10/24 13:50 Oxymask 10 07/10/24 11:42 Nasal Cannula 3 07/10/24 08:00 Nasal Cannula 2 07/10/24 07:44 Nasal Cannula 3 07/10/24 07:00 07/10/24 02:48 Nasal Cannula 3 07/10/24 00:08 Nasal Cannula 3 07/09/24 23:59 Nasal Cannula 3 07/09/24 23:55 94 Nasal Cannula 3 07/09/24 22:00 07/09/24 19:55 Room Air 07/09/24 19:14 Room Air Pain Intensity Right Hip: Pain Intensity: 5 Transfer of Care Handoff Completed per policy Notes Mental Status: alert / awake / arousable and participated in evaluation Nausea / Vomiting: adequately controlled Pain: adequately controlled Airway Patency, RR, SpO2: stable & adequate BP & HR: stable & adequate Hydration State: stable & adequate Anesthetic Complications: no major complications apparent and Pt Satisfied with anesthetic care
[2024-07-10] MEDS: ACETAMINOPHEN 1,000 MG/100 ML VIAL IV STA (15:55)
[2024-07-10] MEDS: ceFAZolin 1000MG 1,000 MG/7.5 ML SYR IV SCH (19:55)
[2024-07-11 06:41] LABS: Basophils # (auto) 0.02 K/uL (0.00-0.20); Basophils % (auto) 0.2 %; Eosinophils # (auto) 0.09 K/uL (0.00-0.50); Eosinophils % (auto) 0.7 %; Hematocrit (blood only) 30.6 % (42.0-52.0); Hemoglobin 9.9 g/dl (14.0-18.0); Immature Granulocytes # (auto) 0.06 K/uL (0.01-0.20); Immature Granulocytes % (auto) 0.5 %; Lymphocytes % (auto) 6.4 %; Mean Corpuscular Hemoglobin 28.4 pg (25.0-34.0); Mean Corpuscular Hgb Conc 32.4 g/dL (32.0-36.0); Mean Corpuscular Volume 87.9 fL (80.0-100.0); Mean Platelet Volume 9.9 fL (9.4-12.4); Monocytes # (auto) 1.27 K/uL (0.11-0.59); Monocytes % (auto) 10.1 %; Neutrophils % (auto) 82.1 %; Platelet Count 117 K/uL (130-400); RDW Coefficient of Variation 13.6 % (11.5-14.5); RDW Standard Deviation 43.6 fL (36.4-46.3); Red Blood Count 3.48 M/uL (4.70-6.10); White Blood Count 12.54 K/ul (4.8-10.8)
[2024-07-11 07:08] LABS: Albumin Level 3.4 gm/dl (3.4-5.0); BUN Creatinine Ratio 22.2 (10-20); Calcium 8.7 mg/dl (8.6-10.3); Creatinine Clr Calc Pharmacy 75.5 ml/min; Magnesium 1.9 mg/dl (1.7-2.4); Phosphorus 2.3 mg/dl (2.5-4.9); Potassium 4.2 mmol/L (3.5-5.1)
[2024-07-11 07:12] LABS: INR 1.1 (0.9-1.1); Partial Thromboplastin Time 28 Seconds (21-31); Prothrombin Time 11.4 Seconds (9.0-12.0)
--- NOTE | 2024-07-11 11:25 | Orthopedic Progress Note ---
Date of Service July 11, 2024 Assessment & Plan (1) Closed intertrochanteric fracture of right femur: Plan: 88-year-old gentleman postop day 1 from IM nailing of a right intertrochanteric hip fracture. Seems to be doing pretty well. Having some pain which is to be expected. Everything looks appropriately positioned. He is slightly anemic but without symptoms. Plan: 1. DVT prophylaxis including thigh-high teds, SCDs, and restart his Lovenox today at a lower dose. Will start him at 10 mg per 24 hours postop and then 2 days of 10 mg then can go back on his 20 mg dose. 2. PT/OT. He can weight-bear as tolerated in right leg. 3. Pain control seems to be doing okay with current pain regimen. 4. Disposition. He is orthopedically okay for discharge anytime medically stable. Any orthopedic questions can be direct me at [phone]. I need to see him back in my clinic 2 to 3 weeks out from surgery date. (2) Atrial fibrillation with rapid ventricular response: Admission and Anticipated Discharge Date Admission Date: July 09, 2024 Subjective 88-year-old gentleman postop day 1 from IM nailing of a right intertrochanteric hip fracture. He is doing pretty well. He is currently going to physical therapy. Is having some pain but manageable. No new complaints. Physical Exam Physical Exam: Examination of the right leg reveals the patient is sitting in his bedside chair talking with a therapist. Examination of the leg reveals it to be well aligned. His thigh is soft and supple. Dressings are clean dry and intact. He is neurologically intact. Results & Data Vital Signs (Past 12 Hours) Vital Signs Temp Pulse Pulse Resp BP Pulse Ox O2 Del Method 07/11/24 07:53 Oxymask 07/11/24 07:35 37.4 C 72 18 171/82 H 97 Oxymask 07/11/24 07:31 74 07/11/24 03:22 37.1 C 71 16 158/72 H 98 Oxymask 07/11/24 00:11 71 O2 Flow Rate 07/11/24 07:53 3 07/11/24 07:35 3 07/11/24 07:31 07/11/24 03:22 2 07/11/24 00:11 Laboratory Results Hemoglobin is 9.9. Hematocrit is 30.6 electrolytes are stable.
[2024-07-11] MEDS: RIVAROXABAN 10 MG TABLET PO SCH (13:11)
--- NOTE | 2024-07-11 13:44 | Hospitalist Progress Note ---
Date of Service July 11, 2024 Assessment & Plan (1) Closed intertrochanteric fracture of right femur: Plan: Open reduction internal fixation with nailing completed on July 10. Postoperative day #1. This appears to be a pathologic fracture due to underlying osteoporosis. The patient suffered a mechanical fall at home without syncope. Orthopedic consultation and management appreciated (2) Fall: Plan: Mechanical. Resulting in right hip fracture. Continue postoperative OT and PT (3) Paroxysmal A-fib: Plan: Currently in normal sinus rhythm. Xarelto has been held on admission and will be restarted shortly. Appreciate cardiology consultation and recommendations. (4) Hypertension: Plan: Stable. Continue current medical manage (5) Acute blood loss anemia: Plan: Postoperative and mild. Hemoglobin 9.9 today, July 11. No transfusion needed at this time. Will follow Plan SNF placement pending at either [facility] or [facility] within the next day or 2 when arrangements are finalized. He is medically stable for discharge. Admission and Anticipated Discharge Date Admission Date: July 09, 2024 Subjective Alert and oriented. He had transient left foot pain earlier today. Examination reveals dependent rubor with good capillary refill in the left foot is warm. Nothing acute at this time. Will follow. He is postoperative day 1 after open reduction internal fixation of the right hip fracture with nailing. He has mild anemia with hemoglobin down to 9.9 but no transfusion needed at this time. He will eventually need SNF placement at either [facility] or [facility]. Speech evaluation completed for possible episode of aspiration. They have adjusted his diet. Incentive spirometry has been ordered. Review of Systems 2 Review of Systems: Constitutionalno fever or chills ENTno blurred vision, no double vision, no epistaxis, no sore throat Respiratoryno cough, no wheezing, no shortness of breath Cardiacno palpitations, no chest pain, no syncope Adrian nausea, vomiting, diarrhea, melena, hematochezia GUno urinary retention, no urinary incontinence, no dysuria, no hematuria Musculoskeletal No peripheral edema Skinno bruising, no rashes, no pruritus Neurono isolated weakness, no paresthesia, no weakness Psychno depression, no anxiety Physical Exam 2 Physical Exam: General-alert and oriented x3, no fever, no chills HEENT-head atraumatic and normocephalic, pupils equal and reactive to light, extraocular muscles intact Neck-no lymphadenopathy or thyromegaly, trachea midline Chest-clear to auscultation. No rales, wheezing or rhonchi Cardiac-regular rate and rhythm, normal S1 and S2 Abdomen-normal bowel sounds, no hepatosplenomegaly Extremities-right hip surgical site is unremarkable. No edema. Both feet exhibit dependent rubor. Left foot is warm with good capillary refill. Neuro-cranial nerves II through XII intact, motor and sensory function within normal limits, strength symmetrical, no focal deficits Psych-normal affect, normal mood Results & Data Results & Data Vital Signs (Past 12 Hours) Vital Signs Temp Pulse Pulse Resp BP Pulse Ox O2 Del Method 07/11/24 11:47 36.6 C 75 17 113/64 94 Nasal Cannula 07/11/24 07:53 Oxymask 07/11/24 07:35 37.4 C 72 18 171/82 H 97 Oxymask 07/11/24 07:31 74 07/11/24 03:22 37.1 C 71 16 158/72 H 98 Oxymask O2 Flow Rate 07/11/24 11:47 2 07/11/24 07:53 3 07/11/24 07:35 3 07/11/24 07:31 07/11/24 03:22 2 Laboratory Results 07/11/24 05:48 07/11/24 05:48 PG Care Time/CCT Total # of Minutes Spent Total Time Spent with Patient: Total time spent is greater than 50% in coordination of care (as documented) at patient's floor/unit and/or counseling patient: Coding Level of Care Code 37064 SUB INP/OBS CARE 3/50MIN Diagnoses Closed intertrochanteric fracture of right femur S72.141A Fall W19.XXXA Paroxysmal A-fib I48.0 Hypertension I10 Acute blood loss anemia D62
[2024-07-12 06:41] LABS: Basophils # (auto) 0.03 K/uL (0.00-0.20); Basophils % (auto) 0.3 %; Eosinophils # (auto) 0.42 K/uL (0.00-0.50); Eosinophils % (auto) 4.7 %; Hematocrit (blood only) 27.8 % (42.0-52.0); Hemoglobin 9.2 g/dl (14.0-18.0); Immature Granulocytes # (auto) 0.03 K/uL (0.01-0.20); Immature Granulocytes % (auto) 0.3 %; Lymphocytes # (auto) 0.84 K/uL (1.20-3.40); Lymphocytes % (auto) 9.5 %; Mean Corpuscular Hemoglobin 28.8 pg (25.0-34.0); Mean Corpuscular Hgb Conc 33.1 g/dL (32.0-36.0); Mean Corpuscular Volume 87.1 fL (80.0-100.0); Mean Platelet Volume 9.9 fL (9.4-12.4); Monocytes # (auto) 1.02 K/uL (0.11-0.59); Monocytes % (auto) 11.5 %; Neutrophils # (auto) 6.52 K/uL (1.40-6.50); Neutrophils % (auto) 73.7 %; Platelet Count 117 K/uL (130-400); RDW Coefficient of Variation 13.6 % (11.5-14.5); RDW Standard Deviation 43.2 fL (36.4-46.3); Red Blood Count 3.19 M/uL (4.70-6.10); White Blood Count 8.86 K/ul (4.8-10.8)
[2024-07-12 07:11] LABS: BUN Creatinine Ratio 29.9 (10-20); Calcium 8.6 mg/dl (8.6-10.3); Creatinine Clr Calc Pharmacy 81.2 ml/min
[2024-07-12] MEDS ORDERED: HYDROCODONE/ACETAMOPHEN 5/325MG TAB PO PRN (09:50)
[2024-07-12] MEDS: METOPROLOL TARTRATE 1 MG/ML VIAL IV STA ×2 (11:01→12:14)
[2024-07-12] MEDS: METOPROLOL TARTRATE 25 MG TAB PO SCH (12:40)
--- NOTE | 2024-07-12 14:09 | Hospitalist Progress Note ---
Date of Service July 12, 2024 Assessment & Plan (1) Closed intertrochanteric fracture of right femur: Plan: Open reduction internal fixation with nailing completed on July 10. Postoperative day #2. This appears to be a pathologic fracture due to underlying osteoporosis. The patient suffered a mechanical fall at home without syncope. Orthopedic consultation and management appreciated (2) Fall: Plan: Mechanical. Resulting in right hip fracture. Continue postoperative OT and PT (3) Paroxysmal A-fib: Plan: Unfortunately he developed atrial fibrillation with rapid ventricular rate. He is now on metoprolol. Cardiology consultation requested. Telemetry. Xarelto has been restarted. (4) Hypertension: Plan: Stable despite rapid atrial fibrillation. He is now on metoprolol. (5) Acute blood loss anemia: Plan: Postoperative and mild. Hemoglobin 9.2 today, July 12. No transfusion needed at this time. Will follow (6) Urinary retention: Plan: Necessitated placement of Zendejas catheter today, July 12. Urine analysis sent and pending Plan SNF placement pending at either [facility] or [facility] within the next day or 2 when arrangements are finalized. Admission and Anticipated Discharge Date Admission Date: July 09, 2024 Subjective Alert and oriented. Unfortunately he has developed atrial fibrillation with rapid ventricular response and metoprolol has been started. Cardiology consultation requested. He also has urinary retention necessitating Zendejas catheter placement. Hemoglobin is slightly low at 9.2. Postoperative day #2 after open reduction internal fixation right femur fracture after he suffered a mechanical fall. Placement at [facility] or [facility] is pending Review of Systems 2 Review of Systems: Constitutionalno fever or chills ENTno blurred vision, no double vision, no epistaxis, no sore throat Respiratoryno cough, no wheezing, no shortness of breath Cardiache notices palpitations. No chest pain however. No syncope Adrian nausea, vomiting, diarrhea, melena, hematochezia GUurinary retention prompted placement of Zendejas catheter Musculoskeletal No peripheral edema Skinno bruising, no rashes, no pruritus Neurono isolated weakness, no paresthesia, no weakness Psychno depression, no anxiety Physical Exam 2 Physical Exam: General-alert and oriented x3, no fever, no chills HEENT-head atraumatic and normocephalic, pupils equal and reactive to light, extraocular muscles intact Neck-no lymphadenopathy or thyromegaly, trachea midline Chest-clear to auscultation. No rales, wheezing or rhonchi Cardiac-tachycardic irregular rhythm. Normal S1 and S2 Abdomen-normal bowel sounds, no hepatosplenomegaly Extremities-right hip surgical site is unremarkable. No edema. Both feet exhibit dependent rubor. Left foot is warm with good capillary refill. Neuro-cranial nerves II through XII intact, motor and sensory function within normal limits, strength symmetrical, no focal deficits Psych-normal affect, normal mood Results & Data Results & Data Vital Signs (Past 12 Hours) Vital Signs Temp Pulse Pulse Resp BP BP Pulse Ox 07/12/24 13:09 135 H 109/77 07/12/24 12:40 137 H 136/95 07/12/24 12:14 137 H 136/95 07/12/24 12:01 137 H 136/95 07/12/24 11:16 135 H 144/81 H 07/12/24 11:01 137 H 116/76 07/12/24 09:29 70 07/12/24 07:57 07/12/24 07:24 36.7 C 73 17 149/73 H 94 07/12/24 03:09 67 07/12/24 02:46 36.9 C 68 18 150/70 H 91 O2 Del Method O2 Flow Rate 07/12/24 13:09 07/12/24 12:40 07/12/24 12:14 07/12/24 12:01 07/12/24 11:16 07/12/24 11:01 07/12/24 09:29 07/12/24 07:57 Nasal Cannula 2 07/12/24 07:24 Nasal Cannula 2 07/12/24 03:09 07/12/24 02:46 Nasal Cannula 1 Laboratory Results 07/12/24 06:14 07/12/24 06:14 PG Care Time/CCT Total # of Minutes Spent Total Time Spent with Patient: Total time spent is greater than 50% in coordination of care (as documented) at patient's floor/unit and/or counseling patient: Coding Level of Care Code 60067 SUB INP/OBS CARE 3/50MIN Diagnoses Closed intertrochanteric fracture of right femur S72.141A Fall W19.XXXA Paroxysmal A-fib I48.0 Hypertension I10 Acute blood loss anemia D62 Urinary retention R33.9
--- NOTE | 2024-07-12 14:10 | Orthopedic Progress Note ---
Date of Service July 12, 2024 Assessment & Plan (1) Closed intertrochanteric fracture of right femur: Plan: 88-year-old gentleman with multiple medical comorbidities now postop day 2 from IM nailing of a right inner troches fracture. Orthopedically he is doing well. Pains pretty manageable. Seems to get along pretty well. He has had some tachycardia and medicine is managing. Plan: 1. DVT prophylaxis. We did recommend continued thigh-high teds, SCDs, and back on his Xarelto. I did recommend we stay at the 10 mg dose today and can go back to his regular dose tomorrow. 2. PT/OT. He can fully weight-bear as tolerated. 3. Pain control. Going okay with current pain regimen. 4. Wound care. Leave this dressing on for today and begin daily dressing changes tomorrow. Just needs a dry dressing. 5. Medical management as per the medicine service. 6. Disposition. He is orthopedically okay for discharge anytime medically stable. I will see him back 2 to 3 weeks out from his surgery date. Any orthopedic questions can be directly [phone]. (2) Ambulatory dysfunction: (3) Atrial fibrillation with rapid ventricular response: Admission and Anticipated Discharge Date Admission Date: July 09, 2024 Subjective 88-year-old gentleman postop day 2 from IM nailing of a right inner troches fracture. He is doing pretty well. He seems pretty comfortable today. Reports a little bit of pain but manageable. No new complaints. No chest pain or shortness of breath. Physical Exam Physical Exam: Physical examination reveals a pleasant elderly male. He is lying in bed talking to some family/friends. Examination of the right leg reveals the dressing be clean dry and intact. Thigh is soft and supple. He can dorsiflex and plantarflex his foot appropriately. There is no significant drainage. Results & Data Vital Signs (Past 12 Hours) Vital Signs Temp Pulse Pulse Resp BP BP Pulse Ox 07/12/24 13:09 135 H 109/77 07/12/24 12:40 137 H 136/95 07/12/24 12:14 137 H 136/95 07/12/24 12:01 137 H 136/95 07/12/24 11:16 135 H 144/81 H 07/12/24 11:01 137 H 116/76 07/12/24 09:29 70 07/12/24 07:57 07/12/24 07:24 36.7 C 73 17 149/73 H 94 07/12/24 03:09 67 07/12/24 02:46 36.9 C 68 18 150/70 H 91 O2 Del Method O2 Flow Rate 07/12/24 13:09 07/12/24 12:40 07/12/24 12:14 07/12/24 12:01 07/12/24 11:16 07/12/24 11:01 07/12/24 09:29 07/12/24 07:57 Nasal Cannula 2 07/12/24 07:24 Nasal Cannula 2 07/12/24 03:09 07/12/24 02:46 Nasal Cannula 1 Laboratory Results Hemoglobin is 9.2. Hematocrit 27.8. Electrolytes are stable.
[2024-07-12] MEDS ORDERED: STAT IV Infusion **Titration per Protocol STA (14:59)
[2024-07-12] MEDS ORDERED: dilTIAZem HCl 5 MG/ML 5 ML VIAL IV STA (14:59)
--- NOTE | 2024-07-12 14:59 | Cardiology Progress Note ---
Date of Service July 12, 2024 Assessment & Plan (1) Fall: (2) Paroxysmal A-fib: (3) CAD in [place] artery: (4) Mitral regurgitation: (5) S/P aortic valve replacement with bioprosthetic valve: Plan 1. Fall: This appears to be mechanical. He did not report any symptoms of dizziness or palpitation leading up to the event. No reported loss of consciousness. 2. Coronary artery disease: Status post remote surgical revascularization in 2009. No current symptoms suggestive of coronary insufficiency or angina. However, he is quite sedentary. He has been maintained on secondary prevention with rivaroxaban and high-dose rosuvastatin. 3. Valvular heart disease: He has a normally functioning bioprosthetic aortic valve and moderate mitral regurgitation. Recent evaluation demonstrated preserved LV systolic function. No current symptoms to suggest worsening valvul ar heart disease. 4. Atrial fibrillation: He has a history of paroxysmal atrial fibrillation. Well-documented during hospitalizations and illnesses. Not surprising that he developed atrial fibrillation in the postoperative period. I suspect he will transition back to sinus rhythm on his own. Not currently on rate control medication as an outpatient due to infrequent episodes. I think will provide some rate control as he is likely to be in the hospital for another few days awaiting transfer to rehab. Rivaroxaban was reinitiated yesterday so he has been on adequate anticoagulation since he started in atrial fibrillation. Admission and Anticipated Discharge Date Admission Date: July 09, 2024 Subjective This afternoon the patient claimed to be feeling well. He was up in a chair, but did little ambulation since his surgery. He did report some dizziness this morning which was similar to past episodes. This appeared to resolve without specific intervention. He has not been aware of any palpitations. No chest pain or breathing difficulty. Minimal discomfort at the operative site. Review of Systems Review of Systems: Per HPI. Physical Exam Physical Exam: The patient is alert and oriented. Mood and affect appeared normal. He answered all questions appropriately. HEENT: Pupils are equal and reactive to light and accommodation. Extraocular movements are intact. The sclerae are anicteric. Neuro: Cranial nerves intact Lungs: Clear to auscultation bilaterally. He has good air movement without use of accessory muscles. No rales wheezes or rhonchi. Cardiac: Heart demonstrates an irregular rhythm and rapid rate. Crescendo systolic murmur Pulses: The patient has palpable radial pulses bilaterally that are equal in intensity Extremities: There was no evidence of hypoperfusion. There is no cyanosis or clubbing. Skin: I did not appreciate any rashes on examination today. Results & Data Vital Signs (Past 12 Hours) Vital Signs Temp Pulse Pulse Resp BP BP Pulse Ox 07/12/24 13:09 135 H 109/77 07/12/24 12:40 137 H 136/95 07/12/24 12:14 137 H 136/95 07/12/24 12:01 137 H 136/95 07/12/24 11:16 135 H 144/81 H 07/12/24 11:01 137 H 116/76 07/12/24 09:29 70 07/12/24 07:57 07/12/24 07:24 36.7 C 73 17 149/73 H 94 07/12/24 03:09 67 O2 Del Method O2 Flow Rate 07/12/24 13:09 07/12/24 12:40 07/12/24 12:14 07/12/24 12:01 07/12/24 11:16 07/12/24 11:01 07/12/24 09:29 07/12/24 07:57 Nasal Cannula 2 07/12/24 07:24 Nasal Cannula 2 07/12/24 03:09 Laboratory Results Abnormal Lab Results 07/12/24 06:14 WBC 8.86 RBC 3.19 L Hgb 9.2 L Hct 27.8 L MCV 87.1 MCH 28.8 MCHC 33.1 RDW Std Deviation 43.2 RDW Coeff of Nay 13.6 Plt Count 117 L MPV 9.9 Immature Gran % (Auto) 0.3 Neut % (Auto) 73.7 Lymph % (Auto) 9.5 [place] % (Auto) 11.5 Eos % (Auto) 4.7 Baso % (Auto) 0.3 Neut # (Auto) 6.52 H Lymph # (Auto) 0.84 L [place] # (Auto) 1.02 H Eos # (Auto) 0.42 Baso # (Auto) 0.03 Immature Gran # (Auto) 0.03 Sodium 139 Potassium 4.0 Chloride 107 Carbon Dioxide 27 Anion Gap 5 BUN 20 Creatinine 0.67 Est Cr Clr Drug Dosing 81.2 eGFR 89.81 BUN/Creatinine Ratio 29.9 H Glucose 100 H Calcium 8.6 PG Care Time/CCT Total # of Minutes Spent Total Time Spent with Patient: Total time spent is greater than 50% in coordination of care (as documented) at patient's floor/unit and/or counseling patient: Coding Level of Care Code 10817 SUB INP/OBS CARE 2/35MIN Diagnoses Fall W19.XXXA Paroxysmal A-fib I48.0 CAD in [place] artery I25.10 Mitral regurgitation I34.0 S/P aortic valve replacement with bioprosthetic valve Z95.3
[2024-07-12 15:12] LABS: Appearance Urine Cloudy (Clear); Bacteria Urine Automated None Seen (None Seen); Bilirubin Urine Negative (Negative); Blood Urine 3+ (Negative); Cast Urine Automated 0-2 /lpf (0-2); Color Urine Red; Epithelial Cell Urine Auto 0-2 /hpf (0-2); Glucose Urine UA Negative (Negative); Ketones Urine Negative (Negative); Leukocyte Esterase Urine 1+ (Negative); Nitrite Urine Negative (Negative); Protein Urine 2+ (Negative); RBC Urine Automated >20 /hpf (0-2); Specific Gravity Urine 1.018 (1.000-1.030); Urobilinogen Urine Negative (Negative); WBC Urine Automated 0-5 /hpf (0-5); pH Urine 6.5 (4.5-7.5)
--- NOTE | 2024-07-12 16:55 | Electrocardiogram Report ---
Test Reason : Blood Pressure : */* mmHG Vent. Rate : 119 BPM Atrial Rate : 119 BPM P-R Int : * ms QRS Dur : 100 ms QT Int : 330 ms P-R-T Axes : * -58 91 degrees QTcB Int : 464 ms Atrial fibrillation with rapid ventricular response Left anterior fascicular block Abnormal ECG When compared with ECG of 12-Jul-2024 10:42, (unconfirmed) ST no longer depressed in Anterior leads Confirmed by Kristian Ortiz ([id number]) on 07/12/2024 4:54:43 PM Referred By: REFERRED SELF Confirmed By: Kristian Ortiz
[2024-07-12] MEDS: dilTIAZem HCL 125 MG in DEXTROSE 5% 100 ML IV SCH (17:33)
[2024-07-12] MEDS: dilTIAZem HCl 5 MG/ML 5 ML VIAL IV STA (17:37)
[2024-07-12] MEDS ORDERED: Nursing to Pharmacy Communication SCH (18:15)
[2024-07-13 06:11] LABS: Basophils # (auto) 0.03 K/uL (0.00-0.20); Basophils % (auto) 0.3 %; Eosinophils # (auto) 0.19 K/uL (0.00-0.50); Eosinophils % (auto) 1.8 %; Hematocrit (blood only) 28.2 % (42.0-52.0); Hemoglobin 9.3 g/dl (14.0-18.0); Immature Granulocytes # (auto) 0.04 K/uL (0.01-0.20); Immature Granulocytes % (auto) 0.4 %; Lymphocytes % (auto) 7.7 %; Mean Corpuscular Hemoglobin 28.5 pg (25.0-34.0); Mean Corpuscular Volume 86.5 fL (80.0-100.0); Mean Platelet Volume 9.9 fL (9.4-12.4); Monocytes # (auto) 1.13 K/uL (0.11-0.59); Monocytes % (auto) 10.9 %; Neutrophils # (auto) 8.19 K/uL (1.40-6.50); Neutrophils % (auto) 78.9 %; Platelet Count 155 K/uL (130-400); RDW Coefficient of Variation 13.7 % (11.5-14.5); RDW Standard Deviation 42.8 fL (36.4-46.3); Red Blood Count 3.26 M/uL (4.70-6.10); White Blood Count 10.38 K/ul (4.8-10.8)
[2024-07-13 06:27] LABS: BUN Creatinine Ratio 41.5 (10-20); Calcium 8.8 mg/dl (8.6-10.3); Creatinine Clr Calc Pharmacy 83.7 ml/min
--- NOTE | 2024-07-13 12:36 | Hospitalist Progress Note ---
Date of Service July 13, 2024 Assessment & Plan (1) Closed intertrochanteric fracture of right femur: Plan: Open reduction internal fixation with nailing completed on July 10. Postoperative day #3. This appears to be a pathologic fracture due to underlying osteoporosis. The patient suffered a mechanical fall at home without syncope. Orthopedic consultation and management appreciated (2) Fall: Plan: Mechanical. Resulting in right hip fracture. Continue postoperative OT and PT (3) Paroxysmal A-fib: Plan: Unfortunately he developed atrial fibrillation with rapid ventricular rate on July 12 but he appears to have converted back to normal sinus rhythm. The diltiazem drip has been discontinued. He remains on metoprolol. Cardiology consultation appreciated. Telemetry. Xarelto has been restarted. (4) Hypertension: Plan: Stable. He is now on metoprolol. (5) Acute blood loss anemia: Plan: Postoperative and mild. Hemoglobin 9.3 today, July 13. No transfusion needed at this time. Will follow (6) Urinary retention: Plan: Necessitated placement of Zendejas catheter on July 12. Zendejas catheter removal and trial of voiding at a later date Plan SNF placement pending at either [facility] or [facility] within the next day or 2 when arrangements are finalized. Admission and Anticipated Discharge Date Admission Date: July 09, 2024 Subjective Alert and oriented. No distress. He appears to have converted back to the normal sinus rhythm. EKG ordered and pending. Diltiazem drip has been discontinued. He remains on metoprolol twice daily. Hemoglobin stable at 9.3. Xarelto dosage increased from 10 to 20 mg daily. Postoperative day #3 after open reduction internal fixation right femur fracture which appears to be pathologic due to underlying osteoporosis. Placement at [facility] or [facility] is pending Review of Systems 2 Review of Systems: Constitutionalno fever or chills ENTno blurred vision, no double vision, no epistaxis, no sore throat Respiratoryno cough, no wheezing, no shortness of breath Cardiacno chest pain. No palpitations. No syncope Adrian nausea, vomiting, diarrhea, melena, hematochezia GUurinary retention prompted placement of Zendejas catheter Musculoskeletal No peripheral edema Skinno bruising, no rashes, no pruritus Neurono isolated weakness, no paresthesia, no weakness Psychno depression, no anxiety Physical Exam 2 Physical Exam: General-alert and oriented x3, no fever, no chills HEENT-head atraumatic and normocephalic, pupils equal and reactive to light, extraocular muscles intact Neck-no lymphadenopathy or thyromegaly, trachea midline Chest-clear to auscultation. No rales, wheezing or rhonchi Cardiac-regular rhythm. Regular rate. Normal S1 and S2 Abdomen-normal bowel sounds, no hepatosplenomegaly Extremities-right hip surgical site is unremarkable. No edema. Both feet exhibit dependent rubor when in a sitting position. Left foot is warm with good capillary refill. Neuro-cranial nerves II through XII intact, motor and sensory function within normal limits, strength symmetrical, no focal deficits Psych-normal affect, normal mood Results & Data Results & Data Vital Signs (Past 12 Hours) Vital Signs Temp Pulse Resp BP Pulse Ox O2 Del Method 07/13/24 11:28 36.7 C 54 L 18 98/59 L 94 Room Air 07/13/24 08:06 36.7 C 65 18 126/63 93 Room Air 07/13/24 04:27 36.7 C 61 18 119/52 L 92 Room Air Laboratory Results 07/13/24 05:28 07/13/24 05:28 PG Care Time/CCT Total # of Minutes Spent Total Time Spent with Patient: Total time spent is greater than 50% in coordination of care (as documented) at patient's floor/unit and/or counseling patient: Coding Level of Care Code 54847 SUB INP/OBS CARE 3/50MIN Diagnoses Closed intertrochanteric fracture of right femur S72.141A Fall W19.XXXA Paroxysmal A-fib I48.0 Hypertension I10 Acute blood loss anemia D62 Urinary retention R33.9
--- NOTE | 2024-07-13 13:08 | Cardiology Progress Note ---
Date of Service July 13, 2024 Assessment & Plan (1) Fall: (2) CAD in [place] artery: (3) S/P aortic valve replacement with bioprosthetic valve: (4) Paroxysmal A-fib: Plan 1. Fall: This appears to be mechanical. He did not report any symptoms of dizziness or palpitation leading up to the event. No reported loss of consciousness. His blood pressure however is on the low side as is his pulse, and he did have a postconversion pause. At home he was on no medications to slow his heart rate, here he is on metoprolol tartrate 25 mg twice a day. I would be inclined not to continue beta-blockade given his history. He should stay on anticoagulation. 2. Coronary artery disease: Status post remote surgical revascularization in 2009. No current symptoms suggestive of coronary insufficiency or angina. However, he is quite sedentary. He has been maintained on secondary prevention with high-dose rosuvastatin. 3. Valvular heart disease: He has a normally functioning bioprosthetic aortic valve and moderate mitral regurgitation. Recent evaluation demonstrated pr eserved LV systolic function. No current symptoms to suggest worsening valvular heart disease. 4. Atrial fibrillation: He has a history of paroxysmal atrial fibrillation. Well-documented during hospitalizations and illnesses. Not surprising that he developed atrial fibrillation in the postoperative period. I am not sure what his burden is, he cannot give me much in the way of symptoms. I think it is low although that could be confirmed by 30-day monitoring as an outpatient but I have not arranged that. Given his bradycardia, low blood pressure and his recent fall I would be inclined not to send him home on rate controlling medications such as beta-blockade or diltiazem, we could consider low-dose digoxin but I do not feel strongly about it. Outpatient monitoring to determine the necessity of rate control might be a safer option. Admission and Anticipated Discharge Date Admission Date: July 09, 2024 Subjective He is feeling well today, he has no sensation of palpitations and denies lightheadedness or dizziness. No significant insertional discomfort at the moment. Physical Exam Physical Exam: Constitutional: Alert, cooperative and in no distress. Pulmonary: Clear to auscultation bilaterally. Cardiac: Regular rhythm with no murmur, gallop or rub. Abdomen: Soft, nontender with normal bowel sounds. Extremities: No edema. Skin: No rash, ecchymoses or petechiae. Results & Data Vital Signs (Past 12 Hours) Vital Signs Temp Pulse Resp BP Pulse Ox O2 Del Method 07/13/24 11:28 36.7 C 54 L 18 98/59 L 94 Room Air 07/13/24 08:06 36.7 C 65 18 126/63 93 Room Air 07/13/24 04:27 36.7 C 61 18 119/52 L 92 Room Air Laboratory Results CBC 07/13/24 Range/Units 05:28 WBC 10.38 (4.8-10.8) K/ul RBC 3.26 L (4.70-6.10) M/uL Hgb 9.3 L (14.0-18.0) g/dl Hct 28.2 L (42.0-52.0) % Plt Count 155 (130-400) K/uL Neut # (Auto) 8.19 H (1.40-6.50) K/uL Lymph # (Auto) 0.80 L (1.20-3.40) K/uL [place] # (Auto) 1.13 H (0.11-0.59) K/uL Eos # (Auto) 0.19 (0.00-0.50) K/uL Baso # (Auto) 0.03 (0.00-0.20) K/uL Comprehensive Metabolic Panel 07/13/24 Range/Units 05:28 Sodium 138 (136-145) mmol/L Potassium 4.0 (3.5-5.1) mmol/L Chloride 106 (98-107) mmol/L Carbon Dioxide 26 (21-32) mmol/L BUN 27 H (6-23) mg/dl Creatinine 0.65 (0.6-1.4) mg/dl Glucose 115 H (70-99(Fasting)) mg/dl Calcium 8.8 (8.6-10.3) mg/dl Intake and Output 07/12/24 07/13/24 07/13/24 22:59 06:59 14:59 Intake Total 119.667 / 124.667 5 / 124.667 0 / 0 Output Total 850 / 1303 202 / 1303 Balance -730.333 / -1178.333 -197 / -1178.333 0 / 0 Intake: IV 19.667 / 24.667 5 / 24.667 0 / 0 dilTIAZem HCL 125 mg In 19.667 / 24.667 5 / 24.667 0 / 0 Dextrose 5% 100 ml @ 0 MG/HR IV .Q0M JN Rx#:[id number] Oral 100 / 100 Output: Urine Amount (Catheter) 850 / 1050 200 / 1050 Zendejas/Indwelling 850 / 1050 200 / 1050 # Bowel Movements 2 / 3 Other: Other Intake Source sips Diagnostic Findings Telemetry: Atrial fibrillation with a somewhat rapid heart rate until midnight last night when he converted to sinus rhythm with a pause of about 3.5 seconds. PG Care Time/CCT Total # of Minutes Spent Total Time Spent with Patient: Total time spent is greater than 50% in coordination of care (as documented) at patient's floor/unit and/or counseling patient: Coding Level of Care Code 32991 SUB INP/OBS CARE 3/50MIN Diagnoses Fall W19.XXXA CAD in [place] artery I25.10 S/P aortic valve replacement with bioprosthetic valve Z95.3 Paroxysmal A-fib I48.0
[2024-07-13] MEDS: METOPROLOL TARTRATE 25 MG TAB PO SCH (20:39)
--- NOTE | 2024-07-14 08:06 | Orthopedic Progress Note ---
Date of Service July 14, 2024 Assessment & Plan (1) Closed intertrochanteric fracture of right femur: Plan: 88-year-old gentleman now postop day 4 from IM nailing of a right inotrope fracture. Orthopedically is doing well. Pains controlled. Is neurologically intact. Plan: 1. DVT prophylaxis including Alexsandra clay, SCDs, back on his Xarelto at regular dose. 2. PT/OT. Can fully weight-bear as tolerated. 3. Medical management as per the medicine service. 4. Disposition. He is okay for discharge anytime medically stable. I need to see him back 2 to 3 weeks out from surgery date. Any orthopedic questions can be directly [phone]. Admission and Anticipated Discharge Date Admission Date: July 09, 2024 Subjective 88-year-old gentleman now postop day 4 from IM nailing of right inner troches fracture. He is doing pretty well. Looks little bit better each day. Pains controlled. Denies much in the way of pain. Physical Exam Physical Exam: Physical exam shows a pleasant elderly male. Is lying bed looks pretty comfortable this morning. Examination of the right lower leg reveals leg to be well aligned. Dressings clean dry and intact. He can dorsiflex and plantarflex his foot appropriately. He is neurologically intact. Results & Data Vital Signs (Past 12 Hours) Vital Signs Temp Pulse Pulse Resp BP BP Pulse Ox 07/14/24 07:44 36.7 C 68 20 124/67 93 07/14/24 02:59 36.4 C L 63 16 125/54 L 92 07/13/24 22:43 37.0 C 59 L 16 124/67 91 07/13/24 22:15 55 L 07/13/24 20:38 36.5 C 61 18 125/64 93 O2 Del Method 07/14/24 07:44 Room Air 07/14/24 02:59 Room Air 07/13/24 22:43 Room Air 07/13/24 22:15 07/13/24 20:38 Room Air
[2024-07-14] MEDS: RIVAROXABAN 20 MG TAB PO SCH (08:42)
[2024-07-14 09:50] LABS: Basophils # (auto) 0.03 K/uL (0.00-0.20); Basophils % (auto) 0.3 %; Eosinophils # (auto) 0.23 K/uL (0.00-0.50); Eosinophils % (auto) 2.7 %; Hematocrit (blood only) 32.1 % (42.0-52.0); Hemoglobin 10.4 g/dl (14.0-18.0); Immature Granulocytes # (auto) 0.03 K/uL (0.01-0.20); Immature Granulocytes % (auto) 0.3 %; Lymphocytes # (auto) 0.84 K/uL (1.20-3.40); Lymphocytes % (auto) 9.7 %; Mean Corpuscular Hemoglobin 28.3 pg (25.0-34.0); Mean Corpuscular Hgb Conc 32.4 g/dL (32.0-36.0); Mean Corpuscular Volume 87.5 fL (80.0-100.0); Mean Platelet Volume 9.6 fL (9.4-12.4); Monocytes # (auto) 0.72 K/uL (0.11-0.59); Monocytes % (auto) 8.3 %; Neutrophils % (auto) 78.7 %; Platelet Count 162 K/uL (130-400); RDW Coefficient of Variation 13.9 % (11.5-14.5); RDW Standard Deviation 44.1 fL (36.4-46.3); Red Blood Count 3.67 M/uL (4.70-6.10); White Blood Count 8.65 K/ul (4.8-10.8)
[2024-07-14 10:06] LABS: BUN Creatinine Ratio 32.9 (10-20); Calcium 8.8 mg/dl (8.6-10.3); Creatinine Clr Calc Pharmacy 74.5 ml/min; Potassium 3.7 mmol/L (3.5-5.1)
--- NOTE | 2024-07-14 13:17 | Electrocardiogram Report ---
Test Reason : Blood Pressure : */* mmHG Vent. Rate : 138 BPM Atrial Rate : 110 BPM P-R Int : * ms QRS Dur : 96 ms QT Int : 316 ms P-R-T Axes : * -56 110 degrees QTcB Int : 478 ms Atrial fibrillation with rapid ventricular response Left anterior fascicular block Abnormal ECG When compared with ECG of 08-Jul-2024 23:23, Atrial fibrillation has replaced Sinus rhythm Vent. rate has increased by [address] now depressed in Lateral leads T wave inversion more evident in Lateral leads Confirmed by Woodrow Guzman ([id number]) on 07/14/2024 1:17:37 PM Referred By: REFERRED SELF Confirmed By: Woodrow Guzman
--- NOTE | 2024-07-14 13:18 | Hospitalist Progress Note ---
Date of Service July 14, 2024 Assessment & Plan (1) Closed intertrochanteric fracture of right femur: Plan: Open reduction internal fixation with nailing completed on July 10. Postoperative day #4. This appears to be a pathologic fracture due to underlying osteoporosis. The patient suffered a mechanical fall at home without syncope. Orthopedic consultation and management appreciated (2) Fall: Plan: Mechanical. Resulting in right hip fracture. Continue postoperative OT and PT (3) Paroxysmal A-fib: Plan: Unfortunately he developed atrial fibrillation with rapid ventricular rate on July 12 but he converted back to normal sinus rhythm. The diltiazem drip has been discontinued. He remains on metoprolol. Cardiology consultation appreciated. Telemetry. Xarelto has been restarted. (4) Hypertension: Plan: Stable. He is now on metoprolol. (5) Acute blood loss anemia: Plan: Postoperative and mild. Hemoglobin 10.4 today, July 14. No transfusion needed at this time. Will follow (6) Urinary retention: Plan: Necessitated placement of Zendejas catheter on July 12. Zendejas catheter removal and trial of voiding at a later date Plan SNF placement pending at [facility]. He is medically stable for discharge Admission and Anticipated Discharge Date Admission Date: July 09, 2024 Subjective Alert and oriented. No new problems. He remains in normal sinus rhythm. Heart rate and blood pressure are acceptable now. Postoperative day #4 after open reduction internal fixation of right hip fracture. I spoke to his granddaughter, Mariposa, by phone and updated her. Arrangements are being finalized for eventual discharge to [facility]. He is medically stable for discharge Review of Systems 2 Review of Systems: Constitutionalno fever or chills ENTno blurred vision, no double vision, no epistaxis, no sore throat Respiratoryno cough, no wheezing, no shortness of breath Cardiacno chest pain. No palpitations. No syncope Adrian nausea, vomiting, diarrhea, melena, hematochezia GUurinary retention prompted placement of Zendejas catheter which remains in place Musculoskeletal No peripheral edema Skinno bruising, no rashes, no pruritus Neurono isolated weakness, no paresthesia, no weakness Psychno depression, no anxiety Physical Exam 2 Physical Exam: General-alert and oriented x3, no fever, no chills HEENT-head atraumatic and normocephalic, pupils equal and reactive to light, extraocular muscles intact Neck-no lymphadenopathy or thyromegaly, trachea midline Chest-clear to auscultation. No rales, wheezing or rhonchi Cardiac-regular rhythm. Regular rate. Normal S1 and S2 Abdomen-normal bowel sounds, no hepatosplenomegaly Extremities-right hip surgical site is unremarkable. No edema. Both feet exhibit dependent rubor when in a sitting position. Left foot is warm with good capillary refill. Neuro-cranial nerves II through XII intact, motor and sensory function within normal limits, strength symmetrical, no focal deficits Psych-normal affect, normal mood Results & Data Results & Data Vital Signs (Past 12 Hours) Vital Signs Temp Pulse Pulse Resp BP Pulse Ox O2 Del Method 07/14/24 10:53 36.5 C 67 16 118/65 94 Room Air 07/14/24 08:35 Room Air 07/14/24 07:44 36.7 C 68 20 124/67 93 Room Air 07/14/24 07:00 64 07/14/24 02:59 36.4 C L 63 16 125/54 L 92 Room Air Laboratory Results 07/14/24 09:35 07/14/24 09:35 PG Care Time/CCT Total # of Minutes Spent Total Time Spent with Patient: Total time spent is greater than 50% in coordination of care (as documented) at patient's floor/unit and/or counseling patient: Coding Level of Care Code 52824 SUB INP/OBS CARE 2/35MIN Diagnoses Closed intertrochanteric fracture of right femur S72.141A Fall W19.XXXA Paroxysmal A-fib I48.0 Hypertension I10 Acute blood loss anemia D62 Urinary retention R33.9
[2024-07-15 07:13] LABS: Basophils # (auto) 0.04 K/uL (0.00-0.20); Basophils % (auto) 0.5 %; Eosinophils # (auto) 0.34 K/uL (0.00-0.50); Eosinophils % (auto) 4.5 %; Hematocrit (blood only) 28.4 % (42.0-52.0); Hemoglobin 9.2 g/dl (14.0-18.0); Immature Granulocytes # (auto) 0.03 K/uL (0.01-0.20); Immature Granulocytes % (auto) 0.4 %; Lymphocytes # (auto) 1.29 K/uL (1.20-3.40); Mean Corpuscular Hemoglobin 28.1 pg (25.0-34.0); Mean Corpuscular Hgb Conc 32.4 g/dL (32.0-36.0); Mean Corpuscular Volume 86.9 fL (80.0-100.0); Mean Platelet Volume 9.5 fL (9.4-12.4); Monocytes # (auto) 0.96 K/uL (0.11-0.59); Monocytes % (auto) 12.7 %; Neutrophils # (auto) 4.91 K/uL (1.40-6.50); Neutrophils % (auto) 64.9 %; Platelet Count 151 K/uL (130-400); RDW Coefficient of Variation 13.8 % (11.5-14.5); RDW Standard Deviation 43.8 fL (36.4-46.3); Red Blood Count 3.27 M/uL (4.70-6.10); White Blood Count 7.57 K/ul (4.8-10.8)
--- NOTE | 2024-07-15 07:21 | Electrocardiogram Report ---
Test Reason : Blood Pressure : */* mmHG Vent. Rate : 57 BPM Atrial Rate : 57 BPM P-R Int : 190 ms QRS Dur : 110 ms QT Int : 438 ms P-R-T Axes : 87 -47 -20 degrees QTcB Int : 426 ms Sinus bradycardia with marked sinus arrhythmia Pulmonary disease pattern Left anterior fascicular block Nonspecific ST abnormality Abnormal ECG When compared with ECG of 12-Jul-2024 14:59, Atrial fibrillation is no longer Present Confirmed by Woodrow Guzman ([id number]) on 07/15/2024 7:20:48 AM Referred By: REFERRED SELF Confirmed By: Woodrow Guzman
[2024-07-15 07:38] LABS: BUN Creatinine Ratio 33.8 (10-20); Calcium 8.5 mg/dl (8.6-10.3); Creatinine Clr Calc Pharmacy 83.7 ml/min
[2024-07-15 07:50] LABS: Potassium 3.8 mmol/L (3.5-5.1)
--- NOTE | 2024-07-15 11:15 | Hospitalist Progress Note ---
Date of Service July 15, 2024 Assessment & Plan (1) Closed intertrochanteric fracture of right femur: Plan: Open reduction internal fixation with nailing completed on July 10. Postoperative day #5. This appears to be a pathologic fracture due to underlying osteoporosis. The patient suffered a mechanical fall at home without syncope. Orthopedic consultation and management appreciated (2) Fall: Plan: Mechanical. Resulting in right hip fracture. Continue postoperative OT and PT (3) Paroxysmal A-fib: Plan: Unfortunately he developed atrial fibrillation with rapid ventricular rate on July 12 but he converted back to normal sinus rhythm. The diltiazem drip has been discontinued. He remains on metoprolol. Cardiology consultation appreciated. Telemetry. Xarelto has been restarted. (4) Hypertension: Plan: Stable. He is now on metoprolol. (5) Acute blood loss anemia: Plan: Postoperative and mild. Hemoglobin 9.2 today, July 15. No transfusion needed at this time. Will follow (6) Urinary retention: Plan: Necessitated placement of Zendejas catheter on July 12. Zendejas catheter removal and trial of voiding at a later date Plan SNF placement pending at [facility]. He is medically stable for discharge Admission and Anticipated Discharge Date Admission Date: July 09, 2024 Subjective Alert and oriented. No distress. Postoperative day #5 after open reduction internal fixation right hip fracture. He has paroxysmal atrial fibrillation with rapid ventricular rate has converted back to normal sinus rhythm. Cardiology consultation appreciated. He is now on metoprolol. Zendejas catheter was placed on July 12 due to urinary retention and remains in place. Hemoglobin stable at 9.2. SNF placement at [facility] is pending Review of Systems 2 Review of Systems: Constitutionalno fever or chills ENTno blurred vision, no double vision, no epistaxis, no sore throat Respiratoryno cough, no wheezing, no shortness of breath Cardiacno chest pain. No palpitations. No syncope Adrian nausea, vomiting, diarrhea, melena, hematochezia GUurinary retention prompted placement of Zendejas catheter which remains in place Musculoskeletal No peripheral edema Skinno bruising, no rashes, no pruritus Neurono isolated weakness, no paresthesia, no weakness Psychno depression, no anxiety Physical Exam 2 Physical Exam: General-alert and oriented x3, no fever, no chills HEENT-head atraumatic and normocephalic, pupils equal and reactive to light, extraocular muscles intact Neck-no lymphadenopathy or thyromegaly, trachea midline Chest-clear to auscultation. No rales, wheezing or rhonchi Cardiac-regular rhythm. Regular rate. Normal S1 and S2 Abdomen-normal bowel sounds, no hepatosplenomegaly Extremities-right hip surgical site is unremarkable. No edema. Both feet exhibit dependent rubor when in a sitting position. Left foot is warm with good capillary refill. Neuro-cranial nerves II through XII intact, motor and sensory function within normal limits, strength symmetrical, no focal deficits Psych-normal affect, normal mood Results & Data Results & Data Vital Signs (Past 12 Hours) Vital Signs Temp Pulse Resp BP Pulse Ox O2 Del Method 07/15/24 07:46 36.8 C 57 L 20 119/65 95 Room Air 07/15/24 02:47 36.7 C 61 18 147/74 H 92 Room Air Laboratory Results 07/15/24 06:32 07/15/24 06:32 PG Care Time/CCT Total # of Minutes Spent Total Time Spent with Patient: Total time spent is greater than 50% in coordination of care (as documented) at patient's floor/unit and/or counseling patient: Coding Level of Care Code 38991 SUB INP/OBS CARE 2/35MIN Diagnoses Closed intertrochanteric fracture of right femur S72.141A Fall W19.XXXA Paroxysmal A-fib I48.0 Hypertension I10 Acute blood loss anemia D62 Urinary retention R33.9
[2024-07-16 07:51] LABS: Basophils # (auto) 0.04 K/uL (0.00-0.20); Basophils % (auto) 0.5 %; Eosinophils % (auto) 4.1 %; Hematocrit (blood only) 29.5 % (42.0-52.0); Hemoglobin 9.4 g/dl (14.0-18.0); Immature Granulocytes # (auto) 0.03 K/uL (0.01-0.20); Immature Granulocytes % (auto) 0.4 %; Lymphocytes # (auto) 1.37 K/uL (1.20-3.40); Lymphocytes % (auto) 18.6 %; Mean Corpuscular Hgb Conc 31.9 g/dL (32.0-36.0); Mean Corpuscular Volume 87.8 fL (80.0-100.0); Monocytes # (auto) 0.96 K/uL (0.11-0.59); Neutrophils # (auto) 4.67 K/uL (1.40-6.50); Neutrophils % (auto) 63.4 %; Platelet Count 177 K/uL (130-400); RDW Standard Deviation 44.4 fL (36.4-46.3); Red Blood Count 3.36 M/uL (4.70-6.10); White Blood Count 7.37 K/ul (4.8-10.8)
[2024-07-16 08:03] LABS: BUN Creatinine Ratio 31.3 (10-20); Calcium 8.9 mg/dl (8.6-10.3); Creatinine Clr Calc Pharmacy 81.2 ml/min
--- NOTE | 2024-07-16 15:14 | Hospitalist Progress Note ---
Date of Service July 16, 2024 Assessment & Plan (1) Closed intertrochanteric fracture of right femur: Plan: Open reduction internal fixation with nailing completed on July 10. Postoperative day #6. This appears to be a pathologic fracture due to underlying osteoporosis. The patient suffered a mechanical fall at home without syncope. Orthopedic consultation and management appreciated (2) Fall: Plan: Mechanical. Resulting in right hip fracture. Continue postoperative OT and PT (3) Paroxysmal A-fib: Plan: Unfortunately he developed atrial fibrillation with rapid ventricular rate on July 12 but he converted back to normal sinus rhythm. The diltiazem drip has been discontinued. He remains on metoprolol. Cardiology consultation appreciated. Telemetry. Xarelto has been restarted. (4) Hypertension: Plan: Stable. He is now on metoprolol. (5) Acute blood loss anemia: Plan: Postoperative and mild. Hemoglobin 9.4 today, July 16. No transfusion needed at this time. Will follow (6) Urinary retention: Plan: Necessitated placement of Zendejas catheter on July 12. Zendejas catheter removal and trial of voiding today, July 16. Plan SNF placement pending at [facility]. He is medically stable for discharge Admission and Anticipated Discharge Date Admission Date: July 09, 2024 Subjective Alert and oriented. No new problems. Will remove Zendejas catheter today and attempt trial of voiding. The Zendejas catheter had been placed postoperatively due to acute urinary retention. Review of Systems 2 Review of Systems: Constitutionalno fever or chills ENTno blurred vision, no double vision, no epistaxis, no sore throat Respiratoryno cough, no wheezing, no shortness of breath Cardiacno chest pain. No palpitations. No syncope Adrian nausea, vomiting, diarrhea, melena, hematochezia GUurinary retention prompted placement of Zendejas catheter which currently is in place Musculoskeletal No peripheral edema Skinno bruising, no rashes, no pruritus Neurono isolated weakness, no paresthesia, no weakness Psychno depression, no anxiety Physical Exam 2 Physical Exam: General-alert and oriented x3, no fever, no chills HEENT-head atraumatic and normocephalic, pupils equal and reactive to light, extraocular muscles intact Neck-no lymphadenopathy or thyromegaly, trachea midline Chest-clear to auscultation. No rales, wheezing or rhonchi Cardiac-regular rhythm. Regular rate. Normal S1 and S2 Abdomen-normal bowel sounds, no hepatosplenomegaly Extremities-right hip surgical site is unremarkable. No edema. Both feet exhibit dependent rubor when in a sitting position. Left foot is warm with good capillary refill. Neuro-cranial nerves II through XII intact, motor and sensory function within normal limits, strength symmetrical, no focal deficits Psych-normal affect, normal mood Results & Data Results & Data Vital Signs (Past 12 Hours) Vital Signs Temp Pulse Resp BP Pulse Ox O2 Del Method 07/16/24 10:44 37.1 C 58 L 18 122/85 96 Room Air 07/16/24 07:22 37 C 57 L 17 143/79 H 96 Room Air Laboratory Results 07/16/24 06:13 07/16/24 06:13 PG Care Time/CCT Total # of Minutes Spent Total Time Spent with Patient: Total time spent is greater than 50% in coordination of care (as documented) at patient's floor/unit and/or counseling patient: Coding Level of Care Code 59500 SUB INP/OBS CARE 2/35MIN Diagnoses Closed intertrochanteric fracture of right femur S72.141A Fall W19.XXXA Paroxysmal A-fib I48.0 Hypertension I10 Acute blood loss anemia D62 Urinary retention R33.9
[2024-07-17 08:01] LABS: Basophils # (auto) 0.03 K/uL (0.00-0.20); Basophils % (auto) 0.4 %; Eosinophils # (auto) 0.32 K/uL (0.00-0.50); Eosinophils % (auto) 4.2 %; Hematocrit (blood only) 30.1 % (42.0-52.0); Hemoglobin 9.7 g/dl (14.0-18.0); Immature Granulocytes # (auto) 0.03 K/uL (0.01-0.20); Immature Granulocytes % (auto) 0.4 %; Lymphocytes # (auto) 1.14 K/uL (1.20-3.40); Lymphocytes % (auto) 14.9 %; Mean Corpuscular Hemoglobin 28.1 pg (25.0-34.0); Mean Corpuscular Hgb Conc 32.2 g/dL (32.0-36.0); Mean Corpuscular Volume 87.2 fL (80.0-100.0); Mean Platelet Volume 9.7 fL (9.4-12.4); Monocytes # (auto) 0.95 K/uL (0.11-0.59); Monocytes % (auto) 12.4 %; Neutrophils % (auto) 67.7 %; Platelet Count 206 K/uL (130-400); RDW Standard Deviation 43.9 fL (36.4-46.3); Red Blood Count 3.45 M/uL (4.70-6.10); White Blood Count 7.67 K/ul (4.8-10.8)
[2024-07-17 08:20] LABS: BUN Creatinine Ratio 23.8 (10-20); Potassium 4.1 mmol/L (3.5-5.1)
[2024-07-17 11:05] VITALS: RESP 18; TEMP 98.2; O2SAT 95
--- NOTE | 2024-07-17 14:39 | Discharge Summary ---
Discharge Summary Date of Service July 17, 2024 Principal Dx & Hospital Course #1 = Principal Diagnosis (1) Closed intertrochanteric fracture of right femur: Open reduction internal fixation with nailing completed on July 10. This appears to be a pathologic fracture due to underlying osteoporosis. The patient suffered a mechanical fall at home without syncope. Orthopedic consultation and management appreciated-f/u in 1-2 weeks with Ortho as outpt Continue tylenol prn pain control Zendejas removed nad passed trial of void (2) Fall: Mechanical. Resulting in right hip fracture. Continue postoperative OT and PT (3) Paroxysmal A-fib: Unfortunately he developed atrial fibrillation with rapid ventricular rate on July 12 but he converted back to normal sinus rhythm. The diltiazem drip h as been discontinued. He was placed on metoprolol but with bradycardia in sinus rhythm in 40s--> Cardio recommending stopping metoprolol Continue Xarelto for VTE prevention Cardiology consultation appreciated Cardio also recommends outpt holter monitor for assessing Afib burden. Pt also reports having frequent dizzy spells that have typically been attributed to vertigo and have responded to meclizine (4) Acute blood loss anemia: Postoperative and mild. Hemoglobin 9.4 and stable f/u as outpt (5) Urinary retention: Necessitated placement of Zendejas catheter on July 12. Zendejas catheter removal and trial of voiding passed prior to discharge Plan Dispo-SNF placement pending at [facility]. He is medically stable for discharge DVT proph-Suma, ANGEL barnard Notes For Next Care Provider None Medication Changes From Visit None Admission HPI Per Admitting Provider The patient is an 88-year-old male with a past medical history including ambulatory dysfunction requiring a cane, difficulty swallowing liquids, depression, GERD with esophagitis, hypertension, history of cerebellar stroke, atrial fibrillation, status post AVR with bioprosthetic valve, status post CABG x 3, lumbar spinal stenosis, and idiopathic polyneuropathy. He reports that he was getting up from his chair to go to bed, fell while he was using his cane, landed on his right hip, and developed severe pain inability to bear weight. Discharge Exam Constitutional WD/WN, vitals as above Respiratory normal respiratory effort, lungs clear to auscultation Cardiovascular Rate/Rhythm: regular rate and regular rhythm Heart Sounds: + murmur (2/6 MONALISA at RUSB) Extremities: + edema (1+ ankle edema bilat) Discharge Plan Discharge Items Patient Disposition: Transfer Nursing Home Fac Reason For Visit: CLOSED RIGHT HIP FRACTURE Discharge Diagnosis: Right Hip Fracture Rapid atrial fibrillation Condition on Discharge: Good Activity: Per Instructions section Activity Comment: Activity as tolerated. Full weightbearing on right leg. Weightbearing: Full weightbearing Non-emergency contact: Primary Care Provider, Surgeon and Insurance Solicitor Call non-emergency contact if: you have any medication questions and your symptoms worsen Follow-up/Referrals: Anju Gonzalez MD [Primary Care Provider] - Otis Aviles MD [Physician] - (Orthopedic follow-up 2-3 weeks from surgery date.) Diet: Heart Healthy Addtl Attending Provider Instructions: You were admitted with a fall and hip fracture which was repaired by the Orthopedic Surgeon. After surgery, you had some rapid atrial fibrillation which then resolved. You are stable for discharge to the rehab. Addtl Box Folding Machine Operator Provider Instructions: May weightbear as tolerated. Routine wound care to incision sites. Dry bandage and change daily. Pending Studies at Discharge: No Stand-Alone Forms: [facility] Skilled Items Patient informed of condition?: Yes DNR: No Discharge Level of Care: Skilled Communicable Disease: No Discharge Prognosis: Improving Lines: None Urinary Catheter: No Medications and DC Order Prescriptions: Continued escitalopram oxalate 10 mg tablet 10 mg PO DAILY Qty: 90 3RF Xarelto 20 mg tablet 20 mg PO DAILY Qty: 90 3RF fluticasone propionate 50 mcg/actuation spray,suspension 1 spray intranasal BID Rx Instructions: unable to verify with pt or express scripts 11/02/23 administer into each nostril cyanocobalamin (vitamin B-12) 1,000 mcg capsule 1,000 mcg PO DAILY Rx Instructions: unable to verify with pt or express scripts 11/02/23 cholecalciferol (vitamin D3) 1,000 unit capsule 1,000 units PO BID nitroglycerin 0.4 mg tablet, sublingual 0.4 mg SL Q5M PRN (Reason: Chest Pain) Qty: 25 3RF Rx Instructions: unable to verify with pt or express scripts 11/02/23 PreserVision AREDS [id number] Tablet 1 tab PO DAILY Rx Instructions: unable to verify with pt or express scripts 11/02/23 coQ10 (ubiquinol) 100 mg Capsule 100 mg PO DAILY Rx Instructions: unable to verify with pt or express scripts 11/02/23 rosuvastatin 10 mg tablet 20 mg PO DAILY famotidine 20 mg tablet 20 mg PO 1XD PRN (Reason: Acid Reflux) Discharge Orders: Discharge Order (Routine); Ordered 07/17/24 Ordered By: Cortney Beltran/Other Patient Handouts: Understanding Deep Vein Thrombosis, Preventing Deep Vein Thrombosis Admission Data Admit Date/Time: 07/09/24 01:33 Attending Provider: Cortney Wood Admit Provider: Yoni Lynn Primary Care Provider: Anju Gonzalez Other Providers: [facility]; Deshawn Olson; Kam Dyson; Jordan Chacon; Otis Morrison; Woodrow Guzman; Jack Arboleda Jr; Antonio Goode; Bianka Wadsworth; Tanika Burciaga; Kristian Vincent; Kristian Ortiz; Paul Batista; Lashawn Donnelly; Jono Jessica; Ana Medina; Chago Elise; Jono Monreal; Sekou Burr; Aris Stewart; [facility]; [facility]; Yoni Lynn; Sammy Pendleton; Heydi Rasmussen; Sharri Hutson; Nazia Ventura; Josie Avendaño; Jeremias Garrido; Elijah Pimentel; Jono Nix; Mushtaq Antoine; Betty Antoine; Reyes Martins; Lashawn Gann; Inder Mtz; Russell Luther; Apolinar Reynaga; Evelin Reyez; John Parker; Darshana Parker; Maninder Rosado; Joyce Green; Toño Duncan; Mimi Giron; Mitzi Mensah; Ag Oviedo; Shelbi Bragg; Lavinia Carlson; Latasha Lawton; Marge Pace; Josh Pace V; Emmanuel Alvarez; Sahrri Garvey; Edson Leon; Iliana Krishnamurthy; Josh Nassar; Romel Reyez; Shivam Thayer; Linda Michael; Jewels Madison; Josh Holden; John Bahena; France Horan; Audie Barakat; Klely Hayes; Yesenia Bailey; Otis Clayton; Reginaldo Chavira; Sosa Aranda ; Maru Harrison; Marcelino Cifuentes; Terrell Yusuf; Kristian Gould; Jeremias Moreno Jr; Darlene Dumont; Maryan Goyal; Symone Escudero; Ag Núñez; Mushtaq Burr; Narda Wu; Maryan Griffin; Saul Lowe; Freddy Bean; Duarte Bravo; Frankie Calderon; Vernell Mcgowan; Bam Lewis; Linda Rashid; Perla Manzo; Belem Varma; Saige Parson; Sohan Pal Jr; Judith Flanagan; Shelib Beauchamp; Ernesto Mcmahon Hospital Stay Data Consultations 07/09/24 00:33 ED Decision to Admit Stat 07/09/24 03:05 Consult Orthopedic Surgery Routine 07/09/24 08:00 Consult Anesthesiology Routine 07/09/24 08:15 Consult Cardiology Routine 07/12/24 10:52 Consult Cardiology Routine Procedures Performed Operation Date: 07/10/24 08:20 Actual Procedures p Trochanteric Nailing of Right Hip Fracture(Right) - Otis Aviles MD Diagnostic Imagining Performed 07/10/24 FL hip RT 2-3V Routine ECHO Pending Results Patient Have Any Pending Studies at Discharge: No Discharge Instructions Given to Patient (Per Discharging Provider) You were admitted with a fall and hip fracture which was repaired by the Orthopedic Surgeon. After surgery, you had some rapid atrial fibrillation which then resolved. You are stable for discharge to the rehab. Total Time Total Time Spent Total Time Spent (In Minutes): 35 min Total Time Includes: Examination of the Patient, Discharge Planning and Medication Reconciliation Coding Level of Care Code 65409 INP/OBS DISCH >30 MIN Diagnoses Closed intertrochanteric fracture of right femur S72.141A Fall W19.XXXA Paroxysmal A-fib I48.0 Acute blood loss anemia D62 Urinary retention R33.9
[2024-07-17 14:43] VITALS: BP 128/68
[2024-07-17 15:35] VITALS: PULSE 54
== END 2024-07-17 15:05 | DRG 481 ==
LOC: ED 22:49 → 2N 07-09 01:33 → SUATTDRO 07-09 01:33 → 2N 07-09 02:37 → 2S 07-12 17:25

== ENCOUNTER 2024-08-24 05:54 | Inpatient (IN) ==
[2024-08-24] MEDS: dilTIAZem HCl 5 MG/ML 5 ML VIAL IV STA ×2 (06:26→08:04)
--- NOTE | 2024-08-24 06:27 | Emergency Department Note ---
Impression & Plan UGIB (upper gastrointestinal bleed), Acute urinary retention, Atrial fibrillation with RVR ED Provider Note CHIEF COMPLAINT: Urinary retention HISTORY OF PRESENT ILLNESS: This 88-year-old male patient with past medical history of atrial fibrillation, GI bleed, hypomagnesemia, hypokalemia, elevated troponin/coronary artery disease Presents to the emergency department with complaints of urinary retention. The patient states he does occasionally have difficulty passing his urine however has had great difficulty over the last 24 hours. Nursing staff noted the patient to have greater than 1 L of urine in the bladder. Patient also incidentally notes that he has had 3 to 4 days of black tarry stools. He is anticoagulated for history of atrial fibrillation. He denies any chest pain or palpitations at this time. REVIEW OF SYSTEMS: A review of systems was performed with positives and pertinent negatives listed in the history of present illness. 10 systems were reviewed and are otherwise negative. ALLERGIES: see below MEDICATIONS: see below PMH: see below SOCIAL HISTORY: see below DDx: Atrial fibrillation with RVR, electrolyte abnormality, dehydration, GI bleed, UTI, urinary retention, prostatitis among others. PHYSICAL EXAM: Vital signs reviewed. General: Well-appearing 88-year-old male, in no significant distress. HEENT: No scleral icterus, PERRLA, neck supple. Atraumatic. Cardiovascular: rapid and irregular, no extra sounds Pulmonary: Clear to auscultation bilaterally, normal work of breathing. Abdomen: Soft, mild suprapubic abdominal tenderness, fullness, nondistended, positive bowel sounds. Musculoskeletal: Atraumatic, no peripheral edema. : Normal external circumcised male genitals, testes appear to be normal Rectal: Guaiac positive melanotic stools, no gross blood. Normal mucosa. Neurologic: Patient awake alert and oriented x 3, speech is clear Skin: Warm, dry, no rash EMERGENCY DEPARTMENT COURSE/MDM: this patient was evaluated and appeared to be in no significant distress. Patient is noted to be in a rapid atrial fibrillation. IV access was obtained and laboratory work was drawn. The patient was placed on the cable inspector. He was given 10 mg of IV Cardizem. He did convert to a normal sinus rhythm at 62 bpm however did require a 250 cc bolus of normal saline solution for some transient hypotension. During my exam, the patient stated he is having some melanotic stools. He is guaiac positive. 1 L of yellow urine was drained from the patient's bladder. A Zendejas catheter was left in place. Patient's hemoglobin is stable at 11.4. He was placed on normal saline solution at 100 mL/h. Protonix bolus and drip was initiated. Case was discussed with Dr. Bonds of the hospitalist service who will evaluate the patient for admission and further management. MONITORING: An order for cardiac monitoring was placed and the patient is noted to be in a rapid atrial fibrillation at 134 beats per minute. RADIOLOGY: chest x-ray to my interpretation reveals poststernotomy changes, mild pulmonary vascular congestion. No focal lung consolidation. EKG: To my interpretation reveals normal sinus rhythm at 88 bpm. Left anterior fascicular block, minimal voltage for LVH, QTc of 445. Normal ST segments EKG #2 to my interpretation reveals atrial fibrillation with RVR at 146 bpm. Left anterior fascicular block. Nonspecific ST changes. QTc of 495. No PVC, no PAC. DISPOSITION: admission I have personally spent greater than 35 minutes of critical care time in the direct management of this patient. This includes bedside care, interpretation of diagnostic studies, and testing, discussion with consultants, patient, and family members, and other required patient management activities. This 35 minutes is in excess of all separately billable procedures. Past Med/Surg History Problem List (Updated 08/24/24 @ 08:00 by Marge Low MD) Atrial fibrillation with RVR (Acute) Acute urinary retention (Acute) UGIB (upper gastrointestinal bleed) (Acute) Acute blood loss anemia Acute blood loss anemia Ambulatory dysfunction Bilateral leg edema Hypokalemia Hypomagnesemia Near syncope Elevated troponin (Acute) Cough Depression Gastro-esophageal reflux disease with esophagitis Heartburn symptom Transient cerebral ischemia (Acute) Dyslipidemia (Acute) Weakness (Acute) COVID-19 (Acute 07/2020) 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) Multiple fractures of ribs of right side (Acute) Lumbar spinal stenosis Vitamin B12 deficiency Medical History Fall Closed intertrochanteric fracture of right femur Atrial fibrillation with rapid ventricular response Difficulty swallowing liquids Idiopathic polyneuropathy Paroxysmal A-fib (07/2020) History of cerebellar stroke (2016) Bradycardia Hypertension Anxiety History of left foot drop Inhibited sexual excitement Ankle fracture (2012) Surgical History 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) Family History Mother Unknown family medical history Social History Smoking Status: Former smoker Second Hand Exposure: No; Do You Dip or Chew Tobacco: No; Hx Alcohol Use: No Hx Substance Use: No Preferred Language: Italian Communication Ability: Effective Or First Assist Registered Nurse Required: No Beliefs That Will Affect Care: None marital status: Current Living Situation: Alone current occupational status: retired Feels Safe at Home: Yes Assistive Devices: Cane, Crutches, Walker and Other Allergies Allergies Allergy/AdvReac Type Severity Reaction Status Date / Time Penicillins Allergy Intermediate Unknown Verified 07/10/24 11:41 apixaban [From Eliquis] AdvReac Intermediate Rash, Verified 07/10/24 11:41 itching oxycodone AdvReac SICKNESS Verified 07/10/24 11:41 Home Meds Home Medications Medication Instructions Recorded Confirmed cholecalciferol (vitamin D3) 25 1,000 units PO BID 06/06/19 07/08/24 mcg (1,000 unit) capsule coQ10 (ubiquinol) 100 mg capsule 100 mg PO DAILY 07/23/20 07/08/24 vitamins A,C,I-xhzi-qijtyv 2,148 1 tab PO DAILY 07/23/20 07/08/24 mcg-113 mg-45 mg-17.4 mg tablet (PreserVision AREDS) cyanocobalamin (vitamin B-12) 1,000 mcg PO DAILY 06/27/21 07/08/24 1,000 mcg capsule fluticasone propionate 50 1 spray intranasal BID 09/12/21 07/08/24 mcg/actuation nasal spray,suspension rosuvastatin 10 mg tablet 20 mg PO DAILY 11/02/23 07/08/24 famotidine 20 mg tablet 20 mg PO 1XD PRN Acid Reflux 07/08/24 07/08/24 Previous Rx's Medication Instructions Recorded escitalopram oxalate 10 mg tablet 10 mg PO DAILY #90 tabs 04/13/23 rivaroxaban 20 mg tablet (Xarelto) 20 mg PO DAILY #90 tabs 03/25/24 nitroglycerin 0.4 mg sublingual 0.4 mg sublingual Q5M PRN Chest 03/30/24 tablet Pain #25 tabs Results & Data (ED) Vital Signs Vital Signs - 24 hr 08/24/24 06:00 08/24/24 06:09 08/24/24 06:41 Temperature 36.7 C Temperature Source Oral Pulse Rate 145 H 145 H Pulse Rate [Apical] 110 H Pulse Rhythm [Apical] Irregular Respiratory Rate 20 18 Respiratory Effort / Characteristics Non-Labored Spontaneous Non-Labored Spontaneous Respiratory Depth Normal Normal Respiratory Pattern Regular Regular Blood Pressure 140/107 H Blood Pressure [Right Arm] 91/52 L Blood Pressure Mean 118 Blood Pressure Mean [Right Arm] 65 Blood Pressure Position [Right Arm] Semi-fowlers Pulse Oximetry 97 95 Oxygen Delivery Method Room Air Room Air Sepsis Recent Fever Within 48 Hours No Sepsis New/Unexplained Change in Mental Status N/A Sepsis Action Taken by Nursing No Action Required 08/24/24 07:02 Temperature Temperature Source Pulse Rate Pulse Rate [Apical] 108 H Pulse Rhythm [Apical] Irregular Respiratory Rate 18 Respiratory Effort / Characteristics Non-Labored Spontaneous Respiratory Depth Normal Respiratory Pattern Regular Blood Pressure Blood Pressure [Right Arm] 99/69 L Blood Pressure Mean Blood Pressure Mean [Right Arm] 79 Blood Pressure Position [Right Arm] Semi-fowlers Pulse Oximetry 96 Oxygen Delivery Method Room Air Sepsis Recent Fever Within 48 Hours Sepsis New/Unexplained Change in Mental Status Sepsis Action Taken by [facility] Medications Current Medication List: was personally reviewed by me Laboratory Data Attestation: I reviewed the patient's lab results. 08/24/24 06:10 08/24/24 06:10 Lab Results 08/24/24 08/24/24 08/24/24 Range/Units 06:10 06:30 06:43 WBC 6.03 (4.8-10.8) K/ul RBC 3.72 L (4.70-6.10) M/uL Hgb 11.5 L (14.0-18.0) g/dl Hct 35.1 L (42.0-52.0) % MCV 94.4 (80.0-100.0) fL MCH 30.9 (25.0-34.0) pg MCHC 32.8 (32.0-36.0) g/dL RDW Std Deviation 66.9 H (36.4-46.3) fL RDW Coeff of Nay 19.9 H (11.5-14.5) % Plt Count 180 (130-400) K/uL MPV 9.4 (9.4-12.4) fL Immature Gran % (Auto) 0.2 % Neut % (Auto) 65.2 % Lymph % (Auto) 18.6 % Major % (Auto) 11.1 % Eos % (Auto) 4.1 % Baso % (Auto) 0.8 % Neut # (Auto) 3.93 (1.40-6.50) K/uL Lymph # (Auto) 1.12 L (1.20-3.40) K/uL Major # (Auto) 0.67 H (0.11-0.59) K/uL Eos # (Auto) 0.25 (0.00-0.50) K/uL Baso # (Auto) 0.05 (0.00-0.20) K/uL Immature Gran # (Auto) 0.01 (0.01-0.20) K/uL Sodium 140 (136-145) mmol/L Potassium 3.7 (3.5-5.1) mmol/L Chloride 107 (98-107) mmol/L Carbon Dioxide 26 (21-32) mmol/L Anion Gap 7 (3-11) BUN 11 (6-23) mg/dl Creatinine 0.74 (0.6-1.4) mg/dl Est Cr Clr Drug Dosing 68.9 ml/min eGFR 87.15 BUN/Creatinine Ratio 14.9 (10-20) Glucose 94 (70-99(Fasting)) mg/dl Calcium 9.8 (8.6-10.3) mg/dl Magnesium 2.0 (1.7-2.4) mg/dl Total Bilirubin 0.8 (0.2-1.0) mg/dl AST 20 (13-39) U/L ALT 22 (7-52) U/L Alkaline Phosphatase 123 H (34-104) U/L Troponin I High Sens 20.7 H (0-20) pg/ml Total Protein 6.8 (6.0-8.3) gm/dl Albumin 4.1 (3.4-5.0) gm/dl Globulin 2.7 (2.5-4.0) gm/dl Albumin/Globulin Ratio 1.5 (0.9-2) TSH 3.318 (0.300-4.500) uIu/ml Urine Color Yellow Urine Appearance Clear (Clear) Urine pH 6.5 (4.5-7.5) Ur Specific [place] 1.015 (1.000-1.030) Urine Protein Negative (Negative) Urine Glucose (UA) Negative (Negative) Urine Ketones Negative (Negative) Urine Blood Negative (Negative) Urine Nitrite Negative (Negative) Urine Bilirubin Negative (Negative) Urine Urobilinogen Negative (Negative) Ur Leukocyte Esterase Negative (Negative) Blood Type O Positive Antibody Screen NEGATIVE Administered Medications Pantoprazole Sodium 40 mg/ (Dextrose) 100 mls @ 20 mls/hr IV Q5H JN Stop: 09/23/24 06:59 Last Admin: 08/24/24 07:33 Dose: 8 mg/hr, 20 mls/hr Documented By: JEROME Sodium Chloride (Nss) 1,000 mls @ 100 mls/hr IV .Q10H JN Stop: 08/25/24 06:44 Last Admin: 08/24/24 06:51 Dose: 100 mls/hr Documented By: MOI Discontinued Medications Diltiazem HCl (Diltiazem Hcl 5 Mg/Ml 5 Ml Vial) 10 mg IV NOW STA Stop: 08/24/24 06:11 Last Admin: 08/24/24 06:26 Dose: 10 mg Documented By: MOI Co-signed By: CHUCKY Pantoprazole Sodium 80 mg/ (Dextrose) 120 mls @ 480 mls/hr IV NOW ONE Stop: 08/24/24 06:51 Last Admin: 08/24/24 07:13 Dose: 480 mls/hr Documented By: FARZANEH Sodium Chloride (Nss) 250 mls @ 999 mls/hr IV .Q16M ONE Stop: 08/24/24 07:03 Last Infusion: 08/24/24 07:13 Dose: Infused Documented By: Admin: 08/24/24 06:51 Dose: 999 mls/hr Documented By: MOI Imaging Data Radiologist's Impression: Chest X-Ray 08/24/24 06:09 EXAM: XR chest 1V portable CLINICAL HISTORY: DYSRHYTHMIA WTW TECHNIQUE: An X-ray image of the chest is obtained in 1 AP projection. COMPARISON: Prior study dated 07/10/2024 CT. FINDINGS: Pulmonary Parenchyma: Regression of left lower lung zone opacities. Prominent broncho vascular markings and hilar vascularity. No evidence of consolidation, collapse, or focal opacities. No pulmonary nodules are identified. No evidence of pleural effusion or pleural thickening. Heart and Mediastinum: Left pericardial surgical sutures Heart size and shape are normal. No mediastinal widening or masses. No hilar or mediastinal lymphadenopathy. Bony Thorax: Sternotomy sutures seen Soft Tissues: Soft tissues overlying the chest wall are unremarkable. IMPRESSION: 1. Regression of left lower lung zone opacities. 2. Prominent broncho vascular markings and hilar vascularity (stable). 3. Stable sutures and sterontomy wires. Electronically signed by Sharon Sierra 08-24-2024 07:12 AM Discharge Plan Visit Data Chief Complaint: Urinary Symptoms Stated Complaint: Urinary Symptoms ED Provider: Marge Low Discharge Problem: UGIB (upper gastrointestinal bleed), Acute urinary retention, Atrial fibrillation with RVR Forms Stand Alone Forms: [facility] [employer] Prescriptions Prescriptions: No Action escitalopram oxalate 10 mg tablet 10 mg PO DAILY Qty: 90 3RF Xarelto 20 mg tablet 20 mg PO DAILY Qty: 90 3RF fluticasone propionate 50 mcg/actuation spray,suspension 1 spray intranasal BID Rx Instructions: unable to verify with pt or express scripts 11/02/23 administer into each nostril cyanocobalamin (vitamin B-12) 1,000 mcg capsule 1,000 mcg PO DAILY Rx Instructions: unable to verify with pt or express scripts 11/02/23 cholecalciferol (vitamin D3) 1,000 unit capsule 1,000 units PO BID nitroglycerin 0.4 mg tablet, sublingual 0.4 mg SL Q5M PRN (Reason: Chest Pain) Qty: 25 3RF Rx Instructions: unable to verify with pt or express scripts 11/02/23 PreserVision AREDS 7,160-113-100 [id number] Tablet 1 tab PO DAILY Rx Instructions: unable to verify with pt or express scripts 11/02/23 coQ10 (ubiquinol) 100 mg Capsule 100 mg PO DAILY Rx Instructions: unable to verify with pt or express scripts 11/02/23 rosuvastatin 10 mg tablet 20 mg PO DAILY famotidine 20 mg tablet 20 mg PO 1XD PRN (Reason: Acid Reflux) Referrals Referrals: Anju Gonzalez MD [Primary Care Provider] -
[2024-08-24] MEDS ORDERED: PANTOPRAZOLE BOLUS/DRIP IV STA (06:37)
[2024-08-24 06:51] LABS: Basophils # (auto) 0.05 K/uL (0.00-0.20); Basophils % (auto) 0.8 %; Eosinophils # (auto) 0.25 K/uL (0.00-0.50); Eosinophils % (auto) 4.1 %; Hematocrit (blood only) 35.1 % (42.0-52.0); Hemoglobin 11.5 g/dl (14.0-18.0); Immature Granulocytes # (auto) 0.01 K/uL (0.01-0.20); Immature Granulocytes % (auto) 0.2 %; Lymphocytes # (auto) 1.12 K/uL (1.20-3.40); Lymphocytes % (auto) 18.6 %; Mean Corpuscular Hemoglobin 30.9 pg (25.0-34.0); Mean Corpuscular Hgb Conc 32.8 g/dL (32.0-36.0); Mean Corpuscular Volume 94.4 fL (80.0-100.0); Mean Platelet Volume 9.4 fL (9.4-12.4); Monocytes # (auto) 0.67 K/uL (0.11-0.59); Monocytes % (auto) 11.1 %; Neutrophils # (auto) 3.93 K/uL (1.40-6.50); Neutrophils % (auto) 65.2 %; Platelet Count 180 K/uL (130-400); RDW Coefficient of Variation 19.9 % (11.5-14.5); RDW Standard Deviation 66.9 fL (36.4-46.3); Red Blood Count 3.72 M/uL (4.70-6.10); White Blood Count 6.03 K/ul (4.8-10.8)
[2024-08-24] MEDS: SODIUM CHLORIDE 0.9% 250 ML IV ONE (06:51)
[2024-08-24] MEDS: SODIUM CHLORIDE 0.9% 1,000 ML IV SCH (06:51)
[2024-08-24 06:58] LABS: Albumin Globulin Ratio 1.5 (0.9-2); Albumin Level 4.1 gm/dl (3.4-5.0); BUN Creatinine Ratio 14.9 (10-20); Bilirubin,Total 0.8 mg/dl (0.2-1.0); Calcium 9.8 mg/dl (8.6-10.3); Creatinine Clr Calc Pharmacy 68.9 ml/min; Globulin 2.7 gm/dl (2.5-4.0); Potassium 3.7 mmol/L (3.5-5.1); Total Protein 6.8 gm/dl (6.0-8.3)
[2024-08-24 07:00] LABS: Appearance Urine Clear (Clear); Bilirubin Urine Negative (Negative); Blood Urine Negative (Negative); Color Urine Yellow; Glucose Urine UA Negative (Negative); Ketones Urine Negative (Negative); Leukocyte Esterase Urine Negative (Negative); Nitrite Urine Negative (Negative); Protein Urine Negative (Negative); Specific Gravity Urine 1.015 (1.000-1.030); Urobilinogen Urine Negative (Negative); pH Urine 6.5 (4.5-7.5)
[2024-08-24 07:03] LABS: Troponin I High Sensitivity 20.7 pg/ml (0-20)
[2024-08-24 07:12] LABS: Thyroid Stimulating Hormone 3.318 uIu/ml (0.300-4.500)
[2024-08-24] MEDS: PANTOprazole 80 MG in DEXTROSE 5% 100 ML IV ONE (07:13)
--- NOTE | 2024-08-24 07:13 | XRay Report ---
EXAM: XR chest 1V portable CLINICAL HISTORY: DYSRHYTHMIA WTW TECHNIQUE: An X-ray image of the chest is obtained in 1 AP projection. COMPARISON: Prior study dated 07/10/2024 CT. FINDINGS: Pulmonary Parenchyma: Regression of left lower lung zone opacities. Prominent broncho vascular markings and hilar vascularity. No evidence of consolidation, collapse, or focal opacities. No pulmonary nodules are identified. No evidence of pleural effusion or pleural thickening. Heart and Mediastinum: Left pericardial surgical sutures Heart size and shape are normal. No mediastinal widening or masses. No hilar or mediastinal lymphadenopathy. Bony Thorax: Sternotomy sutures seen Soft Tissues: Soft tissues overlying the chest wall are unremarkable. IMPRESSION: 1. Regression of left lower lung zone opacities. 2. Prominent broncho vascular markings and hilar vascularity (stable). 3. Stable sutures and sterontomy wires. Electronically signed by Sharon Sierra 08-24-2024 07:12 AM
--- NOTE | 2024-08-24 07:18 | History & Physical Report ---
Date of Service August 24, 2024 Assessment & Plan (1) Acute urinary retention: Plan: Acute urinary retention in an 88-year-old male with lower abdominal pain, also in A fib RVR and postive fecal occult blood. Placed on flores cathter. Immediately 1 liter of urine evacuated into flores bag. placed on flomax for possible BPH. will likely need urology followup as an outpatient. (2) UGIB (upper gastrointestinal bleed): Plan: Placed on PPI drip. consult GI. Hemoglobin stable. will monitor. (3) Atrial fibrillation with RVR: Plan: reverted back to sinus after diltiazem. Will place patient on amiodarone 200 mg PO BID. due to interaction with escitalopram will switch to zoloft. hold anticoagulation due to upper GI bleed History of Present Illness Primary Care Provider: Anju Gonzalez MD 88-year-old male with a past medical history including ambulatory dysfunction requiring a cane, difficulty swallowing liquids, depression, GERD with esophagitis, hypertension, history of cerebellar stroke, atrial fibrillation, status post AVR with bioprosthetic valve, status post CABG x 3, lumbar spinal stenosis, and idiopathic polyneuropathy, presents To the ED with acute urinary retention. Patient recently started lasix for worsening leg swelling 3 days ago. Patient then statrted having symptoms of urinary urgency the day prior to admission. Patient does not follow with a Urology and denies having any urinary urgency, dysuria, urinary hesitancy prior. This morning he tried to urinate and was unable to accompanied by severe lower abdominal pain. Patient discussed this with his caregiver and was recommended to go to the emergency room. Once he arrived to the ER patient was found to be in A-fib RVR. Patient was recently hospitalized for right hip fracture and is currently at [facility] for therapy. Patient also reports having dark stools for the past couple weeks however patient has been taking iron supplements. Patient reports reported that after having his hip surgery repair he has been suffering from anemia which is why he is on iron now. In the ED rectal exam was completed and patient had fecal occult blood test was positive. Due to the A-fib RVR positive fecal occult blood test and acute renal retention consult was made to the hospitalist to admit. Allergies Allergy/AdvReac Type Severity Reaction Status Date / Time Penicillins Allergy Intermediate Unknown Verified 07/10/24 11:41 apixaban [From Eliquis] AdvReac Intermediate Rash, Verified 07/10/24 11:41 itching oxycodone AdvReac SICKNESS Verified 07/10/24 11:41 Home Medications Medication Instructions Recorded Confirmed Type cholecalciferol (vitamin D3) 25 1,000 units PO BID 06/06/19 07/08/24 History mcg (1,000 unit) capsule coQ10 (ubiquinol) 100 mg capsule 100 mg PO DAILY 07/23/20 07/08/24 History vitamins A,C,S-vdaq-jqwahf 2,148 1 tab PO DAILY 07/23/20 07/08/24 History mcg-113 mg-45 mg-17.4 mg tablet (PreserVision AREDS) cyanocobalamin (vitamin B-12) 1,000 mcg PO DAILY 06/27/21 07/08/24 History 1,000 mcg capsule fluticasone propionate 50 1 spray intranasal BID 09/12/21 07/08/24 History mcg/actuation nasal spray,suspension escitalopram oxalate 10 mg tablet 10 mg PO DAILY #90 tabs 04/13/23 07/08/24 Rx rosuvastatin 10 mg tablet 20 mg PO DAILY 11/02/23 07/08/24 History rivaroxaban 20 mg tablet (Xarelto) 20 mg PO DAILY #90 tabs 03/25/24 07/08/24 Rx nitroglycerin 0.4 mg sublingual 0.4 mg sublingual Q5M PRN Chest 03/30/24 07/08/24 Rx tablet Pain #25 tabs famotidine 20 mg tablet 20 mg PO 1XD PRN Acid Reflux 07/08/24 07/08/24 History Past Med/Surg History Problem List (Updated 08/24/24 @ 13:56 by Kam Dyson MD) Paroxysmal A-fib (07/2020) Atrial fibrillation with RVR (Acute) Acute urinary retention (Acute) UGIB (upper gastrointestinal bleed) (Acute) Acute blood loss anemia Ambulatory dysfunction Bilateral leg edema Hypokalemia Depression Gastro-esophageal reflux disease with esophagitis Transient cerebral ischemia (Acute) Dyslipidemia (Acute) 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) Vitamin B12 deficiency Medical History (Updated 08/24/24 @ 13:56 by Kam Dyson MD) Hypomagnesemia Lumbar spinal stenosis Multiple fractures of ribs of right side COVID-19 (07/2020) Fall Closed intertrochanteric fracture of right femur Atrial fibrillation with rapid ventricular response Difficulty swallowing liquids Idiopathic polyneuropathy History of cerebellar stroke (2016) Bradycardia Hypertension Anxiety History of left foot drop Inhibited sexual excitement Ankle fracture (2012) Surgical History 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) Family History Mother Unknown family medical history Social History Smoking Status: Never smoker Second Hand Exposure: No; Do You Dip or Chew Tobacco: No; Tobacco Cessation Education Requested by Patient: No Hx Alcohol Use: No Hx Substance Use: No Preferred Language: Icelandic Communication Ability: Effective Deputy Sheriff/Investigator Required: No Beliefs That Will Affect Care: None marital status: Current Living Situation: Alone current occupational status: retired Other Information That Helps Us Care for You: No Feels Safe at Home: Yes Safety Concerns: Feels Safe At This Time Assistive Devices: Cane and Walker Review of Systems Constitutional: no fever and no body aches Eyes: no blind spots Ear, Nose, Mouth, Throat: no ear pain and no tinnitus Respiratory: no cough Cardiovascular: no chest pain Gastrointestinal: + abdominal pain Genitourinary: + urinary hesitancy Musculoskeletal: no back pain Integumentary: no acne Neurologic: no gait abnormality Psychiatric: no behavioral changes Endocrine: no fatigue Hematologic / Lymphatic: no easy bleeding Allergy / Immunological: no GI upset with certain foods Physical Exam Physical Exam: General-alert and oriented x3, no fever, no chills HEENT-head atraumatic and normocephalic, Neck-no lymphadenopathy or thyromegaly, trachea midline Chest-clear to auscultation. No rales, wheezing or rhonchi Cardiac-regular rhythm. Regular rate. Normal S1 and S2 Abdomen-normal bowel sounds, no hepatosplenomegaly Extremities-right hip surgical site is unremarkable. 2+ edema in bilateral lower extremities Neuro-cranial nerves II through XII intact, motor and sensory function within normal limits, strength symmetrical, no focal deficits Psych-normal affect, normal mood Results & Data Results & Data Vital Signs (Past 12 Hours) Vital Signs Temp Pulse Pulse Resp BP BP Pulse Ox 08/24/24 07:02 108 H 18 99/69 L 96 08/24/24 06:41 110 H 18 91/52 L 95 08/24/24 06:09 145 H 08/24/24 06:00 36.7 C 145 H 20 140/107 H 97 O2 Del Method 08/24/24 07:02 Room Air 08/24/24 06:41 Room Air 08/24/24 06:09 08/24/24 06:00 Room Air PG Care Time/CCT Total # of Minutes Spent Total Time Spent with Patient: Total time spent is greater than 50% in coordination of care (as documented) at patient's floor/unit and/or counseling patient: Coding Level of Care Code 68907 INT INP/OBS CARE 3/75MIN Diagnoses Acute urinary retention R33.8 UGIB (upper gastrointestinal bleed) K92.2 Atrial fibrillation with RVR I48.91
[2024-08-24] MEDS: PANTOprazole 40 MG in DEXTROSE 5% MINI-B 100 ML IV SCH (07:33)
--- NOTE | 2024-08-24 08:39 | Electrocardiogram Report ---
Test Reason : Blood Pressure : */* mmHG Vent. Rate : 146 BPM Atrial Rate : * BPM P-R Int : * ms QRS Dur : 100 ms QT Int : 318 ms P-R-T Axes : * -64 92 degrees QTcB Int : 495 ms Atrial fibrillation with rapid ventricular response Left anterior fascicular block Abnormal ECG When compared with ECG of 24-Aug-2024 06:05, Atrial fibrillation has replaced Sinus rhythm Vent. rate has increased by 58 bpm Confirmed by Kam Dyson ([id number]) on 08/24/2024 8:38:55 AM Referred By: REFERRED SELF Confirmed By: Kam Dyson
--- NOTE | 2024-08-24 10:58 | Gastrointestinal Consultation ---
Date of Consultation August 24, 2024 Assessment & Plan (1) UGIB (upper gastrointestinal bleed): Patient admitted for abdominal pain secondary to urinary retention. Patient was noted to have dark stools in the setting of iron use that tested heme positive in the ED. His hgb is actually improved from previous and does not appear to be having active GI bleeding at this time. BUN/creatinine normal. - would continue to monitor for any signs of active bleeding. - monitor hgb/hct and transfuse as needed. - continue with PPI drip at this time. - will discuss case further with Dr. Shepard, further recommendations to follow. Supervising Physician Co-Signing Physician Notes I saw and examined this patient with our nurse practitioner and agree with her assessment and plan. Patient admitted for urinary retention now has indwelling Zendejas catheter. Clinically improving. To have black stool felt to be secondary to iron supplementation. However stool was Hemoccult positive. He has been anemic since his hip surgery several months ago and has been on iron with improvement in his anemia. Clinically he is hemodynamically stable and asymptomatic from a GI point of view. I discussed the options of with him and his granddaughter and have recommended that we consider pursuing further evaluation of his Hemoccult positive stool as an outpatient and once his urinary tract issues have resolved. History of Present Illness Reason for Consultation: acute GIB Requesting Physician: Abdoulaye Bonds MD Attending Physician: Abdoulaye Bonds History of Present Illness Patient is an 88 year old male with past medical history of atrial fibrillation, GI bleed, hypomagnesemia, hypokalemia, elevated troponin/coronary artery disease who presented to the ED on 08/24/24 with complaints of urinary retention with abdominal pain. He also noted that he had some darker stools. he admits to oral iron use as an outpatient. stools tend to lean towards constipated. During his work up, he was found to be heme positive melanic stools in the ED. He tells me that once he was able to pass urine, his abdominal pain improved. Hgb actually is improved from previous. he takes xarelto as an outpatient for a fib. no nsaids. 08/24 hgb 11.5, normal BUN/creatinine Patient denies any current issues with nausea, vomiting, dysphagia, heartburn, unintentional weight loss, change in bowels, or bright red blood per rectum. he tells me he has never had an EGD. Last colonoscopy was done in 2010 per EMR, though he believes he may have had one done in [place] since then. Allergies Allergy/AdvReac Type Severity Reaction Status Date / Time Penicillins Allergy Intermediate Unknown Verified 07/10/24 11:41 apixaban [From Eliquis] AdvReac Intermediate Rash, Verified 07/10/24 11:41 itching oxycodone AdvReac SICKNESS Verified 07/10/24 11:41 Home Medications Medication Instructions Recorded Confirmed Type cholecalciferol (vitamin D3) 25 1,000 units PO BID 06/06/19 07/08/24 History mcg (1,000 unit) capsule coQ10 (ubiquinol) 100 mg capsule 100 mg PO DAILY 07/23/20 07/08/24 History vitamins A,C,R-kpnv-xuksrl 2,148 1 tab PO DAILY 07/23/20 07/08/24 History mcg-113 mg-45 mg-17.4 mg tablet (PreserVision AREDS) cyanocobalamin (vitamin B-12) 1,000 mcg PO DAILY 06/27/21 07/08/24 History 1,000 mcg capsule fluticasone propionate 50 1 spray intranasal BID 09/12/21 07/08/24 History mcg/actuation nasal spray,suspension escitalopram oxalate 10 mg tablet 10 mg PO DAILY #90 tabs 04/13/23 07/08/24 Rx rosuvastatin 10 mg tablet 20 mg PO DAILY 11/02/23 07/08/24 History rivaroxaban 20 mg tablet (Xarelto) 20 mg PO DAILY #90 tabs 03/25/24 07/08/24 Rx nitroglycerin 0.4 mg sublingual 0.4 mg sublingual Q5M PRN Chest 03/30/24 07/08/24 Rx tablet Pain #25 tabs famotidine 20 mg tablet 20 mg PO 1XD PRN Acid Reflux 07/08/24 07/08/24 History Patient History Medical History (Updated 08/24/24 @ 13:56 by Kam Dyson MD) Hypomagnesemia Lumbar spinal stenosis Multiple fractures of ribs of right side COVID-19 (07/2020) Fall Closed intertrochanteric fracture of right femur Atrial fibrillation with rapid ventricular response Difficulty swallowing liquids Idiopathic polyneuropathy History of cerebellar stroke (2016) Bradycardia Hypertension Anxiety History of left foot drop Inhibited sexual excitement Ankle fracture (2012) Surgical History 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) Family History Mother Unknown family medical history Social History Smoking Status: Never smoker Second Hand Exposure: No; Do You Dip or Chew Tobacco: No; Tobacco Cessation Education Requested by Patient: No Hx Alcohol Use: No Hx Substance Use: No Preferred Language: Barbadian Communication Ability: Effective Diaper Folder Required: No Beliefs That Will Affect Care: None marital status: Current Living Situation: Alone current occupational status: retired Other Information That Helps Us Care for You: No Feels Safe at Home: Yes Safety Concerns: Feels Safe At This Time Assistive Devices: Cane and Walker Review of Systems Review of Systems: All systems reviewed & are unremarkable except as noted in HPI & below Physical Exam Constitutional: WD/WN, vitals as above Respiratory: normal respiratory effort, lungs clear to auscultation Cardiovascular: Rate/Rhythm: regular rate and regular rhythm Gastrointestinal (Abdomen): normal bowel sounds, soft, nontender, no hepatosplenomegaly Psychiatric: Orientation: alert and oriented x 3 Affect: euthymic affect Results & Data Vital Signs (Past 12 Hours) Vital Signs Temp Pulse Pulse Resp BP BP Pulse Ox 08/24/24 09:02 97.5 F L 75 16 118/69 08/24/24 08:22 66 20 110/67 100 08/24/24 08:00 66 20 110/67 100 08/24/24 07:36 55 L 17 104/56 L 98 08/24/24 07:02 108 H 18 99/69 L 96 08/24/24 07:00 105 H 20 99/69 L 96 08/24/24 06:41 110 H 18 91/52 L 95 08/24/24 06:09 145 H 08/24/24 06:00 98.1 F 145 H 20 140/107 H 97 O2 Del Method 08/24/24 09:02 Room Air 08/24/24 08:22 Room Air 08/24/24 08:00 08/24/24 07:36 08/24/24 07:02 Room Air 08/24/24 07:00 08/24/24 06:41 Room Air 08/24/24 06:09 08/24/24 06:00 Room Air Laboratory Results Laboratory Results - last 48 hr 08/24/24 08/24/24 08/24/24 06:10 06:30 06:43 WBC 6.03 RBC 3.72 L Hgb 11.5 L Hct 35.1 L MCV 94.4 MCH 30.9 MCHC 32.8 RDW Std Deviation 66.9 H RDW Coeff of Nay 19.9 H Plt Count 180 MPV 9.4 Immature Gran % (Auto) 0.2 Neut % (Auto) 65.2 Lymph % (Auto) 18.6 [place] % (Auto) 11.1 Eos % (Auto) 4.1 Baso % (Auto) 0.8 Neut # (Auto) 3.93 Lymph # (Auto) 1.12 L [place] # (Auto) 0.67 H Eos # (Auto) 0.25 Baso # (Auto) 0.05 Immature Gran # (Auto) 0.01 Sodium 140 Potassium 3.7 Chloride 107 Carbon Dioxide 26 Anion Gap 7 BUN 11 Creatinine 0.74 Est Cr Clr Drug Dosing 68.9 eGFR 87.15 BUN/Creatinine Ratio 14.9 Glucose 94 Calcium 9.8 Magnesium 2.0 Total Bilirubin 0.8 AST 20 ALT 22 Alkaline Phosphatase 123 H Troponin I High Sens 20.7 H Total Protein 6.8 Albumin 4.1 Globulin 2.7 Albumin/Globulin Ratio 1.5 TSH 3.318 Urine Color Yellow Urine Appearance Clear Urine pH 6.5 Ur Specific [place] 1.015 Urine Protein Negative Urine Glucose (UA) Negative Urine Ketones Negative Urine Blood Negative Urine Nitrite Negative Urine Bilirubin Negative Urine Urobilinogen Negative Ur Leukocyte Esterase Negative Blood Type O Positive Antibody Screen NEGATIVE 08/24/24 08/24/24 08:53 15:00 WBC RBC Hgb 9.9 L Hct 30.3 L MCV MCH MCHC RDW Std Deviation RDW Coeff of Nay Plt Count MPV Immature Gran % (Auto) Neut % (Auto) Lymph % (Auto) [place] % (Auto) Eos % (Auto) Baso % (Auto) Neut # (Auto) Lymph # (Auto) [place] # (Auto) Eos # (Auto) Baso # (Auto) Immature Gran # (Auto) Sodium Potassium Chloride Carbon Dioxide Anion Gap BUN Creatinine Est Cr Clr Drug Dosing eGFR BUN/Creatinine Ratio Glucose Calcium Magnesium Total Bilirubin AST ALT Alkaline Phosphatase Troponin I High Sens 18.7 Total Protein Albumin Globulin Albumin/Globulin Ratio TSH Urine Color Urine Appearance Urine pH Ur Specific [place] Urine Protein Urine Glucose (UA) Urine Ketones Urine Blood Urine Nitrite Urine Bilirubin Urine Urobilinogen Ur Leukocyte Esterase Blood Type Antibody Screen Coding Level of Care Code 10592 INT INP/OBS CARE MIN Diagnoses UGIB (upper gastrointestinal bleed) K92.2
--- OUTSIDE RECORDS SUMMARY | 2024-08-24 11:37 | External Medical Summary | Continuity of Care Document ---
Author Name Unknown Organization [facility] [address] Address [address] [place], [place] [id number] Care Team Providers Care Financial Services Officer Name Role Phone Anju Gonzalez Primary Care Physician [phone] [id number] Date(s): 08/21/24 - 08/21/24 [facility] [address], [address] [place] [address] [phone] Encounter Diagnosis Nondisplaced intertrochanteric fracture of right femur, subsequent encounter for closed fracture with routine healing(Discharge Diagnosis) - 08/21/24 Status post open reduction and internal fixation (ORIF) of fracture(Discharge Diagnosis) - 08/21/24 Postoperative anemia(Discharge Diagnosis) - 08/21/24 Paroxysmal atrial fibrillation(Discharge Diagnosis) - 08/21/24 Major depressive disorder in partial remission(Discharge Diagnosis) - 08/21/24 Peripheral edema(Discharge Diagnosis) - 08/21/24 Discharge Disposition: Home or Self Care Attending Physician: DO Crabtree Allison B Allergies, Adverse Reactions, Alerts Substance Criticality Severity Reaction Reaction Severity Status simvastatin 1 Active penicillins Rash Active 1leg pain Assessment and Plan Extracted from: Title:hospital discharge Author:DEAN Maya, Katelyn Robles Date:08/21/24 1.Nondisplaced intertrocha nteric fracture of right femur, subsequent encounter for closed fracture with routine healing Nondisplaced intertrochanteric fracture of the right femurwith routine healingwas acuteand has since improved. Patient did complete inpatient rehabilitationat [facility] and is now awaiting to start outpatient PT and OT while at [facility] beforehe can be discharged back to home. I did encourage him to avoid transferring [id number] assistance to prevent falls and anotherinjury. He understands, but is understandably frustrated. Hopefullyoutpatient PT/OT will be able to startlater this week or early next week. I did encourage patient's granddaughter to to reach out if she needs anyassistance in making sure this gets accomplished. To continue with care of his orthopedist. Also, he is scheduled for a follow-up appointment with PCP, Dr. Gonzalez, in ~4 weeksand we will plan to keep this visit for recheck. [facility] and [facility] discharge summaries reviewed today. 2.Status post open reduction and internal fixation (ORIF) of fracture As above in #1. 3.Postoperative anemia Postoperative anemiahas improved on most recent labs completed on 08/01/2024 that was reviewed and outside records. He will continue on ferrous sulfate 325 mg, 1 tab p.o.daily and PCP has already given orders to repeat this in 1 month from the time of last labs. 4.Paroxysmal atrial fibrillation Paroxysmal atrial fibrillation is chronic and asymptomatic. To continue on apixaban 5 mg, 1 tab p.o. twice daily andhe is currently not on any rate controlling medication. To continue with care of cardiology. 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 daily. Admits that he will emotionally feel much better once he is able to be discharged to hisown homeas he is feeling bit frustrated currently with the situation, which is understandable. Has a great support system with his granddaughterand other grandchildren. For now to continue current medication. 6.Peripheral edema Peripheral edema is chronic and has gotten worse. Goal is resolution of symptoms. I suspect peripheral edema isdependentas patient has been much less mobilesince being discharged to [facility] and awaiting physical therapy.We will have him start furosemide 20 mg, 1 tablet by mouth on Wednesday, Wednesday and Wednesday. Discussed daily dosing, but will avoid for now due to age andas this may cause urinary frequency and his mobility is limited. Family was given an order for a BMP to have completed in approximately 10 days. An order was also given for staff to apply thigh-high compression sleeves to patient daily during waking hours and removein the evening before bedtime. To elevate legs as needed as well. We did discuss proceeding with bilateral lower extremity venous duplexas well to rule out DVT given history of surgery and immobility, butpatient and daughter declinedas he is not currently having any pain and is chronically anticoagulated with apixaban, which is reasonable. To keep follow-up appointment that is scheduled for 3 to 4 weeks. Time spent on pre-visit plannin minutes Face to face time spent w/ patient: 33 minutes Time spent documenting pertinent clinical information into the EMR:21 minutes Total time: 63 minutes Immunizations Given and Recorded Vaccine Date [...] Historical information-source unspecified 4Result Comment: [03/30/2014] at [facility] CoQ10 Start: 07/28/17 1:26:00 PM EST Start Date: 07/28/17 Status: Ordered Crestor 20 mg oral tablet Start: 08/17/23 4:24:00 PM EST, 1 tab, PO, Daily, Disp# 90 tab, Refills: 3, Pharmacy: [facility] Start Date: 08/17/23 Status: Ordered escitalopram 10 mg oral tablet Start: 08/17/23 4:24:00 PM EST, 1 tab, PO, Daily, Disp# 90 tab, Refills: 3, Pharmacy: [facility] Start Date: 08/17/23 Stop Date: 08/11/24 Status: Ordered famotidine 20 mg oral tablet Start: 06/14/24 1:54:00 PM EDT, 1 tab, PO, qhs, Disp# 30 tab, Refills: 5, Pharmacy: [facility] Start Date: 06/14/24 Status: Ordered ferrous sulfate 325 mg (65 mg elemental iron) oral tablet Start: 08/14/24 1:59:00 PM EST, 1 tab, PO, Daily, Disp# 30 tab, Refills: 6, Pharmacy: [facility] Start Date: 08/14/24 Status: Ordered Flonase 50 mcg/inh nasal spray Start: 05/02/21 2:06:00 PM EDT, 2 spray, each nostril, Daily, Disp# 16 g, Refills: 0, Pharmacy: [facility] Start Date: 05/02/21 Status: Ordered furosemide 20 mg oral tablet Start: 08/21/24 4:44:00 PM EST, See Instructions, Disp# 30 tab, 1 tab PO Daily on Wednesday, Wednesday, Wednesday for leg swelling Start Date: 08/21/24 Status: Ordered meclizine 25 mg oral tablet Start: 04/13/24 1:20:00 PM EDT, 1 tab, PO, tid, Disp# 60 tab, Refills: 1, PRN: as needed for dizziness, Pharmacy: [facility] Start Date: 04/13/24 Status: Ordered multivitamin Start: [...] Start Date: 11/11/23 Status: Ordered Mental Status 08/21/24 Barriers to Learning one year None evide nt Mandatory Health Literacy Documentation Yes Health Literacy Communication Barriers N ever Primary Language Kazakh Problem List Condition Confirmation Course Effective Dates [...] Local neurodermatitis Confirmed Active Lipoma Confirmed Active Major depressive disorder in partial remission Confirmed Active Leg weakness Confirmed Active Neuropathy Confirmed Active BPH (benign prostatic hyperplasia) Confirmed Active Osteoarthritis of left knee Confirmed Active Bilateral leg weakness Confirmed Active Bilateral leg paresthesia Confirmed Active Paroxysmal atrial fibrillation Confirmed Active Bereavement counseling Confirmed Active Major depression, recurrent, chronic Confirmed Active Abdominal pain, RLQ Confirmed Active Sebaceous cyst Confirmed Active Seborrheic keratoses Confirmed Active Seborrheic keratosis Confirmed Active Cancer, skin, squamous cell Confirmed Active Vitamin D deficiency Confirmed Active Ambulatory dysfunction Confirmed Active Ambulatory dysfunction Confirmed Active Ambulatory dysfunction Confirmed Active Loss of weight Confirmed Active 1Added per Escrow Manager [id number] 2See outside note 11/02/23 CXR- atherosclerotic calcifications of thoracic aorta [id number] Diagnosis Diagnosis Type Effective Dates Health Status Clinical Service Informant Nondisplaced intertrochanteric fracture of right femur, subsequent encounter for closed fracture with routine healing Discharge Diagnosis 08/21/24 Non-Specified Status post open reduction and internal fixation (ORIF) of fracture Discharge Diagnosis 08/21/24 Non-Specified Postoperative anemia Discharge Diagnosis 08/21/24 Non-Specified Paroxysmal atrial fibrillation Discharge Diagnosis 08/21/24 Non-Specified Peripheral edema Discharge Diagnosis 08/21/24 Non-Specified Major depressive disorder in partial remission Discharge Diagnosis 08/21/24 Non-Specified Procedures Procedure Date Related Diagnosis Body [...] mild aortic root dilatation, [facility]: 1. No acute process [facility]: 1. No significant stenosis, occlusion, or aneurysm within the cirlce of Pack. Partially calcifiedscalp lesions 4[facility] Impression: 1. No acute intracranial abnormality 51. [...] Méndez at the time if dictation. 7[facility] Impression: 1. No acute lumbar spine fracture [...] Most recent to oldest [Reference Range]: 1 Temperature [36.5-37.9 DegC] 36.7 DegC (08/21/24 4:04 PM) Heart Rate 74 bpm (08/21/24 4:04 PM) Respiratory Rate 16 br/min (08/21/24 4:04 PM) Blood Pressure 124/66mmHg (08/21/24 4:04 PM) Cuff Pulse Pressure 58 mmHg (08/21/24 4:04 PM) BP Location # 1 Left Arm, Manual (08/21/24 4:04 PM) Social History Social History Type Response Tobacco Former smoker, Cigar ettes, Started age 16 Years. Stopped age 32 Years. Smoking Status Never smoked cigaret mary Sex Male Sex Representation Male (finding) [facility] Outpt Note * DEAN Maay, Katelyn Robles: PERFORM Event Display: [facility] Outpt Note Authored Date: [id number] Chief Complaint Hospital discharge History of Present Illness Peg [facility] a [facility] with right hip fracture. He then underwentORIF of the right hip andwas then transferred on 07/17/24 to [facility] for inpatient rehabilitation. He's accompanied by his granddaughter, Jessica. On 07/09/2024 he was at home and suffered a fallresulting in a right hip fracture. He was foundto have a nondisplaced right intertrochanterichip fracture.CBC with differential at that timeshowed a hemoglobin of 11.1, creatininewas 0.89 and chest x-ray was negative. He was seen by cardiology preoperativelyand his most recent echo from October 2023 showed LVEF of 55 to 60% with mildLVHand normal functioning bioprosthetic aortic valve. He then underwent right ORIF with nailingon 07/10/[address] Mane.He was restarted on his Xarelto postoperatively. Hemoglobinpostoperatively dropped to 9.4, but did not require blood transfusion and remained stable during hos pitalization. Also, he does have a known history of paroxysmal atrial fibrillation and he did develop an episode of A-fib with RVRpostoperatively on 07/12/2024 and was started on a diltiazem drip. He then spontaneously revertedback to normal sinus rhythm. Also, had some postop urinary retention that was managed with a Zendejas catheter, but removedafter successful void trial prior to discharge on 07/16/2024. Following hospital discharge she was admitted to [facility] from 07/17/2024 through 08/04/2024for inpatient occupational and physical therapy. For his postoperative anemia he continues on ferrous sulfate 325 mg, 1 tab p.o.daily instead oftwice daily as this was causing bothersome constipation. Labs during [facility] admissiondid show hemoglobin dropped to a low of 7.6, but had a repeatCBC with differential on 08/01/2024 that showed improvement of hemoglobin to 9.[address] Gonzalez recommended repeat CBC with differential in 1month. From [facility], he was discharged to [facility] in [place], [place] on 08/04/24where he is still residing andadmittedly unhappy about it. Unfortunately, with the holidays he has not been able tostart physical or occupational therapy. This is projected to start through [facility] this week or next week. He is feeling frustrated becauseat the time of his discharge from [facility] she was able to walk 80 feet unassisted with a walker, but [facility] as he has not yet been able to start PT/OT. Needs one-to-one assistance with any transfer. Feels frustrated he cannot move on his own and alsostaff does not alwaysget to him as promptly as hewould like or feels is reasonablewhen he needs them. [place] discussed this w/ staff.They have compromised and are allowing him totransfer out on his own if staff is present in case he needs assistance.He is anxious to get out of [place], so he can return to his home.At home he does have a raised toilet, grab bars, walk-in shower and shower stool. Regarding his hip fracture, he is scheduled to seeorthopedic surgery for follow-upin the nextcouple of weeks. Has minimal to no hip pain. He does have a standing order for Tylenolevery 6 hours as needed, which helps with other aches and pains. He is not having any difficulty moving bowels or voiding. Also,he has had chronic, bilateral lower extremity edemathat would frequently fluctuate in severity, butsincehis hospitalizationhis edema does not seem to be going downand may be a bit worse in the last few weeks. Niece is concerned thatthis could lead to open wounds on his lower legs that she has noticed a few scratchesat his right leg in the last few days. In the past he haduseddiuretics as needed for edema that worked well. He is chronically anticoagulated with apixaban5 mg twice dailyfor stroke prevention with A-fib.He also has thigh-high compression sleeves, but has not been wearing them as staff at [facility] reportedly left these on for 3 days straight without removing them -granddaughternotifiedstaff of this as well.No calf pain, chest pain, shortness of breath, palpitations or history of blood clots. Review of Systems ROS:All other systems negative, except HPI. Physical Exam Vitals & Measurements T:36.7C HR:74(Monitored) RR:16 BP:124/66 SpO2:97% PHQ2 Data(Data Documented on:08/21/2024 16:04) Emotional health assessment NEGATIVE General: Alert and oriented, No acute distress.Pleasant, elderly, frail appearing male seated in wheelchair. Frequently asked granddaughter the same question. Eye: Pupils are equal, round and reactive to light, Extraocular movements are intact, Normal conjunctiva. HENT: Normocephalic. TMs clear bilaterally. Posterior pharynx is pink. Uvula rises midline. No drooling, stridor or cyanosis. Neck: Supple, No lymphadenopathy, No thyromegaly. Respiratory: Lungs are clear to auscultation, Respirations are non-labored, Breath sounds are equal, Symmetrical chest wall expansion. Cardiovascular: Normal rate, Regular rhythm, No murmur, No gallop, Good pulses equal in all extremities, Normal peripheral perfusion. + 2 pitting edema at BLE from feet to proximal thighs.No calfredness or tenderness. + right cobb w/ some superficial abrasions. No blistering or skin ulcers. Abdomen: Normoactive BS x 4. Soft. No tenderness, palpable masses or organomegaly. Lymphatics: No submandibular, anterior or posterior cervical adenopathy palpable. Musculoskeletal Seated in a wheelchair. FROM and 5/5 strength at BLE and BUE. Integumentary: Warm, [place], No pallor. Neurologic: Alert, Oriented, Cranial Nerves II-XII are grossly intact. Cognition and Speech: Oriented, Speech clear and coherent, Functional cognition intact. Psychiatric: Cooperative, Appropriate mood & affect, Normal judgment, Nonsuicidal. Assessment/Plan 1.Nondisplaced intertrochanteric fracture of right femur, subsequent encounter for closed fracture with routine healing Nondisplaced intertrochanteric fracture of the right femurwith routine healingwas acuteand has since improved. Patient did complete inpatient rehabilitationat [facility] and is now awaiting to start outpatient PT and OT while at [facility] beforehe can be discharged back to home. I did encourage him to avoid transferring [id number] assistance to prevent falls andanotherinjury. He understands, but is understandably frustrated. Hopefullyoutpatient PT/OT will be able to startlater this week or early next week. I did encourage patient's granddaughterto to reach out if she needs anyassistance in making sure this gets accomplished. To continue with care of his orthopedist. Also, he is scheduled for a follow-up appointment with PCP, Dr. Gonzalez, in ~4 weeksand we will plan to keep this visit for recheck. [facility] and [facility] discharge summaries reviewed today. 2.Status post open reduction and internal fixation (ORIF) of fracture As above in #1. 3.Postoperative anemia Postoperative anemiahas improved on most recent labs completed on 08/01/2024 that was reviewed and outside records. He will continue on ferrous sulfate 325 mg, 1 tab p.o.daily and PCP has already given orders to repeat this in 1 month from the time of last labs. 4.Paroxysmal atrial fibrillation Paroxysmal atrial fibrillation is chronic and asymptomatic. To continue on apixaban 5 mg, 1 tabp.o. twice daily andhe is currently not on any rate controlling medication. To continue with care of cardiology. 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 daily. Admits that he will emotionally feel much better once he is able to be discharged to hisown homeas he is feeling bit frustrated currently with the situation, which is understandable. Has a great support system with his granddaughterand other grandchildren. For now to continue current medication. 6.Peripheral edema Peripheral edema is chronic and has gotten worse. Goal is resolution of symptoms. I suspect peripheral edema isdependentas patient has been much less mobilesince being discharged to [facility] awaiting physical therapy.We will have him start furosemide 20 mg, 1 tablet by mouth on , Wednesday and Wednesday. Discussed daily dosing, but will avoid for now due to age andas this may cause urinary frequency and his mobility is limited. Family was given an order for a BMP to have completed in approximately 10 days. An order was also given for staff to apply thigh-high compression sleeves to patient daily during waking hours and removein the evening before bedtime. To elevate legs as needed as well. We did discuss proceeding with bilateral lower extremity venous duplexas well to rule out DVT given history of surgery and immobility, butpatient and daughter declinedas he is not currently having any pain and is chronically anticoagulated with apixaban, which is reasonable. To keep follow-up appointment that is scheduled for 3 to 4 weeks. 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 [...] Loss of weight Major depression, recurrent, chronic Major depressive disorder in partial remission Neuropathy Osteoarthritis of left knee Paroxysmal atrial fibrillation Recent bereavement Sebaceous cyst Seborrheic keratoses Seborrheic [...] biopsy and cauterization of skin| Service Date: 02/11/2023ardiac echo| Service Date: 01/07/2017Magnetic resonance angiography (MRA) [...] mg= 1 tab, PO, qhs, 5 refills ferrous sulfate(ferrous sulfate 325 mg (65 mg elemental iron) oral tablet), 325 mg= 1 tab, PO, Daily, 6 refills fluticasone nasal(Flonase 50 mcg/inh nasal spray), 2 spray, each nostril, Daily furosemide(furosemide 20 mg oral tablet), See Instructions meclizine(meclizine 25 mg oral tablet), 25 mg= [...] episode in last year:1 Employment/School Status:Retired 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, 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 Exercise - Regular exercise Duration (average number [...] Cause: Colon cancer Immunizations Vaccine Date Status pneumococcal 20-valent conjugate vaccine 06/28/2024 Given influenza virus vaccine, inactivated 06/14/2024 Given influenza [...] 23-valent vaccine 08/16/2001 Recorded Comments : [03/30/2014] at [facility] Recommendations Health Maintenance Pending(in the next year) OverDue Medicare Annual Wellness Visit due08/04/22and every 1year Due Adult Social Determinants of Health Screening due08/22/24Unknown Frequency Adult Tdap/Td Vaccine due08/22/24Unknown Frequency Body Mass Index due08/22/24Unknown Frequency Falls Plan of Care due08/22/24Unknown Frequency Shingles Vaccine due08/22/24One-time only Due In Future Adult Influenza Vaccine not due until02/13/25and every 1year Satisfied(in the past 1 year) Satisfied Adult Influenza Vaccine on06/14/24.Satisfied by JOSH Cardona Karli R Electronic Signature on File Electronically Reviewed/Signed by: Katelyn Maya PA-C,MPAS Author Signature Dt/Tm::50 PM Physician Ag Equipment Field Service Technician Family [facility] Community [facility] [address], [address] [place] [address] JAW Patient Care team information Care Team Personnel Name: SHONNA Smart, Isis Robles Position: RN - Endoscopy Member Role: Lifetime - never expires Address: [facility] [address] [place] [address] Name: MD Carlos, Anju Vazquez Position: Physician - Family Med Member Role: Primary Care Provider Address: [address] [place] [address] [address] [place] [address] [place] Name: MD Qing, Rosa Urena Position: Provider - Terminated Member Role: Lifetime Relationship Address: [address] [facility] [address] [place] [address] Care Team Related Persons Name: DAV MANJARREZ"
[2024-08-24] MEDS: AMIODARONE 200 MG TAB PO SCH (11:47)
[2024-08-24] MEDS: TAMSULOSIN HCL 0.4 MG CAP PO ONE (11:47)
--- NOTE | 2024-08-24 13:35 | Cardiology Consultation ---
Date of Consultation August 24, 2024 Assessment & Plan (1) Paroxysmal A-fib: (2) Acute urinary retention: (3) UGIB (upper gastrointestinal bleed): (4) Bilateral leg edema: (5) S/P aortic valve replacement with bioprosthetic valve: (6) S/P coronary artery bypass graft x 3: Plan 88-year-old man status post remote CABG/bioprosthetic AVR admitted with acute urinary retention/upper GI bleed and noted to have recurrence of his paroxysmal atrial fibrillation. He was chronically anticoagulated with rivaroxaban (had rash on apixaban), obviously anticoagulation will need to be held in the context of acute GI bleeding. Given increasing frequency of recurrent atrial fibrillation (prior episodes years apart, now months apart) and at least temporary contraindication to anticoagulation (GI bleed), would favor initiating antiarrhythmic. Given prior propensity to bradycardia he was on no negative chronotropic medications, therefore would recommend initiating amiodarone 200 mg daily without loading dose to reduce the risk of recurrent bradycardia. Due to concerns regarding potential QT prolongation, agree with changing from escitalopram to alternative psychotropic agent. Echocardiogram within the past year (October 2023) showed appropriately functioning bioprosthetic AVR with normal LV systolic function. He is status post remote CABG and showed no evidence of ischemia, he had no angina and had a normal troponin despite tachycardia. His leg edema is felt to be predominantly venous insufficiency. Case discussed with Dr. Bonds. Dr. Mcgee will be rounding tomorrow, will ask him to check in on the patient. History of Present Illness Reason for Consultation: a fib Requesting Physician: Abdoulaye Bonds Attending Physician: Abdoulaye Bonds History of Present Illness 88-year-old man well-known to me from outpatient encounters since 2000, cardiac history notable for 2010 bioprosthetic aortic valve & CABG (THURMAN to LAD, vein grafts to diagonal and RCA) with paroxysmal atrial fibrillation (rivaroxaban/no negative chronotropic) and cerebellar CVA 2016 was admitted this morning with urinary retention and noted to have a GI bleed as well as atrial fibrillation with rapid ventricular response. Fortunately, his rhythm reverted to sinus within a few hours. He denies any chest pain, dyspnea, lightheadedness, or tachypalpitations while he was in atrial fibrillation. He has had several weeks of dark stools and was found to have heme positive stool and was placed on a pantoprazole IV drip. He did note some recent leg edema and had just started furosemide over the past 3 days for this. He has been residing at [facility] recently to recover from a right hip fracture which required operative repair June 2024. At the time of my evaluation this morning, he was comfortable and denied any somatic complaints. Allergies Allergy/AdvReac Type Severity Reaction Status Date / Time Penicillins Allergy Intermediate Unknown Verified 07/10/24 11:41 apixaban [From Eliquis] AdvReac Intermediate Rash, Verified 07/10/24 11:41 itching oxycodone AdvReac SICKNESS Verified 07/10/24 11:41 Home Medications Medication Instructions Recorded Confirmed Type cholecalciferol (vitamin D3) 25 1,000 units PO BID 06/06/19 07/08/24 History mcg (1,000 unit) capsule coQ10 (ubiquinol) 100 mg capsule 100 mg PO DAILY 07/23/20 07/08/24 History vitamins A,C,K-mqmx-xnjory 2,148 1 tab PO DAILY 07/23/20 07/08/24 History mcg-113 mg-45 mg-17.4 mg tablet (PreserVision AREDS) cyanocobalamin (vitamin B-12) 1,000 mcg PO DAILY 06/27/21 07/08/24 History 1,000 mcg capsule fluticasone propionate 50 1 spray intranasal BID 09/12/21 07/08/24 History mcg/actuation nasal spray,suspension escitalopram oxalate 10 mg tablet 10 mg PO DAILY #90 tabs 04/13/23 07/08/24 Rx rosuvastatin 10 mg tablet 20 mg PO DAILY 11/02/23 07/08/24 History rivaroxaban 20 mg tablet (Xarelto) 20 mg PO DAILY #90 tabs 03/25/24 07/08/24 Rx nitroglycerin 0.4 mg sublingual 0.4 mg sublingual Q5M PRN Chest 03/30/24 07/08/24 Rx tablet Pain #25 tabs famotidine 20 mg tablet 20 mg PO 1XD PRN Acid Reflux 07/08/24 07/08/24 History Patient History Medical History (Updated 08/24/24 @ 13:56 by Kam Dyson MD) Hypomagnesemia Lumbar spinal stenosis Multiple fractures of ribs of right side COVID-19 (07/2020) Fall Closed intertrochanteric fracture of right femur Atrial fibrillation with rapid ventricular response Difficulty swallowing liquids Idiopathic polyneuropathy History of cerebellar stroke (2017) Bradycardia Hypertension Anxiety History of left foot drop Inhibited sexual excitement Ankle fracture (2012) Surgical History 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) Family History Mother Unknown family medical history Social History Smoking Status: Never smoker Second Hand Exposure: No; Do You Dip or Chew Tobacco: No; Tobacco Cessation Education Requested by Patient: No Hx Alcohol Use: No Hx Substance Use: No Preferred Language: Slovenian Communication Ability: Effective Friend Of The Court Required: No Beliefs That Will Affect Care: None marital status: Current Living Situation: Alone current occupational status: retired Other Information That Helps Us Care for You: No Feels Safe at Home: Yes Safety Concerns: Feels Safe At This Time Assistive Devices: Cane and Walker Physical Exam Physical Exam: Elderly white male who appears frail but in no acute distress. Normotensive. Pulse 62 bpm and regular. Respirations 18 unlabored. Skin: No generalized lesions or ecchymoses. HEENT: unremarkable. Neck: Jugular venous pulse at clavicle at 90 degrees, transmitted murmur to the carotids. Cardiac regular with 3/6 basal systolic ejection murmur which is nonradiating and crisp aortic closure sound. No diastolic murmur or gallop. Abdomen benign. Extremities with 2+ pretibial edema, excellent capillary refill (1 second). Neurologic: normal affect and conversation, nonfocal. Results & Data Laboratory Results Hemoglobin 11.5 with normal white count platelet count. Normal electrolytes, BUN 11, creatinine 0.74. Magnesium 2.0. Troponin 20.7 and 18.7. Diagnostic Findings ECG on admission showed atrial fibrillation with rapid ventricular sponsor 146 bpm, left anterior fascicular block. Compared with 08/24/2024 (earlier in the day), A-fib replaced sinus rhythm and rate increased by 58 bpm. Chest x-ray with no acute findings. PG Care Time/CCT Total # of Minutes Spent Total Time Spent with Patient: Total time spent is greater than 50% in coordination of care (as documented) at patient's floor/unit and/or counseling patient: Coding Level of Care Code 80359 IN/OBS CONSULT LVL 4,60M Diagnoses Paroxysmal A-fib I48.0 Acute urinary retention R33.8 UGIB (upper gastrointestinal bleed) K92.2 Bilateral leg edema R60.0 S/P aortic valve replacement with bioprosthetic valve Z95.3 S/P coronary artery bypass graft x 3 Z95.1
[2024-08-24] MEDS: ACETAMINOPHEN 325 MG TAB PO ONE (15:00)
[2024-08-24 15:11] LABS: Hematocrit (blood only) 30.3 % (42.0-52.0); Hemoglobin 9.9 g/dl (14.0-18.0)
[2024-08-24] MEDS: ACETAMINOPHEN 325 MG TAB PO SCH (19:38)
[2024-08-25 07:19] LABS: Basophils # (auto) 0.03 K/uL (0.00-0.20); Basophils % (auto) 0.6 %; Eosinophils # (auto) 0.23 K/uL (0.00-0.50); Eosinophils % (auto) 4.9 %; Hematocrit (blood only) 30.7 % (42.0-52.0); Hemoglobin 9.7 g/dl (14.0-18.0); Immature Granulocytes # (auto) 0.01 K/uL (0.01-0.20); Immature Granulocytes % (auto) 0.2 %; Lymphocytes # (auto) 0.91 K/uL (1.20-3.40); Lymphocytes % (auto) 19.4 %; Mean Corpuscular Hemoglobin 30.6 pg (25.0-34.0); Mean Corpuscular Hgb Conc 31.6 g/dL (32.0-36.0); Mean Corpuscular Volume 96.8 fL (80.0-100.0); Mean Platelet Volume 9.8 fL (9.4-12.4); Monocytes % (auto) 10.6 %; Neutrophils # (auto) 3.02 K/uL (1.40-6.50); Neutrophils % (auto) 64.3 %; Platelet Count 142 K/uL (130-400); RDW Coefficient of Variation 19.6 % (11.5-14.5); RDW Standard Deviation 68.8 fL (36.4-46.3); Red Blood Count 3.17 M/uL (4.70-6.10)
[2024-08-25 07:38] LABS: Anion Gap 4 (3-11); BUN Creatinine Ratio 14.5 (10-20); Blood Urea Nitrogen 10 mg/dl (6-23); C Reactive Protein < 0.50 mg/dl (0-0.5); Calcium 8.6 mg/dl (8.6-10.3); Carbon Dioxide 27 mmol/L (21-32); Chloride 109 mmol/L (98-107); Creatinine Clr Calc Pharmacy 74.6 ml/min; Glucose 84 mg/dl (70-99(Fasting)); Potassium 3.7 mmol/L (3.5-5.1); Sodium 140 mmol/L (136-145)
[2024-08-25] MEDS: ESCITALOPRAM OXALATE 10 MG TAB PO SCH (08:54)
[2024-08-25] MEDS ORDERED: STAT IV Infusion **Titration per Protocol STA (13:55)
[2024-08-25] MEDS ORDERED: 0.2 MICRON FILTER SET 1 EACH IV STA (13:55)
[2024-08-25] MEDS ORDERED: AMIODARONE IV BOLUS & DRIP IV STA (13:55)
[2024-08-25] MEDS: AMIODARONE / D5W 150 MG/100 ML BAG IV STA (15:45)
[2024-08-25] MEDS: AMIODARONE / D5W 360 MG/200 ML BAG IV ONE (16:00)
[2024-08-25] MEDS: SERTRALINE HCL 50 MG TABLET PO SCH (20:31)
[2024-08-25] MEDS: TAMSULOSIN HCL 0.4 MG CAP PO SCH (20:31)
[2024-08-25] MEDS: AMIODARONE / D5W 360 MG/200 ML BAG IV SCH (21:48)
--- NOTE | 2024-08-25 23:13 | Hospitalist Progress Note ---
Date of Service August 25, 2024 Assessment & Plan (1) Acute urinary retention: Plan: Acute urinary retention in an 88-year-old male with lower abdominal pain, also in A fib RVR and postive fecal occult blood. Placed on flores cathter. Immediately 1 liter of urine evacuated into flores bag. placed on flomax for possible BPH. will likely need urology followup as an outpatient. (2) UGIB (upper gastrointestinal bleed): Plan: Placed on PPI drip. consult GI. Hemoglobin stable after review on 08/25 will monitor. now starting diet. (3) Atrial fibrillation with RVR: Plan: reverted back to sinus after diltiazem on admission Will place patient on amiodarone 200 mg PO BID. due to interaction with escitalopram will switch to zoloft. hold anticoagulation due to upper GI bleed On 08/25 patient went back to atrial flutter, placed on amiodarone drip as patient cannot tolerate anticoagulation. discussed with cardiology Admission and Anticipated Discharge Date Admission Date: August 24, 2024 Subjective Patient reports no new symptoms. Patient went back to atrial flutter in the afternoon. Physical Exam Physical Exam: General-alert and oriented x3, no fever, no chills HEENT-head atraumatic and normocephalic, Neck-no lymphadenopathy or thyromegaly, trachea midline Chest-clear to auscultation. No rales, wheezing or rhonchi Cardiac-regular rhythm. Regular rate. Normal S1 and S2 Abdomen-normal bowel sounds, no hepatosplenomegaly Extremities-right hip surgical site is unremarkable. 2+ edema in bilateral lower extremities Neuro-cranial nerves II through XII intact, motor and sensory function within normal limits, strength symmetrical, no focal deficits Psych-normal affect, normal mood Results & Data Results & Data Vital Signs (Past 12 Hours) Vital Signs Temp Pulse Pulse Resp BP Pulse Ox O2 Del Method 08/25/24 22:44 36.4 C L 78 16 124/64 100 Room Air 08/25/24 21:42 55 L 08/25/24 19:30 37.0 C 62 17 124/71 97 Room Air 08/25/24 15:11 36.8 C 67 17 133/76 98 Room Air 08/25/24 13:52 79 08/25/24 13:35 127 H 08/25/24 12:00 36.6 C 59 L 18 143/67 H 96 Room Air PG Care Time/CCT Total # of Minutes Spent Total Time Spent with Patient: Total time spent is greater than 50% in coordination of care (as documented) at patient's floor/unit and/or counseling patient: Coding Level of Care Code 68435 SUB INP/OBS CARE 3/50MIN Diagnoses Acute urinary retention R33.8 UGIB (upper gastrointestinal bleed) K92.2 Atrial fibrillation with RVR I48.91
[2024-08-26 07:12] LABS: Hemoglobin 10.3 g/dl (14.0-18.0); Mean Corpuscular Hemoglobin 30.7 pg (25.0-34.0); Mean Corpuscular Hgb Conc 32.2 g/dL (32.0-36.0); Mean Corpuscular Volume 95.2 fL (80.0-100.0); Mean Platelet Volume 9.7 fL (9.4-12.4); Platelet Count 131 K/uL (130-400); RDW Standard Deviation 65.1 fL (36.4-46.3); Red Blood Count 3.36 M/uL (4.70-6.10); White Blood Count 4.56 K/ul (4.8-10.8)
[2024-08-26 07:55] LABS: Calcium 8.7 mg/dl (8.6-10.3); Creatinine Clr Calc Pharmacy 68.6 ml/min; Potassium 3.7 mmol/L (3.5-5.1)
[2024-08-26] MEDS: AMIODARONE 200 MG TAB PO SCH (16:42)
--- NOTE | 2024-08-26 22:36 | Hospitalist Progress Note ---
Date of Service August 26, 2024 Assessment & Plan (1) Acute urinary retention: Plan: Acute urinary retention in an 88-year-old male with lower abdominal pain, also in A fib RVR and postive fecal occult blood. Placed on flores cathter. Immediately 1 liter of urine evacuated into flores bag. placed on flomax for possible BPH. will likely need urology followup as an outpatient. (2) UGIB (upper gastrointestinal bleed): Plan: Placed on PPI drip. consult GI. Hemoglobin stable after review on 08/26 will monitor. advancing diet. (3) Atrial fibrillation with RVR: Plan: reverted back to sinus after diltiazem on admission due to interaction with escitalopram will switch to zoloft. hold anticoagulation due to upper GI bleed On 08/25 patient went back to atrial flutter, placed on amiodarone drip as patient cannot tolerate anticoagulation. discussed with cardiology On 08/26, transitioned to amiodarone 400 mg PO BID given patient's bradycardia. Admission and Anticipated Discharge Date Admission Date: August 24, 2024 Subjective Patient reports no new symptoms. Physical Exam Physical Exam: General-alert and oriented x3, no fever, no chills HEENT-head atraumatic and normocephalic, Cardiac-regular rhythm. bradycardic. Results & Data Results & Data Vital Signs (Past 12 Hours) Vital Signs Temp Pulse Pulse Resp BP Pulse Ox O2 Del Method 08/26/24 21:30 Room Air 08/26/24 19:09 37.1 C 57 L 18 137/73 97 Room Air 08/26/24 14:51 36.9 C 58 L 18 130/61 98 Room Air 08/26/24 14:00 57 L 08/26/24 11:21 36.6 C 55 L 19 125/57 L 97 Room Air PG Care Time/CCT Total # of Minutes Spent Total Time Spent with Patient: Total time spent is greater than 50% in coordination of care (as documented) at patient's floor/unit and/or counseling patient: Coding Level of Care Code 74505 SUB INP/OBS CARE 3/50MIN Diagnoses Acute urinary retention R33.8 UGIB (upper gastrointestinal bleed) K92.2 Atrial fibrillation with RVR I48.91
[2024-08-27 06:20] LABS: Hematocrit (blood only) 34.2 % (42.0-52.0); Mean Corpuscular Hemoglobin 30.6 pg (25.0-34.0); Mean Corpuscular Hgb Conc 32.2 g/dL (32.0-36.0); Mean Corpuscular Volume 95.3 fL (80.0-100.0); Mean Platelet Volume 9.8 fL (9.4-12.4); Platelet Count 142 K/uL (130-400); RDW Coefficient of Variation 18.6 % (11.5-14.5); RDW Standard Deviation 63.5 fL (36.4-46.3); Red Blood Count 3.59 M/uL (4.70-6.10); White Blood Count 4.32 K/ul (4.8-10.8)
[2024-08-27 06:46] LABS: BUN Creatinine Ratio 9.8 (10-20); Calcium 9.1 mg/dl (8.6-10.3); Creatinine Clr Calc Pharmacy 62.4 ml/min; Potassium 4.1 mmol/L (3.5-5.1)
[2024-08-27] MEDS: POLYETHYLENE (MIRALAX) 17 GM PACK PO SCH (10:10)
--- NOTE | 2024-08-27 10:30 | Electrocardiogram Report ---
Test Reason : Blood Pressure : */* mmHG Vent. Rate : 59 BPM Atrial Rate : 59 BPM P-R Int : 178 ms QRS Dur : 112 ms QT Int : 426 ms P-R-T Axes : 45 -55 49 degrees QTcB Int : 421 ms Sinus bradycardia Left anterior fascicular block Minimal voltage criteria for LVH, may be normal variant ( Nico product ) Abnormal ECG When compared with ECG of 24-Aug-2024 06:11, Sinus rhythm has replaced Atrial fibrillation Vent. rate has decreased by 87 bpm Confirmed by Woodrow Guzman ([id number]) on 08/27/2024 10:30:09 AM Referred By: REFERRED SELF Confirmed By: Woodrow Guzman
--- NOTE | 2024-08-27 16:31 | Hospitalist Progress Note ---
Date of Service August 27, 2024 Assessment & Plan (1) Acute urinary retention: Plan: Acute urinary retention in an 88-year-old male with lower abdominal pain, also in A fib RVR and postive fecal occult blood. Placed on flores cathter on admission. Immediately 1 liter of urine evacuated into flores bag. placed on flomax for possible BPH. will likely need urology followup as an outpatient. remove flores on 08/27, will assess his urine output. If patient is able to urinate will discharge tomorrow. (2) UGIB (upper gastrointestinal bleed): Plan: Placed on PPI drip/ transitioned to oral PPI on 08/27. consult GI. Hemoglobin stable after review on 08/27 No signs of GI bleeding will monitor. (3) Atrial fibrillation with RVR: Plan: reverted back to sinus after diltiazem on admission due to interaction with escitalopram will switch to zoloft. hold anticoagulation due to upper GI bleed On 08/25 patient went back to atrial flutter, placed on amiodarone drip as patient cannot tolerate anticoagulation. discussed with cardiology On 08/26, transitioned to amiodarone 400 mg PO BID given patient's bradycardia. On 08/27, remains in sinus. Admission and Anticipated Discharge Date Admission Date: August 24, 2024 Subjective Patient is lying upright in bed. He has no new complaints. Physical Exam Physical Exam: General-alert and oriented x3, no fever, no chills HEENT-head atraumatic and normocephalic, Cardiac-regular rhythm. bradycardic. Results & Data Results & Data Vital Signs (Past 12 Hours) Vital Signs Temp Pulse Pulse Resp BP Pulse Ox O2 Del Method 08/27/24 16:14 37.0 C 52 L 18 109/49 L 96 Room Air 08/27/24 14:17 54 L 08/27/24 11:29 36.7 C 55 L 18 148/72 H 97 Room Air 08/27/24 07:23 36.5 C 59 L 19 131/80 97 Room Air 08/27/24 06:10 52 L PG Care Time/CCT Total # of Minutes Spent Total Time Spent with Patient: Total time spent is greater than 50% in coordination of care (as documented) at patient's floor/unit and/or counseling patient: Coding Level of Care Code 13132 SUB INP/OBS CARE 3/50MIN Diagnoses Acute urinary retention R33.8 UGIB (upper gastrointestinal bleed) K92.2 Atrial fibrillation with RVR I48.91
[2024-08-27] MEDS: PANTOprazole 40 MG TAB PO SCH (20:01)
[2024-08-28 07:27] VITALS: O2SAT 96
[2024-08-28 09:17] LABS: Hematocrit (blood only) 33.5 % (42.0-52.0); Hemoglobin 10.9 g/dl (14.0-18.0); Mean Corpuscular Hemoglobin 30.9 pg (25.0-34.0); Mean Corpuscular Hgb Conc 32.5 g/dL (32.0-36.0); Mean Corpuscular Volume 94.9 fL (80.0-100.0); Mean Platelet Volume 9.4 fL (9.4-12.4); Platelet Count 144 K/uL (130-400); RDW Coefficient of Variation 18.3 % (11.5-14.5); Red Blood Count 3.53 M/uL (4.70-6.10); White Blood Count 4.01 K/ul (4.8-10.8)
[2024-08-28 09:32] LABS: BUN Creatinine Ratio 9.9 (10-20); Calcium 9.3 mg/dl (8.6-10.3); Potassium 3.9 mmol/L (3.5-5.1)
[2024-08-28 11:47] VITALS: RESP 18; TEMP 98.1
--- NOTE | 2024-08-28 14:58 | Discharge Summary ---
Discharge Summary Date of Service August 28, 2024 Principal Dx & Hospital Course #1 = Principal Diagnosis (1) Acute urinary retention: Acute urinary retention in an 88-year-old male with lower abdominal pain, also in A fib RVR and postive fecal occult blood. Placed on flores cathter on admission and immediately 1 liter of urine evacuated into flores bag. placed on flomax for possible BPH. He failed a trial of void on 08/28 and had Flores replaced for almost 600mL urine will need urology followup as an outpatient (2) UGIB (upper gastrointestinal bleed): Not convinced this is the case. He was not anemic before his hip fracture 7 weeks ago but had anemia after wards due to blood loss from hip fracture hgb is actually increased from previous but hemoccult stool is positive here his stool has been dark but from Fe pills most likely, no gross bleeding Hgb up to 10 from previous 9 continue FeSO4 tabs and f/u with G after dc for scopes Continue PPI bid x 2 months check CBC in 1 week with PCP remain off Xarelto and would not give ASA for CAD at this time either until hgb comes up and complete GI workup (3) Atrial fibrillation with RVR: admitted with rapid afib and had this during last hospitalization too for hip fracture, converted spontaneously on dilt gtt and then had bradycardia On 08/25 patient went back to atrial flutter holding Xarelto for anemia as above seen by Cardiology here and reocmmended amiodarone and to hold Xarelto converted back to sinus/sinus sd and remained there through discharge he is asymptomatic with his Afib continue amio 400mg po bid x 2 weeks, then 200mg daily f/u with cardio as outpt resume Xarelto in next few weeks if hgb stable and ok with Cardio/PCP (4) S/P coronary artery bypass graft x 3: not on xarelto but could be on ASA in future if no Xarelto-defer to Cardio but hold all blood htinners for now due to anemia and heme positive stool continue statin (5) S/P aortic valve replacement with bioprosthetic valve: noted (6) Bilateral leg edema: venous insufficiency, no diuretics needed (7) Gastro-esophageal reflux disease with esophagitis: continue PPI bid, prn pepcid (8) Anemia: as above/ f/u CBC in 1 week Plan Dispo-dc to [facility] Notes For Next Care Provider Check CBC in 1 week, resume Xarelto as soon as safe to do so from anemia standpoint Medication Changes From Visit HOLD Xarelto Started amiodarone 400mg po bid x 12 days then 200mg daily Started Protonix 40mg po bid Switch Lexapro to Zoloft due to interaction/QT with amiodarone Admission HPI Per Admitting Provider 88-year-old male with a past medical history including ambulatory dysfunction requiring a cane, difficulty swallowing liquids, depression, GERD with esophagitis, hypertension, history of cerebellar stroke, atrial fibrillation, status post AVR with bioprosthetic valve, status post CABG x 3, lumbar spinal stenosis, and idiopathic polyneuropathy, presents To the ED with acute urinary retention. Patient recently started lasix for worsening leg swelling 3 days ago. Patient then statrted having symptoms of urinary urgency the day prior to admission. Patient does not follow with a Urology and denies having any urinary urgency, dysuria, urinary hesitancy prior. This morning he tried to urinate and was unable to accompanied by severe lower abdominal pain. Patient discussed this with his caregiver and was recommended to go to the emergency room. Once he arrived to the ER patient was found to be in A-fib RVR. Patient was recently hospitalized for right hip fracture and is currently at [facility] for therapy. Patient also reports having dark stools for the past couple weeks however sandoval burgos has been taking iron supplements. Patient reports reported that after having his hip surgery repair he has been suffering from anemia which is why he is on iron now. In the ED rectal exam was completed and patient had fecal occult blood test was positive. Due to the A-fib RVR positive fecal occult blood test and acute renal retention consult was made to the hospitalist to admit. Discharge Exam Constitutional WD/WN, vitals as above Respiratory normal respiratory effort, lungs clear to auscultation Cardiovascular Rate/Rhythm: regular rate and regular rhythm Extremities: + edema (1+ ptting edema legs bilat) Psychiatric A+Ox3, euthymic affect Discharge Plan Discharge Items Patient Disposition: Personal Fpc Reason For Visit: MELENA/A FIB Discharge Diagnosis: Urinary retention Rapid atrial fibrillation Anemia, Hemoccult positive stool Activity: Resume your previous activity Non-emergency contact: Primary Care Provider, Associate Chief Nurse and [facility] Call non-emergency contact if: you have any medication questions and your sy mptoms worsen Follow-up/Referrals: Donovan An DO [Physician] - (Please follow up within 1 month for anemia and Hemoccult positive stool) Duarte Pappas DO [Physician] - (Please follow up for urine retention and Flores catheter within 2-3 weeks) Anju Gonzalez MD [Primary Care Provider] - (Follow up within 1-2 weeks) Diet: Heart Healthy Addtl Attending Provider Instructions: You were admitted with rapid atrial fibrillation and retention of urine. Unfortunately, you are still unable to completely void and a Flores catheter was replaced after a failed trial with it out. You will need to follow up with a Urologist for further evaluation and management of this issue. You were started on a medication called tamsulosin to help shrink the prostate. Your heart is now back in a normal rhythm on a medication called amiodarone. This is to be taken 400mg twice a day for 12 more days and then down to 200mg once a day. You will remain off your Xarelto for now due to your anemia, but this may be able to be restarted in the next few weeks if your anemia improves. Follow up with the GI doctor to decide if and when you should have upper and lower endoscopies to look for a source of bleeding. In the meantime, stay on the protonix antacid twice a day. You should have your blood count checked in 1 week. Your escitalopram was switched to sertraline for your mood due to an interaction with the amiodarone. Pending Studies at Discharge: No Stand-Alone Forms: My MEMSIC, Smoking Cessation Skilled Items Patient informed of condition?: Yes DNR: No Discharge Level of Care: Other Communicable Disease: No Discharge Prognosis: Improving Lines: None Urinary Catheter: Yes Medications and DC Order Prescriptions: New amiodarone 200 mg Tablet 400 mg PO BIDM Qty: 66 0RF Rx Instructions: x 12 days then decrease to 200mg once daily tamsulosin 0.4 mg Capsule 0.4 mg PO HS Qty: 30 0RF sertraline 50 mg Tablet 25 mg PO PM Qty: 15 0RF polyethylene glycol 3350 [Miralax] 17 gram Powder In Packet 17 g PO DAILY Qty: 30 0RF pantoprazole 40 mg Tablet,Delayed Release (Dr/Ec) 40 mg PO BID Qty: 60 0RF Continued fluticasone propionate 50 mcg/actuation spray,suspension 1 spray intranasal BID Rx Instructions: unable to verify with pt or express scripts 11/02/23 administer into each nostril cyanocobalamin (vitamin B-12) 1,000 mcg capsule 1,000 mcg PO DAILY Rx Instructions: unable to verify with pt or express scripts 11/02/23 cholecalciferol (vitamin D3) 1,000 unit capsule 1,000 units PO BID nitroglycerin 0.4 mg tablet, sublingual 0.4 mg SL Q5M PRN (Reason: Chest Pain) Qty: 25 3RF Rx Instructions: unable to verify with pt or express scripts 11/02/23 PreserVision AREDS [id number] Tablet 1 tab PO DAILY Rx Instructions: unable to verify with pt or express scripts 11/02/23 coQ10 (ubiquinol) 100 mg Capsule 100 mg PO DAILY Rx Instructions: unable to verify with pt or express scripts 11/02/23 rosuvastatin 10 mg tablet 20 mg PO DAILY famotidine 20 mg tablet 20 mg PO 1XD PRN (Reason: Acid Reflux) Held Xarelto 20 mg tablet 20 mg PO DAILY Qty: 90 3RF Hold Instructions: Resume on 09/04/24. Hold until advised to resume by your Associate Chief Nurse or PCP Discontinued escitalopram oxalate 10 mg tablet 10 mg PO DAILY Qty: 90 3RF Discharge Orders: Discharge Order (Routine); Ordered 08/28/24 Ordered By: Cortney Wood Admission Data Admit Date/Time: 08/24/24 07:19 Attending Provider: Cortney Wood Admit Provider: Abdoulaye Bonds Primary Care Provider: Anju Gonzalez Other Providers: Becca Conway; Donovan An; Katelyn Langley; Sonia Bailey; Marlin Burnett; Aminah Abarca; Jacob Wheat; Eloisa Cervantes; Gordon Anderson; Priti Sun; Elisa Guerra; Neeta Perez; Darlyn Francisco; Maki Sanderson; Marta Chavez; Edson Rodríguez; Joyce Nix; Martinez Fay Jr; Bruce Maldonado; Dustin Fraser; Luis Ortega; Patrick Dejesus; Selam Jones; Ghassan Shepard I; Zully Haque; Matthew Holman; Deshawn Olson; Kam Dyson; Jordan Chacon; Otis Morrison; Woodrow Guzman; Jack Arboleda Jr; Antonio Goode; Bianka Wadsworth; Tanika Burciaga; Kristian Vincent; Kristian Ortiz; Paul Batista; Lashawn Donnelly; Jono Jessica; Ana Medina; Chago Elise; Jono Monreal; Sekou Burr; Aris Stewart; Abdoulaye Bonds; [facility] Hospital Stay Data Consultations 08/24/24 07:18 Consult Gastroenterology Routine 08/24/24 07:21 Consult Cardiology Stat ED Decision to Admit Stat Pending Results Patient Have Any Pending Studies at Discharge: No Discharge Instructions Given to Patient (Per Discharging Provider) You were admitted with rapid atrial fibrillation and retention of urine. Unfortunately, you are still unable to completely void and a Flores catheter was replaced after a failed trial with it out. You will need to follow up with a Urologist for further evaluation and management of this issue. You were started on a medication called tamsulosin to help shrink the prostate. Your heart is now back in a normal rhythm on a medication called amiodarone. This is to be taken 400mg twice a day for 12 more days and then down to 200mg once a day. You will remain off your Xarelto for now due to your anemia, but this may be able to be restarted in the next few weeks if your anemia improves. Follow up with the GI doctor to decide if and when you should have upper and lower endoscopies to look for a source of bleeding. In the meantime, stay on the protonix antacid twice a day. You should have your blood count checked in 1 week. Your escitalopram was switched to sertraline for your mood due to an interaction with the amiodarone. Total Time Total Time Spent Total Time Spent (In Minutes): 35 min Total Time Includes: Examination of the Patient, Discharge Planning and Medication Reconciliation Coding Level of Care Code 59999 INP/OBS DISCH >30 MIN Diagnoses Acute urinary retention R33.8 UGIB (upper gastrointestinal bleed) K92.2 Atrial fibrillation with RVR I48.91 S/P coronary artery bypass graft x 3 Z95.1 S/P aortic valve replacement with bioprosthetic valve Z95.3 Bilateral leg edema R60.0 Gastro-esophageal reflux disease with esophagitis K21.00 Anemia D64.9
[2024-08-28 15:11] VITALS: BP 158/73; PULSE 57
== END 2024-08-28 16:46 | disposition home or self-care (01) | DRG 696 ==
LOC: ED 05:54 → 2S 07:19 → SUATTDRO 07:19 → 2S 08:22

== ENCOUNTER 2024-10-16 09:23 | Observation (INO) ==
--- NOTE | 2024-10-11 09:51 | Anesthesiology Consultation ---
Date of Service October 11, 2024 Assessment & Plan (1) Encounter for pre-operative examination: - will await upcoming PSH PCP 10/13/24 office visit. - discharge summary 08/24/24 [facility]: "...Acute urinary retention in an 88-year-old male with lower abdominal pain, also in A fib RVR and positive fecal occult blood...1 liter of urine evacuated into flores bag. placed on flomax for possible BPH. He failed a trial of void on 08/28 and had Flores replaced for almost 600mL urine...UGIB (upper gastrointestinal bleed): Not convinced this is the case. He was not anemic before his hip fracture 7 weeks ago but had anemia after wards due to blood loss from hip fracture. hgb is actually increased from previous but hemoccult stool is positive here. his stool has been dark but from Fe pills most likely, no gross bleeding. Hgb up to 10 from previous 9...Atrial fibrillation with RVR: admitted with rapid afib and had this during last hospitalization too for hip fracture, converted spontaneously on dilt gtt and then had bradycardia...S/P coronary artery bypass graft x 3: not on xarelto but could be on ASA in future if no Xarelto-defer to Cardio but hold all blood thinners for now due to anemia and heme positive stool..." - Per electronic systems security assessment on 10/11/24: No known infectious disease contacts, current infectious disease symptoms in past 10 days or COVID positive test result in the past 30 days. COVID test needed given living facility per protocol, ordered for JU[facility]. Chart Review Chart Review: Pending: Refer to Additional Notes / Consult section and Patient NOT seen in Pre Admission Testing History Surgery Operation Date: 10/16/24 13:40 Proposed Procedures p Cystolithalopaxy (Bladder Stone Fragmentation and Removal), - Duarte Pappas DO s COSME - Duarte Pappas DO Height/Weight Height: 5 ft 9 in Weight: 68.039 kg Allergies Allergy/AdvReac Type Severity Reaction Status Date / Time Penicillins Allergy Intermediate Unknown Verified 10/11/24 08:46 apixaban [From Eliquis] AdvReac Intermediate Rash, Verified 10/11/24 08:46 itching oxycodone AdvReac Mild SICKNESS Verified 10/11/24 08:46 Medications Home Medications Medication Instructions Recorded Confirmed Last Taken cholecalciferol (vitamin D3) 25 1,000 units PO QAM 06/06/19 10/11/24 07/08/24 20:00 mcg (1,000 unit) capsule coQ10 (ubiquinol) 100 mg capsule 100 mg PO QAM 07/23/20 10/11/24 07/08/24 08:00 vitamins A,C,J-uxmp-uduxth 2,148 1 tab PO QAM 07/23/20 10/11/24 07/08/24 20:00 mcg-113 mg-45 mg-17.4 mg tablet (PreserVision AREDS) cyanocobalamin (vitamin B-12) 1,000 mcg PO QAM 06/27/21 10/11/24 07/08/24 08:00 1,000 mcg capsule fluticasone propionate 50 1 spray intranasal BID 09/12/21 10/11/24 Unknown mcg/actuation nasal spray,suspension rosuvastatin 10 mg tablet 20 mg PO HS 11/02/23 10/11/24 07/08/24 20:00 nitroglycerin 0.4 mg sublingual 0.4 mg sublingual Q5M PRN Chest 03/30/24 10/11/24 Unknown tablet Pain #25 tabs famotidine 20 mg tablet 20 mg PO 1XD PRN Acid Reflux 07/08/24 10/11/24 07/07/24 pantoprazole 40 mg tablet,delayed 40 mg PO BID #60 tabs 08/28/24 10/11/24 Unknown release tamsulosin 0.4 mg capsule 0.4 mg PO HS #90 caps 09/18/24 10/11/24 Unknown acetaminophen 325 mg tablet 650 mg PO TID 10/11/24 10/11/24 Unknown amiodarone 200 mg tablet 200 mg PO QAM 10/11/24 10/11/24 Unknown ferrous sulfate 325 mg (65 mg 325 mg PO BID 10/11/24 10/11/24 Unknown iron) tablet (Iron (ferrous sulfate)) furosemide 20 mg tablet 20 mg PO UD 10/11/24 10/11/24 Unknown mirtazapine 7.5 mg tablet 7.5 mg PO HS 10/11/24 10/11/24 Unknown polyethylene glycol 3350 17 gram 17 g PO DAILY PRN Constipation 10/11/24 10/11/24 Unknown oral powder packet (Miralax) rivaroxaban 20 mg tablet (Xarelto) 20 mg PO QPM 10/11/24 10/11/24 Unknown Past Medical History Medical History (Updated 10/11/24 @ 09:45 by Jewels Madison PA-C) Acute urinary retention admit to [facility] 08/24 to 08/28/24/ bladder stone Ambulatory dysfunction using walker Anemia Anxiety Atrial fibrillation with rapid ventricular response (08/2024) while i/p at [facility] post right hip surgery, started on amiodarone, follows with dr. colon (03/2024) Bladder stone (08/2024) Bradycardia CAD (coronary artery disease) s/p CABG x 3 in 2009 Closed intertrochanteric fracture of right femur (07/09/24) due to fall, had surgery, i/p at [facility] Depression Difficulty swallowing liquids granddaughter reports pt coughs a lot when swallowing, but does not feel pt. has difficulty swallowing GERD with esophagitis History of anesthesia reaction (06/2024) granddaughter reports after recent surgery for hip, had food on ETT after extubation History of cerebellar stroke (2016) left drop foot only deficit, no neuro History of COVID-19 (08/2022) [facility] hospital stay at [facility]- mild symptoms History of left foot drop hx cva Hx of fracture of ankle (2012) Hx of gastroenteritis (09/26/24) had nausea/vomitting/diarrhea 09/25 to 09/26/24 while at [facility], no testing, resolved Hx of myocardial infarction (2009) unsure of what hospital- heart cath- cabg x 3/avr- follow with darlene (04/08) Hx of upper gastrointestinal hemorrhage (08/2024) per hx, while i/p at [facility], heme pos stools- never had visible bloody stools- will follow up with gi 10/2024 Hypertension Hypomagnesemia Idiopathic polyneuropathy Inhibited sexual excitement Lumbar spinal stenosis Multiple fractures of ribs of right side (11/2020) hx UTI (urinary tract infection) just completed macrobid Past Family History Family History Mother Unknown family medical history Past Surgical History Surgical History (Updated 02/26/25 @ 09:45 by Jewels Madison PA-C) History of hip surgery (06/2024) right hip fx, due to fall, ip at [facility] Hx of cardiac catheterization (2009) [place] - went on to have AVR/CABG - not sure what hospital- follows with darlene (04/08) S/P aortic valve replacement with bioprosthetic valve (2009) unsure of what hospital, follows with with cardio dr. darlene prince while i/p at [facility] 08/25/24- last seen in office 03/30/24 S/P coronary artery bypass graft x 3 (2009) unsure of what hospital, follows with with cardio dr. darlene prince while i/p at [facility] 08/25/24- last seen in office 03/30/24 Social History Smoking Status: Former smoker Do You Dip or Chew Tobacco: No Smoking End Date: Hx Alcohol Use: No Hx Substance Use: No substance use type: does not use Lab Results Anesthesia Preop Results Results Anesthesia Widget: WBC 6.61 K/ul (4.8-10.8) 10/10/24 Hgb 10.9 g/dl (14.0-18.0) L 10/10/24 Hct 33.8 % (42.0-52.0) L 10/10/24 Plt 168 K/uL (130-400) 10/10/24 Na 140 mmol/L (136-145) 10/10/24 K 3.6 mmol/L (3.5-5.1) 10/10/24 Cl 105 mmol/L (98-107) 10/10/24 CO2 29 mmol/L (21-32) 10/10/24 BUN 13 mg/dl (6-23) 10/10/24 Creat 0.89 mg/dl (0.6-1.4) 10/10/24 Glucose Level 114 mg/dl (70-99(Fasting)) H 10/10/24 POC Glucose 96 mg/dl (70-99) 08/25/24 TSH 3.318 uIu/ml (0.300-4.500) 08/24/24 Urine Color Yellow 10/05/24 Urine Appearance Cloudy (Clear) A 10/05/24 Urine pH 5.0 (4.5-7.5) 10/05/24 Urine Specific [place] 1.010 (1.000-1.030) 10/05/24 Urine Protein Negative (Negative) 10/05/24 Urine Glucose (UA) Negative (Negative) 10/05/24 Urine Ketones Negative (Negative) 10/05/24 Urine Blood 3+ (Negative) H 10/05/24 Urine Nitrite Positive (Negative) A 10/05/24 Urine Bilirubin Negative (Negative) 10/05/24 Urine Urobilinogen Negative (Negative) 10/05/24 Urine Leukocyte Esterase 3+ (Negative) H 10/05/24 Urine WBC (Auto) >50 /hpf (0-5) H 10/05/24 Urine RBC (Auto) 6-10 /hpf (0-2) H 10/05/24 Urine Hyaline Casts (Auto) 0-2 /lpf (0-2) 10/05/24 Urine Epithelial Cells (Auto) 0-2 /hpf (0-2) 10/05/24 Urine Bacteria (Auto) 4+ (None Seen) H 10/05/24 Blood Type O Positive 08/24/24 Antibody Screen NEGATIVE 08/24/24 Testing Electrocardiogram Date: 08/24/24 Sinus bradycardia, rate 59 bpm Left anterior fascicular block Minimal voltage criteria for LVH, may be normal variant Chest X-Ray Date: 08/24/24 * 1 view* Regression of the left lower lung zone opacities Prominent broncho vascular markings and hilar vascularity (stable) Stable sutures and sternotomy wires Echocardiogram Date: 11/03/23 EF 55-60% Mild cLVH Bioprosthetic aortic valve with normal gradient Mild aortic regurgitation Moderate mitral regurgitation Mild tricuspid regurgitation Mild aortic root dilatation Other Testing Abdomen pelvis CT 10/06/24 1. Prostate gland is enlarged bulging into the urinary bladder possibly resulting in retention of urine. Findings likely represent benign prostatic hyperplasia. Clinical and laboratory correlation advised. 2. Urinary bladder is under distended showing thickened morales suggesting cystitis. 3. Two calcific areas in base of urinary bladder likely represent vesicle calculi and less likely wall calcification. 4. Minimal left-sided pleural effusion with atelectasis. 5. Few simple hepatic cysts. 6. Atheromatous mural calcification seen in the abdominal aorta and its branches.
[~2024-10-16 09:23] MED LIST changes: +ACETAMINOPHEN 1000 MG/100 ML IV IV ONE; -ASPEC325 PO; -METO25TA56 PO; -MULT-506 PO; -NXM/40 PO; -OXYC5TAB PO; -PRAV20TA PO
--- NOTE | 2024-10-16 10:13 | History & Physical Bridge Note ---
Date of Service October 16, 2024 History & Physical Bridge Note I have examined the patient, reviewed the History & Physical and in the interval since the performance of the History & Physical I have noted the following changes of clinical significance: no changes noted
[2024-10-16] MEDS ORDERED: PHENAZOPYRIDINE HCL 200 MG TAB PO PRN (10:26)
[2024-10-16] MEDS ORDERED: oxyBUTYnin chloride 5 MG TAB PO PRN (10:26)
[2024-10-16] MEDS ORDERED: MoRPHine SULFATE 2 MG/ML CARP IV PRN (10:26)
[2024-10-16] MEDS ORDERED: HYDROCODONE/ACETAMOPHEN 5/325MG TAB PO PRN (10:26)
[2024-10-16] MEDS ORDERED: fentaNYL citrate PF 100 MCG/2 ML VIAL ONE (10:39)
[2024-10-16] MEDS ORDERED: LIDOCAINE 2% 2 ML VIAL/AMP(20MG/ML) INFIL ONE (10:40)
[2024-10-16] MEDS ORDERED: PROPOFOL IV EMULSION 10 MG/ML 20 ML VIAL IV ONE (10:41)
[2024-10-16] MEDS ORDERED: ONDANSETRON INJ 2 MG/ML 2 ML VIAL IV PRN (11:01)
[2024-10-16] MEDS ORDERED: fentaNYL citrate PF 100 MCG/2 ML VIAL IV PRN (11:01)
[2024-10-16] MEDS ORDERED: ATROPINE SULFATE 0.1 MG/ML 10ML SYR IV PRN (11:01)
[2024-10-16] MEDS ORDERED: ePHEDrine sulfate 50 MG/ML AMP IV PRN (11:01)
[2024-10-16] MEDS: LACTATED RINGER'S 1,000 ML IV SCH (11:03)
--- OUTSIDE RECORDS SUMMARY | 2024-10-16 12:07 | External Medical Summary | Continuity of Care Document ---
Author Name Unknown Organization [facility] [address], [place] [id number] Care Team Providers Care Tax Accountant Name Role Phone Anju Gonzalez Primary Care Physician [phone] [id number]s): 10/13/24 - 10/13/24 [facility] [address] [facility] [address] [facility], [address] [place] [address] [phone] Encounter Diagnosis BPH (benign prostatic hyperplasia)(Discharge Diagnosis) - 10/13/24 Left foot drop(Discharge Diagnosis) - 10/13/24 Decubitus ulcer of sacral region, stage 1(Discharge Diagnosis) - 10/13/24 Zendejas catheter present(Discharge Diagnosis) - 10/13/24 Ambulatory dysfunction(Discharge Diagnosis) - 10/13/24 Bilateral leg weakness(Discharge Diagnosis) - 10/13/24 Sacral decubitus ulcer(Discharge Diagnosis) - 10/13/24 End of life care(Discharge Diagnosis) - 10/13/24 Discharge Disposition: Home or Self Care Attending Physician: MD Gonzalez Amy L Referring Physician: MD Gonzalez Amy L Encounter Type: Clinic Allergies, Adverse Reactions, Alerts Substance Criticality Severity Reaction Reaction Severity Status simvastatin 1 Active penicillins Rash Active 1leg pain Assessment and Plan Extracted from: Title:Office Visit Note Author:MD Gonzalez Amy L D ate:10/13/24 1.Ambulatory dysfunction STATUS: Chronic, worse. DATA: hx & gaitreviewed. GOAL: Maintain safe ambulation. PLAN: continuePT/OT as ableto getcovered. Discussed his mobilityathome independently.I agreewithhisgrand-daughterthathe isover-estimatinghis abilityforself-careat home.She continuesto searchforin-homehelp,tosupervise/assisthim. Cont current monitoring. 2.Bilateral leg weakness STATUS: Chronic, improving slightly. DATA: hx reviewed. GOAL: Maintain safe ambulation. PLAN: continuePT/OT. HenowhasAFOsplintstotreatfor footdrop. Discussed cane vs walker. 3.Sacral decubitus ulcer STATUS: newproblem, improving. DATA: hx &examreviewed. GOAL: healpressureulcers. PLAN: home healthnurseisdoingexcellentwoundcare& theyarealready seeingimprovement. 4.End of life care We had a long discussion with both the patient and his granddaughter about end-of-life care. They are both interested in palliative care, and his granddaughter is trying to get some information from a program at [facility] to see what would be involved and having him enroll in this program. We also discussed hospice in some detail. He does understand hospice care, and that his was on hospice for quite some time before her . He is willing to consider hospice, however, we discussed the fact that this would preclude going to the hospital for care of his ongoing medical conditions. He would like to think about this, before making any commitment. Return in 2-3 months. Time:Total time spent with this patient on day of evaluation including chart review, ordering, education and coordination of care elements: 48_ minutes Immunizations Given and Recorded Vaccine Date [...] 2021-05-02: Historical information-source unspecified 4Result Comment: [03/30/2014] [facility] amiodarone 200 mg oral tablet Start: 09/08/24 3:11:00 PM EST, 1 tab, PO, Daily, Disp# 30 tab, Refills: 1, Pharmacy: [facility] Start Date: 09/08/24 Status: Ordered Quantity: 30.0 Unit: tab Repeat number: 2 elppa CoQ10 50 mg oral capsule Start: 09/08/24 3:11:00 PM EST, 100 mg =, PO, Daily, Disp# 60 cap, Refills: 5, Pharmacy: [facility] Start Date: 09/08/24 Status: Ordered Quantity: 60.0 Unit: cap Repeat number: 6 famotidine 20 mg oral tablet Start: 09/08/24 3:11:00 PM EST, 1 tab, PO, Daily, Disp# 30 tab, Refills: 5, PRN: heartburn, Pharmacy: [facility] Start Date: 09/08/24 Status: Ordered Quantity: 30.0 Unit: tab Repeat number: 6 ferrous sulfate 325 mg (65 mg elemental iron) oral tablet Start: 08/14/24 1:59:00 PM EST, 1 tab, PO, bid, Disp# 30 tab, Refills: 6, Pharmacy: [facility] Start Date: 08/14/24 Status: Ordered Quantity: 30.0 Unit: tab Repeat number: 7 Flonase 50 mcg/inh nasal spray Start: 05/02/21 2:06:00 PM EDT, 1 spray, each nostril, bid, Disp# 16 g, Refills: 0, Pharmacy: [facility] Start Date: 05/02/21 Status: Ordered Quantity: 16.0 Unit: g Repeat number: 1 furosemide 20 mg oral tablet Start: 09/08/24 3:11:00 PM EST, See Instructions, Disp# 30 tab, Refills: 4, 1 tab PO Daily on Wednesday, Wednesday, Wednesday for leg swelling, Pharmacy: [facility] Start Date: 09/08/24 Status: Ordered Quantity: 30.0 Unit: tab Repeat number: 5 mirtazapine 7.5 mg oral tablet Start: 09/15/24 12:43:00 PM EST, 1 tab, PO, qhs, Disp# 30 tab, Refills: 6 Start Date: 09/15/24 Status: Ordered Quantity: 30.0 Unit: tab Repeat number: 7 multivitamin Start: 05/06/10 10:33:16 AM EDT, 1 tab, PO, Every other day, Refills: 0, current medication from another provider Start Date: 05/06/10 Status: Ordered Repeat number: 1 pantoprazole 40 mg oral delayed release tablet Start: 09/08/24 3:11:00 PM EST, 1 tab, PO, bid, Disp# 60 tab, Refills: 5, Pharmacy: [facility] Start Date: 09/08/24 Status: Ordered Quantity: 60.0 Unit: tab Repeat number: 6 polyethylene glycol 3350 oral powder for reconstitution Start: 09/08/24 3:11:00 PM EST, 17 g =, PO, Daily, Disp# 30 each, Refills: 2, PRN, PRN: constipation, Pharmacy: [facility] Start Date: 09/08/24 Stop Date: 12/07/24 Status: Ordered Quantity: 30.0 Unit: each Repeat number: 3 PreserVision AREDS Start: 09/14/24 9:41:00 AM EST Start Date: 09/14/24 Status: Ordered Repeat number: 1 PreserVision AREDS 2 oral capsule Start: 09/08/24 3:11:00 PM EST, 1 cap, PO, Daily, Disp# 30 cap, Refills: 5, Pharmacy: [facility] Start Date: 09/08/24 Status: Ordered Quantity: 30.0 Unit: cap Repeat number: 6 rosuvastatin 20 mg oral tablet Start: 09/18/24 4:39:00 PM EST, 1 tab, PO, Daily, Disp# 90 tab, Refills: 3, Pharmacy: [facility] Start Date: 09/18/24 Status: Ordered Quantity: 90.0 Unit: tab Repeat number: 1 tamsulosin 0.4 mg oral capsule Start: 09/08/24 3:11:00 PM EST, 1 cap, PO, Daily, Disp# 30 cap, Refills: 5, Pharmacy: [facility] Start Date: 09/08/24 Status: Ordered Quantity: 30.0 Unit: cap Repeat number: 6 Vitamin B12 Start: 09/08/24 2:36:00 PM EST, 1,000 mcg =, PO, Daily Start Date: 09/08/24 Status: Ordered Repeat number: 1 Xarelto 20 mg oral tablet Start: 11/11/23 10:55:00 AM EDT, 1 tab, PO, qPM Start Date: 11/11/23 Status: Ordered Repeat number: 1 Xarelto 20 mg oral tablet Start: 09/15/24 12:43:00 PM EST, 1 tab, PO, qPM, Disp# 30 tab, Refills: 6 Start Date: 09/15/24 Status: Ordered Quantity: 30.0 Unit: tab Repeat number: 7 Zoloft 25 mg oral tablet Start: 09/14/24 12:16:00 PM EST, 1 tab, PO, bid, Disp# 1 tab, Refills: 0, Note to Pharmacy: This medication has been discontinued Start Date: 09/14/24 Status: Ordered Quantity: 1.0 Unit: tab Repeat number: 1 Mental Status 10/13/24 Barriers to Learning one year None evide nt Mandatory Health Literacy Documentation Yes Health Literacy Communication Barriers N ever Primary Language Malay Problem List Condition Confirmation Course Effective Dates Status H ealth Status Informant Abrasion, right lower leg, initial encounter 1 Confirmed 08/21/24 Active Adult failure to thrive Confirmed Active Anesthesia of skin 2 Confirmed 06/14/24 Active Thoracic aorta atherosclerosis 3 Confirmed Active Recent bereavement Confirmed Active Bradycardia [...] Grief Confirmed Active History of cerebellar stroke 4 Confirmed Active History of tobacco use Confirmed [...] fibrillation Confirmed Active Bereavement counseling Confirmed Active Decubitus ulcer of sacral region, stage 1 Confirmed Active Major depression, recurrent, chronic Confirmed Active Abdominal pain, RLQ Confirmed Active Sebaceous cyst Confirmed Active Seborrheic keratoses Confirmed Active Seborrheic keratosis Confirmed Active Age-related physical debility 5 Confirmed 08/21/24 Active Cancer, skin, squamous cell Confirmed Active Zendejas catheter present Confirmed Active Vitamin D deficiency Confirmed Active Ambulatory dysfunction Confirmed Active Ambulatory dysfunction Confirmed Active Ambulatory dysfunction Confirmed Active Loss of weight Confirmed Active 1Added per Sybase Developer Review--08/24/24 2Added per Sybase Developer [id number]/4/24 3See outside note 11/02/23 CXR- atherosclerotic calcifications of thoracic aorta [id number] 5Added per Sybase Developer Review--08/24/24 Diagnosis Diagnosis Type Effective Dates Health Status Clinical Service Informant Ambulatory dysfunction Discharge Diagnosis 10/13/24 Non-Specified Bilateral leg weakness Discharge Diagnosis 10/13/24 Non-Specified Decubitus ulcer of sacral region, stage 1 Discharge Diagnosis 10/13/24 Non-Specified Zendejas catheter present Discharge Diagnosis 10/13/24 Non-Specified Left foot drop Discharge Diagnosis 10/13/24 Non-Specified BPH (benign prostatic hyperplasia) Discharge Diagnosis 10/13/24 Non-Specified Sacral decubitus ulcer Discharge Diagnosis 10/13/24 Non-Specified End of life care Discharge Diagnosis 10/13/24 Non-Specified Procedures Procedure Date Related Diagnosis Body [...] 11/23/16 C ompleted Eye examination 8 01/24/15 [facility] ed Cataract surgery 9 07/18/14 [facility] Colonoscopy and extirpation of lesion of colon 2009 Completed CABG x 3 - Coronary artery b ypass grafts x 3 10 2000 Completed Aortic valve replacement and aortoplasty 11 Completed Open reduction of fracture o f fibula with internal fixation Completed 1Mod. LVH; nml LVEF; Mild MR & Mild TR; mild aortic root dilatation[facility]: 1. No acute process [facility] Impression: 1. No significant stenosis, occlusion, or aneurysm within the cirlce of Pack. Partially calcifiedscalp lesions 4[facility] Impression: 1. No acute intracranial abnormality [...] Méndez at the time if dictation. 7[facility] Impression: 1. No acute lumbar spine [...] oldest [Reference Range]: 1 Temperature [36.5-37.9 DegC] 37 DegC (10/13/24 8:03 AM) Heart Rate 62 bpm (10/13/24 8:03 AM) Respiratory Rate 20 br/min (10/13/24 8:03 AM) Blood Pressure 146/94mmHg (10/13/24 8:03 AM) Cuff Pulse Pressure 52 mmHg (10/13/24 8:03 AM) BP Location # 1 Left Arm, Manual (10/13/24 8:03 AM) Social History Social History Type Response Tobacco Former smoker, Cigar ettes, Started age 16 Years. Stopped age 32 Years. Smoking Status Never smoked cigaret mary Sex Male Sex Representation Male (finding) [facility] Outpt Note * MD Carlos, Anju Vazquez: PERFORM Event Display: [facility] Outpt Note Authored Date: [id number] Chief Complaint Routine follow-up History of Present Illness * This patient is being followed longitudinally for chronic serious medical problems by Dr. Anju Gonzalez. Their most recent visitwith Dr. Gonzalez:09/14/24. 1) Bladder stones/enlarged prostate - hehad cysto done & they were told that his urethra is nearlyclosed by enlarged prostate. They told him to stop Xarelto tomorrow. This is normally an outptprocedure, but they plan to admit him to OBS overnight.Moderate hepatic can understandwhy she the urologist feels that the stones need to be treated given that they have been unable to c lear his refractory urinary tract infections. They had recommended Cipro, however, there is a significant interaction between Cipro and amiodarone, so this could not be used. H feels that if the Zendejas could be removed, that this would help with his mobility. 2) Ambulatory dysfunction - he is at [facility] for rehab. He has maxed out his PT benefits. His grand-dtr ispushing to trytoget him OT. [facility], but doesn't [facility] for [facility], because he was peacetime . He feels at times that "somebody is lying to me". He realizes that his granddaughter, Rajesh, has his best interests at heart. However, he is unable to differentiate who istelling him the truth, as he hears different things from different people. He feels that he could be fine in his own home, betweenthenumber of safety aids the therapy that he hashad. Hefeels that these that he could safely ambulate in his own home without any problems. 3) Sacral decubitus -juliet notes that the home health nurse who has been working with him has noticed several areas of redness and skin breakdown over his sacral area. They are treating him for this with some medicated dressings. He also has a ring pillow and a cushion for his wheelchair. 4) Hospice vs Palliative care goals -Patient states that he does not want to go back into the hospital and does not want to continue to have aggressive care for most of his problems. However, he admits that if it were a life- threatening issue, that he would most likely want to go to the hospital for treatment. Review of Systems Review of Systems- Constitutional: no fatigue, has lostweight. HEENT: no vision changes, or sinus congestion. Respiratory: no cough, SOB, or wheezing. Cardiac: no chest pain, palpitations or pedal edema. GI: no abdominal painor change in bowel habits. : no dysuria. Neurologic: no headaches. Physical Exam Vitals & Measurements T:37C HR:62(Monitored) RR:20 BP:146/94 SpO2:96% PHQ2 Data(Data Documented on:10/13/2024 08:03) Emotional health assessment NEGATIVE PE : Alert, in NAD. Neck - supple, without thyromegaly or lymphadenopathy. Lungs - clear, with good breath sounds bilaterally. Heart - RRR without murmur. No pedal edema. Neuro - alert & oriented, speech & cognition normal. Decubitus area - several areas of erythema with fewsmallareas ofvery superficial skin breakdown. Skin - warm & dry. Psych - affect appropriate. Assessment/Plan 1.Ambulatory dysfunction STATUS: Chronic, worse. DATA: hx & gaitreviewed. GOAL: Maintain safe ambulation. PLAN: continuePT/OT as ableto getcovered. Discussed his mobilityathome independently.I agreewithhisgrand- daughterthathe isover-estimatinghis abilityforself-careat h ome.She continuesto searchforin- homehelp,tosupervise/assisthim. Cont current monitoring. 2.Bilateral leg weakness STATUS: Chronic, improving slightly. DATA: hx reviewed. GOAL: Maintain safe ambulation. PLAN: continuePT/OT. HenowhasAFOsplintstotreatfor footdrop. Discussed cane vswalker. 3.Sacral decubitus ulcer STATUS: newproblem, improving. DATA: hx &examreviewed. GOAL: healpressureulcers. PLAN: home healthnurseisdoingexcellentwoundcare& theyarealready seeingimprovement. 4.End of life care We had a long discussion with both the patient and his granddaughter about end-of-life care. Theyare both interested in palliative care, and his granddaughter is trying to get some information from a program at [facility] to see what would be involved and having him enroll in this program. We also discussed hospice in some detail. He does understand hospice care, and that his was on hospice for quite some time before her . He is willing to consider hospice, however, we discussed the fact that this would preclude going to the hospital for care of his ongoing medical conditions. He would like to think about this, before making any commitment. Return in 2-3 months. 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 Bereavement counseling Bilateral leg paresthesia Bilateral leg weakness Body rash Borderline hyperlipidemia BPH (benign prostatic hyperplasia) Bradycardia Bradycardia CAD (coronary artery disease) Cancer, skin, squamous cell Caregiver stress Caregiver stress Changing skin lesion Chest pain Chronic cough Chronic cough COVID-19 Cutaneous horn Decubitus ulcer of sacral region, stage 1 Dizziness Zendejas catheter present Grief History of cerebellar stroke History of [...] Procedure/Surgical History Mohs micrographic surgery| Service Date: 05/04/2023unch biopsy of skin| Service Date: 03/15/2023Shave biopsy [...] internal fixationAortic valve replacement and aortoplasty Medications amiodarone(amiodarone 200 mg oral tablet), 200 mg= 1 tab, PO, Daily, 1 refills cyanocobalamin(Vitamin B12), 1000 mcg, PO, Daily famotidine(famotidine 20 mg oral tablet), 20 mg= 1 tab, PO, Daily, PRN, 5 refills ferrous sulfate(ferrous sulfate 325 mg (65 mg elemental iron) oral tablet), 325 mg= 1 tab, PO, bid,6 refills fluticasone nasal(Flonase 50 mcg/inh nasal spray), 1 spray, each nostril, bid furosemide(furosemide 20 mg oral tablet), See Instructions, 4 refills mirtazapine(mirtazapine 7.5 mg oral tablet), 7.5 mg= 1 tab, PO, qhs, 6 refills multivitamin, 1 tab, PO, Every other day multivitamin with minerals(PreserVision AREDS 2 oral capsule), 1 cap, PO, Daily, 5 refills multivitamin with minerals(PreserVision AREDS) pantoprazole(pantoprazole 40 mg oral delayed release tablet), 40 mg= 1 tab, PO, bid, 5 refills polyethylene glycol 3350(polyethylene glycol 3350 oral powder for reconstitution), 17 g, PO, Daily,PRN, 2 refills rivaroxaban(Xarelto 20 mg oral tablet), 20 mg= 1 tab, PO, qPM rivaroxaban(Xarelto 20 mg oral tablet), 20 mg= 1 tab, PO, qPM, 6 refills rosuvastatin(rosuvastatin 20 mg oral tablet), 1 tab, PO, Daily sertraline(Zoloft 25 mg oral tablet), 25 mg= 1 tab, PO, bid tamsulosin(tamsulosin 0.4 mg oral capsule), 0.4 mg= 1 cap, PO, Daily, 5 refills ubiquinone(elppa CoQ10 50 mg oral capsule), 100 mg, PO, Daily, 5 refills Allergies penicillinsRash simvastatin Social History Smoking Status Never smoked cigarettes Alcohol - No Risk Use:Current Type:Beer Frequency:1-2 times per year Average drinks per episode in last year:1 Employment/School Status:Retired 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 Cancer of colon: [...] 23-valent vaccine 08/16/2001 Recorded Comments : [03/30/2014] [facility] Recommendations Health Maintenance Pending(in the next year) OverDue Medicare Annual Wellness Visit due08/04/22and every 1year Due Adult Social Determinants of Health Screening due10/13/24Unknown Frequency Adult Tdap/Td Vaccine due10/13/24Unknown Frequency Body Mass Index due10/13/24Unknown Frequency Falls Plan of Care due10/13/24Unknown Frequency Shingles Vaccine due10/13/24One-time only Due In Future Adult Influenza Vaccine not due until02/13/25and every 1year Satisfied(in the past 1 year) Satisfied Adult Influenza Vaccine on06/14/24.Satisfied by JOSH Cardona Karli R Electronic Signature on File Electronically Reviewed/Signed by: Anju Gonzalez MD Author Signature Dt/Tm:10/13/2024 12:35 PM Local [employer] [facility] [address], [address] [place] [address] [facility] Patient Care team information Care Team Personnel Name: SHONNA Smart, Isis Robles Position: RN - Endoscopy Member Role: Lifetime - never expires Address: [facility] [address] [place] [address] Name: MD Carlos, Anju Vazquez Position: Physician - Family Med Member Role: Primary Care Provider Address: [address] [facility] [place] [address] Telecom: [phone] Name: MD Longo Marilou B Position: Provider - Terminated Member Role: Lifetime Relationship Address: [address] [place] [address] [place] Telecom: [phone] Care Team Related Persons Name: RAJESH VIRAMONTES Insurance Providers Guarantor name: PEG MANJARREZ Health Plan Information #: 1 Payer: [employer] Member Number: [id number] Policy Number: NA Group Number: [id number] Health Plan Information #: 2 Payer: [employer] Member Number: [id number] Policy Number: NA Group Number: [id number]
[2024-10-16] MEDS ORDERED: DEXAMETHASONE SOD INJ 4 MG/ML VIAL ONE (13:00)
[2024-10-16] MEDS ORDERED: ONDANSETRON INJ 2 MG/ML 2 ML VIAL ONE (13:00)
[2024-10-16] MEDS ORDERED: KETOROLAC 30 MG/ML VIAL ONE ×2 (13:00→13:23)
--- NOTE | 2024-10-16 13:32 | Operative Report ---
PG Post Operative Report Pre & Post Diagnosis Operation Date: 10/16/24 11:20 Pre-Op Diagnosis: Acute Urinary Retention, Bladder Stone Post-Op Diagnosis: Acute Urinary Retention, Bladder Stone I identified the patient and participated in the time-out.: Yes Procedure Operation Date: 10/16/24 11:20 Actual Procedures Cystoscopy with Cystolithalopaxy (Bladder Stone Fragmentation and Removal), irrigation and evacuation of foreign body, and Fulguration of bladder and prostate lesions/varcosities. REEVON - Duarte Pappas DO Surgeon Duarte Pappas, II, DO [employer] None Estimated Blood Loss 5 Findings Consistent with Post-Op Diagnosis Large bladder stones x 2. Approx 3.1 cm in size. Innumerable small stones in the bladder base. Very Large Prostate with obstruction. Specimens Bladder Stones Drains 20 Fr Catheter Anesthesia Type General Complications none Disposition Disposition: Recovery Room Indications Patient with obstruction due to prostate enlargement. Risks and benefits discussed at length. Description of Procedure Patient was consented and brought back to the operating room. Patient was placed under anesthesia in the supine position and moved to the dorsal lithotomy position. Patient was prepped and draped in the regular sterile fashion. A time out was completed. A 30degree Cystoscope was placed into the bladder. The entire bladder was examined. The extremely large stones were discovered in the base of the bladder. Innumerable stones were seen down in the base. The 2 large stones were found to be somewhat underneath the large median lobe. There was a large amount of debris in the base of the bladder that had to be irrigated clear. Some appeared to be clot material. After extensive irrigation and evacuation of clot material and debris the stones were basilar able to be visualized. There were numerous ulcerated and irritated lesions throughout the posterior wall of the base and the bladder neck including large varicosities coming off the prostate. The 1000 m laser fiber was selected and the stones were destroyed to small pieces and fragments. The very large stone took the longest to fracture and break up. A moderate amount of dusting was completed in order to debulk the stone before fracturing. Once the stone fragments were able to be broken into manageable pieces extensive irrigation was completed to remove the large stone burden. The stones were sent for analysis. The innumerable small stones in the base of the bladder were able to be irrigated clear as well. Significant trabeculations were noted throughout the bladder. The multiple areas of ulceration and irritation throughout the bladder were assessed. These lesions were fulgurated. Approximately 5 areas on the posterior wall were fulgurated. The large bleeding varicosities at the bladder neck were also fulgurated. Attention was then taken back to the prostate. No mass or tumor within the prostatic urethra. The scope was exchanged with the Rezum device which was placed into the bladder and the entire bladder was examined. The UO's were identified as well as the bladder neck, trigone, dome, and the other important landmarks. The prostatic urethra and large lobes/adenoma was assessed and the veru and bladder neck identified and area/size was assessed. The location and amount of injections were assessed. The entire bladder, urethra, and surround areas were examined. No masses lesions ulcerations or suspicious areas were discovered Treatment of the prostate began on the right side on the lateral lobe. Care was taken to monitor and measure with placement following guidelines. A total of 6 injections on each side with each injection for 9 seconds where completed after engaging the needle into the tissue and confirming good placement.The most proximal injection was approximately 1.5 cm from the bladder neck in the posterior direction. Blanching of tissue was noted. No signs of inadequate penetration or placement of the needle. At the median lobe, a total of 2 injections were completed again each for 9 seconds. Again placement, positioning, and site of injection were all carefully mapped and confirmed to be in good position. No considerable problems or other issues. Treatment and injection was tolerated without considerable pain or problems. After the treatment was complete the area was inspected and the bladder and prostate were assessed. The scope was removed. A catheter was placed and balloon elevated. This was drained without issue. The patient was cleaned, aroused from anesthesia, and transferred to the pacu in stable condition having tolerated the procedure well with no complications. I was present and participated in all aspects of the procedure. The patient will be monitored in the PACU until transferred. Plan to maintain catheter until next week. Office will arrange visit to remove. Will observe patient overnight and monitor. I attest to the content of the Intraoperative Record and any orders documented therein. Any exceptions are noted below.
--- NOTE | 2024-10-16 14:10 | Anesthesiology Progress Note ---
Date of Service October 16, 2024 Anesthesia Post Procedure Vital Signs Vital Signs: Temp Pulse Pulse Resp BP Pulse Ox O2 Del Method 10/16/24 14:00 50 L 12 120/60 94 Room Air 10/16/24 13:50 52 L 12 130/64 99 Oxymask 10/16/24 13:40 55 L 17 124/70 100 Oxymask 10/16/24 13:34 36.4 C L 68 14 149/75 H 98 Oxymask 10/16/24 10:13 36.5 C 54 L 18 154/69 H 97 Room Air O2 Flow Rate 10/16/24 14:00 10/16/24 13:50 2 10/16/24 13:40 6 10/16/24 13:34 13 10/16/24 10:13 Transfer of Care Handoff Completed per policy Notes Mental Status: alert / awake / arousable Patient Amnestic to Procedure: Yes Nausea / Vomiting: adequately controlled Pain: adequately controlled Airway Patency, RR, SpO2: stable & adequate BP & HR: stable & adequate Hydration State: stable & adequate Anesthetic Complications: no major complications apparent and Pt Satisfied with anesthetic care
[2024-10-16] MEDS: FAMOTIDINE/PF 20 MG/2 ML VIAL IV ONE (15:32)
[2024-10-16] MEDS: CIPROFLOXACIN 400MG / 200ML D5W IV ONE (15:32)
[2024-10-16] MEDS: ceFAZolin 2000MG 2,000 MG/15 ML SYR IV SCH (15:32)
[2024-10-16] MEDS: LACTATED RINGER'S 500 ML IV SCH (15:33)
--- NOTE | 2024-10-16 16:45 | Hospitalist Consultation ---
Date of Consultation October 16, 2024 Assessment & Plan (1) CAD (coronary artery disease): (2) Paroxysmal A-fib: (3) Anemia: (4) Bladder stone: Plan This patient is an 88-year-old male with a history of CAD s/p CABG, paroxysmal atrial fibrillation on Xarelto, aortic valve replacement, BPH, GERD, who was admitted to the hospital for observation overnight after having Cystoscopy with Cystolithalopaxy (Bladder Stone Fragmentation and Removal), irrigation and evacuation of foreign body, and Fulguration of bladder and prostate lesions/varcosities-COSME, with Dr. Pappas on 10/16/2024. The hospitalist service was consulted for medical management in the postoperative period. #PAF-with rapid afib during last 2 hospitalizations with spontaneous conversion. He also had atrial flutter as well. He is on Xarelto and amiodarone for rhythm control. He was bradycardic previously on AV ramon blockers when in sinus rhythm and these were discontinued previously. -Resume home amiodarone 200 mg p.o. daily -Continue to hold Xarelto until safe from a surgical standpoint -Follow-up with cardiology as an outpatient -If develops tachycardia in the hospital, would transfer to telemetry unit #S/P coronary artery bypass graft x 3/history of AVR with bioprosthetic valve: No acute issues. He is not on a beta-funmilayo due to bradycardia at baseline typically -Holding home Xarelto -Restart home statin #Bladder stone/BPH-stones removed and had procedure to reduce size of prostate given ongoing urinary retention. Zendejas catheter remains in place and will be removed 1 week postoperatively. With small amount of hematuria in Zendejas bag and some leaking from around Zendejas -Postoperative care as per urology -Pain control with morphine and hydrocodone -Oxybutynin and Pyridium are ordered as needed for bladder pain and spasms -Continue home tamsulosin -Follow CBC, BMP in the morning -Cipro is being given empirically-would caution with concurrent use of amiodarone but QTc on most recent EKG was normal #Bilateral leg edema: venous insufficiency, no diuretics needed #GERD-no acute issues -Resume home PPI twice daily #Anemia: Hemoglobin on last check was 10. Was from previous blood loss anemia and may be some anemia of chronic disease -Follow CBC in the morning -Resume home ferrous sulfate #Depression-no acute issues -Resume home mirtazapine DVT prophylaxis-SCDs Disposition-admitted on observation to medical/surgical unit. Hospitalist service will follow along History of Present Illness Reason for Consultation: CAD, A-fib Requesting Physician: Dr. Pappas Attending Physician: Duarte Pappas, II, DO History of Present Illness This patient is an 88-year-old male with a history of CAD s/p CABG, paroxysmal atrial fibrillation on Xarelto, aortic valve replacement, BPH, GERD, who was admitted to the hospital for observation overnight after having Cystoscopy with Cystolithalopaxy (Bladder Stone Fragmentation and Removal), irrigation and evacuation of foreign body, and Fulguration of bladder and prostate lesions/varcosities-REZUM, with Dr. Pappas on 10/16/2024. The hospitalist service was consulted for medical management in the postoperative period. Pt reports some small amount of blood leaking around his Zendejas but denies abd pain or pelvic pain, denies CP or SOB, no nausea or headache, no lightheadedness. Allergies Allergy/AdvReac Type Severity Reaction Status Date / Time Penicillins Allergy Intermediate Unknown Verified 10/16/24 10:08 apixaban [From Eliquis] AdvReac Intermediate Rash, Verified 10/16/24 10:08 itching oxycodone AdvReac Mild SICKNESS Verified 10/16/24 10:08 Home Medications Medication Instructions Recorded Confirmed Type cholecalciferol (vitamin D3) 25 1,000 units PO QAM 06/06/19 10/16/24 History mcg (1,000 unit) capsule coQ10 (ubiquinol) 100 mg capsule 100 mg PO QAM 07/23/20 10/16/24 History vitamins A,C,P-glhj-uxbetm 2,148 1 tab PO QAM 07/23/20 10/16/24 History mcg-113 mg-45 mg-17.4 mg tablet (PreserVision AREDS) cyanocobalamin (vitamin B-12) 1,000 mcg PO QAM 06/27/21 10/16/24 History 1,000 mcg capsule fluticasone propionate 50 1 spray intranasal BID 09/12/21 10/16/24 History mcg/actuation nasal spray,suspension rosuvastatin 10 mg tablet 20 mg PO HS 11/02/23 10/16/24 History nitroglycerin 0.4 mg sublingual 0.4 mg sublingual Q5M PRN Chest 03/30/24 10/16/24 Rx tablet Pain #25 tabs famotidine 20 mg tablet 20 mg PO 1XD PRN Acid Reflux 07/08/24 10/16/24 History pantoprazole 40 mg tablet,delayed 40 mg PO BID #60 tabs 08/28/24 10/16/24 Rx release tamsulosin 0.4 mg capsule 0.4 mg PO HS #90 caps 09/18/24 10/16/24 Rx acetaminophen 325 mg tablet 650 mg PO TID 10/11/24 10/16/24 History amiodarone 200 mg tablet 200 mg PO QAM 10/11/24 10/16/24 History ferrous sulfate 325 mg (65 mg 325 mg PO BID 10/11/24 10/16/24 History iron) tablet (Iron (ferrous sulfate)) furosemide 20 mg tablet 20 mg PO UD 10/11/24 10/16/24 History mirtazapine 7.5 mg tablet 7.5 mg PO HS 10/11/24 10/16/24 History polyethylene glycol 3350 17 gram 17 g PO DAILY PRN Constipation 10/11/24 10/16/24 History oral powder packet (Miralax) rivaroxaban 20 mg tablet (Xarelto) 20 mg PO QPM 10/11/24 10/16/24 History cephalexin 500 mg capsule 500 mg PO BID 7 days #14 caps 10/16/24 10/16/24 Rx hydrocodone 7.5 mg-acetaminophen 1 tab PO Q8H PRN pain #7 tabs 10/16/24 Rx 325 mg tablet phenazopyridine 200 mg tablet 200 mg PO Q8H PRN pain #10 tabs 10/16/24 Rx (Pyridium) sulfamethoxazole 800 1 tab PO BID 14 days #28 tabs 10/16/24 Rx mg-trimethoprim 160 mg tablet (Bactrim DS) Patient History Medical History CAD (coronary artery disease) s/p CABG x 3 in 2009 Hx of gastroenteritis (09/26/24) had nausea/vomitting/diarrhea 09/25 to 09/26/24 while at [facility] living, no testing, resolved Ambulatory dysfunction using walker UTI (urinary tract infection) just completed macrobid GERD with esophagitis Depression Anemia Hx of upper gastrointestinal hemorrhage (08/2024) per hx, while i/p at [facility], heme pos stools- never had visible bloody stools- will follow up with gi 10/2024 Hx of myocardial infarction (2009) unsure of what hospital- heart cath- cabg x 3/avr- follow with darlene (04/08) History of anesthesia reaction (06/2024) granddaughter reports after recent surgery for hip, had food on ETT after extubation Hx of fracture of ankle (2012) Bladder stone (08/2024) History of COVID-19 (08/2022) duing hospital stay at [facility]- mild symptoms Acute urinary retention admit to [place] 08/24 to 08/28/24/ bladder stone Hypomagnesemia Lumbar spinal stenosis Multiple fractures of ribs of right side (11/2020) hx Closed intertrochanteric fracture of right femur (07/09/24) due to fall, had surgery, i/p at [facility] Atrial fibrillation with rapid ventricular response (08/2024) while i/p at [facility] post right hip surgery, started on amiodarone, follows with dr. colon (03/2024) Difficulty swallowing liquids granddaughter reports pt coughs a lot when swallowing, but does not feel pt. has difficulty swallowing Idiopathic polyneuropathy History of cerebellar stroke (2016) left drop foot only deficit, no neuro Bradycardia Hypertension Anxiety History of left foot drop hx cva Inhibited sexual excitement Surgical History Hx of cardiac catheterization (2009) [place] - went on to have AVR/CABG - not sure what hospital- follows with darlene (04/08) History of hip surgery (06/2024) right hip fx, due to fall, ip at [facility] S/P aortic valve replacement with bioprosthetic valve (2009) unsure of what hospital, follows with with cardio dr. colon -zoraida while i/p at [facility] 08/25/24- last seen in office 03/30/24 S/P coronary artery bypass graft x 3 (2009) unsure of what hospital, follows with with cardio dr. 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 Required: No Beliefs That Will Affect Care: None marital status: Current Living Situation: Other Current Living Situation Comment: assisgted living current occupational status: retired Other Information That Helps Us Care for You: No Feels Safe at Home: Yes Safety Concerns: Feels Safe At This Time Assistive Devices: Walker Review of Systems Review of Systems: All systems reviewed & are unremarkable except as noted in HPI & below Physical Exam Constitutional: WD/WN, vitals as above Neck: trachea midline, no thyromegaly Respiratory: normal respiratory effort, lungs clear to auscultation Cardiovascular: Rate/Rhythm: regular rate and regular rhythm Heart Sounds: no murmur Extremities: + edema (1+ pitting edema legs bilat) Chest (Breasts): Chest: normal inspection of chest Gastrointestinal (Abdomen): normal bowel sounds, soft, nontender, no hepatosplenomegaly Musculoskeletal: Extremities: extremities normal to inspection; no cyanosis and no clubbing Skin: no rashes, warm and dry Neurologic: moves all extremities and awake; no focal motor deficits Psychiatric: A+Ox3, euthymic affect Genitourinary: + penis abnormality (Zendejas in place,smal l amount blood from meatus) Lymphatic: no lymphedema Results & Data Results & Data Vital Signs (Past 12 Hours) Vital Signs Temp Pulse Pulse Pulse Resp BP Pulse Ox 10/16/24 15:40 36.5 C 56 L 16 139/66 99 10/16/24 15:10 10/16/24 15:10 36.6 C 55 L 14 130/66 94 10/16/24 14:55 52 L 12 112/58 L 93 10/16/24 14:40 50 L 12 115/61 94 10/16/24 14:25 50 L 12 104/64 93 10/16/24 14:10 36.5 C 52 L 12 120/62 94 10/16/24 14:00 50 L 12 120/60 94 10/16/24 13:50 52 L 12 130/64 99 10/16/24 13:40 55 L 17 124/70 100 10/16/24 13:34 36.4 C L 68 14 149/75 H 98 10/16/24 10:13 36.5 C 54 L 18 154/69 H 97 O2 Del Method O2 Flow Rate 10/16/24 15:40 Room Air 10/16/24 15:10 Room Air 10/16/24 15:10 Room Air 10/16/24 14:55 Room Air 10/16/24 14:40 Room Air 10/16/24 14:25 Room Air 10/16/24 14:10 Room Air 10/16/24 14:00 Room Air 10/16/24 13:50 Oxymask 2 10/16/24 13:40 Oxymask 6 10/16/24 13:34 Oxymask 13 10/16/24 10:13 Room Air Laboratory Results No labs for review PG Care Time/CCT Total # of Minutes Spent Total Time Spent with Patient: Total time spent is greater than 50% in coordination of care (as documented) at patient's floor/unit and/or counseling patient: Coding Level of Care Code 75673 IN/OBS CONSULT LVL 4,60M Diagnoses CAD (coronary artery disease) I25.10 Paroxysmal A-fib I48.0 Anemia D64.9 Bladder stone N21.0
[2024-10-16] MEDS ORDERED: NITROGLYCERIN SL 0.4 MG/TAB TAB SL PRN (18:47)
[2024-10-16] MEDS ORDERED: POLYETHYLENE (MIRALAX) 17 GM PACK PO PRN (18:47)
[2024-10-16] MEDS: PANTOprazole 40 MG TAB PO SCH (20:30)
[2024-10-16] MEDS: ACETAMINOPHEN 325 MG TAB PO SCH (20:30)
[2024-10-16] MEDS: DOCUSATE SODIUM 100 MG CAP PO SCH (20:30)
[2024-10-16] MEDS: MIRTAZAPINE TAB 15 MG TAB PO SCH (20:30)
[2024-10-16] MEDS: FERROUS SULFATE 325 MG TAB PO SCH (20:30)
[2024-10-16] MEDS: FLUTICASONE PROPIONATE NA SPR 16 GM BTL NAE SCH (20:30)
[2024-10-16] MEDS: TAMSULOSIN HCL 0.4 MG CAP PO SCH (20:31)
[2024-10-16] MEDS: ROSUVASTATIN CALCIUM 20 MG TAB PO SCH (20:31)
[2024-10-16 23:05] VITALS: RESP 16
[2024-10-17] MEDS: CIPROFLOXACIN / D5W 400 MG/200 ML BAG IV SCH (01:01)
[2024-10-17 07:11] VITALS: BP 116/54; PULSE 49; TEMP 97.9; O2SAT 94
--- NOTE | 2024-10-17 07:57 | Urology Progress Note ---
Date of Service October 17, 2024 Assessment & Plan (1) Bladder stone: (2) Acute urinary retention: Plan - Pt POD#1 s/p Cystoscopy with Cystolithalopaxy, irrigation and evacuation of foreign body, and Fulguration of bladder and prostate lesions/varicosities; REZUM - Doing well, progressing as expected - Afebrile, stable vitals - Lab work ordered - Tolerating diet - No issues with pain - Zendejas catheter draining clear yellow urine - Maintain Zendejas catheter - Appreciate assistance from hospitalists for medical management - Anticipate home with Zendejas catheter later today presuming urine appropriate and he continues to progress as expected, pending labs - Expected clinical course reviewed, all questions answered - Will arrange outpatient follow-up with our service for voiding trial Admission and Anticipated Discharge Date Admission Date: October 16, 2024 Subjective Patient seen and examined at bedside this morning. He is awake and resting in bed. No acute issues overnight. Denies pain. Denies nausea, vomiting, fever or chills. Zendejas intact with clear yellow urine Review of Systems Constitutional: as per Subjective / HPI Genitourinary: + as per Subjective / HPI Physical Exam Constitutional: no acute distress Respiratory: normal respiratory effort; no respiratory distress and no labored breathing Gastrointestinal (Abdomen): Inspection/Auscultation: abdomen normal to inspection Musculoskeletal: Head/Neck/Chest: normocephalic Neurologic: moves all extremities and awake Psychiatric: Orientation: alert and oriented x 3 Genitourinary: Zendejas with clear yellow urine Results & Data Vital Signs (Past 12 Hours) Vital Signs Temp Pulse Resp BP BP Pulse Ox O2 Del Method 10/17/24 07:08 36.6 C 49 L 16 116/54 L 94 Room Air 10/17/24 03:39 36.4 C L 58 L 16 103/55 L 93 Room Air 10/16/24 23:09 111/53 L 10/16/24 23:04 36.6 C 60 16 101/43 L 94 Room Air PG Care Time/CCT Total # of Minutes Spent Total Time Spent with Patient: Total time spent is greater than 50% in coordination of care (as documented) at patient's floor/unit and/or counseling patient: Coding Level of Care Code None Diagnoses Bladder stone N21.0 Acute urinary retention R33.8
[2024-10-17 08:19] LABS: Basophils # (auto) 0.02 K/uL (0.00-0.20); Basophils % (auto) 0.2 %; Eosinophils # (auto) 0.02 K/uL (0.00-0.50); Eosinophils % (auto) 0.2 %; Hemoglobin 10.2 g/dl (14.0-18.0); Immature Granulocytes # (auto) 0.04 K/uL (0.01-0.20); Immature Granulocytes % (auto) 0.4 %; Lymphocytes # (auto) 1.12 K/uL (1.20-3.40); Lymphocytes % (auto) 12.4 %; Mean Corpuscular Hemoglobin 30.7 pg (25.0-34.0); Mean Corpuscular Hgb Conc 32.9 g/dL (32.0-36.0); Mean Corpuscular Volume 93.4 fL (80.0-100.0); Monocytes # (auto) 0.66 K/uL (0.11-0.59); Monocytes % (auto) 7.3 %; Neutrophils # (auto) 7.16 K/uL (1.40-6.50); Neutrophils % (auto) 79.5 %; Platelet Count 161 K/uL (130-400); RDW Coefficient of Variation 15.9 % (11.5-14.5); RDW Standard Deviation 54.3 fL (36.4-46.3); Red Blood Count 3.32 M/uL (4.70-6.10); White Blood Count 9.02 K/ul (4.8-10.8)
--- NOTE | 2024-10-17 08:33 | Hospitalist Progress Note ---
Date of Service October 17, 2024 Assessment & Plan (1) CAD (coronary artery disease): (2) Paroxysmal A-fib: (3) Anemia: (4) Bladder stone: Plan This patient is an 88-year-old male with a history of CAD s/p CABG, paroxysmal atrial fibrillation on Xarelto, aortic valve replacement, BPH, GERD, who was admitted to the hospital for observation overnight after having Cystoscopy with Cystolithalopaxy (Bladder Stone Fragmentation and Removal), irrigation and evacuation of foreign body, and Fulguration of bladder and prostate lesions/varcosities-COSME, with Dr. Pappas on 10/16/2024. The hospitalist service was consulted for medical management in the postoperative period. #PAF-with rapid afib during last 2 hospitalizations with spontaneous conversion. He also had atrial flutter as well. He is on Xarelto and amiodarone for rhythm control. He was bradycardic previously on AV ramon blockers when in sinus rhythm and these were discontinued previously. - continue home amiodarone 200 mg p.o. daily - Resume Xarelto 3/5 PM if urine remains clear - Follow-up with cardiology as an outpatient #S/P coronary artery bypass graft x 3/history of AVR with bioprosthetic valve: No acute issues. He is not on a beta-funmilayo due to bradycardia at baseline typically - restart Xarelto 3/5 PM if urine remains clear - continue home statin #Bladder stone/BPH-stones removed and had procedure to reduce size of prostate given ongoing urinary retention. Zendejas catheter remains in place and will be removed 1 week postoperatively. With small amount of hematuria in Zendejas bag and some leaking from around Zendejas - Postoperative care as per urology - Pain control with hydrocodone prn at home - Oxybutynin and Pyridium are ordered as needed for bladder pain and spasms - Continue home tamsulosin - Renal function stable, Cr 1.08 on day of discharge - Cipro given empirically during inpatient stay - caution with concurrent use of amiodarone but QTc on most recent EKG was normal - transition to Keflex 500 twice daily x 7 days on discharge #Bilateral leg edema: venous insufficiency, no diuretics needed - recommend compression stockings at home #GERD-no acute issues - continue home PPI twice daily #Anemia: Hemoglobin on last check was 10. Was from previous blood loss anemia and may be some anemia of chronic disease - AM CBC 10/17 stable, Hgb at baseline, 10.2 - continue home ferrous sulfate #Depression-no acute issues - continue home mirtazapine DVT prophylaxis - SCDs Disposition - Discharge from med surg to home 10/17/24 on Keflex 500 Mg twice daily x 7 days, hydrocodone as needed, and Pyridium. Patient to resume home Xarelto Xarelto 10/18 if urine remains clear. [facility] Admission and Anticipated Discharge Date Admission Date: October 16, 2024 Supervising Physician Co-Signing Physician Notes Physician Clinical Quality Manager Supervision note: I have not personally seen and examined the patient, but discussed and verified the wang points of the history and physical along with the plan with RODRIGUEZ Poon with the following exceptions and/or additions: None Subjective Patient seen at bedside. He is doing well. He is planning for discharge later today. He stated he has not moved his bowels since the procedure however feels that he has to go now, nursing at bedside to assist patient to restroom. He has been eating okay, no nausea/vomiting. His urine is yellow and clear, no gross hematuria noted. Discussed with urology team, patient okay to resume Xarelto the evening of 10/18/2024 if urine remains clear. Planning for discharge today, continue to hold Xarelto for this evening 10/17. Review of Systems Review of Systems: see HPI Physical Exam Physical Exam: The patient is awake, alert and oriented 3, well developed and well nourished, normocephalic and atraumatic, in no acute distress. Non-toxic appearing. HEENT- EOMI, mucous membranes moist. Hearing grossly intact. Heart-normal S1 and S2. No murmurs, rubs or gallops. Lungs-clear bilaterally, no respiratory distress, no accessory muscle use. Abdomen-normal bowel sounds and soft. No ascites noted. Non-tender. Extremities- no clubbing, cyanosis, or edema. Rheumatologic-normal range of motion. Psychiatric-normal affect. Genitourinary: Zendejas draining yellow clear urine, no gross hematuria noted Results & Data Results & Data Vital Signs (Past 12 Hours) Vital Signs Temp Pulse Resp BP BP Pulse Ox O2 Del Method 10/17/24 07:08 36.6 C 49 L 16 116/54 L 94 Room Air 10/17/24 03:39 36.4 C L 58 L 16 103/55 L 93 Room Air 10/16/24 23:09 111/53 L 10/16/24 23:04 36.6 C 60 16 101/43 L 94 Room Air Laboratory Results reviewed cbc and bmp PG Care Time/CCT Total # of Minutes Spent Total Time Spent with Patient: Total time spent is greater than 50% in coordination of care (as documented) at patient's floor/unit and/or counseling patient: Coding Level of Care Code 12866 SUB INP/OBS CARE 3/50MIN Diagnoses CAD (coronary artery disease) I25.10 Paroxysmal A-fib I48.0 Anemia D64.9 Bladder stone N21.0
[2024-10-17 08:42] LABS: BUN Creatinine Ratio 15.7 (10-20); Calcium 9.2 mg/dl (8.6-10.3); Creatinine Clr Calc Pharmacy 46.5 ml/min; Potassium 4.4 mmol/L (3.5-5.1)
[2024-10-17] MEDS: CYANOCOBALAMIN (B-12) 500 MCG TABLET PO SCH (08:47)
[2024-10-17] MEDS: CHOLECALCIFEROL 25 MCG (1000 UNITS) TAB PO SCH (08:48)
[2024-10-17] MEDS: AMIODARONE 200 MG TAB PO SCH (08:48)
--- NOTE | 2024-10-17 09:32 | Discharge Summary ---
Date of Service October 17, 2024 Admission HPI Per Admitting Provider Patient with bladder stone and acute urinary retention here for cystoscopy with cystolithalopaxy and REZUM. Principal Diagnosis Bladder stone, acute urinary retention Discharge Exam Constitutional no acute distress Respiratory normal respiratory effort; no respiratory distress and no labored breathing Gastrointestinal (Abdomen) Inspection/Auscultation: abdomen normal to inspection Musculoskeletal Head/Neck/Chest: normocephalic Neurologic moves all extremities and awake Psychiatric Orientation: alert and oriented x 3 Genitourinary Zendejas with clear yellow Discharge Data Allergies Allergy/AdvReac Type Severity Reaction Status Date / Time Penicillins Allergy Intermediate Unknown Verified 10/16/24 10:08 apixaban [From Eliquis] AdvReac Intermediate Rash, Verified 10/16/24 10:08 itching oxycodone AdvReac Mild SICKNESS Verified 10/16/24 10:08 Consultations 10/16/24 14:26 Consult Hospitalist Routine Procedures Performed Operation Date: 10/16/24 11:20 Actual Procedures p Cystolithalopaxy (Bladder Stone Fragmentation and Removal)(Not Applicable) - Duarte Pappas DO s REZUM(Not Applicable) - Duarte Pappas DO Hospital Course (1) Bladder stone: (2) Acute urinary retention: Plan - Pt POD#1 s/p Cystoscopy with Cystolithalopaxy, irrigation and evacuation of foreign body, and Fulguration of bladder and prostate lesions/varicosities; REZUM - Doing well, progressing as expected - Afebrile, stable vitals - Lab work ordered - Tolerating diet - No issues with pain - Zendejas catheter draining clear yellow urine - Maintain Zendejas catheter - Appreciate assistance from hospitalists for medical management - Anticipate home with Zendejas catheter later today presuming urine appropriate and he continues to progress as expected, pending labs - Expected clinical course reviewed, all questions answered - Will arrange outpatient follow-up with our service for voiding trial Total Time Total Time Spent Total Time Spent (In Minutes): 20 Discharge Plan Discharge Items Patient Disposition: Home - Self-Care Reason For Visit: Acute Urinary Retention, Bladder Stone Discharge Diagnosis: Same Activity: Per Instructions section Lifting: No more than 25 pounds Bathing Comment: Okay to shower after discharge, no tub bath or soaking Sexual Activity: Wait until after follow-up appointment Exercise/Sports: Wait until after follow-up appointment Non-emergency contact: Surgeon and Urologist Call non-emergency contact if: you have a fever and your temperature is above 101 Follow-up/Referrals: Anju Gonzalez MD [Primary Care Provider] - [facility],Nurse [FAKE FOR SCHEDULES] - 10/24/24 10:30 am Diet: Regular Ambulatory Orders: Covid-19(SARS Cov2 RNA) Fusion (Routine) Timeframe: 20241012 Facility: [facility] - Location: [facility] Ordered By: Duarte Pride Attending Provider Instructions: Okay to resume regular diet. Please take all medications as prescribed and keep all follow-ups as scheduled. Please call our office at [phone] with any questions, concerns or need to reschedule appointments for any reason. We are happy to assist you. Medications: please resume your normal medications as previously prescribed. You can resume your Xarelto tomorrow (3/5) if urine remains clear to light pink. Antibiotics and medications for pain control were prescribed. For pain, it is ok to take tylenol alternating with ibuprofen. You can also take AZO, which can be purchased [id number] at the drugstore. Be aware this turns your urine a bright orange color. If you are prescribed a stronger medication you can take this according to instructions on the label. What to expect after your stone removal procedure: You may notice small pieces debris or clots in your urine over the next few days. Drink plenty of liquids to help flush your system. You may notice some blood in your urine. As long as you draining, this is ok. You may see some blood in the urine. You may have pain in your side or pelvis when you urinate. Catheter will be removed in office in approx 5-7 days. When to call [facility] Urology at [phone]: Fever of 101F or higher Heavy bleeding Pain that is not controlled with medicine Uncontrolled vomiting Call if any issues with catheter. [employer] Technician Provider Instructions: You were evaluated my hospitalist service for medical management. Please resume you home Xarelto 3/5 if your urine remains clear. If blood in your urine returns, please reach out to the urology team. It is common to have constipation post operatively. If you do not have a bowel movement for several days, consider taking a stool softener or Miralax. I recommended using compression stockings at home to help with your lower leg edema. Pending Studies at Discharge: Yes Stand-Alone Forms: My [facility] Medications and DC Order Prescriptions: New phenazopyridine [Pyridium] 200 mg tablet 200 mg PO Q8H PRN (Reason: pain) Qty: 10 0RF hydrocodone-acetaminophen 7.5-325 mg tablet 1 tab PO Q8H PRN (Reason: pain) Qty: 7 0RF cephalexin 500 mg capsule 500 mg PO BID 7 Days Qty: 14 0RF Continued sulfamethoxazole-trimethoprim [Bactrim DS] 800-160 mg tablet 1 tab PO BID 14 Days Qty: 28 0RF fluticasone propionate 50 mcg/actuation spray,suspension 1 spray intranasal BID Rx Instructions: unable to verify with pt or express scripts 11/02/23 administer into each nostril cyanocobalamin (vitamin B-12) 1,000 mcg capsule 1,000 mcg PO QAM Rx Instructions: unable to verify with pt or express scripts 11/02/23 cholecalciferol (vitamin D3) 1,000 unit capsule 1,000 units PO QAM nitroglycerin 0.4 mg tablet, sublingual 0.4 mg SL Q5M PRN (Reason: Chest Pain) Qty: 25 3RF Rx Instructions: unable to verify with pt or express scripts 11/02/23 tamsulosin 0.4 mg capsule 0.4 mg PO HS Qty: 90 3RF PreserVision AREDS [id number],160-113-100 [id number] Tablet 1 tab PO QAM Rx Instructions: unable to verify with pt or express scripts 11/02/23 coQ10 (ubiquinol) 100 mg Capsule 100 mg PO QAM Rx Instructions: unable to verify with pt or express scripts 11/02/23 rosuvastatin 10 mg tablet 20 mg PO HS famotidine 20 mg tablet 20 mg PO 1XD PRN (Reason: Acid Reflux) pantoprazole 40 mg Tablet,Delayed Release (Dr/Ec) 40 mg PO BID Qty: 60 0RF acetaminophen 325 mg Tablet 650 mg PO TID ferrous sulfate [Iron (ferrous sulfate)] 325 mg (65 mg iron) Tablet 325 mg PO BID furosemide 20 mg tablet 20 mg PO UD Rx Instructions: q mon-wed-wed mirtazapine 7.5 mg tablet 7.5 mg PO HS polyethylene glycol 3350 [Miralax] 17 gram powder in packet 17 g PO DAILY PRN (Reason: Constipation) amiodarone 200 mg tablet 200 mg PO QAM Rx Instructions: x 12 days then decrease to 200mg once daily Xarelto 20 mg tablet 20 mg PO QPM Discharge Orders: Discharge Order (Routine); Ordered 10/17/24 Ordered By: Tanika Gallegos Admission Data Admit Date/Time: 10/16/24 10:26 Attending Provider: Duarte Pappas Admit Provider: Duarte Pappas Primary Care Provider: Anju Gonzalez Other Providers: Cortney Wood Other Interventions: Discharge Summary Assessment (RN) Last Done: 10/17/24 10:52 Coding Level of Care Code 81597 IN/OBS DISCH 30 MIN/LESS Diagnoses Bladder stone N21.0 Acute urinary retention R33.8
== END 2024-10-17 11:50 | disposition home or self-care (01) ==
LOC: ASU 09:23 → 3N 09:23
PROC: M.REZUM (2024-10-16 11:20)

== ENCOUNTER 2025-05-30 17:26 | Inpatient (IN) ==
[2025-05-30 18:09] LABS: Hematocrit (blood only) 37.3 % (42.0-52.0); Hemoglobin 12.3 g/dl (14.0-18.0); Immature Granulocytes # (auto) 0.02 K/uL (0.01-0.20); Immature Granulocytes % (auto) 0.3 %; Mean Corpuscular Hemoglobin 29.7 pg (25.0-34.0); Mean Corpuscular Volume 90.1 fL (80.0-100.0); Platelet Count 164 K/uL (130-400); RDW Standard Deviation 48.6 fL (36.4-46.3); Red Blood Count 4.14 M/uL (4.70-6.10); White Blood Count 7.84 K/ul (4.8-10.8)
--- NOTE | 2025-05-30 18:13 | Emergency Department Note ---
Impression & Plan CVA (cerebrovascular accident), Acute UTI, Confusion, Anemia ED Provider Note NAME: PEG MANJARREZ AGE: 89 SEX: M : 1935 ARRIVES VIA: Ambulance INFORMANT: Patient ED PROVIDER(S): Richard Welsh DO CHIEF COMPLAINT: Altered mental status HPI: Patient is an 89-year-old male with a past medical history of CAD with bypass, TIA who presents ER for chest pain as well as multiple complaints. Patient notes that chest pain started earlier today but is unable to give any clear history. Per report from EMS patient is confused and asked why family sent him in. He denies any head pain or weakness or numbness in the arms or legs. No urinary symptoms. He admits to some pain in the epigastric region as well. No other exacerbating or remitting factors. ADDITIONAL HISTORY OBTAINED: Per HPI Chronic Medical/Social Conditions Affecting Care: Per HPI PAST MEDICAL HISTORY:See Below PAST SURGICAL HISTORY:See Below FAMILY HISTORY:See Below SOCIAL HISTORY:See Below HOME MEDICATIONS:See Below ALLERGIES:See Below VITALS:See Below PHYSICAL EXAMINATION: GENERAL: Sitting up in bed, alert, well appearing, well nourished, no distress, non-toxic EYE EXAM: normal conjunctiva. PERRL and EOM's intact. OROPHARYNX: no exudate, no erythema, lips, buccal mucosa, and tongue normal and mucous membranes are moist NECK: supple, no nuchal rigidity, no adenopathy, non-tender LUNGS: Clear to auscultation. Normal chest wall mechanics HEART: no murmurs, S1 normal and S2 normal ABDOMEN: abdomen soft, tender in the epigastric region, normo-active bowel sounds, no masses, no rebound or guarding. UPPER EXTREMITIES: upper extremities are grossly normal. LOWER EXTREMITIES: No pitting edema. NEURO EXAM: Patient is awake alert and oriented to person but not place or time moving all extremities nonfocal MEDICAL DECISION MAKING: Patient is an 89-year-old male who presents ER for the above-stated complaint. IV was established and blood work is obtained. Labs show no significant leukocytosis. Mild anemia 12.3. BMP along with LFTs bilirubin was unremarkable. Troponin was mildly elevated at 31. Lipase was normal. UA with nitrates leuks whites and plus for bacteria consistent with UTI. He was given 2 g of IV Rocephin as well as IV fluids. CT suggested a subacute infarct. He was updated at bedside. Do favor his troponin at 38 is likely around his baseline although his EKG was slightly changed from his previous but he had no chest pain upon arrival. He was updated at bedside discussed case with the hospitalist for further evaluation management treatment. Consults/Care Managements Discussions: Per [facility] Triage Nursing notes reviewed. Limited review of prior medical records performed Vital Signs: reviewed and remarkable for HTN Differential diagnosis: Differential diagnoses includes but is not limited to toxic, metabolic, infectious, traumatic, cardiac, neurologic, hematologic, psychiatric and inflammatory etiologies. ER treatment provided: See below Diagnostics interpreted by me include EKG and cardiac monitoring as listed below: -Cardiac Monitoring: An order was placed for continuous cardiac monitoring. The monitor shows a rate of 80 with sinus rhythm. -ECG: Sinus rhythm rate 82 Normal axis No PVCs QTc 429 ST-T wave changes are slightly changed from previous in the septal and anterior leads -Laboratory studies:Interpreted by me as stated above in MDM and shown below. Imaging studies: Xrays: As interpreted by me: Portable AP upright 1 view of the chest shows no focal infiltrate CTs show: CT of the head and abdomen pelvis shows no acute pathology Procedures:none Critical Care: None Past Med/Surg History Problem List (Updated 05/30/25 @ 22:16 by Richard Welsh DO) Confusion (Acute) Acute UTI (Acute) CVA (cerebrovascular accident) (Acute) Hospice care patient Leg edema, left Bladder stone Anemia (Acute) Acute urinary retention (Acute) Ambulatory dysfunction Depression Vitamin B12 deficiency Paroxysmal A-fib (07/2020) S/P coronary artery bypass graft x 3 (2009) Gastro-esophageal reflux disease with esophagitis Dyslipidemia (Acute) Transient cerebral ischemia (Acute) Medical History CAD (coronary artery disease) Hx of gastroenteritis (09/26/24) Ambulatory dysfunction UTI (urinary tract infection) GERD with esophagitis Depression Anemia Hx of upper gastrointestinal hemorrhage (08/2024) Hx of myocardial infarction (2009) History of anesthesia reaction (06/2024) Hx of fracture of ankle (2012) Bladder stone (08/2024) History of COVID-19 (08/2022) Acute urinary retention Hypomagnesemia Lumbar spinal stenosis Multiple fractures of ribs of right side (11/2020) Closed intertrochanteric fracture of right femur (07/09/24) Atrial fibrillation with rapid ventricular response (08/2024) Difficulty swallowing liquids Idiopathic polyneuropathy History of cerebellar stroke (2016) Bradycardia Hypertension Anxiety History of left foot drop Inhibited sexual excitement Surgical History Hx of cardiac catheterization (2009) History of hip surgery (06/2024) 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) Family History Mother Unknown family medical history Social History Smoking Status: Former smoker Second Hand Exposure: No; Do You Dip or Chew Tobacco: No; Hx Alcohol Use: No Hx Substance Use: No Preferred Language: Czech Communication Ability: Effective Learning Developer Required: No Beliefs That Will Affect Care: None marital status: Current Living Situation: Other Current Living Situation Comment: assisgted living current occupational status: retired Feels Safe at Home: Yes Assistive Devices: Walker and Wheelchair Allergies Allergies Allergy/AdvReac Type Severity Reaction Status Date / Time Penicillins Allergy Intermediate Unknown Verified 05/30/25 19:57 apixaban [From Eliquis] AdvReac Intermediate Rash, Verified 05/30/25 19:57 itching oxycodone AdvReac Mild SICKNESS Verified 05/30/25 19:57 Home Meds Home Medications Medication Instructions Recorded Confirmed acetaminophen 325 mg tablet 650 mg PO TID PRN Pain 10/11/24 05/30/25 furosemide 20 mg tablet 20 mg PO UD 10/11/24 05/30/25 Previous Rx's Medication Instructions Recorded tamsulosin 0.4 mg capsule 0.4 mg PO HS #90 caps 12/21/24 Results & Data (ED) Vital Signs Vital Signs - 24 hr 05/30/25 17:38 05/30/25 17:39 05/30/25 17:39 Temperature 36.6 C Temperature Source Oral Pulse Rate 80 84 Pulse Rate [Apical] 78 Pulse Rhythm Regular Pulse Rhythm [Apical] Regular Pulse Strength Normal Pulse Strength [Apical] Normal Respiratory Rate 20 20 Respiratory Effort / Characteristics Non-Labored Spontaneous Non-Labored Spontaneous Respiratory Depth Normal Normal Respiratory Pattern Regular Regular Blood Pressure 142/57 H Blood Pressure [Right Arm] 142/57 H Blood Pressure Mean 85 Blood Pressure Mean [Right Arm] 85 Blood Pressure Position Lying Blood Pressure Position [Right Arm] Lying Pulse Oximetry 96 95 Oxygen Delivery Method Room Air Room Air Sepsis Recent Fever Within 48 Hours No Sepsis New/Unexplained Change in Mental Status No Sepsis Action Taken by Nursing No Action Required 05/30/25 18:08 Temperature Temperature Source Pulse Rate Pulse Rate [Apical] Pulse Rhythm Pulse Rhythm [Apical] Pulse Strength Pulse Strength [Apical] Respiratory Rate Respiratory Effort / Characteristics Respiratory Depth Respiratory Pattern Blood Pressure Blood Pressure [Right Arm] Blood Pressure Mean Blood Pressure Mean [Right Arm] Blood Pressure Position Blood Pressure Position [Right Arm] Pulse Oximetry 94 Oxygen Delivery Method Room Air Sepsis Recent Fever Within 48 Hours Sepsis New/Unexplained Change in Mental Status Sepsis Action Taken by Nursing Laboratory Data 05/30/25 17:35 05/30/25 17:35 Lab Results 05/30/25 05/30/25 05/30/25 Range/Units 17:35 18:25 19:46 WBC 7.84 (4.8-10.8) K/ul RBC 4.14 L (4.70-6.10) M/uL Hgb 12.3 L (14.0-18.0) g/dl Hct 37.3 L (42.0-52.0) % MCV 90.1 (80.0-100.0) fL MCH 29.7 (25.0-34.0) pg MCHC 33.0 (32.0-36.0) g/dL RDW Std Deviation 48.6 H (36.4-46.3) fL RDW Coeff of Nay 14.8 H (11.5-14.5) % Plt Count 164 (130-400) K/uL MPV 9.4 (9.4-12.4) fL Immature Gran % (Auto) 0.3 % Neut % (Auto) 78.6 % Lymph % (Auto) 13.0 % [place] % (Auto) 7.0 % Eos % (Auto) 0.6 % Baso % (Auto) 0.5 % Neut # (Auto) 6.16 (1.40-6.50) K/uL Lymph # (Auto) 1.02 L (1.20-3.40) K/uL [place] # (Auto) 0.55 (0.11-0.59) K/uL Eos # (Auto) 0.05 (0.00-0.50) K/uL Baso # (Auto) 0.04 (0.00-0.20) K/uL Immature Gran # (Auto) 0.02 (0.01-0.20) K/uL Sodium 137 (136-145) mmol/L Potassium 4.0 (3.5-5.1) mmol/L Chloride 106 (98-107) mmol/L Carbon Dioxide 26 (21-32) mmol/L Anion Gap 5 (3-11) BUN 15 (6-23) mg/dl Creatinine 1.03 (0.6-1.4) mg/dl Est Cr Clr Drug Dosing 45.6 ml/min eGFR 69.44 BUN/Creatinine Ratio 14.6 (10-20) Glucose 108 H (70-99(Fasting)) mg/dl Calcium 9.3 (8.6-10.3) mg/dl Total Bilirubin 0.8 (0.2-1.0) mg/dl AST 15 (13-39) U/L ALT 10 (7-52) U/L Alkaline Phosphatase 84 (34-104) U/L Troponin I High Sens 31.0 H 33.4 H (0-20) pg/ml Total Protein 6.8 (6.0-8.3) gm/dl Albumin 3.6 (3.4-5.0) gm/dl Globulin 3.2 (2.5-4.0) gm/dl Albumin/Globulin Ratio 1.1 (0.9-2) Lipase 13 (11-82) U/L Urine Color Yellow Urine Appearance Turbid A (Clear) Urine pH 6.0 (4.5-7.5) Ur Specific [place] 1.019 (1.000-1.030) Urine Protein 1+ H (Negative) Urine Glucose (UA) Negative (Negative) Urine Ketones Trace H (Negative) Urine Blood 1+ H (Negative) Urine Nitrite Positive A (Negative) Urine Bilirubin Negative (Negative) Urine Urobilinogen Negative (Negative) Ur Leukocyte Esterase 3+ H (Negative) Urine WBC (Auto) >50 H (0-5) /hpf Urine RBC (Auto) 0-2 (0-2) /hpf U Hyaline Cast (Auto) 0-2 (0-2) /lpf U Epithel Cells (Auto) 0-2 (0-2) /hpf Urine Bacteria (Auto) 4+ H (None Seen) Urine Comment Administered Medications Discontinued Medications Sodium Chloride (Nss) 1,000 mls @ 999 mls/hr IV .Q1H1M ONE Stop: 05/30/25 19:09 Last Infusion: 05/30/25 21:46 Dose: Infused Documented By: Admin: 05/30/25 18:23 Dose: 999 mls/hr Documented By: AMIRA Ceftriaxone Sodium (Rocephin) 2,000 mg in 50 mls @ 100 mls/hr IV NOW STA Stop: 05/30/25 20:19 Last Infusion: 05/30/25 21:46 Dose: Infused Documented By: Admin: 05/30/25 19:57 Dose: 100 mls/hr Documented By: [facility] Ioversol (Optiray 320 100ml) 93 ml IV ONCE ONE Stop: 05/30/25 18:43 Last Admin: 05/30/25 18:43 Dose: 93 ml Documented By: [facility] Imaging Data Radiologist's Impression: Chest X-Ray 05/30/25 17:57 Chest radiograph, one view History: Chest pain Comparison: None Findings: Single AP view of the chest performed. No focal consolidation or pleural effusion. No pneumothorax. Status post CABG changes. The cardiomediastinal silhouette is within normal limits. Normal pulmonary vascularity. No evidence for lymphadenopathy. No visualized bony or soft tissue abnormality. Impression: Normal chest radiograph Electronically signed by Kristian Lewis 05-30-2025 7:10 PM Abdomen/Pelvis CT 05/30/25 18:08 EXAMINATION: CT of the abdomen and pelvis performed after the administration of IV contrast TECHNIQUE: Helical CT images from the lung bases through the symphysis pubis were obtained with contrast. Coronal and sagittal reformatted images were generated at a workstation for further assessment. Dose reduction techniques were achieved by using automatic exposure control and/or adjustment of mA and/or kV according to patient size and/or use of iterative reconstruction technique. COMPARISON: None HISTORY: Abdominal pain FINDINGS: Lower chest: There is a small bilateral pleural effusion with subjacent atelectasis. Mild interstitial pulmonary edema seen in the lung bases. The heart appears enlarged. Mechanical aortic valve partially seen. Liver: No suspicious liver lesions. Portal veins appear patent. Few small cysts. Gallbladder: No gallstones. No evidence of acute cholecystitis. Spleen: Normal size. Pancreas: No suspicious pancreatic lesions. The pancreatic duct is not dilated. Adrenal glands: No adrenal nodules. Kidneys: No hydronephrosis or obstructing renal stones. Bladder / Pelvic organs: The urinary bladder is mildly distended, and demonstrates wall thickening and edema with mild mucosal hyperenhancement. Borderline enlarged prostate gland measuring 4.6 cm transverse diameter. Bowel: No bowel obstruction. No abnormal bowel wall thickening. The appendix is unremarkable. Lymph nodes: No retroperitoneal, mesenteric, or pelvic lymphadenopathy. Peritoneum / Retroperitoneum: No free fluid or air within the abdomen. Vessels: No infrarenal aortic aneurysm. Moderate to heavy aortoiliac calcification. Bones and soft tissues: No suspicious lesion in the bones. Fixation changes of the right femur. IMPRESSION: Wall thickening, edema and mucosal hyperenhancement of the urinary bladder, suggestive of cystitis. Small pleural effusions. Electronically signed by Kristian Lewis 05-30-2025 7:[address] 05/30/25 18:08 Technique: Axial computed tomography images were obtained of the brain without intravenous contrast. Comparison is made to the prior CT dated 11/02/2023 Findings: There is new cortical and subcortical low attenuation involving the left occipital lobe, likely due to a subacute infarct There is unchanged cerebral atrophy, within expected limits for the patient's age. Areas of decreased attenuation are seen within the periventricular white matter, likely representing chronic small vessel ischemic disease. There is an unchanged old right cerebellar infarct. There is an old infarct of the right thalamus. No intracranial hemorrhage is evident. No definite mass lesion is seen on this noncontrast examination. There is no midline shift or other form of herniation. No hydrocephalus is seen. No fracture is identified. The orbits and the visualized paranasal sinuses appear unremarkable. The mastoid air cells appear clear. Impression: 1. New left occipital lobe abnormality, likely a subacute infarct. MRI with and without contrast and with diffusion-weighted images is recommended for further evaluation 2. Unchanged cerebral atrophy and chronic small vessel ischemic disease 3. Old cerebellar and thalamic infarcts ACT 112: Positive. There are findings on this exam that require communication between the performing entity and the patient following Patient Test Result Information Act ([place] ACT 112) guidelines. Electronically signed by Devon Osman 05-30-2025 7:10 PM Discharge Plan Visit Data Chief Complaint: Illness Stated Complaint: WEAKNESS, HEADACHE, AB PAIN ED Provider: Richard Welsh Discharge Problem: CVA (cerebrovascular accident), Acute UTI, Confusion, Anemia Condition: Fair Forms Stand Alone Forms: [facility] [employer] Prescriptions Prescriptions: No Action tamsulosin 0.4 mg capsule 0.4 mg PO HS Qty: 90 3RF acetaminophen 325 mg Tablet 650 mg PO TID PRN (Reason: Pain) furosemide 20 mg tablet 20 mg PO UD Rx Instructions: q mon-wed-wed Referrals Referrals: Anju Gonzalez MD [Primary Care Provider] - Discharge Problem: CVA (cerebrovascular accident) Qualifiers: CVA mechanism: unspecified Qualified Code(s): I63.9 - Cerebral infarction, unspecified
[2025-05-30] MEDS: SODIUM CHLORIDE 0.9% 1,000 ML IV ONE (18:23)
[2025-05-30 18:28] LABS: Alanine Aminotransferase 10.0 U/L (7-52); Albumin Globulin Ratio 1.1 (0.9-2); Albumin Level 3.6 gm/dl (3.4-5.0); Alkaline Phosphatase 84.0 U/L (34-104); Anion Gap 5.0 (3-11); Bilirubin,Total 0.8 mg/dl (0.2-1.0); Blood Urea Nitrogen 15.0 mg/dl (6-23); Calcium 9.3 mg/dl (8.6-10.3); Carbon Dioxide 26.0 mmol/L (21-32); Chloride 106.0 mmol/L (98-107); Creatinine Clr Calc Pharmacy 45.6 ml/min; Globulin 3.2 gm/dl (2.5-4.0); Glucose 108.0 mg/dl (70-99(Fasting)); Lipase 13.0 U/L (11-82); Potassium 4.0 mmol/L (3.5-5.1); Sodium 137.0 mmol/L (136-145); Total Protein 6.8 gm/dl (6.0-8.3)
[2025-05-30] MEDS: OPTIRAY 320 100ml IV ONE (18:43)
--- NOTE | 2025-05-30 19:10 | CT Scan Report ---
Technique: Axial computed tomography images were obtained of the brain without intravenous contrast. Comparison is made to the prior CT dated 11/02/2023 Findings: There is new cortical and subcortical low attenuation involving the left occipital lobe, likely due to a subacute infarct There is unchanged cerebral atrophy, within expected limits for the patient's age. Areas of decreased attenuation are seen within the periventricular white matter, likely representing chronic small vessel ischemic disease. There is an unchanged old right cerebellar infarct. There is an old infarct of the right thalamus. No intracranial hemorrhage is evident. No definite mass lesion is seen on this noncontrast examination. There is no midline shift or other form of herniation. No hydrocephalus is seen. No fracture is identified. The orbits and the visualized paranasal sinuses appear unremarkable. The mastoid air cells appear clear. Impression: 1. New left occipital lobe abnormality, likely a subacute infarct. MRI with and without contrast and with diffusion-weighted images is recommended for further evaluation 2. Unchanged cerebral atrophy and chronic small vessel ischemic disease 3. Old cerebellar and thalamic infarcts ACT 112: Positive. There are findings on this exam that require communication between the performing entity and the patient following Patient Test Result Information Act ([place] ACT 112) guidelines. Electronically signed by Devon Osman 05-30-2025 7:10 PM
--- NOTE | 2025-05-30 19:11 | XRay Report ---
Chest radiograph, one view History: Chest pain Comparison: None Findings: Single AP view of the chest performed. No focal consolidation or pleural effusion. No pneumothorax. Status post CABG changes. The cardiomediastinal silhouette is within normal limits. Normal pulmonary vascularity. No evidence for lymphadenopathy. No visualized bony or soft tissue abnormality. Impression: Normal chest radiograph Electronically signed by Kristian Lewis 05-30-2025 7:10 PM
[2025-05-30 19:18] LABS: Appearance Urine Turbid (Clear); Bacteria Urine Automated 4+ (None Seen); Cast Urine Automated 0-2 /lpf (0-2); Epithelial Cell Urine Auto 0-2 /hpf (0-2); Glucose Urine UA Negative (Negative); RBC Urine Automated 0-2 /hpf (0-2); WBC Urine Automated >50 /hpf (0-5)
--- NOTE | 2025-05-30 19:18 | CT Scan Report ---
EXAMINATION: CT of the abdomen and pelvis performed after the administration of IV contrast TECHNIQUE: Helical CT images from the lung bases through the symphysis pubis were obtained with contrast. Coronal and sagittal reformatted images were generated at a workstation for further assessment. Dose reduction techniques were achieved by using automatic exposure control and/or adjustment of mA and/or kV according to patient size and/or use of iterative reconstruction technique. COMPARISON: None HISTORY: Abdominal pain FINDINGS: Lower chest: There is a small bilateral pleural effusion with subjacent atelectasis. Mild interstitial pulmonary edema seen in the lung bases. The heart appears enlarged. Mechanical aortic valve partially seen. Liver: No suspicious liver lesions. Portal veins appear patent. Few small cysts. Gallbladder: No gallstones. No evidence of acute cholecystitis. Spleen: Normal size. Pancreas: No suspicious pancreatic lesions. The pancreatic duct is not dilated. Adrenal glands: No adrenal nodules. Kidneys: No hydronephrosis or obstructing renal stones. Bladder / Pelvic organs: The urinary bladder is mildly distended, and demonstrates wall thickening and edema with mild mucosal hyperenhancement. Borderline enlarged prostate gland measuring 4.6 cm transverse diameter. Bowel: No bowel obstruction. No abnormal bowel wall thickening. The appendix is unremarkable. Lymph nodes: No retroperitoneal, mesenteric, or pelvic lymphadenopathy. Peritoneum / Retroperitoneum: No free fluid or air within the abdomen. Vessels: No infrarenal aortic aneurysm. Moderate to heavy aortoiliac calcification. Bones and soft tissues: No suspicious lesion in the bones. Fixation changes of the right femur. IMPRESSION: Wall thickening, edema and mucosal hyperenhancement of the urinary bladder, suggestive of cystitis. Small pleural effusions. Electronically signed by Kristian Lewis 05-30-2025 7:18 PM
[2025-05-30] MEDS: cefTRIAXone SODIUM 2,000 MG/50 ML BAG IV STA (19:57)
--- NOTE | 2025-05-30 20:22 | History & Physical Report ---
Date of Service May 30, 2025 Assessment & Plan (1) Acute UTI: (2) CVA (cerebrovascular accident): (3) Paroxysmal A-fib: (4) S/P coronary artery bypass graft x 3: (5) Gastro-esophageal reflux disease with esophagitis: (6) Dyslipidemia: Plan 89yo male with history of CAD s/p CABG, HTN, GERD and AF presenting with confusion and not feeling like himself. Patient has recently been transitioned to hospice care at home. Will treat as below, however, may need to address goals of care as adding medications such as ASA, Plavix and Statin may not be in accordance with the patient's wishes. I did discuss treatment with him and he would like to proceed as planned for now. #Acute UTI - patient afebrile, HD stable and non-toxic in appearance. Normal WBC count. UA suggestive of acute UTI and CT of the abdomen with evidence of cystitis. Prior urine cultures within the last year with ESBL E. coli as well as Pseudomonas. -Admit to medical with telemetry -Maintain isolation precautions for history of MDR organism in urine -Follow urine culture -Meropenem 500mg IV q 8 hoursto cover both ESBL and Pseudomonas - monitor for reaction, patient with unknown reaction to Penicillin -Tylenol PRN -Gentle IVF with LR at 80mL/hr x 1L -PT/OT appreciated #Subacute CVA noted on CT head - patient denies new neurological deficits. He does admit to some confusion, some transient numbness of the left hand. Patient with prior CVA in 2017 and was managed with Plavix and Rosuvastatin -Neuro checks and NIHSS per protocol -Check MRI brain -Check 2D echo -ASA, Plavix and Crestor for now -Check lipid panel and HgbA1C #CAD - History of CABG. Patient with some chest discomfort noted. EKG with no ischemic changes present. Troponin mildly elevated. Patient is not on any cardiac medications currently. -Telemetry monitoring -Trend troponin -Check 2D echo #Paroxysmal AF - Rate controlled. Patient was previously on Eliquis anticoagulation which was discontinued due to history of GI bleed #BPH -Bladder scan with straight cath as needed -Continue Flomax 0.4mg po qHS History of Present Illness Chief Complaint: edema, abdominal distention Primary Care Provider: Anju Gonzalez MD John Figueroa is an 89yo male with history of CAD s/p CABG, s/p bioprosthetic aortic valve, paroxysmal atrial fibrillation, HTN and GERD presenting from home with confusion and not feeling himself. He also reports some upper chest discomfort that has been ongoing since yesterday as well as mild shortness of breath. Patient denies fever, chills, cough, SOB, nausea, vomiting or diarrhea. He has some mild abdominal discomfort States that his left hand feels numb sometimes otherwise denies focal deficits, no changes in vision Patient lives at home alone and uses a cane and walker to ambulate. He has [facility] and family members that check on him regularly. Allergies Allergy/AdvReac Type Severity Reaction Status Date / Time Penicillins Allergy Intermediate Unknown Verified 05/30/25 19:57 apixaban [From Eliquis] AdvReac Intermediate Rash, Verified 05/30/25 19:57 itching oxycodone AdvReac Mild SICKNESS Verified 05/30/25 19:57 Home Medications Medication Instructions Recorded Confirmed Type acetaminophen 325 mg tablet 650 mg PO TID PRN Pain 10/11/24 05/30/25 History furosemide 20 mg tablet 20 mg PO UD 10/11/24 05/30/25 History tamsulosin 0.4 mg capsule 0.4 mg PO HS #90 caps 12/21/24 05/30/25 Rx Past Med/Surg History Problem List Confusion (Acute) Acute UTI (Acute) CVA (cerebrovascular accident) (Acute) Hospice care patient Leg edema, left Bladder stone Anemia (Acute) Acute urinary retention (Acute) Ambulatory dysfunction Depression Vitamin B12 deficiency Paroxysmal A-fib (07/2020) S/P coronary artery bypass graft x 3 (2009) Gastro-esophageal reflux disease with esophagitis Dyslipidemia (Acute) Transient cerebral ischemia (Acute) Medical History CAD (coronary artery disease) s/p CABG x 3 in 2009 Hx of gastroenteritis (09/26/24) had nausea/vomitting/diarrhea 09/25 to 09/26/24 while at [facility], no testing, resolved Ambulatory dysfunction using walker UTI (urinary tract infection) just completed macrobid GERD with esophagitis Depression Anemia Hx of upper gastrointestinal hemorrhage (08/2024) per hx, while i/p at [facility], heme pos stools- never had visible bloody stools- will follow up with gi 10/2024 Hx of myocardial infarction (2009) unsure of what hospital- heart cath- cabg x 3/avr- follow with darlene (04/08) History of anesthesia reaction (06/2024) granddaughter reports after recent surgery for hip, had food on ETT after extubation Hx of fracture of ankle (2012) Bladder stone (08/2024) History of COVID-19 (08/2022) duing hospital stay at [facility]- mild symptoms Acute urinary retention admit to [place] 08/24 to 08/28/24/ bladder stone Hypomagnesemia Lumbar spinal stenosis Multiple fractures of ribs of right side (11/2020) hx Closed intertrochanteric fracture of right femur (07/09/24) due to fall, had surgery, i/p at [facility] Atrial fibrillation with rapid ventricular response (08/2024) while i/p at [facility] post right hip surgery, started on amiodarone, follows with dr. colon (03/2024) Difficulty swallowing liquids granddaughter reports pt coughs a lot when swallowing, but does not feel pt. has difficulty swallowing Idiopathic polyneuropathy History of cerebellar stroke (2016) left drop foot only deficit, no neuro Bradycardia Hypertension Anxiety History of left foot drop hx cva Inhibited sexual excitement Surgical History Hx of cardiac catheterization (2009) [place] - went on to have AVR/CABG - not sure what hospital- follows with darlene (04/08) History of hip surgery (06/2024) right hip fx, due to fall, ip at [facility] S/P aortic valve replacement with bioprosthetic valve (2009) unsure of what hospital, follows with with cardio dr. colon -saw while i/p at [facility] 08/25/24- last seen in office 03/30/24 S/P coronary artery bypass graft x 3 (2009) unsure of what hospital, follows with with cardio dr. colon -saw while i/p at [facility] 08/25/24- last seen in office 03/30/24 Family History Mother Unknown family medical history Social History Smoking Status: Former smoker Second Hand Exposure: No; Do You Dip or Chew Tobacco: No; Hx Alcohol Use: No Hx Substance Use: No Preferred Language: Hebrew Communication Ability: Effective Energy Risk Management Analyst Required: No Beliefs That Will Affect Care: None marital status: Current Living Situation: Other Current Living Situation Comment: assisgted living current occupational status: retired Feels Safe at Home: Yes Assistive Devices: Walker and Wheelchair Review of Systems Review of Systems: All systems reviewed & are unremarkable except as noted in HPI & below Physical Exam Physical Exam: General: patient resting comfortably, NAD, non-toxic in appearance, AA&O to person and place, some word finding difficulty Skin: warm, dry, intact, no rashes or lesions HEENT: NC/AT, PERRL, EOMI, anicteric sclera, conjunctiva without injection, external ear normal to inspection and nontender, nares patent, moist mucus membranes, dentition intact, no oropharyngeal lesions, neck supple, trachea midline, no LAD, no thyromegaly, no JVD Heart: +S1/S2, regular, no m/r/g Lungs: equal air entry bilaterally, no rales/rhonchi/wheezes Abd: +BS, soft, NT/ND, no masses/organomegaly/ascites Ext: warm, 2+ pulses in UE/LE bilaterally, no clubbing/cyanosis, +LLE edema > right (baseline) Neuro: nonfocal, patient AA&O to person and place, speech intact, no facial droop, moving all extremities on command with equal strength 5/5 Results & Data Results & Data Vital Signs (Past 12 Hours) Vital Signs Temp Pulse Pulse Resp BP BP Pulse Ox 05/30/25 18:08 94 05/30/25 17:39 78 20 142/57 H 95 05/30/25 17:39 36.6 C 84 20 142/57 H 96 05/30/25 17:38 80 O2 Del Method 05/30/25 18:08 Room Air 05/30/25 17:39 Room Air 05/30/25 17:39 Room Air 05/30/25 17:38 Laboratory Results Laboratory Results WBC 7.84 K/ul (4.8-10.8) 05/30/25 17:35 RBC 4.14 M/uL (4.70-6.10) L 05/30/25 17:35 Hgb 12.3 g/dl (14.0-18.0) L 05/30/25 17:35 Hct 37.3 % (42.0-52.0) L 05/30/25 17:35 MCV 90.1 fL (80.0-100.0) 05/30/25 17:35 MCH 29.7 pg (25.0-34.0) 05/30/25 17: MCHC 33.0 g/dL (32.0-36.0) 05/30/25 17: RDW Std Deviation 48.6 fL (36.4-46.3) H 05/30/25 17: RDW Coeff of Nay 14.8 % (11.5-14.5) H 05/30/25 17: Plt Count 164 K/uL (130-400) 05/30/25 17: MPV 9.4 fL (9.4-12.4) 05/30/25 17:35 Immature Gran % (Auto) 0.3 % 05/30/25 17:35 Neut % (Auto) 78.6 % 05/30/25 17:35 Lymph % (Auto) 13.0 % 05/30/25 17:35 Swain % (Auto) 7.0 % 05/30/25 17:35 Eos % (Auto) 0.6 % 05/30/25 17:35 Baso % (Auto) 0.5 % 05/30/25 17:35 Neut # (Auto) 6.16 K/uL (1.40-6.50) 05/30/25 17:35 Lymph # (Auto) 1.02 K/uL (1.20-3.40) L 05/30/25 17:35 Swain # (Auto) 0.55 K/uL (0.11-0.59) 05/30/25 17:35 Eos # (Auto) 0.05 K/uL (0.00-0.50) 05/30/25 17:35 Baso # (Auto) 0.04 K/uL (0.00-0.20) 05/30/25 17:35 Immature Gran # (Auto) 0.02 K/uL (0.01-0.20) 05/30/25 17:35 Sodium 137 mmol/L (136-145) 05/30/25 17:35 Potassium 4.0 mmol/L (3.5-5.1) 05/30/25 17:35 Chloride 106 mmol/L (98-107) 05/30/25 17:35 Carbon Dioxide 26 mmol/L (21-32) 05/30/25 17:35 Anion Gap 5 (3-11) 05/30/25 17:35 BUN 15 mg/dl (6-23) 05/30/25 17:35 Creatinine 1.03 mg/dl (0.6-1.4) 05/30/25 17:35 Est Cr Clr Drug Dosing 45.6 ml/min 05/30/25 17:35 eGFR 69.44 05/30/25 17:35 BUN/Creatinine Ratio 14.6 (10-20) 05/30/25 17:35 Glucose 108 mg/dl (70-99(Fasting)) H 05/30/25 17:35 Calcium 9.3 mg/dl (8.6-10.3) 05/30/25 17:35 Total Bilirubin 0.8 mg/dl (0.2-1.0) 05/30/25 17:35 AST 15 U/L (13-39) 05/30/25 17:35 ALT 10 U/L (7-52) 05/30/25 17:35 Alkaline Phosphatase 84 U/L (34-104) 05/30/25 17:35 Troponin I High Sens 33.4 pg/ml (0-20) H 05/30/25 19:46 Total Protein 6.8 gm/dl (6.0-8.3) 05/30/25 17:35 Albumin 3.6 gm/dl (3.4-5.0) 05/30/25 17:35 Globulin 3.2 gm/dl (2.5-4.0) 05/30/25 17:35 Albumin/Globulin Ratio 1.1 (0.9-2) 05/30/25 17:35 Lipase 13 U/L (11-82) 05/30/25 17:35 Urine Color Yellow 05/30/25 18:25 Urine Appearance Turbid (Clear) A 05/30/25 18:25 Urine pH 6.0 (4.5-7.5) 05/30/25 18:25 Ur Specific [place] 1.019 (1.000-1.030) 05/30/25 18:25 Urine Protein 1+ (Negative) H 05/30/25 18:25 Urine Glucose (UA) Negative (Negative) 05/30/25 18:25 Urine Ketones Trace (Negative) H 05/30/25 18:25 Urine Blood 1+ (Negative) H 05/30/25 18:25 Urine Nitrite Positive (Negative) A 05/30/25 18:25 Urine Bilirubin Negative (Negative) 05/30/25 18:25 Urine Urobilinogen Negative (Negative) 05/30/25:25 Ur Leukocyte Esterase 3+ (Negative) H 05/30/25 18:25 Urine WBC (Auto) >50 /hpf (0-5) H 05/30/25 18:25 Urine RBC (Auto) 0-2 /hpf (0-2) 05/30/25: U Hyaline Cast (Auto) 0-2 /lpf (0-2) 05/30/25 18:25 U Epithel Cells (Auto) 0-2 /hpf (0-2) 05/30/25 18:25 Urine Bacteria (Auto) 4+ (None Seen) H 05/30/25: Urine Comment 05/30/25 18:25 Impressions Chest X-Ray 05/30/25 17:57 Chest radiograph, one view History: Chest pain Comparison: None Findings: Single AP view of the chest performed. No focal consolidation or pleural effusion. No pneumothorax. Status post CABG changes. The cardiomediastinal silhouette is within normal limits. Normal pulmonary vascularity. No evidence for lymphadenopathy. No visualized bony or soft tissue abnormality. Impression: Normal chest radiograph Electronically signed by Kristian Lewis 05-30-2025 7:10 PM Abdomen/Pelvis CT 05/30/25 18:08 EXAMINATION: CT of the abdomen and pelvis performed after the administration of IV contrast TECHNIQUE: Helical CT images from the lung bases through the symphysis pubis were obtained with contrast. Coronal and sagittal reformatted images were generated at a workstation for further assessment. Dose reduction techniques were achieved by using automatic exposure control and/or adjustment of mA and/or kV according to patient size and/or use of iterative reconstruction technique. COMPARISON: None HISTORY: Abdominal pain FINDINGS: Lower chest: There is a small bilateral pleural effusion with subjacent atelectasis. Mild interstitial pulmonary edema seen in the lung bases. The heart appears enlarged. Mechanical aortic valve partially seen. Liver: No suspicious liver lesions. Portal veins appear patent. Few small cysts. Gallbladder: No gallstones. No evidence of acute cholecystitis. Spleen: Normal size. Pancreas: No suspicious pancreatic lesions. The pancreatic duct is not dilated. Adrenal glands: No adrenal nodules. Kidneys: No hydronephrosis or obstructing renal stones. Bladder / Pelvic organs: The urinary bladder is mildly distended, and demonstrates wall thickening and edema with mild mucosal hyperenhancement. Borderline enlarged prostate gland measuring 4.6 cm transverse diameter. Bowel: No bowel obstruction. No abnormal bowel wall thickening. The appendix is unremarkable. Lymph nodes: No retroperitoneal, mesenteric, or pelvic lymphadenopathy. Peritoneum / Retroperitoneum: No free fluid or air within the abdomen. Vessels: No infrarenal aortic aneurysm. Moderate to heavy aortoiliac calcification. Bones and soft tissues: No suspicious lesion in the bones. Fixation changes of the right femur. IMPRESSION: Wall thickening, edema and mucosal hyperenhancement of the urinary bladder, suggestive of cystitis. Small pleural effusions. Electronically signed by Kristian Lewis 05-30-2025 7:[address] 05/30/25 18:08 Technique: Axial computed tomography images were obtained of the brain without intravenous contrast. Comparison is made to the prior CT dated 11/02/2023 Findings: There is new cortical and subcortical low attenuation involving the left occipital lobe, likely due to a subacute infarct There is unchanged cerebral atrophy, within expected limits for the patient's age. Areas of decreased attenuation are seen within the periventricular white matter, likely representing chronic small vessel ischemic disease. There is an unchanged old right cerebellar infarct. There is an old infarct of the right thalamus. No intracranial hemorrhage is evident. No definite mass lesion is seen on this noncontrast examination. There is no midline shift or other form of herniation. No hydrocephalus is seen. No fracture is identified. The orbits and the visualized paranasal sinuses appear unremarkable. The mastoid air cells appear clear. Impression: 1. New left occipital lobe abnormality, likely a subacute infarct. MRI with and without contrast and with diffusion-weighted images is recommended for further evaluation 2. Unchanged cerebral atrophy and chronic small vessel ischemic disease 3. Old cerebellar and thalamic infarcts ACT 112: Positive. There are findings on this exam that require communication between the performing entity and the patient following Patient Test Result Information Act ([place] ACT 112) guidelines. Electronically signed by Devon Osman 05-30-2025 7:10 PM PG Care Time/CCT Total # of Minutes Spent Total Time Spent with Patient: Total time spent is greater than 50% in coordination of care (as documented) at patient's floor/unit and/or counseling patient: Coding Level of Care Code 25734 INT INP/OBS CARE 3/75MIN Diagnoses Acute UTI N39.0 CVA (cerebrovascular accident) I63.9 CVA mechanism: unspecified Paroxysmal A-fib I48.0 S/P coronary artery bypass graft x 3 Z95.1 Gastro-esophageal reflux disease with esophagitis K21.00 Dyslipidemia E78.5 (2) CVA (cerebrovascular accident) CVA mechanism: unspecified Qualified Code(s): I63.9 - Cerebral infarction, unspecified
[2025-05-30] MEDS ORDERED: ONDANSETRON INJ 2 MG/ML 2 ML VIAL IV PRN (23:15)
[2025-05-30] MEDS ORDERED: PHARMACIST DISCHARGE MED REC CONSULT PRN (23:15)
[2025-05-30] MEDS: MEROPENEM 500 MG in SYRINGE 0 ML IV SCH (23:54)
[2025-05-30] MEDS: LACTATED RINGER'S 1,000 ML IV SCH (23:54)
[2025-05-31] MEDS: GADOBUTROL 65ML VIAL IV ONE (01:31)
[2025-05-31] MEDS: TAMSULOSIN HCL 0.4 MG CAP PO SCH (02:43)
--- NOTE | 2025-05-31 02:56 | Magnetic Resonance Report ---
EXAM: MR brain wo/w con CLINICAL HISTORY: Subacute CVA noted on CT. TECHNIQUE: MRI of the brain was performed with and without contrast, with multiplanar sequences obtained. 6.5 ml gadavist was administered as IV contrast. COMPARISON: 11/02/2023 CT and 01/06/2017 MR. FINDINGS: Brain Parenchyma: A large area of diffusion restriction is seen in the territory of the left posterior cerebral artery, involving the left occipital region and extending to the left posterior temporal lobe and posterior hippocampus, predominantly in the medial location. It appears hyperintense on DWI and hypointense on ADC. It appears hyperintense on T2 and STIR and is isointense on T1. There is effacement of the sulci and gyri. An area of encephalomalacia is seen in the left cerebellar region, likely due to a prior vascular event. Chronic microvascular ischemic changes are seen. Ventricles and Sulci: Age-appropriate brain involutional changes are seen, as evidenced by prominent intra- and extra-axial CSF spaces. Posterior Fossa: An area of encephalomalacia is seen in the left cerebellar region, likely due to a prior vascular event. Cranial Nerves: Normal course and appearance of the cranial nerves are identified. Vessels: No evidence of vascular malformations or aneurysms. The intracranial arteries and veins appear normal, without evidence of stenosis or occlusion. Orbits and Skull Base: A 1.1 x 1.6 cm nonenhancing cystic area is seen in the scalp in the right parietal area. Previously, there were a few large calcified subcutaneous nodules in the scalp, which are likely interval removed. The cystic lesion on the right is at the location of one of the subcutaneous nodules. Hypertrophy of the bilateral nasal turbinates. Mild mucosal thickening is seen in both ethmoid sinuses. Post contrast images: No significant pathological contrast enhancement is seen. IMPRESSION: 1. Acute ischemic infarction in the territory of the left posterior cerebral artery. Interval new. 2. An area of encephalomalacia is seen in the left cerebellar region, likely due to a prior vascular event. Stable. 3. Age-appropriate brain involutional and chronic microvascular ischemic changes. Interval prominent progression. Electronically signed by Lei Fisher 05-31-2025 02:56 AM
[2025-05-31 07:26] LABS: Hematocrit (blood only) 34.9 % (42.0-52.0); Hemoglobin 11.5 g/dl (14.0-18.0); Immature Granulocytes # (auto) 0.02 K/uL (0.01-0.20); Immature Granulocytes % (auto) 0.3 %; Mean Corpuscular Hemoglobin 29.7 pg (25.0-34.0); Mean Corpuscular Volume 90.2 fL (80.0-100.0); Platelet Count 145 K/uL (130-400); RDW Standard Deviation 48.8 fL (36.4-46.3); Red Blood Count 3.87 M/uL (4.70-6.10); White Blood Count 6.38 K/ul (4.8-10.8)
[2025-05-31 07:45] LABS: Anion Gap 5.0 (3-11); Blood Urea Nitrogen 12.0 mg/dl (6-23); Calcium 8.9 mg/dl (8.6-10.3); Carbon Dioxide 25.0 mmol/L (21-32); Chloride 109.0 mmol/L (98-107); Cholesterol 152.0 mg/dl (0-200); Creatinine Clr Calc Pharmacy 47.9 ml/min; Glucose 86.0 mg/dl (70-99(Fasting)); HDL Cholesterol 37.0 mg/dl; Potassium 4.3 mmol/L (3.5-5.1); Sodium 139.0 mmol/L (136-145); Triglycerides 50.0 mg/dl (0-150)
[2025-05-31 07:59] LABS: Hemoglobin A1C 5.2 % (4.5-5.6)
[2025-05-31] MEDS: CLOPIDOGREL BISULFATE 75 MG TAB PO SCH (08:20)
[2025-05-31] MEDS: ROSUVASTATIN CALCIUM 5 MG TAB PO SCH (08:20)
[2025-05-31] MEDS: ASPIRIN 81 MG ECTAB PO SCH (08:20)
[2025-05-31] MEDS ORDERED: INFLUENZA VACC TS2025-26(65y+)/PF (IIV3) 0.5mL Syr IM ONE (09:00)
[2025-05-31] MEDS: NITROGLYCERIN SL 0.4 MG/TAB TAB SL STA (09:02)
[2025-05-31] MEDS: METOPROLOL TARTRATE 1 MG/ML VIAL IV STA (09:09)
[2025-05-31] MEDS: METOPROLOL TARTRATE 25 MG TAB PO SCH (09:25)
[2025-05-31] MEDS: NITROGLYCERIN SL 0.4 MG/TAB TAB SL PRN (09:35)
--- NOTE | 2025-05-31 16:43 | Hospitalist Progress Note ---
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 OT/PT/speech therapy ordered. Supportive care. Medical management. (2) Acute UTI: Plan: E. coli isolated. Currently on meropenem, day 2, until sensitivities are known (3) Paroxysmal A-fib: Plan: Unfortunately he developed recurrent atrial fibrillation with rapid ventricular rate. Metoprolol has been started. Telemetry. (4) S/P coronary artery bypass graft x 3: Plan: Known coronary artery disease. Continue medical management (5) Demand ischemia: Plan: Troponin is mildly elevated without acute EKG changes. No apparent acute coronary syndrome. Continue current medical management (6) Metabolic encephalopathy: Plan: Present on admission. Now resolved (7) Urinary retention: Plan: Due to BPH with LUTS. Required Zendejas catheter placement. Supportive care Plan It appears he will need placement at the time of discharge. OT and PT evaluations ordered and pending Admission and Anticipated Discharge Date Admission Date: May 30, 2025 Subjective Alert and oriented. Unfortunately he has again developed tachycardia and had angina symptoms this morning without overt DE thankfully. He was started on metoprolol and this seemed to help. He was also given sublingual nitroglycerin. Urine is growing E. coli and he is currently on meropenem day 2 until sensitivities are known. Brain MRI scan is positive for ischemic left CVA although surprisingly he has little neurological findings. He does agree to have his CODE STATUS changed from full code to DNR. He required Zendejas catheter placement due to urinary retention. Metabolic encephalopathy present on admission appears to have resolved. I spoke to his granddaughter, Mariposa, today by phone. Review of Systems 2 Review of Systems: Constitutionalno fever or chills ENTno blurred vision, no double vision, no epistaxis, no sore throat Respiratoryno cough, no wheezing, no shortness of breath Cardiacno palpitations, no syncope. Chest discomfort present this morning has resolved Adrian nausea, vomiting, diarrhea, melena, hematochezia GUno urinary retention, no urinary incontinence, no dysuria, no hematuria Musculoskeletalno joint pain, no muscle tenderness Skinno bruising, no rashes, no pruritus Neuroimbalance and mild right-sided weakness. Psychno depression, no anxiety Physical Exam 2 Physical Exam: General-alert and oriented x3, no fever, no chills HEENT-head atraumatic and normocephalic, pupils equal and reactive to light, extraocular muscles intact Neck-no lymphadenopathy or thyromegaly, trachea midline Chest-clear to auscultation. No rales, wheezing or rhonchi Cardiac-tachycardic irregular rate and rhythm. Normal S1 and S2 Abdomen-normal bowel sounds, no hepatosplenomegaly Extremities-no cyanosis, clubbing, or edema Neuro-cranial nerves II through XII intact, mild right hemiparesis. Ataxic gait. Psych-normal affect, normal mood Results & Data Results & Data Vital Signs (Past 12 Hours) Vital Signs Temp Pulse Pulse Resp BP BP BP 05/31/25 15:09 36.6 C 90 18 115/46 L 05/31/25 14:26 05/31/25 13:19 75 05/31/25 11:17 36.5 C 99 H 18 111/54 L 05/31/25 10:00 117 H 17 108/50 L 05/31/25 09:24 116 H 119/61 05/31/25 09:22 117 H 18 121/61 05/31/25 09:16 79 21 127/55 L 05/31/25 09:00 36.9 C 127 H 19 134/68 05/31/25 08:39 36.7 C 84 18 146/49 H 05/31/25 07:20 36.5 C 83 18 131/54 L 05/31/25 06:45 81 Pulse Ox Pulse Ox O2 Del Method O2 Flow Rate O2 Flow Rate 05/31/25 15:09 94 Room Air 05/31/25 14:26 94 0 05/31/25 13:19 05/31/25 11:17 95 Nasal Cannula 2 05/31/25 10:00 95 Nasal Cannula 2 05/31/25 09:24 05/31/25 09:22 92 Nasal Cannula 2 05/31/25 09:16 86 L Room Air 05/31/25 09:00 94 Room Air 05/31/25 08:39 93 Room Air 05/31/25 07:20 94 Room Air 05/31/25 06:45 Laboratory Results 05/31/25 06:48 05/31/25 06:48 PG Care Time/CCT Total # of Minutes Spent Total Time Spent with Patient: Total time spent is greater than 50% in coordination of care (as documented) at patient's floor/unit and/or counseling patient: Coding Level of Care Code 64998 SUB INP/OBS CARE 350MIN Diagnoses CVA (cerebrovascular accident) I63.9 CVA mechanism: unspecified Acute UTI N39.0 Paroxysmal A-fib I48.0 S/P coronary artery bypass graft x 3 Z95.1 Demand ischemia I24.89 Metabolic encephalopathy G93.41 Urinary retention R33.9 (1) CVA (cerebrovascular accident) CVA mechanism: unspecified Qualified Code(s): I63.9 - Cerebral infarction, unspecified
[2025-06-01 07:52] LABS: Hematocrit (blood only) 34.4 % (42.0-52.0); Hemoglobin 11.7 g/dl (14.0-18.0); Immature Granulocytes # (auto) 0.03 K/uL (0.01-0.20); Immature Granulocytes % (auto) 0.3 %; Mean Corpuscular Hemoglobin 30.3 pg (25.0-34.0); Mean Corpuscular Volume 89.1 fL (80.0-100.0); Platelet Count 142 K/uL (130-400); RDW Standard Deviation 48.2 fL (36.4-46.3); Red Blood Count 3.86 M/uL (4.70-6.10); White Blood Count 9.37 K/ul (4.8-10.8)
[2025-06-01 08:13] LABS: Anion Gap 7.0 (3-11); Blood Urea Nitrogen 19.0 mg/dl (6-23); Calcium 8.9 mg/dl (8.6-10.3); Carbon Dioxide 22.0 mmol/L (21-32); Chloride 109.0 mmol/L (98-107); Creatinine Clr Calc Pharmacy 44.3 ml/min; Glucose 86.0 mg/dl (70-99(Fasting)); Potassium 4.2 mmol/L (3.5-5.1); Sodium 138.0 mmol/L (136-145)
--- NOTE | 2025-06-01 11:53 | XCELERA ---
[id number] [id number]
--- NOTE | 2025-06-01 15:10 | Pharmacy Report ---
- Date of Service June 01, 2025 - Pharmacy CVA/TIA Medication Review Medications to Prevent Stroke handout has been added to the patients discharge packet. Antiplatelet(s) * aspirin 81 mg daily * plavix 75 mg daily Cholesterol * Rosuvastatin 5 mg daily * High intensity statin deferred - discussion still pending with goals of care as patient previously on home hospice DVT Prophylaxis * SCD knee Therapeutic Anticoagulation * Afib/Aflutter noted, however per notes, anticoagulation contraindicated due to hx of UGIB Type 2 Diabetes * Patient does not have T2DM
--- NOTE | 2025-06-01 15:58 | Electrocardiogram Report ---
Test Reason : Blood Pressure : */* mmHG Vent. Rate : 134 BPM Atrial Rate : 268 BPM P-R Int : * ms QRS Dur : 106 ms QT Int : 332 ms P-R-T Axes : 247 -63 89 degrees QTcB Int : 495 ms Atrial flutter with 2:1 A-V conduction Pulmonary disease pattern Left anterior fascicular block Minimal voltage criteria for LVH, may be normal variant ( Nico product ) Abnormal ECG When compared with ECG of 31-May-2025 08:34, (unconfirmed) Atrial flutter has replaced Sinus rhythm Confirmed by Woodrow Guzman ([id number]) on 06/01/2025 3:58:00 PM Referred By: REFERRED SELF Confirmed By: Woodrow Guzman
--- NOTE | 2025-06-01 15:58 | Electrocardiogram Report ---
Test Reason : Blood Pressure : */* mmHG Vent. Rate : 92 BPM Atrial Rate : 144 BPM P-R Int : * ms QRS Dur : 104 ms QT Int : 274 ms P-R-T Axes : * -61 100 degrees QTcB Int : 338 ms Sinus tachycardia with 2nd degree A-V block ([place] I) Left anterior fascicular block Minimal voltage criteria for LVH, may be normal variant ( [place] product ) Possible Anterior infarct , age undetermined Abnormal ECG When compared with ECG of 31-May-2025 00:16, (unconfirmed) Sinus rhythm has replaced Atrial flutter Confirmed by Woodrow Guzman ([id number]) on 06/01/2025 3:57:33 PM Referred By: REFERRED SELF Confirmed By: Woodrow Guzman
--- NOTE | 2025-06-01 16:08 | Hospitalist Progress Note ---
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 Continue OT and PT therapy while hospitalized. Speech therapy has cleared the patient for oral intake. Supportive care. (2) Acute UTI: Plan: ESBL E. coli isolated. Currently on meropenem, day 3 (3) Paroxysmal A-fib: Plan: Unfortunately he developed recurrent atrial fibrillation with rapid ventricular rate. Much improved after addition of metoprolol yesterday, May 31. Telemetry. (4) S/P coronary artery bypass graft x 3: Plan: Known coronary artery disease. Continue medical management (5) Demand ischemia: Plan: Troponin is mildly elevated without acute EKG changes. No apparent acute coronary syndrome. Continue current medical management. No recurrent angina (6) Metabolic encephalopathy: Plan: Present on admission. Now resolved (7) Urinary retention: Plan: Due to BPH with LUTS. Required Zendejas catheter placement. Urology consultation requested. Supportive care Plan It appears he will need rehab placement at the time of discharge. Admission and Anticipated Discharge Date Admission Date: May 30, 2025 Subjective Alert and oriented. He is doing surprisingly well considering that he has suffered an ischemic left CVA, has E. coli UTI, and recently had angina symptoms, and required Zendejas catheter placement for urinary retention. Will consult urology for evaluation of what appears to be BPH with LUTS. He is on meropenem, day 2, for ESBL E. coli UTI. Heart rate and blood pressure are acceptable after addition of metoprolol yesterday, May 31. Continue OT and PT while hospitalized. Review of Systems 2 Review of Systems: Constitutionalno fever or chills ENTno blurred vision, no double vision, no epistaxis, no sore throat Respiratoryno cough, no wheezing, no shortness of breath Cardiacno palpitations, no syncope. Chest discomfort present this morning has resolved Adrian nausea, vomiting, diarrhea, melena, hematochezia GUno urinary retention, no urinary incontinence, no dysuria, no hematuria Musculoskeletalno joint pain, no muscle tenderness Skinno bruising, no rashes, no pruritus Neuroimbalance and mild right-sided weakness. Psychno depression, no anxiety Physical Exam 2 Physical Exam: General-alert and oriented x3, no fever, no chills HEENT-head atraumatic and normocephalic, pupils equal and reactive to light, extraocular muscles intact Neck-no lymphadenopathy or thyromegaly, trachea midline Chest-clear to auscultation. No rales, wheezing or rhonchi Cardiac-tachycardic irregular rate and rhythm. Normal S1 and S2 Abdomen-normal bowel sounds, no hepatosplenomegaly Extremities-no cyanosis, clubbing, or edema Neuro-cranial nerves II through XII intact, mild right hemiparesis. Ataxic gait. Psych-normal affect, normal mood Results & Data Results & Data Vital Signs (Past 12 Hours) Vital Signs Temp Pulse Pulse Resp BP Pulse Ox O2 Del Method 06/01/25 15:12 36.6 C 68 20 121/64 93 Room Air 06/01/25 11:22 36.8 C 63 20 100/43 L 97 Room Air 06/01/25 07:48 75 06/01/25 07:47 37.0 C 75 20 122/41 L 90 Room Air Laboratory Results 06/01/25 06:55 06/01/25 06:55 PG Care Time/CCT Total # of Minutes Spent Total Time Spent with Patient: Total time spent is greater than 50% in coordination of care (as documented) at patient's floor/unit and/or counseling patient: Coding Level of Care Code 56997 SUB INP/OBS CARE 2/35MIN Diagnoses CVA (cerebrovascular accident) I63.9 CVA mechanism: unspecified Acute UTI N39.0 Paroxysmal A-fib I48.0 S/P coronary artery bypass graft x 3 Z95.1 Demand ischemia I24.89 Metabolic encephalopathy G93.41 Urinary retention R33.9 (1) CVA (cerebrovascular accident) CVA mechanism: unspecified Qualified Code(s): I63.9 - Cerebral infarction, unspecified
--- NOTE | 2025-06-01 20:53 | Urology Consultation ---
Date of Consultation June 01, 2025 Assessment & Plan (1) Urinary retention: Patient has been admitted on hospital service. Urologic recommendations are as follows: Because of patient's urinary retention may be multifactorialhe is noted to have some prostate enlargement as well as evidence of urinary tract infection both of which may be contributing to the underlying problem Zendejas catheter is in place and should be maintained for bowel rest and a voiding trial can be considered at a later date (this can be performed either as an inpatient or outpatient) He is being treated for an E. coli urinary tract infection with meropenemurine culture shows that this organism is sensitive to this antibiotic so should continue Patient's Zendejas catheter becomes clogged nursing staff can flush and irrigate it as needed He is receiving Flomax which should continue Additional recommendations were forthcoming based on his clinical course as unfolds Supervising Physician Co-Signing Physician Notes Patient seen and examined independently. Please see my notes from 06/02 for further details of my plan History of Present Illness Reason for Consultation: Urinary retention Attending Physician: Paul Cazares MD History of Present Illness This is an 89-year-old male who has been admitted to [facility] secondary to a subacute stroke as well as urinary tract infection. The patient developed urinary retention prompting urology consultation. Concerning the patient's urinary retention the patient believes that he has had approximately 1 month of decreased urinary stream. He also feels as though he has had some incomplete bladder emptying. Patient did not prove to be the best historian but believes that he had issues with urinary retention approximately 1 week ago requiring Zendejas catheter placement but his Zendejas catheter was removed. Since his hospitalization he says he has had ongoing issues with urinary retention requiring Zendejas catheter placement again which was performed yesterday. At the present time he is resting comfortably in bed with no distress. Labs and imaging were reviewed and he did have a CT scan of the abdomen pelvis on 05/30/2025 which showed findings concerning for cystitis of the urinary bladder. This scan also demonstrated borderline prostate enlargement. On the same day he had a chest x-ray that showed no evidence of pneumonia. He also had a CT scan of the head that showed a new left occipital lobe subacute infarct. An MRI of the brain was performed which showed an acute ischemic infarction and a new area of the left posterior cerebral artery. Labs from today include a CBC with a white blood cell count and platelet count were normal. Hemoglobin and hematocrit were 11.7 and 34.4 chemistry profile showed sodium, potassium, BUN, and creatinine were normal. A urine culture from 05/30/2025 showed a multi resistant E. coli urinary tract infection. At the time of my interview he was resting comfortably in bed he was in no distress. Allergies Allergy/AdvReac Type Severity Reaction Status Date / Time Penicillins Allergy Intermediate Unknown Verified 05/30/25 19:57 apixaban [From Eliquis] AdvReac Intermediate Rash, Verified 05/30/25 19:57 itching oxycodone AdvReac Mild SICKNESS Verified 05/30/25 19:57 Home Medications Medication Instructions Recorded Confirmed Type acetaminophen 325 mg tablet 650 mg PO TID PRN Pain 10/11/24 05/30/25 History furosemide 20 mg tablet 20 mg PO UD 10/11/24 05/30/25 History tamsulosin 0.4 mg capsule 0.4 mg PO HS #90 caps 12/21/24 05/30/25 Rx Patient History Medical History CAD (coronary artery disease) s/p CABG x 3 in 2009 Hx of gastroenteritis (09/26/24) had nausea/vomitting/diarrhea 09/25 to 09/26/24 while at [facility], no testing, resolved Ambulatory dysfunction using walker UTI (urinary tract infection) just completed macrobid GERD with esophagitis Depression Anemia Hx of upper gastrointestinal hemorrhage (08/2024) per hx, while i/p at [facility], heme pos stools- never had visible bloody stools- will follow up with gi 10/2024 Hx of myocardial infarction (2009) unsure of what hospital- heart cath- cabg x /- follow with darlene (04/08) History of anesthesia reaction (06/2024) granddaughter reports after recent surgery for hip, had food on ETT after extubation Hx of fracture of ankle (2012) Bladder stone (08/2024) History of COVID-19 (08/2022) duing hospital stay at [facility]- mild symptoms Acute urinary retention admit to [facility] 08/24 to 08/28/24/ bladder stone Hypomagnesemia Lumbar spinal stenosis Multiple fractures of ribs of right side (11/2020) hx Closed intertrochanteric fracture of right femur (07/09/24) due to fall, had surgery, i/p at [facility] Atrial fibrillation with rapid ventricular response (08/2024) while i/p at [facility] post right hip surgery, started on amiodarone, follows with dr. colon (03/2024) Difficulty swallowing liquids granddaughter reports pt coughs a lot when swallowing, but does not feel pt. has difficulty swallowing Idiopathic polyneuropathy History of cerebellar stroke (2016) left drop foot only deficit, no neuro Bradycardia Hypertension Anxiety History of left foot drop hx cva Inhibited sexual excitement Surgical History Hx of cardiac catheterization (2009) PR - went on to have AVR/CABG - not sure what hospital- follows with darlene (04/08) History of hip surgery (06/2024) right hip fx, due to fall, ip at [facility] S/P aortic valve replacement with bioprosthetic valve (2009) unsure of what hospital, follows with with cardio dr. colon -zoraida while i/p at [facility] 08/25/24- last seen in office 03/30/24 S/P coronary artery bypass graft x 3 (2009) unsure of what hospital, follows with with cardio dr. darlene prince while i/p at [facility] 08/25/24- last seen in office 03/30/24 Family History Mother Unknown family medical history Social History Smoking Status: Former smoker Tobacco Type: Cigarettes Smoking End Date: over 30 years ago; Second Hand Exposure: No; Do You Dip or Chew Tobacco: No; Hx Alcohol Use: Yes Alcohol type: hard liquor Hx Substance Use: No Preferred Language: Slovenian Communication Ability: Effective French Comber Required: No Beliefs That Will Affect Care: None marital status: Current Living Situation: Alone Current Living Situation Comment: assisgted living current occupational status: retired Other Information That Helps Us Care for You: No Feels Safe at Home: Yes Safety Concerns: Feels Safe At This Time Assistive Devices: Wheelchair Review of Systems Review of Systems: All systems reviewed & are unremarkable except as noted in HPI & below Physical Exam Constitutional: WD/WN, vitals as above Eyes: no conjunctival abnormality ENMT: Ears: no external ear abnormality Neck: trachea midline Respiratory: normal respiratory effort; no respiratory distress and no labored breathing Cardiovascular: Rate/Rhythm: regular rate and regular rhythm Gastrointestinal (Abdomen): Soft and nontender to palpation Musculoskeletal: No calf tenderness Skin: no rashes Neurologic: The patient is able to move all 4 extremities and follows some simple commands Genitourinary: No CVA tenderness with percussion bilaterally. A Zendejas catheter is in place and appears patent draining gutierrez-colored urine Results & Data Vital Signs (Past 12 Hours) Vital Signs Temp Pulse Pulse Resp BP Pulse Ox O2 Del Method 06/01/25 19:31 37.1 C 83 20 107/47 L 91 Room Air 06/01/25 17:05 73 06/01/25 15:12 36.6 C 68 20 121/64 93 Room Air 06/01/25 11:22 36.8 C 63 20 100/43 L 97 Room Air PG Care Time/CCT Total # of Minutes Spent Total Time Spent with Patient: Total time spent is greater than 50% in coordination of care (as documented) at patient's floor/unit and/or counseling patient: Coding Level of Care Code 78801 INT INP/OBS CARE 3/75MIN Diagnoses Urinary retention R33.9
[2025-06-01] MEDS: MELATONIN 3 MG TAB PO PRN (21:30)
[2025-06-02 07:45] LABS: Hematocrit (blood only) 36.0 % (42.0-52.0); Hemoglobin 11.9 g/dl (14.0-18.0); Immature Granulocytes # (auto) 0.02 K/uL (0.01-0.20); Immature Granulocytes % (auto) 0.2 %; Mean Corpuscular Hemoglobin 30.0 pg (25.0-34.0); Mean Corpuscular Volume 90.7 fL (80.0-100.0); Platelet Count 132 K/uL (130-400); RDW Standard Deviation 50.0 fL (36.4-46.3); Red Blood Count 3.97 M/uL (4.70-6.10); White Blood Count 10.81 K/ul (4.8-10.8)
[2025-06-02 08:01] LABS: Anion Gap 6.0 (3-11); Blood Urea Nitrogen 21.0 mg/dl (6-23); Calcium 9.0 mg/dl (8.6-10.3); Carbon Dioxide 24.0 mmol/L (21-32); Chloride 107.0 mmol/L (98-107); Creatinine Clr Calc Pharmacy 46.8 ml/min; Glucose 105.0 mg/dl (70-99(Fasting)); Potassium 4.2 mmol/L (3.5-5.1); Sodium 137.0 mmol/L (136-145)
--- NOTE | 2025-06-02 09:15 | Urology Progress Note ---
Date of Service June 02, 2025 Assessment & Plan (1) Urinary retention: Plan: Urinary retentionthis is a chronic problem for him UTIESBL E. colitreat per sensitivities, defer treatment to the primary team although he should be treated for 14 days total Leave Zendejas catheter in place and he can follow-up as an outpatient to continue management of the catheter as this is a chronic issue for him and he may not regain full spontaneous voiding. No plan for any other intervention or requirement for urological involvement at present. Call us if any new issues arise. Admission and Anticipated Discharge Date Admission Date: May 30, 2025 Subjective 89-year-old gentleman with a multitude of problems but also longstanding voiding dysfunction and urinary retention He has had catheters intermittently over the past 6+ months He has a Zendejas catheter in place now and he still feels that he is extremely tired and deconditioned. Catheter is draining well and he has no complaints about the catheter being present Physical Exam Physical Exam: Clear urine in the catheter Results & Data Vital Signs (Past 12 Hours) Vital Signs Temp Pulse Pulse Resp BP Pulse Ox O2 Del Method 06/02/25 08:32 36.8 C 85 18 134/61 92 Room Air 06/02/25 03:00 93 Nasal Cannula 06/02/25 02:58 36.8 C 74 18 131/49 L 87 L Room Air 06/01/25 22:48 37.2 C 69 16 113/53 L 92 Room Air 06/01/25 22:32 70 O2 Flow Rate 06/02/25 08:32 06/02/25 03:00 3 06/02/25 02:58 06/01/25 22:48 06/01/25 22:32 PG Care Time/CCT Total # of Minutes Spent Total Time Spent with Patient: Total time spent is greater than 50% in coordination of care (as documented) at patient's floor/unit and/or counseling patient: Coding Level of Care Code 84365 SUB INP/OBS CARE 2/35MIN Diagnoses Urinary retention R33.9
--- NOTE | 2025-06-02 11:52 | Hospitalist Progress Note ---
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 Continue OT and PT therapy while hospitalized. Speech therapy has cleared the patient for oral intake. Supportive care. (2) Acute UTI: Plan: ESBL E. coli isolated. Currently on meropenem, day 4. He probably will complete his antibiotic therapy while hospitalized (3) Paroxysmal A-fib: Plan: Unfortunately he developed recurrent atrial fibrillation with rapid ventricular rate. Much improved after addition of metoprolol on May 31. Blood pressure and heart rate are acceptable. Telemetry. (4) S/P coronary artery bypass graft x 3: Plan: Known coronary artery disease. Continue medical management (5) Demand ischemia: Plan: Troponin is mildly elevated without acute EKG changes. No apparent acute coronary syndrome. Continue current medical management. No recurrent angina (6) Metabolic encephalopathy: Plan: Present on admission. Now resolved (7) Urinary retention: Plan: Due to BPH with LUTS. Required Zendejas catheter placement. Urology consultation appreciated. No gross hematuria seen. Plan Discharge to [facility] sometime this coming week Admission and Anticipated Discharge Date Admission Date: May 30, 2025 Subjective Alert, oriented, talkative. No apparent distress. Heart rate and blood pressure are acceptable after addition of metoprolol. He remains on intravenous meropenem, day 3 for the ESBL E. coli UTI. Zendejas catheter is in place and urology consultation noted. He will be discharged either to [facility] or [facility] sometime this coming week Review of Systems 2 Review of Systems: Constitutionalno fever or chills ENTno blurred vision, no double vision, no epistaxis, no sore throat Respiratoryno cough, no wheezing, no shortness of breath Cardiacno palpitations, no syncope. Chest discomfort present this morning has resolved Adrian nausea, vomiting, diarrhea, melena, hematochezia GUno gross hematuria seen in Zendejas catheter Musculoskeletalno joint pain, no muscle tenderness Skinno bruising, no rashes, no pruritus Neuroimbalance and mild right-sided weakness. Psychno depression, no anxiety Physical Exam 2 Physical Exam: General-alert and oriented x3, no fever, no chills HEENT-head atraumatic and normocephalic, pupils equal and reactive to light, extraocular muscles intact Neck-no lymphadenopathy or thyromegaly, trachea midline Chest-clear to auscultation. No rales, wheezing or rhonchi Cardiac-tachycardic irregular rate and rhythm. Normal S1 and S2 Abdomen-normal bowel sounds, no hepatosplenomegaly GUFoley catheter in place. No gross hematuria Extremities-no cyanosis, clubbing, or edema Neuro-cranial nerves II through XII intact, mild right hemiparesis. Ataxic gait. Psych-normal affect, normal mood Results & Data Results & Data Vital Signs (Past 12 Hours) Vital Signs Temp Pulse Resp BP Pulse Ox O2 Del Method O2 Flow Rate 06/02/25 11:29 36.7 C 58 L 18 117/54 L 95 Room Air 06/02/25 08:32 36.8 C 85 18 134/61 92 Room Air 06/02/25 03:00 93 Nasal Cannula 3 06/02/25 02:58 36.8 C 74 18 131/49 L 87 L Room Air Laboratory Results 06/02/25 07:14 06/02/25 07:14 PG Care Time/CCT Total # of Minutes Spent Total Time Spent with Patient: Total time spent is greater than 50% in coordination of care (as documented) at patient's floor/unit and/or counseling patient: Coding Level of Care Code 25610 SUB INP/OBS CARE 2/35MIN Diagnoses CVA (cerebrovascular accident) I63.9 CVA mechanism: unspecified Acute UTI N39.0 Paroxysmal A-fib I48.0 S/P coronary artery bypass graft x 3 Z95.1 Demand ischemia I24.89 Metabolic encephalopathy G93.41 Urinary retention R33.9 (1) CVA (cerebrovascular accident) CVA mechanism: unspecified Qualified Code(s): I63.9 - Cerebral infarction, unspecified
[2025-06-03 07:51] LABS: Anion Gap 7.0 (3-11); Blood Urea Nitrogen 22.0 mg/dl (6-23); Calcium 9.0 mg/dl (8.6-10.3); Carbon Dioxide 23.0 mmol/L (21-32); Chloride 107.0 mmol/L (98-107); Creatinine Clr Calc Pharmacy 52.0 ml/min; Glucose 108.0 mg/dl (70-99(Fasting)); Potassium 4.0 mmol/L (3.5-5.1); Sodium 137.0 mmol/L (136-145)
[2025-06-03] MEDS: METOPROLOL TARTRATE 1 MG/ML VIAL IV STA (07:53)
[2025-06-03] MEDS: DOCUSATE SODIUM 100 MG CAP PO PRN (07:59)
[2025-06-03] MEDS: METOPROLOL TARTRATE 50 MG TAB PO SCH (09:10)
[2025-06-03] MEDS: METOPROLOL TARTRATE 25 MG TAB PO STA (09:48)
[2025-06-03] MEDS: AMIODARONE 200 MG TAB PO SCH (11:17)
--- NOTE | 2025-06-03 14:23 | Hospitalist Progress Note ---
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 Continue OT and PT therapy while hospitalized. Speech therapy has cleared the patient for oral intake. Supportive care. (2) Acute UTI: Plan: ESBL E. coli isolated. Currently on meropenem, day 5. He probably will complete his antibiotic therapy while hospitalized (3) Paroxysmal A-fib: Plan: Unfortunately he developed recurrent atrial fibrillation with rapid ventricular rate again this morning, June 03. Amiodarone has been restarted. Metoprolol dosage uptitrated. Continue telemetry. (4) S/P coronary artery bypass graft x 3: Plan: Known coronary artery disease. Continue medical management (5) Demand ischemia: Plan: Troponin is mildly elevated without acute EKG changes. No apparent acute coronary syndrome. Continue current medical management. No recurrent angina (6) Metabolic encephalopathy: Plan: Present on admission. Now resolved (7) Urinary retention: Plan: Due to BPH with LUTS. Required Zendejas catheter placement. Urology consultation appreciated. No gross hematuria seen. Plan Discharge to [facility] sometime this coming week when arrangements are finalized Admission and Anticipated Discharge Date Admission Date: May 30, 2025 Subjective Alert and oriented. Unfortunately he developed rapid atrial fibrillation again this morning, June 03. Metoprolol has been uptitrated and amiodarone restarted. He remains on intravenous meropenem, day 4, for the ESBL E. coli UTI. Zendejas catheter remains in place. No new neurological findings after left ischemic CVA. Rehab placement is pending. Review of Systems 2 Review of Systems: Constitutionalno fever or chills ENTno blurred vision, no double vision, no epistaxis, no sore throat Respiratoryno cough, no wheezing, no shortness of breath Cardiacno palpitations, no syncope. No chest pain Adrian nausea, vomiting, diarrhea, melena, hematochezia GUno gross hematuria seen in Zendejas catheter Musculoskeletalno joint pain, no muscle tenderness Skinno bruising, no rashes, no pruritus Neuroimbalance and mild right-sided weakness. Psychno depression, no anxiety Physical Exam 2 Physical Exam: General-alert and oriented x3, no fever, no chills HEENT-head atraumatic and normocephalic, pupils equal and reactive to light, extraocular muscles intact Neck-no lymphadenopathy or thyromegaly, trachea midline Chest-clear to auscultation. No rales, wheezing or rhonchi Cardiac-tachycardic irregular rate and rhythm. Normal S1 and S2 Abdomen-normal bowel sounds, no hepatosplenomegaly GUFoley catheter in place. No gross hematuria Extremities-no cyanosis, clubbing, or edema Neuro-cranial nerves II through XII intact, mild right hemiparesis. Ataxic gait. Psych-normal affect, normal mood Results & Data Results & Data Vital Signs (Past 12 Hours) Vital Signs Temp Pulse Pulse Resp BP BP BP 06/03/25 11:09 36.6 C 116 H 20 106/61 06/03/25 08:13 06/03/25 08:12 108 H 136/64 06/03/25 07:53 115 H 128/49 L 06/03/25 07:30 80 06/03/25 07:29 37.1 C 130 H 128/49 L 06/03/25 02:30 36.6 C 83 18 117/49 L Pulse Ox O2 Del Method 06/03/25 11:09 95 Room Air 06/03/25 08:13 Room Air 06/03/25 08:12 06/03/25 07:53 06/03/25 07:30 06/03/25 07:29 91 Room Air 06/03/25 02:30 91 Room Air Laboratory Results 06/02/25 07:14 06/03/25 06:50 PG Care Time/CCT Total # of Minutes Spent Total Time Spent with Patient: Total time spent is greater than 50% in coordination of care (as documented) at patient's floor/unit and/or counseling patient: Coding Level of Care Code 34007 SUB INP/OBS CARE 3/50MIN Diagnoses CVA (cerebrovascular accident) I63.9 CVA mechanism: unspecified Acute UTI N39.0 Paroxysmal A-fib I48.0 S/P coronary artery bypass graft x 3 Z95.1 Demand ischemia I24.89 Metabolic encephalopathy G93.41 Urinary retention R33.9 (1) CVA (cerebrovascular accident) CVA mechanism: unspecified Qualified Code(s): I63.9 - Cerebral infarction, unspecified
--- NOTE | 2025-06-04 05:15 | Electrocardiogram Report ---
Test Reason : Blood Pressure : */* mmHG Vent. Rate : 112 BPM Atrial Rate : * BPM P-R Int : * ms QRS Dur : 110 ms QT Int : 342 ms P-R-T Axes : * -59 97 degrees QTcB Int : 466 ms Atrial fibrillation with rapid ventricular response Left anterior fascicular block Minimal voltage criteria for LVH, may be normal variant ( [place] product ) Nonspecific ST and T wave abnormality Abnormal ECG When compared with ECG of 30-May-2025 17:36, (unconfirmed) QRS axis Shifted left now Confirmed by Woodrow Guzman ([id number]) on 06/04/2025 5:15:46 AM Referred By: REFERRED SELF Confirmed By: Woodrow Guzman
--- NOTE | 2025-06-04 05:29 | Electrocardiogram Report ---
Test Reason : Blood Pressure : */* mmHG Vent. Rate : 82 BPM Atrial Rate : 82 BPM P-R Int : 190 ms QRS Dur : 108 ms QT Int : 368 ms P-R-T Axes : -6 -16 223 degrees QTcB Int : 429 ms Normal sinus rhythm Minimal voltage criteria for LVH, may be normal variant ( [place] product ) Cannot rule out Anterior infarct , age undetermined Abnormal ECG When compared with ECG of 24-Aug-2024 08:08, QRS axis Shifted right Nonspecific T wave abnormality, worse in Inferior leads Confirmed by Woodrow Guzman ([id number]) on 06/04/2025 5:28:44 AM Referred By: REFERRED SELF Confirmed By: Woodrow Guzman
--- NOTE | 2025-06-04 12:09 | Hospitalist Progress Note ---
Date of Service June 04, 2025 Assessment & Plan (1) CVA (cerebrovascular accident): (2) Metabolic encephalopathy: Plan: Present on admission. Now resolved (3) Acute UTI: (4) Paroxysmal A-fib: Plan This patient is an 89yo male with history of CAD s/p CABG, HTN, PAF not on anticoagulation due to history of GI bleed, GERD and BPH presenting from home hospice with acute confusion, found to have acute UTI as well as a subacute CVA and rapid atrial fibrillation. Patient has been transitioned to hospice care at home, but has revoked hospice to opt for treatment at this time. #Acute UTI/urinary retention/BPH- patient afebrile, HD stable and non-toxic in appearance. Normal WBC count. UA suggestive of acute UTI and CT of the abdomen with evidence of cystitis. Prior urine cultures within the last year with ESBL E. coli as well as Pseudomonas. Urine culture here with ESBL E. coli -Continue IV meropenem but could switch to IV or ertapenem for once daily dosing on discharge to finish out 14-day course of antibiotics as per urology on 06/12- Will need ultrasound-guided peripheral IV prior to discharge - Maintain Zendejas catheter for urinary retention and follow-up with urology for trial of void as an outpatient -Continue tamsulosin #Subacute CVA -presented with confusion, right sided facial droop, and some right sided weakness. Patient with prior CVA in 2017 and was managed with Plavix and Rosuvastatin. 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 CT angiogram head and neck was not performed and at this point would be moot even if he had large vessel occlusion as his stroke likely occurred 1 to 2 weeks prior to admission. He has paroxysmal atrial fibrillation and flutter and has been in both during this admission. Suspect stroke is secondary to atrial fibrillation without being on anticoagulation due to previous GI bleed in 08/2024. Patient had stopped Xarelto after the GI bleed and had stopped amiodarone while on hospice more recently likely causing him to have more paroxysms of atrial fibrillation. Discussed risks and benefits of bleeding and stroke with both the patient and his granddaughter on the phone. Ultimately, decision made to resume anticoagulation and amiodarone. Granddaughter feels more comfortable with reducing risk of falls by him going to a care home and long-term care. Echo with negative bubble study and mild leaking of prosthetic aortic valve, no thrombus. Lipid panel excellent and due to advanced age, would not give high intensity statin. HgbA1c normal. -Continue neuro checks and NIHSS per protocol -Continue home Plavix but discontinue the aspirin added here in favor of starting Xarelto 20 mg daily - Monitor for GI bleeding and anemia now that on Xarelto -Started rosuvastatin 5 mg daily -PT/OT recommends rehab #Paroxysmal AF -patient has been in and out of atrial fibrillation or atrial flutter throughout this admission with rates as high as the 130s at times. Rates are now improved with starting metoprolol. He was resumed on amiodarone for antiarrhythmic - Resume Xarelto 20 mg daily as per discussion with patient and family above - Increase amiodarone to 200 mg p.o. twice daily x 4 weeks and then decrease to 200 mg daily after that-he has been off of amiodarone for several weeks prior to admission - Continue metoprolol 50 mg p.o. twice daily - Continue telemetry monitoring #GERD/history of GI bleed-patient complains of frequent heartburn and has a history of suspected upper GI bleed in 08/2024. He never had an endoscopy at that time due to opting for conservative measures. Resuming Xarelto now for atrial fibrillation in the setting of stroke - Start Protonix 40 mg p.o. once daily - Monitor CBC daily in the hospital and once per month as an outpatient after starting Xarelto #CAD s/p CABG/aortic valve replacement/myocardial demand ischemia- Patient with some chest discomfort noted which is likely due to GERD. EKG with no ischemic changes present. Troponin mildly elevated and peaked at 66. Elevated troponin likely due to rapid atrial fibrillation and/or stroke. Echocardiogram with preserved EF and no wall motion abnormalities -Continue Plavix, resumed rosuvastatin at 5 mg daily - Starting Xarelto DVT prophylaxis-starting Xarelto Disposition-continued stay on telemetry but improving, can go to rehab likely on 06/05. Discussed care with granddaughter on phone at length in 06/04 Admission and Anticipated Discharge Date Admission Date: May 30, 2025 Anticipated date of discharge: 06/05/25 Results & Data Results & Data Vital Signs (Past 12 Hours) Vital Signs Temp Pulse Pulse Resp BP BP Pulse Ox 06/04/25 11:39 36.6 C 97 H 18 97/56 L 94 06/04/25 07:50 06/04/25 07:44 37 C 116 H 116/59 L 90 06/04/25 07:30 101 H 06/04/25 04:18 37.0 C 95 H 20 106/48 L 92 06/04/25 00:17 37.1 C 126 H 20 111/49 L 92 O2 Del Method 06/04/25 11:39 Room Air 06/04/25 07:50 Room Air 06/04/25 07:44 Room Air 06/04/25 07:30 06/04/25 04:18 Room Air 06/04/25 00:17 Room Air PG Care Time/CCT Total # of Minutes Spent Total Time Spent with Patient: Total time spent is greater than 50% in coordination of care (as documented) at patient's floor/unit and/or counseling patient: Coding Level of Care Code 63391 SUB INP/OBS CARE 3/50MIN Diagnoses CVA (cerebrovascular accident) I63.9 CVA mechanism: unspecified Metabolic encephalopathy G93.41 Acute UTI N39.0 Paroxysmal A-fib I48.0 (1) CVA (cerebrovascular accident) CVA mechanism: unspecified Qualified Code(s): I63.9 - Cerebral infarction, unspecified
[2025-06-04] MEDS: AMIODARONE 200 MG TAB PO SCH (16:32)
[2025-06-05 06:45] LABS: Hematocrit (blood only) 35.0 % (42.0-52.0); Hemoglobin 12.1 g/dl (14.0-18.0); Immature Granulocytes # (auto) 0.03 K/uL (0.01-0.20); Immature Granulocytes % (auto) 0.3 %; Mean Corpuscular Hemoglobin 30.9 pg (25.0-34.0); Mean Corpuscular Volume 89.5 fL (80.0-100.0); Platelet Count 159 K/uL (130-400); RDW Standard Deviation 48.3 fL (36.4-46.3); Red Blood Count 3.91 M/uL (4.70-6.10); White Blood Count 8.73 K/ul (4.8-10.8)
[2025-06-05 07:12] LABS: Anion Gap 7.0 (3-11); Blood Urea Nitrogen 25.0 mg/dl (6-23); Calcium 9.0 mg/dl (8.6-10.3); Carbon Dioxide 23.0 mmol/L (21-32); Chloride 106.0 mmol/L (98-107); Creatinine Clr Calc Pharmacy 43.2 ml/min; Glucose 97.0 mg/dl (70-99(Fasting)); Magnesium 2.0 mg/dl (1.7-2.4); Potassium 4.4 mmol/L (3.5-5.1); Sodium 136.0 mmol/L (136-145)
--- NOTE | 2025-06-05 15:35 | Hospitalist Progress Note ---
Date of Service June 05, 2025 Assessment & Plan (1) CVA (cerebrovascular accident): (2) Metabolic encephalopathy: (3) Acute UTI: (4) Paroxysmal A-fib: Plan This patient is an 89yo male with history of CAD s/p CABG, HTN, PAF not on anticoagulation due to history of GI bleed, GERD and BPH presenting from home hospice with acute confusion, found to have acute UTI as well as a subacute CVA and rapid atrial fibrillation. Patient was transitioned to hospice care at home several months prior to admission, but has revoked hospice to opt for treatment at this time. #Acute UTI/urinary retention/BPH- patient afebrile, HD stable and non-toxic in appearance. No leukocytosis. UA suggestive of acute UTI and CT of the abdomen with evidence of cystitis. Prior urine cultures within the last year with ESBL E. coli as well as Pseudomonas. Urine culture here with ESBL E. coli - Received IV meropenem but will switch to IV ertapenem for once daily dosing on 06/06 to finish out 14-day course of antibiotics (as per urology) on 06/[id number] peripheral IV placed 06/05 - Maintain Zendejas catheter for urinary retention and follow-up with urology for trial of void as an outpatient -Continue tamsulosin #Subacute CVA -presented with confusion, right sided facial droop, and some right sided weakness. Patient with prior CVA in 2017 and was managed with Plavix and Rosuvastatin. 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 CT angiogram head and neck was not performed and at this point would be moot even if he had large vessel occlusion as his stroke likely occurred 1 to 2 weeks prior to admission. He has PAFib/flutter and has been in both during this admission. Suspect stroke 2/2 atrial fibrillation without being on anticoagulation due to previous GI blee d in 08/2024. Patient had stopped Xarelto after the GI bleed and had stopped amiodarone while on hospice more recently likely causing him to have more paroxysms of atrial fibrillation. Discussed risks and benefits of bleeding and stroke with both the patient and his granddaughter on the phone. Ultimately, decision made to resume anticoagulation and amiodarone. Granddaughter feels more comfortable with reducing risk of falls by him going to a [facility] and long-term care. Echo with negative bubble study and mild leaking of prosthetic aortic valve, no thrombus. Lipid panel excellent and due to advanced age, would not give high intensity statin. HgbA1c normal. -Continue home Plavix -started Xarelto 20 mg daily -Monitor for GI bleeding and anemia now that on Xarelto-none thus far-recommend following CBC in 1 week -Started rosuvastatin 5 mg daily -PT/OT recommends rehab #Paroxysmal AF -patient has been in and out of atrial fibrillation or atrial flutter throughout this admission with rates as high as the 130s at times. Rates are now improved with starting metoprolol. He was resumed on amiodarone for antiarrhythmic and converted to sinus rhythm on 06/05. - Resumed Xarelto 20 mg daily as per discussion with patient and family above - Continue amiodarone to 200 mg p.o. twice daily x 4 weeks and then decrease to 200 mg daily after that on 06/30 he was off amiodarone for several weeks prior to admission - Continue metoprolol 50 mg p.o. twice daily - Continue telemetry monitoring #GERD/history of GI bleed-patient complains of frequent heartburn and has a history of suspected upper GI bleed in 08/2024. He never had an endoscopy at that time due to opting for conservative measures. Resuming Xarelto now for atrial fibrillation in the setting of stroke - Started Protonix 40 mg p.o. once daily - Monitor CBC in 1 week at rehab and then once per month as an outpatient after starting Xarelto #CAD s/p CABG/aortic valve replacement/myocardial demand ischemia- Patient with some chest discomfort noted which is likely due to GERD. EKG with no ischemic changes present. Troponin mildly elevated and peaked at 66. Elevated troponin likely due to rapid atrial fibrillation and/or stroke. Echocardiogram with preserved EF and no wall motion abnormalities -Continue Plavix, resumed rosuvastatin at 5 mg daily -Started Xarelto DVT prophylaxis-Xarelto Disposition-medically stable for discharge, insurance authorization approved for [facility] and plan to discharge on 06/06 Admission and Anticipated Discharge Date Admission Date: May 30, 2025 Anticipated date of discharge: 06/06/25 Subjective Patient denies problems. He is eating and drinking, no concerns. Telemetry with atrial flutter and PVCs overnight and converted to normal sinus rhythm with rates in the 70s overnight. Physical Exam Constitutional: WD/WN, vitals as above Respiratory: normal respiratory effort, lungs clear to auscultation Cardiovascular: RRR, no murmur, no edema Neurologic: Mild 4+/5 strength in right upper extremity Right facial droop Results & Data Results & Data Vital Signs (Past 12 Hours) Vital Signs Temp Pulse Pulse Resp BP BP Pulse Ox 06/05/25 15:26 70 18 111/53 L 92 06/05/25 12:26 36.4 C L 68 18 106/48 L 96 06/05/25 08:36 36.6 C 73 18 126/57 L 94 06/05/25 07:52 77 O2 Del Method 06/05/25 15:26 Room Air 06/05/25 12:26 Room Air 06/05/25 08:36 Room Air 06/05/25 07:52 Laboratory Results CBC, BMP, magnesium level reviewed PG Care Time/CCT Total # of Minutes Spent Total Time Spent with Patient: Total time spent is greater than 50% in coordination of care (as documented) at patient's floor/unit and/or counseling patient: Coding Level of Care Code 16703 SUB INP/OBS CARE 2/35MIN Diagnoses CVA (cerebrovascular accident) I63.9 CVA mechanism: unspecified Metabolic encephalopathy G93.41 Acute UTI N39.0 Paroxysmal A-fib I48.0 (1) CVA (cerebrovascular accident) CVA mechanism: unspecified Qualified Code(s): I63.9 - Cerebral infarction, unspecified
[2025-06-05] MEDS: RIVAROXABAN 20 MG TAB PO SCH (17:14)
[2025-06-05] MEDS: ERTAPENEM 1000MG 1,000 MG/10 ML SYR IV SCH (17:14)
[2025-06-05] MEDS: FAMOTIDINE 20MG IV PUSH 20 MG/5 ML SYR IV STA (23:42)
--- NOTE | 2025-06-05 23:44 | XRay Report ---
Exam(s): XR CXR 1 VIEW EXAM: XR Chest, 1 View CLINICAL HISTORY: Reason for exam: new supplemental O2 req, chest pain. TECHNIQUE: Frontal view of the chest. COMPARISON: 08/24/2024 FINDINGS: Lungs: There is pulmonary vascular congestion. There is infiltrate and/or atelectasis noted at the right lung base.. Pleural space: There is a right pleural effusion. No pneumothorax. Heart: Patient is status post midline sternotomy. The heart is top normal in size.. Mediastinum: There is mild uncoiling of thoracic aorta.. IMPRESSION: Pulmonary vascular congestion with right pleural effusion and infiltrate and/or atelectasis at the right lung base may represent congestive heart failure/pulmonary edema. Underlying pneumonia cannot be excluded.. Electronically signed by: Craig Garza MD 06/05/25 23:43 PM
[2025-06-06] MEDS: FUROSEMIDE INJ 20 MG/2 ML VIAL IV ONE ×2 (10:09→17:42)
--- NOTE | 2025-06-06 14:25 | Hospitalist Progress Note ---
Date of Service June 06, 2025 Assessment & Plan (1) CVA (cerebrovascular accident): (2) Acute UTI: (3) Paroxysmal A-fib: (4) Acute on chronic heart failure with preserved ejection fraction (HFpEF): Plan This patient is an 89yo male with history of CAD s/p CABG, HTN, PAF not on a nticoagulation due to history of GI bleed, GERD and BPH presenting from home hospice with acute confusion, found to have acute UTI as well as a subacute CVA and rapid atrial fibrillation. Patient was transitioned to hospice care at home several months prior to admission, but has revoked hospice to opt for treatment at this time. #Acute UTI/urinary retention/BPH- patient afebrile, HD stable and non-toxic in appearance. No leukocytosis. UA suggestive of acute UTI and CT of the abdomen with evidence of cystitis. Prior urine cultures within the last year with ESBL E. coli as well as Pseudomonas. Urine culture here with ESBL E. coli. With some dark brown urine in Zendejas catheter on 06/06 maybe old blood. - Received IV meropenem and then switched to IV ertapenem for once daily dosing on 06/06 to finish out 14-day course of antibiotics (as per urology) on 06/[id number] peripheral IV placed 06/05 - Maintain Zendejas catheter for urinary retention and follow-up with urology for trial of void as an outpatient -Continue tamsulosin - Follow for hematuria-follow CBC in the a.m. #Subacute CVA -presented with confusion, right sided facial droop, and some right sided weakness. Patient with prior CVA in 2017 and was managed with Plavix and Rosuvastatin. 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 CT angiogram head and neck was not performed and at this point would be moot even if he had large vessel occlusion as his stroke likely occurred 1 to 2 weeks prior to admission. He has PAFib/flutter and has been in both during this admission. Suspect stroke 2/2 atrial fibrillation without being on anticoagulation due to previous GI bleed in 08/2024. Patient had stopped Xarelto after the GI bleed and had stopped amiodarone while on hospice more recently likely causing him to have more paroxysms of atrial fibrillation. Discussed risks and benefits of bleeding and stroke with both the patient and his granddaughter on the phone. Ultimately, decision made to resume anticoagulation and amiodarone. Granddaughter feels more comfortable with reducing risk of falls by him going to a [facility] and [facility]term care. Echo with negative bubble study and mild leaking of prosthetic aortic valve, no thrombus. Lipid panel excellent and due to advanced age, would not give high intensity statin. HgbA1c normal. -Continue home Plavix -started Xarelto 20 mg daily -Monitor for GI bleeding and anemia now that on Xarelto-none thus far-recommend following CBC in 1 week after discharge -Started rosuvastatin 5 mg daily -PT/OT recommends rehab #Acute on chronic HFpEF/acute respiratory failure with hypoxemia-developed chest pressure, shortness of breath, and hypoxemia requiring 4L NC O2 on the evening of 06/05. Had some subtle T wave inversions in the lateral leads on EKG which resolved after nitroglycerin. Troponin was trended serially and stayed flat at 67/69/58. Echo done this admission shows LVEF 55-60%, no wall motion abnormalities. CXR in 06/06 with definite right sided pleural effusion and some atelectasis. - Give Lasix 20 mg IV twice daily - Follow BMP, magnesium in a.m. and keep electrolytes replete - Wean off supplemental O2 as able - Follow CXR to resolution #Acute metabolic encephalopathy-encephalopathy secondary to stroke and also hospital delirium, UTI. Waxing waning but overall improved - Supportive care - Treating hypoxemia and heart failure, UTI #Paroxysmal AF -patient has been in and out of atrial fibrillation or atrial flutter throughout this admission with rates as high as the 130s at times. Rates are now improved with starting metoprolol. He was resumed on amiodarone for antiarrhythmic and converted to sinus rhythm on 06/05 in which he remains - Resumed Xarelto 20 mg daily as per discussion with patient and family above - Continue amiodarone to 200 mg p.o. twice daily x 4 weeks and then decrease to 200 mg daily after that on 06/30 he was off amiodarone for several weeks prior to admission - Continue metoprolol 50 mg p.o. twice daily - Continue telemetry monitoring #GERD/history of GI bleed-patient complains of frequent heartburn and has a history of suspected upper GI bleed in 08/2024. He never had an endoscopy at that time due to opting for conservative measures. Resuming Xarelto now for atrial fibrillation in the setting of stroke - Started Protonix 40 mg p.o. once daily - Monitor CBC in 1 week at rehab and then once per month as an outpatient after starting Xarelto #CAD s/p CABG/aortic valve replacement/myocardial demand ischemia- Patient with some chest discomfort noted which is likely due to GERD. EKG with no ischemic changes present. Troponin mildly elevated and peaked at 66. Elevated troponin likely due to rapid atrial fibrillation and/or stroke. Echocardiogram with preserved EF and no wall motion abnormalities -Continue Plavix, resumed rosuvastatin at 5 mg daily -Started Xarelto DVT prophylaxis-Xarelto Disposition-not medically stable for discharge as originally planned today, hopeful for discharge to [facility] on 06/07 if continues to improve. Discussed care with granddaughter at the bedside on 06/06 Admission and Anticipated Discharge Date Admission Date: May 30, 2025 Subjective Patient had some chest pain and shortness of breath overnight with some T wave inversions in lateral leads which then resolved. He received nitroglycerin which caused low blood pressures. He was requiring 4 L of nasal cannula. When I saw him today, he was weaned to room air and was feeling better but feeling a little bit bloated in the abdomen. A chest x-ray performed overnight was reviewed and was consistent with enlarging pleural effusions right greater than left. Patient is more confused today and his granddaughter is at the bedside. He did not sleep much through the night. He is also having some dark brown urine and it was low output prior to getting Lasix Telemetry with normal sinus rhythm and PVCs with rates in the 60s to 70s Physical Exam Constitutional: WD/WN, vitals as above Respiratory: normal respiratory effort, lungs clear to auscultation Cardiovascular: RRR, no murmur, no edema Gastrointestinal (Abdomen): normal bowel sounds, soft, nontender, no hepatosplenomegaly Psychiatric: Orientation: alert, oriented to person, oriented to place and cooperative Results & Data Results & Data Vital Signs (Past 12 Hours) Vital Signs Temp Pulse Pulse Resp BP BP Pulse Ox 06/06/25 11:36 36.7 C 60 18 115/53 L 94 06/06/25 08:00 06/06/25 07:52 36.4 C L 70 18 163/64 H 93 06/06/25 07:34 62 06/06/25 03:42 36.7 C 68 16 121/57 L 90 O2 Del Method O2 Flow Rate 06/06/25 11:36 Room Air 06/06/25 08:00 Room Air 06/06/25 07:52 Nasal Cannula 4 06/06/25 07:34 06/06/25 03:42 Room Air Laboratory Results Troponin x 3 reviewed Diagnostic Findings Chest x-ray reviewed PG Care Time/CCT Total # of Minutes Spent Total Time Spent with Patient: Total time spent is greater than 50% in coordination of care (as documented) at patient's floor/unit and/or counseling patient: Coding Level of Care Code 52146 SUB INP/OBS CARE 3/50MIN Diagnoses CVA (cerebrovascular accident) I63.9 CVA mechanism: unspecified Acute UTI N39.0 Paroxysmal A-fib I48.0 Acute on chronic heart failure with preserved ejection fraction (HFpEF) I50.33 (1) CVA (cerebrovascular accident) CVA mechanism: unspecified Qualified Code(s): I63.9 - Cerebral infarction, unspecified
[2025-06-06] MEDS: RIVAROXABAN 15 MG TAB PO SCH (17:43)
[2025-06-06] MEDS: ACETAMINOPHEN 325 MG TAB PO PRN (22:39)
[2025-06-06] MEDS: FAMOTIDINE 20MG IV PUSH 20 MG/5 ML SYR IV STA (23:58)
[2025-06-07 04:05] VITALS: RESP 18
--- NOTE | 2025-06-07 06:00 | Electrocardiogram Report ---
Test Reason : Blood Pressure : */* mmHG Vent. Rate : 59 BPM Atrial Rate : 59 BPM P-R Int : 124 ms QRS Dur : 106 ms QT Int : 498 ms P-R-T Axes : -7 -37 74 degrees QTcB Int : 493 ms Sinus bradycardia with occasional Premature ventricular complexes Left axis deviation Prolonged QT Abnormal ECG When compared with ECG of 31-May-2025 08:58, Sinus rhythm has replaced Atrial flutter Vent. rate has decreased by 75 bpm T wave inversion more evident in Anterior leads Confirmed by Antonio Goode ([id number] on 06/07/2025 5:59:56 AM Referred By: REFERRED SELF Confirmed By: Antonio Goode
--- NOTE | 2025-06-07 06:02 | Electrocardiogram Report ---
Test Reason : Blood Pressure : */* mmHG Vent. Rate : 59 BPM Atrial Rate : 59 BPM P-R Int : 116 ms QRS Dur : 108 ms QT Int : 484 ms P-R-T Axes : -3 -41 -66 degrees QTcB Int : 479 ms Sinus bradycardia with occasional Premature ventricular complexes Left axis deviation T wave abnormality, consider anterior ischemia Prolonged QT Abnormal ECG When compared with ECG of 05-Jun-2025 23:00, No significant change was found Confirmed by Antonio Goode ([id number] on 06/07/2025 6:02:08 AM Referred By: REFERRED SELF Confirmed By: Antonio Goode
--- NOTE | 2025-06-07 06:03 | Electrocardiogram Report ---
Test Reason : Blood Pressure : */* mmHG Vent. Rate : 65 BPM Atrial Rate : 65 BPM P-R Int : 158 ms QRS Dur : 116 ms QT Int : 446 ms P-R-T Axes : -9 -47 96 degrees QTcB Int : 463 ms Normal sinus rhythm Left anterior fascicular block Minimal voltage criteria for LVH, may be normal variant ( [place] product ) Cannot rule out Anterior infarct , age undetermined T wave abnormality, consider lateral ischemia Abnormal ECG When compared with ECG of 05-Jun-2025 23:03, Premature ventricular complexes are no longer Present Non-specific change in ST segment in Anterior leads Nonspecific T wave abnormality no longer evident in Inferior leads Nonspecific T wave abnormality has replaced inverted T waves in Anterior leads Confirmed by Antonio Goode ([id number] on 06/07/2025 6:02:51 AM Referred By: REFERRED SELF Confirmed By: Antonio Goode
[2025-06-07 06:54] LABS: Hematocrit (blood only) 35.3 % (42.0-52.0); Hemoglobin 12.1 g/dl (14.0-18.0); Immature Granulocytes # (auto) 0.08 K/uL (0.01-0.20); Immature Granulocytes % (auto) 0.5 %; Mean Corpuscular Hemoglobin 30.9 pg (25.0-34.0); Mean Corpuscular Volume 90.1 fL (80.0-100.0); Platelet Count 162 K/uL (130-400); RDW Standard Deviation 48.9 fL (36.4-46.3); Red Blood Count 3.92 M/uL (4.70-6.10); White Blood Count 15.40 K/ul (4.8-10.8)
[2025-06-07 07:09] LABS: Anion Gap 13.0 (3-11); Blood Urea Nitrogen 49.0 mg/dl (6-23); Calcium 9.2 mg/dl (8.6-10.3); Carbon Dioxide 19.0 mmol/L (21-32); Chloride 106.0 mmol/L (98-107); Creatinine Clr Calc Pharmacy 19.8 ml/min; Glucose 131.0 mg/dl (70-99(Fasting)); Magnesium 2.3 mg/dl (1.7-2.4); Potassium 5.4 mmol/L (3.5-5.1); Sodium 138.0 mmol/L (136-145)
[2025-06-07 09:13] VITALS: O2SAT 97
[2025-06-07] MEDS: SODIUM CHLORIDE 0.9% 500 ML IV SCH (11:30)
--- NOTE | 2025-06-07 12:11 | Nephrology Consultation ---
Date of Consultation June 07, 2025 Assessment & Plan (1) Acute kidney injury: (2) Dehydration: (3) Cystitis: (4) CVA (cerebrovascular accident): (5) Acute urinary retention: (6) Atrial fibrillation: (7) Failure to thrive in adult: (8) Hospice care patient: Plan Progress Notes, laboratory data, imaging studies reviewed. Baseline creatinine 1.0. Patient suffered SUMA following treatment for CHF. He became transiently hypotensive following IV diuretic therapy. 06/[address] films reviewed. No hydronephrosis. Patient does have documented elevated PVR. He now has an indwelling Zendejas catheter. You will last 24 hours approximately 550 cc. Electrolyte balance is acceptable at this time. Patient does have a PCN drug allergyrash. On physical exam today he has no rash to suggest AIN. Patient's granddaughter was present at the time of my evaluation. She informs me that she is his medical POA. We discussed her grandfathers POC at length. She indicates that he has had a progressive clinical decline following his hip fracture and she does not want him to undergo extensive testing or escalation of care. He is now DNR/DNI. At this time she would also like to reinstate SENIOR WRITER. She has already spoken to case management and asked them to set up retirement placement with hospice care. In keeping with patient's SENIOR WRITER status, recommend continuing ertapenem therapy and providing gentle IV hydration. Will not order laboratory testing or further imaging studies. Hospitalist attending has been contacted by phone this morning and provided an update regarding the patient's clinical condition and POA's request. Will sign off. Please call if further nephrology assistance is needed. History of Present Illness Reason for Consultation: SUMA Attending Physician: Cortney Wood MD History of Present Illness Mr. Figueroa is an 89-year-old white male who is seen at the request of the [facility] hospitalist service for evaluation of SUMA. The patient is unable to provide a medical history. Information for the HPI is obtained from review of the EMR and patient's granddaughter (Mariposa Walters POA). Mr. 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 Baseline creatinine has been 1.0 with eGFR 66 cc/minute. He has not undergone nephrology evaluation in the past. Mr. Figueroa's medical history is significant for ASCVD s/p CABG, bioprosthetic aortic valve, paroxysmal atrial fibrillation, HTN, GERD, h/o GIB. According to his granddaughter Mr. Figueroa suffered a mechanical fall and underwent hip replacement surgery. Despite physical therapy and retirement care he suffered a significant clinical decline. He began refusing his amiodarone and anticoagulant therapy. He suffered significant weight loss and had become relatively withdrawn from the family. His granddaughter had arranged for home hospice therapy. Mr. Figueroa was brought to the [facility] for evaluation of confusion and weakness. Evaluation revealed cystitis with ESBL E. 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 He was also found to have an elevated PVR and required Zendejas catheter placement. Antibiotic therapy with ertapenem was initiated. Last evening Mr. Figueroa complained of dyspnea. He required oxygen therapy and chest x-ray revealed evidence of CHF. Diuretic therapy was provided and patient's clinical condition improved however serum creatinine this morning has risen to 2.4. At the time of my evaluation, Mr. Figueroa's granddaughter was present in the room. She expressed concern about her grandfather's clinical decline. She indicated that he is now a DNR/DNI and she does not wish to escalate care. She wishes to transition her grandfather to SENIOR WRITER and work with case management for retirement placement with hospice care. Allergies Allergy/AdvReac Type Severity Reaction Status Date / Time Penicillins Allergy Intermediate Unknown Verified 05/30/25 19:57 apixaban [From Eliquis] AdvReac Intermediate Rash, Verified 05/30/25 19:57 itching oxycodone AdvReac Mild SICKNESS Verified 05/30/25 19:57 Home Medications Medication Instructions Recorded Confirmed Type acetaminophen 325 mg tablet 650 mg PO TID PRN Pain 10/11/24 05/30/25 History furosemide 20 mg tablet 20 mg PO UD 10/11/24 05/30/25 History tamsulosin 0.4 mg capsule 0.4 mg PO HS #90 caps 12/21/24 05/30/25 Rx Patient History Medical History CAD (coronary artery disease) s/p CABG x 3 in 2009 Hx of gastroenteritis (09/26/24) had nausea/vomitting/diarrhea 09/25 to 09/26/24 while at [facility] assisted living, no testing, resolved Ambulatory dysfunction using walker UTI (urinary tract infection) just completed macrobid GERD with esophagitis Depression Anemia Hx of upper gastrointestinal hemorrhage (08/2024) per hx, while i/p at [facility], heme pos stools- never had visible bloody stools- will follow up with gi 10/2024 Hx of myocardial infarction (2009) unsure of what hospital- heart cath- cabg x 3/avr- follow with darlene (04/08) History of anesthesia reaction (06/2024) granddaughter reports after recent surgery for hip, had food on ETT after extubation Hx of fracture of ankle (2012) Bladder stone (08/2024) History of COVID-19 (08/2022) duing hospital stay at [facility]- mild symptoms Acute urinary retention admit to [facility] 08/24 to 08/28/24/ bladder stone Hypomagnesemia Lumbar spinal stenosis Multiple fractures of ribs of right side (11/2020) hx Closed intertrochanteric fracture of right femur (07/09/24) due to fall, had surgery, i/p at [facility] Atrial fibrillation with rapid ventricular response (08/2024) while i/p at [facility] post right hip surgery, started on amiodarone, follows with dr. colon (03/2024) Difficulty swallowing liquids granddaughter reports pt coughs a lot when swallowing, but does not feel pt. has difficulty swallowing Idiopathic polyneuropathy History of cerebellar stroke (2016) left drop foot only deficit, no neuro Bradycardia Hypertension Anxiety History of left foot drop hx cva Inhibited sexual excitement Surgical History Hx of cardiac catheterization (2009) [place] - went on to have AVR/CABG - not sure what hospital- follows with darlene (04/08) History of hip surgery (06/2024) right hip fx, due to fall, ip at [facility] S/P aortic valve replacement with bioprosthetic valve (2009) unsure of what hospital, follows with with cardio dr. colon -saw while i/p at [facility] 08/25/24- last seen in office 03/30/24 S/P coronary artery bypass graft x 3 (2009) unsure of what hospital, follows with with cardio dr. colon -saw while i/p at [facility] 08/25/24- last seen in office 03/30/24 Family History Mother Unknown family medical history Social History Smoking Status: Former smoker Tobacco Type: Cigarettes Smoking End Date: over 30 years ago; Second Hand Exposure: No; Do You Dip or Chew Tobacco: No; Hx Alcohol Use: Yes Alcohol type: hard liquor Hx Substance Use: No Preferred Language: Guyanese Communication Ability: Effective Leasing Coordinator Required: No Beliefs That Will Affect Care: None marital status: Current Living Situation: Alone Current Living Situation Comment: assisgted living current occupational status: retired Other Information That Helps Us Care for You: No Feels Safe at Home: Yes Safety Concerns: Feels Safe At This Time Assistive Devices: Wheelchair Review of Systems Constitutional: unable to obtain due to cognitive status Physical Exam Constitutional: Thin, frail, chronically ill appearing Eyes: PERRL, conjunctivae normal, anicteric sclerae ENMT: dry oral mucosa Neck: trachea midline, no thyromegaly Respiratory: normal respiratory effort, lungs clear to auscultation Cardiovascular: Rate/Rhythm: regular rate and regular rhythm Gastrointestinal (Abdomen): normal bowel sounds, soft, nontender, no hepatosplenomegaly Musculoskeletal: marked muscle wasting, no edema Skin: poor turgor Neurologic: attends to examiner, but nonconversant Results & Data Vital Signs (Past 12 Hours) Vital Signs Temp Pulse Pulse Resp BP BP Pulse Ox 06/07/25 09:19 06/07/25 09:10 63 129/63 97 06/07/25 08:06 36.1 C L 55 L 18 102/45 L 95 06/07/25 07:28 54 L 06/07/25 04:04 36.6 C 68 18 112/59 L 94 O2 Del Method O2 Flow Rate 06/07/25 09:19 Room Air 06/07/25 09:10 Room Air 06/07/25 08:06 Nasal Cannula 2 06/07/25 07:28 06/07/25 04:04 Nasal Cannula Laboratory Results Laboratory Results WBC 15.40 K/ul (4.8-10.8) H 06/07/25 06: RBC 3.92 M/uL (4.70-6.10) L 06/07/25 06:29 Hgb 12.1 g/dl (14.0-18.0) L 06/07/25 06: Hct 35.3 % (42.0-52.0) L 06/07/25 06: MCV 90.1 fL (80.0-100.0) 06/07/25 06: MCH 30.9 pg (25.0-34.0) 06/07/25 06: MCHC 34.3 g/dL (32.0-36.0) 06/07/25 06: RDW Std Deviation 48.9 fL (36.4-46.3) H 06/07/25 06: RDW Coeff of Nay 14.9 % (11.5-14.5) H 06/07/25 06: Plt Count 162 K/uL (130-400) 06/07/25 06: MPV 11.3 fL (9.4-12.4) 06/07/25 06: Immature Gran % (Auto) 0.5 % 06/07/25 06: Neut % (Auto) 82.0 % 06/07/25 06: Lymph % (Auto) 8.9 % 06/07/25 06: Miller % (Auto) 8.2 % 06/07/25 06: Eos % (Auto) 0.1 % 06/07/25 06: Baso % (Auto) 0.3 % 06/07/25 06: Neut # (Auto) 12.64 K/uL (1.40-6.50) H 06/07/25 06: Lymph # (Auto) 1.37 K/uL (1.20-3.40) 06/07/25 06: Miller # (Auto) 1.26 K/uL (0.11-0.59) H 06/07/25 06: Eos # (Auto) 0.01 K/uL (0.00-0.50) 06/07/25 06: Baso # (Auto) 0.04 K/uL (0.00-0.20) 06/07/25 06:29 Immature Gran # (Auto) 0.08 K/uL (0.01-0.20) 06/07/25 06:29 Sodium 138 mmol/L (136-145) 06/07/25 06:29 Potassium 5.4 mmol/L (3.5-5.1) H 06/07/25 06:29 Chloride 106 mmol/L (98-107) 06/07/25 06:29 Carbon Dioxide 19 mmol/L (21-32) L 06/07/25 06:29 Anion Gap 13 (3-11) H 06/07/25 06:29 BUN 49 mg/dl (6-23) H 06/07/25 06:29 Creatinine 2.40 mg/dl (0.6-1.4) H 06/07/25 06:29 Est Cr Clr Drug Dosing 19.8 ml/min 06/07/25 06:29 eGFR 25.16 06/07/25 06:29 BUN/Creatinine Ratio 20.4 (10-20) H 06/07/25 06:29 Glucose 131 mg/dl (70-99(Fasting)) H 06/07/25 06:29 Estimat Average Glucose 103 mg/dl 05/31/25 06:48 Hemoglobin A1c 5.2 % (4.5-5.6) 05/31/25 06:48 Calcium 9.2 mg/dl (8.6-10.3) 06/07/25 06:29 Magnesium 2.3 mg/dl (1.7-2.4) 06/07/25 06:29 Total Bilirubin 0.8 mg/dl (0.2-1.0) 05/30/25 17:35 AST 15 U/L (13-39) 05/30/25 17:35 ALT 10 U/L (7-52) 05/30/25 17:35 Alkaline Phosphatase 84 U/L (34-104) 05/30/25 17:35 Troponin I High Sens 58.7 pg/ml (0-20) H* D 06/06/25 06:09 Total Protein 6.8 gm/dl (6.0-8.3) 05/30/25 17:35 Albumin 3.6 gm/dl (3.4-5.0) 05/30/25 17:35 Globulin 3.2 gm/dl (2.5-4.0) 05/30/25 17:35 Albumin/Globulin Ratio 1.1 (0.9-2) 05/30/25 17:35 Triglycerides 50 mg/dl (0-150) 05/31/25 06:48 Cholesterol 152 mg/dl (0-200) 05/31/25 06:48 LDL Cholesterol, Calc 105 mg/dl 05/31/25 06:48 VLDL Cholesterol, Calc 10 mg/dl (0-30) 05/31/25 06:48 HDL Cholesterol 37 mg/dl 05/31/25 06:48 Cholesterol/HDL Ratio 4.1 (0-5) 05/31/25 06:48 Lipase 13 U/L (11-82) 05/30/25 17:35 Urine Color Yellow 05/30/25 18:25 Urine Appearance Turbid (Clear) A 05/30/25 18:25 Urine pH 6.0 (4.5-7.5) 05/30/25 18:25 Ur Specific [place] 1.019 (1.000-1.030) 05/30/25 18:25 Urine Protein 1+ (Negative) H 05/30/25 18:25 Urine Glucose (UA) Negative (Negative) 05/30/25 18:25 Urine Ketones Trace (Negative) H 05/30/25 18:25 Urine Blood 1+ (Negative) H 05/30/25 18:25 Urine Nitrite Positive (Negative) A 05/30/25 18:25 Urine Bilirubin Negative (Negative) 05/30/25 18:25 Urine Urobilinogen Negative (Negative) 05/30/25 18:25 Ur Leukocyte Esterase 3+ (Negative) H 05/30/25 18:25 Urine WBC (Auto) >50 /hpf (0-5) H 05/30/25 18:25 Urine RBC (Auto) 0-2 /hpf (0-2) 05/30/25 18:25 U Hyaline Cast (Auto) 0-2 /lpf (0-2) 05/30/25 18:25 U Epithel Cells (Auto) 0-2 /hpf (0-2) 05/30/25 18:25 Urine Bacteria (Auto) 4+ (None Seen) H 05/30/25 18:25 Urine Comment 05/30/25 18:25 Impressions Abdomen/Pelvis CT 05/30/25 18:08 EXAMINATION: CT of the abdomen and pelvis performed after the administration of IV contrast TECHNIQUE: Helical CT images from the lung bases through the symphysis pubis were obtained with contrast. Coronal and sagittal reformatted images were generated at a workstation for further assessment. Dose reduction techniques were achieved by using automatic exposure control and/or adjustment of mA and/or kV according to patient size and/or use of iterative reconstruction technique. COMPARISON: None HISTORY: Abdominal pain FINDINGS: Lower chest: There is a small bilateral pleural effusion with subjacent atelectasis. Mild interstitial pulmonary edema seen in the lung bases. The heart appears enlarged. Mechanical aortic valve partially seen. Liver: No suspicious liver lesions. Portal veins appear patent. Few small cysts. Gallbladder: No gallstones. No evidence of acute cholecystitis. Spleen: Normal size. Pancreas: No suspicious pancreatic lesions. The pancreatic duct is not dilated. Adrenal glands: No adrenal nodules. Kidneys: No hydronephrosis or obstructing renal stones. Bladder / Pelvic organs: The urinary bladder is mildly distended, and demonstrates wall thickening and edema with mild mucosal hyperenhancement. Borderline enlarged prostate gland measuring 4.6 cm transverse diameter. Bowel: No bowel obstruction. No abnormal bowel wall thickening. The appendix is unremarkable. Lymph nodes: No retroperitoneal, mesenteric, or pelvic lymphadenopathy. Peritoneum / Retroperitoneum: No free fluid or air within the abdomen. Vessels: No infrarenal aortic aneurysm. Moderate to heavy aortoiliac calcification. Bones and soft tissues: No suspicious lesion in the bones. Fixation changes of the right femur. IMPRESSION: Wall thickening, edema and mucosal hyperenhancement of the urinary bladder, suggestive of cystitis. Small pleural effusions. Electronically signed by Kristian Lewis 05-30-2025 7:[address] 05/30/25 18:08 Technique: Axial computed tomography images were obtained of the brain without intravenous contrast. Comparison is made to the prior CT dated 11/02/2023 Findings: There is new cortical and subcortical low attenuation involving the left occipital lobe, likely due to a subacute infarct There is unchanged cerebral atrophy, within expected limits for the patient's age. Areas of decreased attenuation are seen within the periventricular white matter, likely representing chronic small vessel ischemic disease. There is an unchanged old right cerebellar infarct. There is an old infarct of the right thalamus. No intracranial hemorrhage is evident. No definite mass lesion is seen on this noncontrast examination. There is no midline shift or other form of herniation. No hydrocephalus is seen. No fracture is identified. The orbits and the visualized paranasal sinuses appear unremarkable. The mastoid air cells appear clear. Impression: 1. New left occipital lobe abnormality, likely a subacute infarct. MRI with and without contrast and with diffusion-weighted images is recommended for further evaluation 2. Unchanged cerebral atrophy and chronic small vessel ischemic disease 3. Old cerebellar and thalamic infarcts ACT 112: Positive. There are findings on this exam that require communication between the performing entity and the patient following Patient Test Result Information Act ([place] ACT 112) guidelines. Electronically signed by Devon Osman 05-30-2025 7:10 PM Brain MRI 05/30/25 23:15 EXAM: MR brain wo/w con CLINICAL HISTORY: Subacute CVA noted on CT. TECHNIQUE: MRI of the brain was performed with and without contrast, with multiplanar sequences obtained. 6.5 ml gadavist was administered as IV contrast. COMPARISON: 11/02/2023 CT and 01/06/2017 MR. FINDINGS: Brain Parenchyma: A large area of diffusion restriction is seen in the territory of the left posterior cerebral artery, involving the left occipital region and extending to the left posterior temporal lobe and posterior hippocampus, predominantly in the medial location. It appears hyperintense on DWI and hypointense on ADC. It appears hyperintense on T2 and STIR and is isointense on T1. There is effacement of the sulci and gyri. An area of encephalomalacia is seen in the left cerebellar region, likely due to a prior vascular event. Chronic microvascular ischemic changes are seen. Ventricles and Sulci: Age-appropriate brain involutional changes are seen, as evidenced by prominent intra- and extra-axial CSF spaces. Posterior Fossa: An area of encephalomalacia is seen in the left cerebellar region, likely due to a prior vascular event. Cranial Nerves: Normal course and appearance of the cranial nerves are identified. Vessels: No evidence of vascular malformations or aneurysms. The intracranial arteries and veins appear normal, without evidence of stenosis or occlusion. Orbits and Skull Base: A 1.1 x 1.6 cm nonenhancing cystic area is seen in the scalp in the right parietal area. Previously, there were a few large calcified subcutaneous nodules in the scalp, which are likely interval removed. The cystic lesion on the right is at the location of one of the subcutaneous nodules. Hypertrophy of the bilateral nasal turbinates. Mild mucosal thickening is seen in both ethmoid sinuses. Post contrast images: No significant pathological contrast enhancement is seen. IMPRESSION: 1. Acute ischemic infarction in the territory of the left posterior cerebral artery. Interval new. 2. An area of encephalomalacia is seen in the left cerebellar region, likely due to a prior vascular event. Stable. 3. Age-appropriate brain involutional and chronic microvascular ischemic changes. Interval prominent progression. Electronically signed by Lei Fisher 05-31-2025 02:56 AM Chest X-Ray 06/05/25 23:13 Exam(s): XR CXR 1 VIEW EXAM: XR Chest, 1 View CLINICAL HISTORY: Reason for exam: new supplemental O2 req, chest pain. TECHNIQUE: Frontal view of the chest. COMPARISON: 08/24/2024 FINDINGS: Lungs: There is pulmonary vascular congestion. There is infiltrate and/or atelectasis noted at the right lung base.. Pleural space: There is a right pleural effusion. No pneumothorax. Heart: Patient is status post midline sternotomy. The heart is top normal in size.. Mediastinum: There is mild uncoiling of thoracic aorta.. IMPRESSION: Pulmonary vascular congestion with right pleural effusion and infiltrate and/or atelectasis at the right lung base may represent congestive heart failure/pulmonary edema. Underlying pneumonia cannot be excluded.. Electronically signed by: Craig Garza MD 06/05/25 23:43 PM PG Care Time/CCT Total # of Minutes Spent Total Time Spent with Patient: 80 minute visit provided to review progress notes, laboratory data, imaging reports and films, interview POA, examined patient, discuss goals of care and convey change in status of SENIOR WRITER to primary service, update medical record. Coding Level of Care Code 75655 IN/OBS CONSULT LVL 5,80M Diagnoses Acute kidney injury N17.9 Dehydration E86.0 Cystitis N30.90 CVA (cerebrovascular accident) I63.9 CVA mechanism: unspecified Acute urinary retention R33.8 Atrial fibrillation I48.91 Failure to thrive in adult R62.7 Hospice care patient Z51.5 (4) CVA (cerebrovascular accident) CVA mechanism: unspecified Qualified Code(s): I63.9 - Cerebral infarction, unspecified
--- NOTE | 2025-06-07 12:17 | Hospitalist Progress Note ---
Date of Service June 07, 2025 Assessment & Plan (1) CVA (cerebrovascular accident): (2) Acute UTI: (3) Paroxysmal A-fib: (4) Acute on chronic heart failure with preserved ejection fraction (HFpEF): Plan This patient is an 89yo male with history of CAD s/p CABG, HTN, PAF not on a nticoagulation due to history of GI bleed, GERD and BPH presenting from home hospice with acute confusion, found to have acute UTI as well as a subacute CVA and rapid atrial fibrillation. Patient was transitioned to hospice care at home several months prior to admission, but has revoked hospice to opt for treatment at this time. #Acute UTI/urinary retention/BPH- patient afebrile, HD stable and non-toxic in appearance. No leukocytosis. UA suggestive of acute UTI and CT of the abdomen with evidence of cystitis. Prior urine cultures within the last year with ESBL E. coli as well as Pseudomonas. Urine culture here with ESBL E. coli. With some dark brown urine in Zendejas catheter on 06/06 maybe old blood. - Received IV meropenem and then switched to IV ertapenem for once daily dosing on 06/06 to finish out 14-day course of antibiotics (as per urology) on 06/1264-[id number] peripheral IV placed 06/05 - Maintain Zendejas catheter for urinary retention and follow-up with urology for trial of void as an outpatient -Continue tamsulosin - Follow for hematuria-follow CBC in the a.m. #Subacute CVA -presented with confusion, right sided facial droop, and some right sided weakness. Patient with prior CVA in 2017 and was managed with Plavix and Rosuvastatin. MRI brain shows acute ischemic CVA in left [employer] D[employer] territory and old encephalomalacia in left cerebellum. CT angiogram head and neck was not performed and at this point would be moot even if he had large vessel occlusion as his stroke likely occurred 1 to 2 weeks prior to admission. He has PAFib/flutter and has been in both during this admission. Suspect stroke 2/2 atrial fibrillation without being on anticoagulation due to previous GI bleed in 08/2024. Patient had stopped Xarelto after the GI bleed and had stopped amiodarone while on hospice more recently likely causing him to have more paroxysms of atrial fibrillation. Discussed risks and benefits of bleeding and stroke with both the patient and his granddaughter on the phone. Ultimately, decision made to resume anticoagulation and amiodarone. Granddaughter feels more comfortable with reducing risk of falls by him going to a [facility] and long-term care. Echo with negative bubble study and mild leaking of prosthetic aortic valve, no thrombus. Lipid panel excellent and due to advanced age, would not give high intensity statin. HgbA1c normal. -Continue home Plavix -started Xarelto 20 mg daily -Monitor for GI bleeding and anemia now that on Xarelto-none thus far-recommend following CBC in 1 week after discharge -Started rosuvastatin 5 mg daily -PT/OT recommends rehab #SUMA/Hyperkalemia/AG Metabolic acidosis- #Acute on chronic HFpEF/acute respiratory failure with hypoxemia-developed chest pressure, shortness of breath, and hypoxemia requiring 4L NC O2 on the evening of 06/05. Had some subtle T wave inversions in the lateral leads on EKG which resolved after nitroglycerin. Troponin was trended serially and stayed flat at 67/69/58. Echo done this admission shows LVEF 55-60%, no wall motion abnormalities. CXR in 06/06 with definite right sided pleural effusion and some atelectasis. - Give Lasix 20 mg IV twice daily - Follow BMP, magnesium in a.m. and keep electrolytes replete - Wean off supplemental O2 as able - Follow CXR to resolution #Acute metabolic encephalopathy-encephalopathy secondary to stroke and also hospital delirium, UTI. Waxing waning but overall improved - Supportive care - Treating hypoxemia and heart failure, UTI #Paroxysmal AF -patient has been in and out of atrial fibrillation or atrial flutter throughout this admission with rates as high as the 130s at times. Rates are now improved with starting metoprolol. He was resumed on amiodarone for antiarrhythmic and converted to sinus rhythm on 06/05 in which he remains - Resumed Xarelto 20 mg daily as per discussion with patient and family above - Continue amiodarone to 200 mg p.o. twice daily x 4 weeks and then decrease to 200 mg daily after that on 06/30 he was off amiodarone for several weeks prior to admission - Continue metoprolol 50 mg p.o. twice daily - Continue telemetry monitoring #GERD/history of GI bleed-patient complains of frequent heartburn and has a history of suspected upper GI bleed in 08/2024. He never had an endoscopy at that time due to opting for conservative measures. Resuming Xarelto now for atrial fibrillation in the setting of stroke - Started Protonix 40 mg p.o. once daily - Monitor CBC in 1 week at rehab and then once per month as an outpatient after starting Xarelto #CAD s/p CABG/aortic valve replacement/myocardial demand ischemia- Patient with some chest discomfort noted which is likely due to GERD. EKG with no ischemic changes present. Troponin mildly elevated and peaked at 66. Elevated troponin likely due to rapid atrial fibrillation and/or stroke. Echocardiogram with preserved EF and no wall motion abnormalities -Continue Plavix, resumed rosuvastatin at 5 mg daily -Started Xarelto DVT prophylaxis-Xarelto Disposition-not medically stable for discharge as originally planned today, hopeful for discharge to [facility] on 06/07 if continues to improve. Discussed care with granddaughter at the bedside on 06/06 Admission and Anticipated Discharge Date Admission Date: May 30, 2025 Physical Exam Constitutional: WD/WN, vitals as above Respiratory: normal respiratory effort, lungs clear to auscultation Cardiovascular: RRR, no murmur, no edema Gastrointestinal (Abdomen): normal bowel sounds, soft, nontender, no hepatosplenomegaly Psychiatric: Orientation: alert, oriented to person and cooperative Results & Data Results & Data Vital Signs (Past 12 Hours) Vital Signs Temp Pulse Pulse Resp BP BP Pulse Ox 06/07/25 09:19 06/07/25 09:10 63 129/63 97 06/07/25 08:06 36.1 C L 55 L 18 102/45 L 95 06/07/25 07:28 54 L 06/07/25 04:04 36.6 C 68 18 112/59 L 94 O2 Del Method O2 Flow Rate 06/07/25 09:19 Room Air 06/07/25 09:10 Room Air 06/07/25 08:06 Nasal Cannula 2 06/07/25 07:28 06/07/25 04:04 Nasal Cannula PG Care Time/CCT Total # of Minutes Spent Total Time Spent with Patient: Total time spent is greater than 50% in coordination of care (as documented) at patient's floor/unit and/or counseling patient: Coding Diagnoses CVA (cerebrovascular accident) I63.9 CVA mechanism: unspecified Acute UTI N39.0 Paroxysmal A-fib I48.0 Acute on chronic heart failure with preserved ejection fraction (HFpEF) I50.33 (1) CVA (cerebrovascular accident) CVA mechanism: unspecified Qualified Code(s): I63.9 - Cerebral infarction, unspecified
[2025-06-07 15:28] VITALS: BP 106/57; PULSE 53; TEMP 97.9
[2025-06-07] MEDS: ERTAPENEM 500MG 500 MG/5 ML SYR IV SCH (17:10)
--- NOTE | 2025-06-07 19:20 | Death Pronouncement Note ---
Date of Service June 07, 2025 Pronouncement Note Admission Date May 30, 2025 Date and Time of Date of : 06/07/25 Time of : 19:14 Preliminary Cause of (1) CVA (cerebrovascular accident): CVA mechanism: unspecified Qualified Code(s): I63.9 - Cerebral in farction, unspecified (2) Paroxysmal A-fib: Summary see discharge summary Additional Data Confirmation of : no pulse, no respirations, no heart sounds and pupils fixed and dilated Pronouncement Performed By: Attending Physician and Advanced Practice Provider (LULI) Family: contacted Attending/PCP notified?: Yes Attending physician: Cortney Wood MD Was code activated?: No Autopsy requested?: No Coding Level of Care Code None Diagnoses CVA (cerebrovascular accident) I63.9 CVA mechanism: unspecified Paroxysmal A-fib I48.0
--- NOTE | 2025-06-07 19:20 | Discharge Summary ---
Discharge Summary Date of Service June 07, 2025 Principal Dx & Hospital Course #1 = Principal Diagnosis (1) CVA (cerebrovascular accident): (2) Acute UTI: (3) Paroxysmal A-fib: (4) Acute on chronic heart failure with preserved ejection fraction (HFpEF): Plan This patient is an 89yo male with history of CAD s/p CABG, HTN, PAF not on anticoagulation due to history of GI bleed, GERD and BPH presenting from home hospice with acute confusion, found to have acute UTI as well as a subacute CVA and rapid atrial fibrillation. Patient was transitioned to hospice care at home several months prior to admission, but has revoked hospice to opt for treatment at this time. #Acute UTI/urinary retention/BPH- patient afebrile, HD stable and non-toxic in appearance. No leukocytosis. UA suggestive of acute UTI and CT of the abdomen with evidence of cystitis. Prior urine cultures within the last year with ESBL E. coli as well as Pseudomonas. Urine culture here with ESBL E. coli. With some dark brown urine in Zendejas catheter on 06/06 maybe old blood. - Received IV meropenem and then switched to IV ertapenem for once daily dosing on 06/06 to finish out 14-day course of antibiotics (as per urology) on 06/1204-[id number] peripheral IV placed 06/05 - Maintain Zendejas catheter for urinary retention and follow-up with urology for trial of void as an outpatient -Continue tamsulosin - Follow for hematuria-follow CBC in the a.m. #Subacute CVA -presented with confusion, right sided facial droop, and some right sided weakness. Patient with prior CVA in 2017 and was managed with Plavix and Rosuvastatin. 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 CT angiogram head and neck was not performed and at this point would be moot even if he had large vessel occlusion as his stroke likely occurred 1 to 2 weeks prior to admission. He has PAFib/flutter and has been in both during this admission. Suspect stroke 2/2 atrial fibrillation without being on anticoagulation due to previous GI bleed in 08/2024. Patient had stopped Xarelto after the GI bleed and had stopped amiodarone while on hospice more recently likely causing him to have more paroxysms of atrial fibrillation. Discussed risks and benefits of bleeding and stroke with both the patient and his granddaughter on the phone. Ultimately, decision made to resume anticoagulation and amiodarone. Granddaughter feels more comfortable with reducing risk of falls by him going to a snf and long-term care. Echo with negative bubble study and mild leaking of prosthetic aortic valve, no thrombus. Lipid panel excellent and due to advanced age, would not give high intensity statin. HgbA1c normal. -Continue home Plavix -started Xarelto 20 mg daily -Monitor for GI bleeding and anemia now that on Xarelto-none thus far-recommend following CBC in 1 week after discharge -Started rosuvastatin 5 mg daily -PT/OT recommends rehab #SUMA/Hyperkalemia/AG Metabolic acidosis- #Acute on chronic HFpEF/acute respiratory failure with hypoxemia-developed chest pressure, shortness of breath, and hypoxemia requiring 4L NC O2 on the evening of 06/05. Had some subtle T wave inversions in the lateral leads on EKG which resolved after nitroglycerin. Troponin was trended serially and stayed flat at 67/69/58. Echo done this admission shows LVEF 55-60%, no wall motion abnormalities. CXR in 06/06 with definite right sided pleural effusion and some atelectasis. - Give Lasix 20 mg IV twice daily - Follow BMP, magnesium in a.m. and keep electrolytes replete - Wean off supplemental O2 as able - Follow CXR to resolution #Acute metabolic encephalopathy-encephalopathy secondary to stroke and also hospital delirium, UTI. Waxing waning but overall improved - Supportive care - Treating hypoxemia and heart failure, UTI #Paroxysmal AF -patient has been in and out of atrial fibrillation or atrial flutter throughout this admission with rates as high as the 130s at times. Rates are now improved with starting metoprolol. He was resumed on amiodarone for antiarrhythmic and converted to sinus rhythm on 06/05 in which he remains - Resumed Xarelto 20 mg daily as per discussion with patient and family above - Continue amiodarone to 200 mg p.o. twice daily x 4 weeks and then decrease to 200 mg daily after that on 06/30 he was off amiodarone for several weeks prior to admission - Continue metoprolol 50 mg p.o. twice daily - Continue telemetry monitoring #GERD/history of GI bleed-patient complains of frequent heartburn and has a history of suspected upper GI bleed in 08/2024. He never had an endoscopy at that time due to opting for conservative measures. Resuming Xarelto now for atrial fibrillation in the setting of stroke - Started Protonix 40 mg p.o. once daily - Monitor CBC in 1 week at rehab and then once per month as an outpatient after starting Xarelto #CAD s/p CABG/aortic valve replacement/myocardial demand ischemia- Patient with some chest discomfort noted which is likely due to GERD. EKG with no ischemic changes present. Troponin mildly elevated and peaked at 66. Elevated troponin likely due to rapid atrial fibrillation and/or stroke. Echocardiogram with preserved EF and no wall motion abnormalities -Continue Plavix, resumed rosuvastatin at 5 mg daily -Started Xarelto DVT prophylaxis-Xarelto Disposition-not medically stable for discharge as originally planned today, hopeful for discharge to [facility] on 06/07 if continues to improve. Discussed care with granddaughter at the bedside on 06/06 Admission HPI Per Admitting Provider John Figueroa is an 89yo male with history of CAD s/p CABG, s/p bioprosthetic aortic valve, paroxysmal atrial fibrillation, HTN and GERD presenting from home with confusion and not feeling himself. He also reports some upper chest discomfort that has been ongoing since yesterday as well as mild shortness of breath. Patient denies fever, chills, cough, SOB, nausea, vomiting or diarrhea. He has some mild abdominal discomfort States that his left hand feels numb sometimes otherwise denies focal deficits, no changes in vision Patient lives at home alone and uses a cane and walker to ambulate. He has neighbors and family members that check on him regularly. Discharge Plan Discharge Items Reason For Visit: CONFUSION Condition on Discharge: Fair Follow-up/Referrals: Anju Gonzalez MD [Primary Care Provider] - Stand-Alone Forms: Medications to Prevent Stroke Medications and DC Order Prescriptions: No Action tamsulosin 0.4 mg capsule 0.4 mg PO HS Qty: 90 3RF acetaminophen 325 mg Tablet 650 mg PO TID PRN (Reason: Pain) furosemide 20 mg tablet 20 mg PO UD Rx Instructions: q mon-wed-wed Admission Data Admit Date/Time: 05/30/25 20:31 Attending Provider: Cortney Wood Admit Provider: Shelbi Aviles Primary Care Provider: Anju Gonzalez Other Providers: Shelbi Aviles; [place],[facility]; Naren Brown [facility] [place]; Duarte Pappas; Duarte Parra. Hospital Stay Data Consultations 05/30/25 19:53 ED Decision to Admit Stat 06/01/25 16:11 Consult Urology Routine 06/07/25 10:47 Consult Nephrology Routine Diagnostic Imagining Performed 05/30/25 18:08 CT abd pelvis IV con only Stat CT head/brain wo con Stat 05/30/25 23:15 MR brain wo/w con Routine Coding Diagnoses CVA (cerebrovascular accident) I63.9 CVA mechanism: unspecified Acute UTI N39.0 Paroxysmal A-fib I48.0 Acute on chronic heart failure with preserved ejection fraction (HFpEF) I50.33
== END 2025-06-07 20:00 | disposition expired | DRG 64 ==
LOC: ED 17:26 → SUATTDRO 20:31 → EDINP 20:31 → 2W 23:16